=== PATIENT | female | born 1975 | race Caucasian/White ===

== ENCOUNTER → 2017-11-25 14:52 | Outpatient (CLI) | payer BC, SELFPAY ==
--- NOTE | 2017-11-25 14:55 | VDLE_ITS ---
Reason For Study: LEG PAIN RIGHT LEFT CFV is compressible, spontaneous, phasic, GSV is normal. competent and demonstrates normal CFV is compressible, spontaneous, phasic, augmentation. competent, and demonstrates normal Procedure augmentation. Exam performed in department. FV is compressible, spontaneous, phasic, A preliminary report was called and/or faxed competent and demonstrates normal to Dr. Layne. augmentation. POP V is compressible, spontaneous, phasic, competent and demonstrates normal augmentation. T/P Trunk is compressible. PTV is compressible. LT PerV is compressible. Interpretation Summary There is no evidence of left lower extremity deep vein thrombosis. Left greater saphenous vein appears patent and compressible segmentally. Normal flow patterns right common femoral vein. Ordering Physician: Gray Layne Performed By: Tonya Chiang RVT
== END ==
PROVIDERS: Family Provider Family Medicine; PCP Family Medicine; Visit Provider Family Medicine
DX: R60.0 Localized edema (principal); M79.605 Pain in left leg
CPT/HCPCS: 93971

== ENCOUNTER → 2018-06-28 16:59 | Outpatient (CLI) | payer BC, SELFPAY ==
[2017-04-27 18:25] VITALS: BMI 44.9
[2018-07-02 10:21] LABS: HPV Reflexed? NOT INDICATED
--- OUTSIDE RECORDS SUMMARY | 2018-08-24 03:09 | XMS RPT_ITS ---
:1975 Author Organization OHIP Care Team Providers Name Role Phone Bryon Trinh Attending Unavailable Gray Rendon Primary Care Unavailable Bryon Trinh Attending Unavailable Justice, Gray Primary Care Unavailable Justice, Gray Attending Unavailable Justice, Gray Primary Care Unavailable Artur Edwards Attending Unavailable Justice, Gray Referring Unavailable Bryon Trinh Attending Unavailable JENSEN, MICHELLE Attending Unavailable JUSTICE, GRAY A Referring Unavailable JENSEN, MICHELLE Attending Unavailable JENSEN, MICHELLE Referring Unavailable MOUL, FLORENCIO E Attending Unavailable MOUL, FLORENCIO E Referring Unavailable MOUL, FLORENCIO E Attending Unavailable MOUL, FLORENCIO E Referring Unavailable JUSTICE, GRAY A Referring Unavailable JUSTICE, GRAY A Attending Unavailable JUSTICE, GRAY A Referring Unavailable JUSTICE, GRAY A Attending Unavailable JUSTICE, GRAY A Referring Unavailable JUSTICE, GRAY A Referring Unavailable CARLOS LINDSAY (PA) Referring Unavailable LETI OLVERA (PA) Attending Unavailable LETI OLVERA (PA) Referring Unavailable JUSTICE, GRAY A Referring Unavailable LETI OLVERA (PA) Attending Unavailable JUSTICE, GRAY A Referring Unavailable JUSTICE, GRAY A Attending Unavailable JUSTICE, GRAY A Referring Unavailable JENSEN, MICHELLE Referring Unavailable ANIKET ECHEVARRIA (PA) Attending Unavailable LETI OLVERA (PA) Attending Unavailable MARINA REICH (RETAIL BUSINESS ANALYST) Attending Unavailable MOUL, FLORENCIO E Attending Unavailable MOUL, FLORENCIO E Referring Unavailable JUSTICE, GRAY A Attending Unavailable JUSTICE, GRAY A Referring Unavailable Justice, Gray A Primary Care Unavailable JENSEN, MICHELLE Attending Unavailable JENSEN, MICHELLE Referring Unavailable Justice, Gray A Referring Unavailable Justice, Gray A Primary Care Unavailable JENSEN, MICHELLE Attending Unavailable PROBLEMS PROBLEMS DATE TYPE CONDITION / CODE ATTENDING STATUS SOURCE 06/28/2018 Unknown Z12.4 - Encounter Bryon Trinh for screening for Community malignant neoplasm [facility] / Repository Z12.4(ICD-10) 04/27/2018 Active Chronic sinusitis, ANIKET ECHEVARRIA Active [facility] unspecified / ([place] J32.9(ICD-10) [place] Repository 04/27/2018 Active Bronchitis, not ANIKET ECHEVARRIA Active [facility] specified as acute ([place] Main or chronic / [place] J40(ICD-10) Repository 03/09/2018 Active Fibromyalgia / Masoud JENSEN M79.7(ICD-10) [facility] Clinic Other [place] Repository 03/09/2018 Admitting Unknown / JENSEN, Active [facility] diagnosis UNK(Unknown) [facility] Repository 02/17/2018 Active Unknown / NA Active [facility] UNK(Unknown) [facility] Main [place] Repository 11/28/2017 Active Other specified JENSEN, Active [facility] abnormal [facility] Other immunological [place] findings in serum / Repository R76.8(ICD-10) 02/16/2018 Active Pain in unspecified JENSEN, Active [facility] joint / [facility] Other M25.50(ICD-10) [place] Repository 02/16/2018 Active Other malaise / JENSEN, Active [facility] R53.81(ICD-10) [facility] Other [place] Repository 02/16/2018 Active Other fatigue / JENSEN, Active [facility] R53.83(ICD-10) [facility] Other [place] Repository 02/10/2018 Active Pain in left leg / NA Active [facility] M79.605(ICD-10) Clinic Main [place] Repository 11/30/2017 Active Localized edema / NA Active [facility] R60.0(ICD-10) Clinic Main [place] Repository 11/30/2017 Active Other forms of NA Active [facility] dyspnea / Clinic Main R06.09(ICD-10) [place] Repository 11/28/2017 Active Nausea with NA Active [facility] vomiting, [facility] unspecified / [place] R11.2(ICD-10) Repository 11/28/2017 Active Diarrhea, NA Active [facility] unspecified / Clinic Main R19.7(ICD-10) [place] Repository 12/19/2017 Unknown M79.662 - Pain in Artur Edwards Active [facility] left lower leg / Community M79.662(ICD-10) Hospital Repository 05/18/2017 Active Hyperlipidemia, NA Active [facility] unspecified / Clinic Main E78.5(ICD-10) [place] Repository 08/04/2016 Active Hypothyroidism, NA Active [facility] unspecified / Clinic Main E03.9(ICD-10) [place] Repository 03/01/2016 Active Vitamin D NA Active [facility] deficiency, Clinic Main unspecified / [place] E55.9(ICD-10) Repository 07/27/2017 Unknown Z12.31 - Encounter Bryon Trinh Active [facility] for screening Community mammogram for [facility] malignant neoplasm Repository of breast / Z12.31(ICD-10) PROCEDURES PROCEDURES No Procedure Records FoundRESULTS RESULTS PAP IG W/REFLEX HR Collected: 06/28/2018 Status: F Source: [facility] HPV APTIMA 2:30 PM [facility] REPOSITORY Order Comment: CYTOLOGY INFORMATION: - CLINICAL INFORMATION: - DATE LMP/MENOPAUSE: ABLATION LMP - COLLECTION VIAL: Thin Prep Vial - LATIN PROFESSOR SOURCE: CERVICAL/ENDOCERVICAL - COLLECTION TECHNIQUE: BRUSH/SPATULA Specimen Comment: [id number] Specimen Comment: Source.............Cervix;Endocervix Specimen Comment: Dates / Results....ABLATION Specimen Comment: No. of containers..01 ThinPrep Vial TYPE CODE TESTS RESULT OUT OF RANGE REFERENCE UNITS LAB L7400.0800 . Normal DIAGN Comment Result Comment: NEGATIVE FOR INTRAEPITHELIAL LESION AND MALIGNANCY. LAB L7400.0900 . Normal ADEQ Comment Result Comment: Satisfactory for evaluation. Endocervical and/or squamous metaplastic cells (endocervical component) are present. LAB L7400.1400 . Normal PERFORM Comment Result Comment: Kasey Elizabeth, Credit Support Specialist (ASCP) LAB L7400.2575 . Normal TEST METHOD Comment Result Comment: This liquid based ThinPrep(R) pap test was screened with the use of an image guided system. LAB L7400.2600 . Normal . COMM LAB L7400.2700 . Normal PAPSMR Comment Result Comment: The Pap smear is a screening test designed to aid in the detection of premalignant and malignant conditions of the uterine cervix. It is not a diagnostic procedure and should not be used as the sole means of detecting cervical cancer. Both false-positive and false-negative reports do occur. LAB L7400.2800 . Normal HPV RFLX Comment Result Comment: The HPV DNA reflex criteria were not met with this specimen result therefore, no HPV testing was performed. Performed at: - [facility] [id number] Sonography Technician: Elsie Newman MD, Phone: [phone] Performed By: #### L7400.0357 #### [facility] (refer to report for specific site) refer to report for address and phone number PROGRESS Observed: 05/24/2018 Status: COMPLETED Source: [facility] 6:31 PM [facility] REPOSITORY HNO ID: [id number] Author: Gray Rendon Service: (none) Author Type: Physician Type: Progress Notes Filed: 05/24/2018 11:21 PM Note Text: Chief Complaint Patient presents with: Imm/Inj: Flu Vaccine HPI Amelia Plata is a 42 year old female who presents here today for WAE and routine. Patient with Hx of hypothyroidism, hyperlipidemia, migraines, fibro, depression, anxiety, DYLON as well as those reviewed and addressed below. Had been doing ok up until the beginning of this week when she developed a migraine that has not resolved completely yet. Was sick a few weeks ago. Nose is still congested. Still producing colored nasal drainage. Maxillary sinuses have been tender. Ears have been popping. No fevers or chills. No dental pain. Has post nasal drainage but no sore throat. Past medical history, appointments, medications, allergies reviewed. Previous Medical History PAST MEDICAL HISTORY Diagnosis Date - Allergic rhinitis due to allergen 10/20/2012 Immunotherapy weekly, Dr. Leonard. - ANXIETY STATE NOS 12/29/2006 - CLASS MIGRAIN W/O MENTN INTRACTABLE 06/09/2007 - DEPRESSIVE DISORDER NEC 12/29/2006 - DJD (degenerative joint disease) of knee 03/30/2008 - Fibromyalgia 03/09/2018 - Hidradenitis suppurativa 03/21/2014 - HYPERLIPIDEMIA NEC/NOS 12/29/2006 - HYPOGLYCEMIA NOS 12/29/2006 - Hypothyroidism 11/16/2011 Abnormal TSH - Obesity 12/29/2006 - DYLON on CPAP 04/28/2009 DME [facility] - Other specified disease of hair and hair follicles - Plantar fascial fibromatosis - Ptosis 07/11/2009 - Vitamin D deficiency 09/09/2010 Previous Surgical History PAST SURGICAL HISTORY Procedure Laterality Date - 2D ECHO (EXEP) 11/30/2017 EF=64%, no valve issues - EGD W/O OR W/BRUSH/WASH 08/26/2016 EGD - ENDOMETRIAL ABLATION WITH US GUIDANCE November 2011 - PAST SURGICAL HISTORY OF 05/2003 right plantar fasciotomy - PAST SURGICAL HISTORY OF wisdom tooth extraction - S ESSURE DEVICE [id number] November 2011 Family History FAMILY HISTORY Problem Relation Age of Onset - Osteoporosis Paternal Grandmother - Hypertension Paternal Grandmother - Alcohol/Drug Mother - other (Fibromyalgia) Mother - Arthritis Father - Hypertension Father - Coronary Artery Disease Maternal Grandfather - Diabetes Maternal Grandmother - Cancer Maternal Grandmother skin - other (Fibromyalgia) Maternal Grandmother - No Known Problems Sister - No Known Problems Brother Patient Allergies ALLERGIES Allergen Reactions - Nabumegiuliae Hives hives - Allergies-Environme* Other: See Comments Sneezing, rhinorrhea - Imitrex [Sumatripta* Other: See Comments Neck pain - Maxalt [Rizatriptan* Other: See Comments Neck pain and nausea - Prednisone Other: See Comments Abdominal pain and diarrhea Current Medications Current Outpatient Prescriptions on File Prior to Visit: gabapentin (NEURONTIN) 300 mg capsule Take 1 capsule by mouth four times daily for 90 days. Take in preparation for evening RLS symptoms. rOPINIRole (REQUIP) 2 mg tablet Take 2 tablets by mouth daily at bedtime. Try to take less as instructed, to taper down to lower doses over long periods of time. fluticasone (FLONASE) 50 mcg/actuation nasal spray Use 2 Sprays in each nostril once daily. Rinse mouth after use. Omeprazole 40 mg capsule TAKE 1 CAPSULE BY MOUTH ONCE DAILY. ranitidine (ZANTAC) 150 mg tablet TAKE 1 TABLET BY MOUTH TWICE A DAY propranolol (INDERAL) 10 mg tablet TAKE 1 TABLET BY MOUTH ONCE DAILY. hydroCHLOROthiazide (HYDRODIURIL, ESIDRIX) 25 mg tablet Take 1 tablet by mouth once daily. citalopram (CELEXA) 40 mg tablet Take 1 tablet by mouth once daily. ondansetron orally disintegrating (ZOFRAN ODT) 4 mg disintegrating tablet Take 1 tablet by mouth every 8 hours as needed. levothyroxine (SYNTHROID) 25 mcg tablet Take 1 tablet by mouth daily before breakfast. CPAP 1 Device by MISCELLANEOUS route daily at bedtime. 6-16 cm H2O, new mask suitable per pt preference. New supplies, humidity, filters, tubing, head gear, chin strap. Lifetime supplies G47.33 obstructive sleep apnea. Please fax day download to [phone]. topiramate (TOPAMAX) 100 mg tablet Take 1 tablet by mouth twice daily. busPIRone (BUSPAR) 15 mg tablet One Tablet twice daily CPAP AutoPAP 6-16 cmH2O, suitable mask, humidity, filters. Lifetime supplies. Dx: G47.33 ergotamine-caffeine (CAFERGOT) 1-100 mg per tablet Two tablets at onset of attack; then 1 tablet every 30 minutes as needed; maximum: 6 tablets per 24 hrs do not exceed 10 tablets/week cetirizine (ZYRTEC) 10 mg tablet Take 1 tablet by mouth four times daily. As instructed by dispensing operator Dr. Ross ketorolac (TORADOL) 10 mg tablet Take 1 tablet by mouth every 6 hours as needed. To abort migraine. diphenhydrAMINE (BENADRYL) 25 mg capsule Take 2 capsules by mouth three times daily as needed. To abort migraine EPINEPHrine (EPIPEN) 0.3 mg/0.3 mL (1:1,000) atIn Cholecalciferol, Vitamin D3, 5,000 unit ORAL Cap Take 5,000 Units by mouth once daily. benzonatate (TESSALON PERLE) 100 mg capsule Take 2 capsules by mouth three times daily as needed. No current facility-administered medications on file prior to visit. 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 past cigarette use- on and off for a few years Alcohol use: No Comment: rarely Drug use: No Sexual activity: Yes Partners with: Male Review of Symptoms REVIEW OF SYSTEMS GENERAL: No weight loss, malaise or fevers HEENT: SEE HPI NECK: Negative for lumps, goiter, pain and significant neck swelling RESPIRATORY: Negative for hemoptysis, wheezing, COPD, dyspnea or shortness of breath. Has a cough at times occasionally productive of colored sputum. CARDIOVASCULAR: Negative for chest pain, leg swelling, hypertension, CHF or palpitations GI: No vomiting, or diarrhea and No heartburn or reflux symptoms. occasional nausea : No history of dysuria, frequency or blood. MUSCULOSKELETAL: Negative for new or changes in typical joint pain, back pain or muscle pain SKIN: Negative for lesions, rash, and itching PSYCH: Negative for sleep disturbance, mood disorder and recent psychosocial stressors. Feels she is doing well with current meds. Wearing CPAP and feels she is benefiting from use. HEMATOLOGY/LYMPHOLOGY: Negative for prolonged bleeding, bruising easily or swollen nodes ENDOCRINE: Negative for cold or heat intolerance, polyuria, polydipsia and goiter NEURO: No history of headaches, syncope, paralysis, seizures or tremors EXAM: BP 144/90 Pulse 78 Resp 16 Ht 170.2 cm (5' 7) Wt 130.6 kg (288 lb) BMI 45.11 kg/m? Last 5 Encounter BP Readings: Date: BP: 05/24/2018 144/90 05/03/2018 126/79 05/01/2018 122/80 04/28/2018 123/82 04/27/2018 126/84 General Appearance: Well appearing, alert, in no acute distress, well-hydrated, well nourished. and Morbidly obese. Skin: Skin color, texture, turgor normal, no suspicious rashes or lesions. Head: Normocephalic, no masses, lesions, tenderness or abnormalities. Eyes: Anicteric sclera. Pupils are equally round and reactive to light. Extraocular movements are intact. . Ears: External ears normal, canals clear. Nose/Sinuses: Nares normal, septum midline, mucosa normal, no drainage, Has maxillary sinus tenderness. Oropharynx: Lips, mucosa, and tongue normal, teeth and gums normal, oropharynx normal. Neck: Supple, no adenopathy; thyroid symmetric, normal size, no bruits. Lungs: Lungs clear to auscultation. No wheezing, rhonchi, rales. Heart: RRR without murmur, gallop, or rubs. No ectopy. Abdomen: Normal abdominal exam, Abdomen soft, non-tender. Bowel sounds normal. No masses, organomegaly. Extremities: No deformities, edema, skin discoloration . Musculoskeletal: Muscular strength intact, No joint swelling, deformity, or tenderness. Peripheral Pulses: Normal. Neurologic: Gait normal. Sensation to light touch and crainal nerves 2-12 intact.. Health Maintenance List ONE PNEUMOVAX PRIOR TO AGE 65 due on 11/20/1995 PAP EVERY 5 YEARS due on 11/29/2017 HPV EVERY 5 YEARS due on 11/29/2017 INFLUENZA(1) due on 04/01/2018 MAMMOGRAM due on 08/02/2018 ANNUAL PCP TEAM CHRONIC DISEASE VISIT due on 05/01/2019 DTAP,TDAP,TD(3 - Td) due on 04/27/2027 Data reviewed A/P ASSESSMENT/PLAN: 1. Well adult exam - ICD9: V70.0, ICD10: Z00.00 (primary diagnosis) - Encouraged monthly Breast Self Exam - Follow up for annual exam in one year. 2. Acute non-recurrent maxillary sinusitis - ICD9: 461.0, ICD10: J01.00 - Will begin treatment with Bactrim DS BID 10 days 3. Dyslipidemia - ICD9: 272.4, ICD10: E78.5 - to be determined upon return of lab results - Encouraged following a low fat, low cholesterol diet. - Discussed the benefits of regular aerobic exercise and weight loss. - Encouraged following a low carbohydrate, healthy oil intake diet. - Continue current therapy. 4. Migraine with aura and without status migrainosus, not intractable - ICD9: 346.00, ICD10: G43.109 - Suspect her current continued migraine is related to her sinus infection which will be treated as above. - Cont propranolol and TOPIRAMATE 100 MG TABLET 5. Acquired hypothyroidism - ICD9: 244.9, ICD10: E03.9 - Instructed patient on importance of taking on an empty stomach either first thing in the morning or at bedtime. - continue current dose of Synthroid 0.025 mg 6. Depressive disorder - ICD9: 311, ICD10: F32.9 - Clinically stable with current Tx. 7. Anxiety state - ICD9: 300.00, ICD10: F41.1 - As per #6 8. Obesity, Class III, BMI 40-49.9 (morbid obesity) (HCC) - ICD9: 278.01, ICD10: E66.01 - Patient to work on diet and exercise 9. Vitamin D deficiency - ICD9: 268.9, ICD10: E55.9 - Controlled with replacement 10. Fibromyalgia - ICD9: 729.1, ICD10: M79.7 - clinically stable 11. Tobacco use disorder - ICD9: 305.1, ICD10: F17.200 - Cessation encouraged. - Counseling was given focusing on the harmful effects of this addiction especially given the patient's medical condition(s) which will be worsened because of the chemicals in tobacco. 12. Elevated blood pressure reading without diagnosis of hypertension - ICD9: 796.2, ICD10: R03.0 - Feel this elevation is secondary to her Migraine, Will have return in 2-3 weeks for NV BP check 13. DYLON on CPAP - ICD9: 327.23, V46.8, ICD10: G47.33, Z99.89 - Cont CPAP and f/u with sleep med. 14. Need for vaccination - ICD9: V05.9, ICD10: Z23 - INFLUENZA VACCINE QUADRIVALENT AGE 3 YRS PLUS + IM given Signed Prescriptions Disp Refills topiramate (TOPAMAX) 100 mg tablet 180 tablet 1 Sig: Take 1 tablet by mouth twice daily. BOB: No propranolol (INDERAL) 10 mg tablet 90 tablet 1 Sig: Take 1 tablet by mouth once daily. BOB: No ondansetron orally disintegrating (ZOFRAN ODT) 4 mg disintegrating tablet 12 tablet 3 Sig: Take 1 tablet by mouth every 8 hours as needed. BOB: No levothyroxine (SYNTHROID) 25 mcg tablet 30 tablet 5 Sig: Take 1 tablet by mouth daily before breakfast. BOB: No busPIRone (BUSPAR) 15 mg tablet 180 tablet 1 Sig: One Tablet twice daily BOB: No citalopram (CELEXA) 40 mg tablet 90 tablet 1 Sig: Take 1 tablet by mouth once daily. BOB: No ketorolac (TORADOL) 10 mg tablet 20 tablet 0 Sig: Take 1 tablet by mouth every 6 hours as needed. To abort migraine. BOB: No sulfamethoxazole-trimethoprim (BACTRIM DS) 800-160 mg per tablet 20 tablet 0 Sig: Take 1 tablet by mouth twice daily for 10 days. F/u 6 months routine sooner if issues. Gray Rendon MD CNOV Observed: 05/24/2018 Status: COMPLETED Source: [facility] 6:20 PM [facility] REPOSITORY Office Visit (FAMPWS) AMELIA PLATA ([id number]) 1975 F Date Time Provider Department 05/24/18 6:20 PM GRAY RENDONWS During your visit today, we recorded the following information about you: Pulse Respiration Blood pressure Weight 78/minute 16/minute 144/90 130.6 kg Height 1.702 m Radha Villagomez Ma 05/24/2018 11:21 PM Signed 42 year old female here for INACTIVATED INFLUENZA VACCINE. [id number] Season Patient is identified by name and date of : Yes [] CONTRAINDICATIONS color enhanced section Age less than 6 months? No Allergy to eggs, chicken, chicken feathers, or chicken dander? No Allergy to thimerosal (a preservative) or formaldehyde, gelatin? No History of severe reaction to any vaccine component or a previous dose of influenza vaccination? No History of Guillain-Pace Syndrome within 6 weeks after a previous influenza vaccine? No Patient is not moderately or severely ill? No Current temperature greater or equal to 100.4F? No History of Bone Marrow Transplant prior 6 months or solid organ transplant in the past 3 months ? No History of fainting after a prior injection or medical procedure? No- ? If patient has fainted in the past, the CDC recommends sitting or lying down for 15 minutes after the vaccination. [] VERIFICATION color enhanced section Was the answer Yes for any of the above contraindications? No contraindications present. Acceptable to proceed with vaccine. Patient/guardian agrees the above answers are true to the best of their knowledge? Yes Flu vaccine information sheet given? Yes See immunization activity in [facility] for details of immunizations adminstered today. Patient age: [age] year old For The 9524-4046 Flu Season 6-35 months old: Fluzone 0.25 ml - IM (Preservative Free) 3 years of age: Fluzone 0.5 ml - IM (Preservative Free) 3 years and older: Fluzone 0.5 ml- IM-(with Preservatives) 65+ years old: 2-49 years old Fluzone High-Dose 0.5 ml - IM (Preservative Free) FLUMIST- intranasal REMEMBER: If patient is less than 9 years of age and this is the first vaccine of Influenza to be received in any flu season, they should receive a second dose in one months time. Gray Rendon MD 05/24/2018 11:21 PM Signed Chief Complaint Patient presents with: Imm/Inj: Flu Vaccine HPI Amelia Plata is a 42 year old female who presents here today for WAE and routine. Patient with Hx of hypothyroidism, hyperlipidemia, migraines, fibro, depression, anxiety, DYLON as well as those reviewed and addressed below. Had been doing ok up until the beginning of this week when she developed a migraine that has not resolved completely yet. Was sick a few weeks ago. Nose is still congested. Still producing colored nasal drainage. Maxillary sinuses have been tender. Ears have been popping. No fevers or chills. No dental pain. Has post nasal drainage but no sore throat. Past medical history, appointments, medications, allergies reviewed. Previous Medical History PAST MEDICAL HISTORY Diagnosis Date - Allergic rhinitis due to allergen 10/20/2012 Immunotherapy weekly, Dr. Leonard. - ANXIETY STATE NOS 12/29/2006 - CLASS MIGRAIN W/O MENTN INTRACTABLE 06/09/2007 - DEPRESSIVE DISORDER NEC 12/29/2006 - DJD (degenerative joint disease) of knee 03/30/2008 - Fibromyalgia 03/09/2018 - Hidradenitis suppurativa 03/21/2014 - HYPERLIPIDEMIA NEC/NOS 12/29/2006 - HYPOGLYCEMIA NOS 12/29/2006 - Hypothyroidism 11/16/2011 Abnormal TSH - Obesity 12/29/2006 - DYLON on CPAP 04/28/2009 DME [facility] [place] - Other specified disease of hair and hair follicles - Plantar fascial fibromatosis - Ptosis 07/11/2009 - Vitamin D deficiency 09/09/2010 Previous Surgical History PAST SURGICAL HISTORY Procedure Laterality Date - 2D ECHO (EXEP) 11/30/2017 EF=64%, no valve issues - EGD W/O OR W/BRUSH/WASH 08/26/2016 EGD - ENDOMETRIAL ABLATION WITH US GUIDANCE November 2011 - PAST SURGICAL HISTORY OF 05/2003 right plantar fasciotomy - PAST SURGICAL HISTORY OF wisdom tooth extraction - S ESSURE DEVICE [id number] November 2011 Family History FAMILY HISTORY Problem Relation Age of Onset - Osteoporosis Paternal Grandmother - Hypertension Paternal Grandmother - Alcohol/Drug Mother - other (Fibromyalgia) Mother - Arthritis Father - Hypertension Father - Coronary Artery Disease Maternal Grandfather - Diabetes Maternal Grandmother - Cancer Maternal Grandmother skin - other (Fibromyalgia) Maternal Grandmother - No Known Problems Sister - No Known Problems Brother Patient Allergies ALLERGIES Allergen Reactions - Nabumetone Hives hives - Allergies-Environme* Other: See Comments Sneezing, rhinorrhea - Imitrex [Sumatripta* Other: See Comments Neck pain - Maxalt [Rizatriptan* Other: See Comments Neck pain and nausea - Prednisone Other: See Comments Abdominal pain and diarrhea Current Medications Current Outpatient Prescriptions on File Prior to Visit: gabapentin (NEURONTIN) 300 mg capsule Take 1 capsule by mouth four times daily for 90 days. Take in preparation for evening RLS symptoms. rOPINIRole (REQUIP) 2 mg tablet Take 2 tablets by mouth daily at bedtime. Try to take less as instructed, to taper down to lower doses over long periods of time. fluticasone (FLONASE) 50 mcg/actuation nasal spray Use 2 Sprays in each nostril once daily. Rinse mouth after use. Omeprazole 40 mg capsule TAKE 1 CAPSULE BY MOUTH ONCE DAILY. ranitidine (ZANTAC) 150 mg tablet TAKE 1 TABLET BY MOUTH TWICE A DAY propranolol (INDERAL) 10 mg tablet TAKE 1 TABLET BY MOUTH ONCE DAILY. hydroCHLOROthiazide (HYDRODIURIL, ESIDRIX) 25 mg tablet Take 1 tablet by mouth once daily. citalopram (CELEXA) 40 mg tablet Take 1 tablet by mouth once daily. ondansetron orally disintegrating (ZOFRAN ODT) 4 mg disintegrating tablet Take 1 tablet by mouth every 8 hours as needed. levothyroxine (SYNTHROID) 25 mcg tablet Take 1 tablet by mouth daily before breakfast. CPAP 1 Device by MISCELLANEOUS route daily at bedtime. 6-16 cm H2O, new mask suitable per pt preference. New supplies, humidity, filters, tubing, head gear, chin strap. Lifetime supplies G47.33 obstructive sleep apnea. Please fax day download to [phone]. topiramate (TOPAMAX) 100 mg tablet Take 1 tablet by mouth twice daily. busPIRone (BUSPAR) 15 mg tablet One Tablet twice daily CPAP AutoPAP 6-16 cmH2O, suitable mask, humidity, filters. Lifetime supplies. Dx: G47.33 ergotamine-caffeine (CAFERGOT) 1-100 mg per tablet Two tablets at onset of attack; then 1 tablet every 30 minutes as needed; maximum: 6 tablets per 24 hrs do not exceed 10 tablets/week cetirizine (ZYRTEC) 10 mg tablet Take 1 tablet by mouth four times daily. As instructed by dispensing operator Dr. Ross ketorolac (TORADOL) 10 mg tablet Take 1 tablet by mouth every 6 hours as needed. To abort migraine. diphenhydrAMINE (BENADRYL) 25 mg capsule Take 2 capsules by mouth three times daily as needed. To abort migraine EPINEPHrine (EPIPEN) 0.3 mg/0.3 mL (1:1,000) atIn Cholecalciferol, Vitamin D3, 5,000 unit ORAL Cap Take 5,000 Units by mouth once daily. benzonatate (TESSALON PERLE) 100 mg capsule Take 2 capsules by mouth three times daily as needed. No current facility-administered medications on file prior to visit. 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 past cigarette use- on and off for a few years Alcohol use: No Comment: rarely Drug use: No Sexual activity: Yes Partners with: Male Review of Symptoms REVIEW OF SYSTEMS GENERAL: No weight loss, malaise or fevers HEENT: SEE HPI NECK: Negative for lumps, goiter, pain and significant neck swelling RESPIRATORY: Negative for hemoptysis, wheezing, COPD, dyspnea or shortness of breath. Has a cough at times occasionally productive of colored sputum. CARDIOVASCULAR: Negative for chest pain, leg swelling, hypertension, CHF or palpitations GI: No vomiting, or diarrhea and No heartburn or reflux symptoms. occasional nausea : No history of dysuria, frequency or blood. MUSCULOSKELETAL: Negative for new or changes in typical joint pain, back pain or muscle pain SKIN: Negative for lesions, rash, and itching PSYCH: Negative for sleep disturbance, mood disorder and recent psychosocial stressors. Feels she is doing well with current meds. Wearing CPAP and feels she is benefiting from use. HEMATOLOGY/LYMPHOLOGY: Negative for prolonged bleeding, bruising easily or swollen nodes ENDOCRINE: Negative for cold or heat intolerance, polyuria, polydipsia and goiter NEURO: No history of headaches, syncope, paralysis, seizures or tremors EXAM: BP 144/90 Pulse 78 Resp 16 Ht 170.2 cm (5' 7) Wt 130.6 kg (288 lb) BMI 45.11 kg/m? Last 5 Encounter BP Readings: Date: BP: 05/24/2018 144/90 05/03/2018 126/79 05/01/2018 122/80 04/28/2018 123/82 04/27/2018 126/84 General Appearance: Well appearing, alert, in no acute distress, well-hydrated, well nourished. and Morbidly obese. Skin: Skin color, texture, turgor normal, no suspicious rashes or lesions. Head: Normocephalic, no masses, lesions, tenderness or abnormalities. Eyes: Anicteric sclera. Pupils are equally round and reactive to light. Extraocular movements are intact. . Ears: External ears normal, canals clear. Nose/Sinuses: Nares normal, septum midline, mucosa normal, no drainage, Has maxillary sinus tenderness. Oropharynx: Lips, mucosa, and tongue normal, teeth and gums normal, oropharynx normal. Neck: Supple, no adenopathy; thyroid symmetric, normal size, no bruits. Lungs: Lungs clear to auscultation. No wheezing, rhonchi, rales. Heart: RRR without murmur, gallop, or rubs. No ectopy. Abdomen: Normal abdominal exam, Abdomen soft, non-tender. Bowel sounds normal. No masses, organomegaly. Extremities: No deformities, edema, skin discoloration . Musculoskeletal: Muscular strength intact, No joint swelling, deformity, or tenderness. Peripheral Pulses: Normal. Neurologic: Gait normal. Sensation to light touch and crainal nerves 2-12 intact.. Health Maintenance List ONE PNEUMOVAX PRIOR TO AGE 65 due on 11/20/1995 PAP EVERY 5 YEARS due on 11/29/2017 HPV EVERY 5 YEARS due on 11/29/2017 INFLUENZA(1) due on 04/01/2018 MAMMOGRAM due on 08/02/2018 ANNUAL PCP TEAM CHRONIC DISEASE VISIT due on 05/01/2019 DTAP,TDAP,TD(3 - Td) due on 04/27/2027 Data reviewed A/P ASSESSMENT/PLAN: 1. Well adult exam - ICD9: V70.0, ICD10: Z00.00 (primary diagnosis) - Encouraged monthly Breast Self Exam - Follow up for annual exam in one year. 2. Acute non-recurrent maxillary sinusitis - ICD9: 461.0, ICD10: J01.00 - Will begin treatment with Bactrim DS BID 10 days 3. Dyslipidemia - ICD9: 272.4, ICD10: E78.5 - to be determined upon return of lab results - Encouraged following a low fat, low cholesterol diet. - Discussed the benefits of regular aerobic exercise and weight loss. - Encouraged following a low carbohydrate, healthy oil intake diet. - Continue current therapy. 4. Migraine with aura and without status migrainosus, not intractable - ICD9: 346.00, ICD10: G43.109 - Suspect her current continued migraine is related to her sinus infection which will be treated as above. - Cont propranolol and TOPIRAMATE 100 MG TABLET 5. Acquired hypothyroidism - ICD9: 244.9, ICD10: E03.9 - Instructed patient on importance of taking on an empty stomach either first thing in the morning or at bedtime. - continue current dose of Synthroid 0.025 mg 6. Depressive disorder - ICD9: 311, ICD10: F32.9 - Clinically stable with current Tx. 7. Anxiety state - ICD9: 300.00, ICD10: F41.1 - As per #6 8. Obesity, Class III, BMI 40-49.9 (morbid obesity) (HCC) - ICD9: 278.01, ICD10: E66.01 - Patient to work on diet and exercise 9. Vitamin D deficiency - ICD9: 268.9, ICD10: E55.9 - Controlled with replacement 10. Fibromyalgia - ICD9: 729.1, ICD10: M79.7 - clinically stable 11. Tobacco use disorder - ICD9: 305.1, ICD10: F17.200 - Cessation encouraged. - Counseling was given focusing on the harmful effects of this addiction especially given the patient's medical condition(s) which will be worsened because of the chemicals in tobacco. 12. Elevated blood pressure reading without diagnosis of hypertension - ICD9: 796.2, ICD10: R03.0 - Feel this elevation is secondary to her Migraine, Will have return in 2-3 weeks for NV BP check 13. DYLON on CPAP - ICD9: 327.23, V46.8, ICD10: G47.33, Z99.89 - Cont CPAP and f/u with sleep med. 14. Need for vaccination - ICD9: V05.9, ICD10: Z23 - INFLUENZA VACCINE QUADRIVALENT AGE 3 YRS PLUS + IM given Signed Prescriptions Disp Refills topiramate (TOPAMAX) 100 mg tablet 180 tablet 1 Sig: Take 1 tablet by mouth twice daily. BOB: No propranolol (INDERAL) 10 mg tablet 90 tablet 1 Sig: Take 1 tablet by mouth once daily. BOB: No ondansetron orally disintegrating (ZOFRAN ODT) 4 mg disintegrating tablet 12 tablet 3 Sig: Take 1 tablet by mouth every 8 hours as needed. BOB: No levothyroxine (SYNTHROID) 25 mcg tablet 30 tablet 5 Sig: Take 1 tablet by mouth daily before breakfast. BOB: No busPIRone (BUSPAR) 15 mg tablet 180 tablet 1 Sig: One Tablet twice daily BOB: No citalopram (CELEXA) 40 mg tablet 90 tablet 1 Sig: Take 1 tablet by mouth once daily. BOB: No ketorolac (TORADOL) 10 mg tablet 20 tablet 0 Sig: Take 1 tablet by mouth every 6 hours as needed. To abort migraine. BOB: No sulfamethoxazole-trimethoprim (BACTRIM DS) 800-160 mg per tablet 20 tablet 0 Sig: Take 1 tablet by mouth twice daily for 10 days. F/u 6 months routine sooner if issues. MD Gray Pena MD 05/24/2018 6:53 PM Signed Please get fasting labs in the near future. Referring Provider: GRAY RENDON [[id number]] Allergies As of Date: 05/24/2018 Noted Allergy Reaction NABUMETONE 04/28/2009 4 - Hives Comments: hives allergies-environmental to grass,*11/28/2009 14 - Other: See Comments Comments: Sneezing, rhinorrhea IMITREX (SUMATRIPTAN SUCCINATE) 08/21/2009 14 - Other: See Comments Comments: Neck pain MAXALT (RIZATRIPTAN BENZOATE) 03/01/2016 14 - Other: See Comments Comments: Neck pain and nausea PREDNISONE 05/10/2016 14 - Other: See Comments Comments: Abdominal pain and diarrhea Date Reviewed: 05/24/2018 Reviewed by: Gray Rendon - Fully Assessed Reason for Visit: Imm/Inj [58] Cmt: Flu Vaccine Primary Visit Diagnosis:Well adult exam [Z00.00] Other Visit Diagnoses:Acute non-recurrent maxillary sinusitis [J01.00] Dyslipidemia [E78.5] Migraine with aura and without status migrainosus, not intractable [G43.109] Acquired hypothyroidism [E03.9] Depressive disorder [F32.9] Anxiety state [F41.1] Obesity, Class III, BMI 40-49.9 (morbid obesity) (HCC) [E66.01] Vitamin D deficiency [E55.9] Fibromyalgia [M79.7] Tobacco use disorder [F17.200] Elevated blood pressure reading without diagnosis of hypertension [R03.0] DYLON on CPAP [G47.33, Z99.89] Need for vaccination [Z23] Order(s):INFLUENZA VACCINE QUADRIVALENT AGE 3 YRS PLUS + IM [[id number]] Order #: [id number] topiramate (TOPAMAX) 100 mg tabletTake 1 tablet by mouth twice daily.Disp: 180 tabletRfl: 1 propranolol (INDERAL) 10 mg tabletTake 1 tablet by mouth once daily.Disp: 90 tabletRfl: 1 ondansetron orally disintegrating (ZOFRAN ODT) 4 mg disintegrating tabletTake 1 tablet by mouth every 8 hours as needed.Disp: 12 tabletRfl: 3 levothyroxine (SYNTHROID) 25 mcg tabletTake 1 tablet by mouth daily before breakfast.Disp: 30 tabletRfl: 5 busPIRone (BUSPAR) 15 mg tabletOne Tablet twice dailyDisp: 180 tabletRfl: 1 citalopram (CELEXA) 40 mg tabletTake 1 tablet by mouth once daily.Disp: 90 tabletRfl: 1 ketorolac (TORADOL) 10 mg tabletTake 1 tablet by mouth every 6 hours as needed. To abort migraine.Disp: 20 tabletRfl: 0 sulfamethoxazole-trimethoprim (BACTRIM DS) 800-160 mg per tabletTake 1 tablet by mouth twice daily for 10 days.Disp: 20 tabletRfl: 0 Prescriptions as of 05/24/2018 Sig: TOPIRAMATE 100 MG TABLET Take 1 tablet by mouth twice * PROPRANOLOL 10 MG TABLET Take 1 tablet by mouth once d* ONDANSETRON 4 MG DISINTEGRATI* Take 1 tablet by mouth every * LEVOTHYROXINE 25 MCG TABLET Take 1 tablet by mouth daily * BUSPIRONE 15 MG TABLET One Tablet twice daily CITALOPRAM 40 MG TABLET Take 1 tablet by mouth once d* KETOROLAC 10 MG TABLET Take 1 tablet by mouth every * GABAPENTIN 300 MG CAPSULE Take 1 capsule by mouth four * ROPINIROLE 2 MG TABLET Take 2 tablets by mouth daily* FLUTICASONE 50 MCG/ACTUATION * Use 2 Sprays in each nostril * OMEPRAZOLE 40 MG CAPSULE,SENA* TAKE 1 CAPSULE BY MOUTH ONCE * RANITIDINE 150 MG TABLET TAKE 1 TABLET BY MOUTH TWICE * HYDROCHLOROTHIAZIDE 25 MG TAB* Take 1 tablet by mouth once d* CPAP 1 Device by MISCELLANEOUS rou* CPAP AutoPAP 6-16 cmH2O, suitable * ERGOTAMINE 1 MG-CAFFEINE 100 * Two tablets at onset of attac* CETIRIZINE 10 MG TABLET Take 1 tablet by mouth four t* DIPHENHYDRAMINE 25 MG CAPSULE Take 2 capsules by mouth thre* EPINEPHRINE 0.3 MG/0.3 ML INJ* CHOLECALCIFEROL (VITAMIN D3) * Take 5,000 Units by mouth onc* SULFAMETHOXAZOLE 800 MG-TRIME* Take 1 tablet by mouth twice * BENZONATATE 100 MG CAPSULE Take 2 capsules by mouth thre* Problem List As Of Date 05/24/2018 Noted Resolved Obesity, Class III, BMI 40-49.9 (morbid obesity*INVALID FOR* Priority: B More... Hypoglycemia, unspecified [E16.2] INVALID FOR*10/03/2014 HYPERLIPIDEMIA NEC/NOS [E78.5] INVALID FOR*10/03/2014 Anxiety state [F41.1] INVALID FOR* Priority: A More... Depressive disorder [F32.9] INVALID FOR* Priority: A More... DJD (degenerative joint disease) of knee [M17.1*INVALID FOR*03/21/2014 DYLON on CPAP [G47.33, Z99.89] INVALID FOR* Priority: B More... Ptosis [H02.409] INVALID FOR*10/03/2014 More... Vitamin D deficiency [E55.9] INVALID FOR*10/03/2014 Allergic rhinitis due to allergen [J30.9] INVALID FOR* Priority: B More... Pain in joint, lower leg [M25.569] INVALID FOR*03/21/2014 Dermatographic urticaria [L50.3] INVALID FOR* Priority: D More... Hidradenitis suppurativa [L73.2] INVALID FOR* Priority: D Tobacco use disorder [F17.200] INVALID FOR* Priority: C More... Restless leg syndrome [G25.81] INVALID FOR* Priority: B More... Vitamin D deficiency [E55.9] INVALID FOR* Priority: B Migraine with aura and without status migrainos*INVALID FOR* Priority: A Acquired hypothyroidism [E03.9] INVALID FOR* Priority: A Encounter for screening for cardiovascular diso*INVALID FOR* Encounter for screening for diabetes mellitus [*INVALID FOR* Iron deficiency concern [E61.1] INVALID FOR*05/11/2017 Encounter for gynecological examination without*INVALID FOR* Priority: E More... Well adult exam [Z00.00] INVALID FOR* Priority: E More... Dyslipidemia [E78.5] INVALID FOR* Priority: A CRP elevated [R79.82] INVALID FOR* ORTEGA positive [R76.8] INVALID FOR* Arthralgia [M25.50] INVALID FOR* Gastritis without bleeding [K29.70] INVALID FOR* Fibromyalgia [M79.7] INVALID FOR* Priority: B Other instructions from your clinician: Please get fasting labs in the near future. Prescriptions ordered this encounter Disp Refills Start End TOPIRAMATE 100 MG TABLET 180 * 1 05/24/2018 Route: ORAL Sig: Take 1 tablet by mouth twice daily. PROPRANOLOL 10 MG TABLET 90 t* 1 05/24/2018 Route: ORAL Sig: Take 1 tablet by mouth once daily. ONDANSETRON 4 MG DISINTEGRATING TABL* 12 t* 3 05/24/2018 Route: ORAL Sig: Take 1 tablet by mouth every 8 hours as needed. LEVOTHYROXINE 25 MCG TABLET 30 t* 5 05/24/2018 Route: ORAL Sig: Take 1 tablet by mouth daily before breakfast. BUSPIRONE 15 MG TABLET 180 * 1 05/24/2018 Sig: One Tablet twice daily CITALOPRAM 40 MG TABLET 90 t* 1 05/24/2018 Route: ORAL Sig: Take 1 tablet by mouth once daily. KETOROLAC 10 MG TABLET 20 t* 0 05/24/2018 Route: ORAL Sig: Take 1 tablet by mouth every 6 hours as needed. To abort migraine. SULFAMETHOXAZOLE 800 MG-TRIMETHOPRIM* 20 t* 0 05/24/2018 06/03/2018 Cmt: Ok to give generic equivalent Route: ORAL Sig: Take 1 tablet by mouth twice daily for 10 days. Medications Discontinued During This Encounter topiramate (TOPAMAX) 100 mg tablet 180 * 3 05/18/2017 05/24/2018 Route: ORAL Sig: Take 1 tablet by mouth twice daily. Disc: Reason for discontinue is not on file. propranolol (INDERAL) 10 mg tablet 90 t* 1 02/17/2018 05/24/2018 Route: ORAL Sig: TAKE 1 TABLET BY MOUTH ONCE DAILY. Disc: Reason for discontinue is not on file. ondansetron orally disintegrating (Z* 12 t* 3 12/22/2017 05/24/2018 Route: ORAL Sig: Take 1 tablet by mouth every 8 hours as needed. Disc: Reason for discontinue is not on file. levothyroxine (SYNTHROID) 25 mcg tab* 30 t* 5 12/15/2017 05/24/2018 Route: ORAL Sig: Take 1 tablet by mouth daily before breakfast. Disc: Reason for discontinue is not on file. busPIRone (BUSPAR) 15 mg tablet 180 * 3 04/27/2017 05/24/2018 Sig: One Tablet twice daily Disc: Reason for discontinue is not on file. citalopram (CELEXA) 40 mg tablet 90 t* 1 01/03/2018 05/24/2018 Cmt: Prozac is being stopped Route: ORAL Sig: Take 1 tablet by mouth once daily. Disc: Reason for discontinue is not on file. ketorolac (TORADOL) 10 mg tablet 03/01/2016 05/24/2018 Class: Med Update Route: ORAL Sig: Take 1 tablet by mouth every 6 hours as needed. To abort migraine. Disc: Reason for discontinue is not on file. Disposition: Return in about 6 months (around 11/22/2018) for routine. Follow-up and Disposition History Recorded Encounter Status:Closed by GRAY RENDON on 05/24/18 PROGRESS Observed: 05/24/2018 Status: COMPLETED Source: [facility] 6:18 PM [facility] REPOSITORY HNO ID: [id number] Author: Radha Villagomez Ma Service: (none) Author Type: (none) Type: Progress Notes Filed: 05/24/2018 11:21 PM Note Text: 42 year old female here for INACTIVATED INFLUENZA VACCINE. 2513-0613 Season Patient is identified by name and date of : Yes [] CONTRAINDICATIONS color enhanced section Age less than 6 months? No Allergy to eggs, chicken, chicken feathers, or chicken dander? No Allergy to thimerosal (a preservative) or formaldehyde, gelatin? No History of severe reaction to any vaccine component or a previous dose of influenza vaccination? No History of Guillain-Pace Syndrome within 6 weeks after a previous influenza vaccine? No Patient is not moderately or severely ill? No Current temperature greater or equal to 100.4F? No History of Bone Marrow Transplant prior 6 months or solid organ transplant in the past 3 months ? No History of fainting after a prior injection or medical procedure? No- ? If patient has fainted in the past, the CDC recommends sitting or lying down for 15 minutes after the vaccination. [] VERIFICATION color enhanced section Was the answer Yes for any of the above contraindications? No contraindications present. Acceptable to proceed with vaccine. Patient/guardian agrees the above answers are true to the best of their knowledge? Yes Flu vaccine information sheet given? Yes See immunization activity in [facility] for details of immunizations adminstered today. Patient age: [age] year old For The 5837-9471 Flu Season 6-35 months old: Fluzone 0.25 ml - IM (Preservative Free) 3 years of age: Fluzone 0.5 ml - IM (Preservative Free) 3 years and older: Fluzone 0.5 ml- IM-(with Preservatives) 65+ years old: 2-49 years old Fluzone High-Dose 0.5 ml - IM (Preservative Free) FLUMIST- intranasal REMEMBER: If patient is less than 9 years of age and this is the first vaccine of Influenza to be received in any flu season, they should receive a second dose in one months time. PROGRESS Observed: 05/03/2018 Status: COMPLETED Source: [facility] 7:53 AM [facility] REPOSITORY HNO ID: [id number] Author: Florencio Sebastian Service: (none) Author Type: Physician Type: Progress Notes Filed: 05/03/2018 8:23 AM Note Text: [facility] Follow-up/Established patient visit Reason for Visit at [place] : followup on dylon and RLS Time Out: 8:25 Time In: 8:07 For this visit, a total rnzc-nm-wokn time with the patient comprised 18 minutes, with at least 50% of that time devoted to psyd-ae-wrmc counseling and coordination of care, with especial emphasis placed on answering the patient?s and/or family?s questions in a form that they can understand and appreciate. Relevant Medications, allergies, hx Reviewed: yes Date of last visit: 03/11/18 Insurance: [employer] Home Location: [place] Psychological/Psychiatric Developments: No new Medical and Neurological Developments: Back pain has flaired up; She take IBU; Sleeps in the recliner, and may or may not use the CPAP in the recliner. Saw the marketing officer a few months ago -- no major structural concerns. Insomnia: na RLS: most of the time ok; every once in a while a p[roblem but for the most part ok. ? Other: na SLEEP-WAKE SCHEDULE Bedtime: betw 9:30 and midnight, depending on how she feels, if a good or bad night with the legs. SLEEP LATENCY: not very long Wake after Sleep Onset through Wake time: from 5 to 6:30, with an alarm. On weekends, she wakes up maybe 7:30 Sleep Quality: ok. She naps when she can Average total sleep time (in a 24 hour period): at least 7 hours. Obstructive Sleep Apnea Issues: Most Recent Apnea-Hypopnea Index: 24.3 PAP Pressure Setting(s) 6-16 DME Company: [employer] Mask Type: Nasal Mask Issues: no Download Report: na Self-Reported Compliance: Not as good as before. Benefit: yes SLEEP FUNCTIONAL OUTCOME MEASURES PHQ-9 Depression Scale 4 ALLERGIES Allergen Reactions - Nabumetone Hives hives - Allergies-Environme* Other: See Comments Sneezing, rhinorrhea - Imitrex [Sumatripta* Other: See Comments Neck pain - Maxalt [Rizatriptan* Other: See Comments Neck pain and nausea - Prednisone Other: See Comments Abdominal pain and diarrhea CURRENT MEDICATIONS: fluticasone (FLONASE) 50 mcg/actuation nasal spray Use 2 Sprays in each nostril once daily. Rinse mouth after use. sulfacetamide (BLEPH-10) 10 % ophthalmic solution Use 2 Drops in eyes every 4 hours for 7 days. benzonatate (TESSALON PERLE) 100 mg capsule Take 2 capsules by mouth three times daily as needed. doxycycline monohydrate 100 mg tablet Take 1 tablet by mouth twice daily for 10 days. Omeprazole 40 mg capsule TAKE 1 CAPSULE BY MOUTH ONCE DAILY. ranitidine (ZANTAC) 150 mg tablet TAKE 1 TABLET BY MOUTH TWICE A DAY gabapentin (NEURONTIN) 300 mg capsule TAKE 1 CAPSULE AT 730 PM, TAKE 1 CAPSULE AT 930 PM, AND TAKE 1 CAPSULE AT BEDTIME propranolol (INDERAL) 10 mg tablet TAKE 1 TABLET BY MOUTH ONCE DAILY. hydroCHLOROthiazide (HYDRODIURIL, ESIDRIX) 25 mg tablet Take 1 tablet by mouth once daily. citalopram (CELEXA) 40 mg tablet Take 1 tablet by mouth once daily. ondansetron orally disintegrating (ZOFRAN ODT) 4 mg disintegrating tablet Take 1 tablet by mouth every 8 hours as needed. levothyroxine (SYNTHROID) 25 mcg tablet Take 1 tablet by mouth daily before breakfast. CPAP 1 Device by MISCELLANEOUS route daily at bedtime. 6-16 cm H2O, new mask suitable per pt preference. New supplies, humidity, filters, tubing, head gear, chin strap. Lifetime supplies G47.33 obstructive sleep apnea. Please fax day download to [phone]. topiramate (TOPAMAX) 100 mg tablet Take 1 tablet by mouth twice daily. rOPINIRole (REQUIP) 4 mg tablet Take 1 tablet by mouth daily at bedtime. busPIRone (BUSPAR) 15 mg tablet One Tablet twice daily CPAP AutoPAP 6-16 cmH2O, suitable mask, humidity, filters. Lifetime supplies. Dx: G47.33 ergotamine-caffeine (CAFERGOT) 1-100 mg per tablet Two tablets at onset of attack; then 1 tablet every 30 minutes as needed; maximum: 6 tablets per 24 hrs do not exceed 10 tablets/week cetirizine (ZYRTEC) 10 mg tablet Take 1 tablet by mouth four times daily. As instructed by dispensing operator Dr. Ross ketorolac (TORADOL) 10 mg tablet Take 1 tablet by mouth every 6 hours as needed. To abort migraine. diphenhydrAMINE (BENADRYL) 25 mg capsule Take 2 capsules by mouth three times daily as needed. To abort migraine EPINEPHrine (EPIPEN) 0.3 mg/0.3 mL (1:1,000) atIn Cholecalciferol, Vitamin D3, 5,000 unit ORAL Cap Take 5,000 Units by mouth once daily. Vital signs: BP 126/79 (BP Site: Left Arm, BP Position: Sitting, BP Cuff Size: Large Adult) Pulse 64 Resp 16 Wt 130.1 kg (286 lb 12.8 oz) BMI 44.92 kg/m? MENTAL STATUS General appearance: obese3 Grooming good Orientation: Ox3 Memory: Grossly intact Kinetics: slower Eye Contact: good Demeanor calm Speech: articulate Thought Stream logical Thought Content about issue Mood: overall euthymic Affect: euth Suicidal Ideation: no Homocidal Ideation: No Psychosis no Insight good Judgment good ENT : na Abdomen: obese Neuro: Gait and station normal, Strength grossly normal in all extremities. Coordination grossly intact. No tremors noted. Sleep Disorder Dx Impression: Obstructive sleep apnea - moderate, working on compliance if back is not bothering her Restless legs syndrome - See if we can get the requip dose moderated over tikme Other Conditioning Diagnoses: Migraine Fibromyalgia Case Formulation / [place] (may include pt's hopes, fears, expectations, concerns): Pt is doing fairly well, could have better cpap compliance, but has back issues and location issues wrt to the CPAP. RLS control satisfactory although still gets breakthrough. Over time need to work on getting the requip less to prevent augmentation. Actions taken: Motivational Interviewing aspects taken review PDMP Aspect: PDMP website checked and validated. All prescriptions have been APPROPRIATELY filled. No suspicious activity was identified. 05/03/2018 by Florencio Sebastian MD Change to requip 2 mg. 2 hs, but see if can do some nights with just 3 mg, while at same time enabling gpn to be increased by 300 mg. Encouraged CPAP compliance, even in recliner Plan: Continue to work on long-term change in RLS regimen to moderate risks of augmentation. Follow up 3 months. Indra or Anil. . Florencio Sebastian MD CNOV Observed: 05/03/2018 Status: COMPLETED Source: [facility] 7:40 AM [facility] REPOSITORY Office Visit ([place]) AMELIA PLATA ([id number]) 1975 F Date Time Provider Department 05/03/18 7:40 AM FLORENCIO SEBASTIAN During your visit today, we recorded the following information about you: Pulse Respiration Blood pressure Weight 64/minute 16/minute 126/79 130.1 kg Florencio Sebastian MD 05/03/2018 8:23 AM Signed [facility] Follow-up/Established patient visit Reason for Visit at [place] : followup on dylon and RLS Time Out: 8:25 Time In: 8:07 For this visit, a total pewa-ky-pcab time with the patient comprised 18 minutes, with at least 50% of that time devoted to [id number] counseling and coordination of care, with especial emphasis placed on answering the patient?s and/or family?s questions in a form that they can understand and appreciate. Relevant Medications, allergies, hx Reviewed: yes Date of last visit: 03/11/18 Insurance: [employer] Home Location: [place] Psychological/Psychiatric Developments: No new Medical and Neurological Developments: Back pain has flaired up; She take IBU; Sleeps in the recliner, and may or may not use the CPAP in the recliner. Saw the marketing officer a few months ago -- no major structural concerns. Insomnia: na RLS: most of the time ok; every once in a while a p[roblem but for the most part ok. ? Other: na SLEEP-WAKE SCHEDULE Bedtime: betw 9:30 and midnight, depending on how she feels, if a good or bad night with the legs. SLEEP LATENCY: not very long Wake after Sleep Onset through Wake time: from 5 to 6:30, with an alarm. On weekends, she wakes up maybe 7:30 Sleep Quality: ok. She naps when she can Average total sleep time (in a 24 hour period): at least 7 hours. Obstructive Sleep Apnea Issues: Most Recent Apnea-Hypopnea Index: 24.3 PAP Pressure Setting(s) 6-16 DME Company: [employer] Mask Type: Nasal Mask Issues: no Download Report: na Self-Reported Compliance: Not as good as before. Benefit: yes SLEEP FUNCTIONAL OUTCOME MEASURES PHQ-9 Depression Scale 4 ALLERGIES Allergen Reactions - Nabumetone Hives hives - Allergies-Environme* Other: See Comments Sneezing, rhinorrhea - Imitrex [Sumatripta* Other: See Comments Neck pain - Maxalt [Rizatriptan* Other: See Comments Neck pain and nausea - Prednisone Other: See Comments Abdominal pain and diarrhea CURRENT MEDICATIONS: fluticasone (FLONASE) 50 mcg/actuation nasal spray Use 2 Sprays in each nostril once daily. Rinse mouth after use. sulfacetamide (BLEPH-10) 10 % ophthalmic solution Use 2 Drops in eyes every 4 hours for 7 days. benzonatate (TESSALON PERLE) 100 mg capsule Take 2 capsules by mouth three times daily as needed. doxycycline monohydrate 100 mg tablet Take 1 tablet by mouth twice daily for 10 days. Omeprazole 40 mg capsule TAKE 1 CAPSULE BY MOUTH ONCE DAILY. ranitidine (ZANTAC) 150 mg tablet TAKE 1 TABLET BY MOUTH TWICE A DAY gabapentin (NEURONTIN) 300 mg capsule TAKE 1 CAPSULE AT 730 PM, TAKE 1 CAPSULE AT 930 PM, AND TAKE 1 CAPSULE AT BEDTIME propranolol (INDERAL) 10 mg tablet TAKE 1 TABLET BY MOUTH ONCE DAILY. hydroCHLOROthiazide (HYDRODIURIL, ESIDRIX) 25 mg tablet Take 1 tablet by mouth once daily. citalopram (CELEXA) 40 mg tablet Take 1 tablet by mouth once daily. ondansetron orally disintegrating (ZOFRAN ODT) 4 mg disintegrating tablet Take 1 tablet by mouth every 8 hours as needed. levothyroxine (SYNTHROID) 25 mcg tablet Take 1 tablet by mouth daily before breakfast. CPAP 1 Device by MISCELLANEOUS route daily at bedtime. 6-16 cm H2O, new mask suitable per pt preference. New supplies, humidity, filters, tubing, head gear, chin strap. Lifetime supplies G47.33 obstructive sleep apnea. Please fax 30 day download to [phone]. topiramate (TOPAMAX) 100 mg tablet Take 1 tablet by mouth twice daily. rOPINIRole (REQUIP) 4 mg tablet Take 1 tablet by mouth daily at bedtime. busPIRone (BUSPAR) 15 mg tablet One Tablet twice daily CPAP AutoPAP 6-16 cmH2O, suitable mask, humidity, filters. Lifetime supplies. Dx: G47.33 ergotamine-caffeine (CAFERGOT) 1-100 mg per tablet Two tablets at onset of attack; then 1 tablet every 30 minutes as needed; maximum: 6 tablets per 24 hrs do not exceed 10 tablets/week cetirizine (ZYRTEC) 10 mg tablet Take 1 tablet by mouth four times daily. As instructed by dispensing operator Dr. Ross ketorolac (TORADOL) 10 mg tablet Take 1 tablet by mouth every 6 hours as needed. To abort migraine. diphenhydrAMINE (BENADRYL) 25 mg capsule Take 2 capsules by mouth three times daily as needed. To abort migraine EPINEPHrine (EPIPEN) 0.3 mg/0.3 mL (1:1,000) atIn Cholecalciferol, Vitamin D3, 5,000 unit ORAL Cap Take 5,000 Units by mouth once daily. Vital signs: BP 126/79 (BP Site: Left Arm, BP Position: Sitting, BP Cuff Size: Large Adult) Pulse 64 Resp 16 Wt 130.1 kg (286 lb 12.8 oz) BMI 44.92 kg/m? MENTAL STATUS General appearance: obese3 Grooming good Orientation: Ox3 Memory: Grossly intact Kinetics: slower Eye Contact: good Demeanor calm Speech: articulate Thought Stream logical Thought Content about issue Mood: overall euthymic Affect: euth Suicidal Ideation: no Homocidal Ideation: No Psychosis no Insight good Judgment good ENT : na Abdomen: obese Neuro: Gait and station normal, Strength grossly normal in all extremities. Coordination grossly intact. No tremors noted. Sleep Disorder Dx Impression: Obstructive sleep apnea - moderate, working on compliance if back is not bothering her Restless legs syndrome - See if we can get the requip dose moderated over tikme Other Conditioning Diagnoses: Migraine Fibromyalgia Case Formulation / [place] (may include pt's hopes, fears, expectations, concerns): Pt is doing fairly well, could have better cpap compliance, but has back issues and location issues wrt to the CPAP. RLS control satisfactory although still gets breakthrough. Over time need to work on getting the requip less to prevent augmentation. Actions taken: Motivational Interviewing aspects taken review PDMP Aspect: PDMP website checked and validated. All prescriptions have been APPROPRIATELY filled. No suspicious activity was identified. 05/03/2018 by Florencio Sebastian MD Change to requip 2 mg. 2 hs, but see if can do some nights with just 3 mg, while at same time enabling gpn to be increased by 300 mg. Encouraged CPAP compliance, even in recliner Plan: Continue to work on long-term change in RLS regimen to moderate risks of augmentation. Follow up 3 months. Indra or Anil. . Florencio Sebastian MD Referring Provider: FLORENCIO SEBASTIAN [[id number]] Allergies As of Date: 05/03/2018 Noted Allergy Reaction NABUMETONE 04/28/2009 4 - Hives Comments: hives allergies-environmental to grass,*11/28/2009 14 - Other: See Comments Comments: Sneezing, rhinorrhea IMITREX (SUMATRIPTAN SUCCINATE) 08/21/2009 14 - Other: See Comments Comments: Neck pain MAXALT (RIZATRIPTAN BENZOATE) 03/01/2016 14 - Other: See Comments Comments: Neck pain and nausea PREDNISONE 05/10/2016 14 - Other: See Comments Comments: Abdominal pain and diarrhea Date Reviewed: 05/01/2018 Reviewed by: Abbie Youssef) AILIN Patel - Fully Assessed Reason for Visit: Established Patient [175] Cmt: 6 month follow up Refill Request [94] Cmt: [facility] Reason For Visit History Recorded Primary Visit Diagnosis:DYLON on CPAP [G47.33, Z99.89] Other Visit Diagnoses:Restless leg syndrome [G25.81] Migraine with aura and without status migrainosus, not intractable [G43.109] Order(s):gabapentin (NEURONTIN) 300 mg capsuleTake 1 capsule by mouth four times daily for 90 days. Take in preparation for evening RLS symptoms.Disp: 120 capsuleRfl: 3 rOPINIRole (REQUIP) 2 mg tabletTake 2 tablets by mouth daily at bedtime. Try to take less as instructed, to taper down to lower doses over long periods of time.Disp: 60 tabletRfl: 2 Prescriptions as of 05/03/2018 Sig: GABAPENTIN 300 MG CAPSULE Take 1 capsule by mouth four * ROPINIROLE 2 MG TABLET Take 2 tablets by mouth daily* FLUTICASONE 50 MCG/ACTUATION * Use 2 Sprays in each nostril * SULFACETAMIDE SODIUM 10 % EYE* Use 2 Drops in eyes every 4 h* BENZONATATE 100 MG CAPSULE Take 2 capsules by mouth thre* DOXYCYCLINE MONOHYDRATE 100 M* Take 1 tablet by mouth twice * OMEPRAZOLE 40 MG CAPSULE,SENA* TAKE 1 CAPSULE BY MOUTH ONCE * RANITIDINE 150 MG TABLET TAKE 1 TABLET BY MOUTH TWICE * PROPRANOLOL 10 MG TABLET TAKE 1 TABLET BY MOUTH ONCE D* HYDROCHLOROTHIAZIDE 25 MG TAB* Take 1 tablet by mouth once d* CITALOPRAM 40 MG TABLET Take 1 tablet by mouth once d* ONDANSETRON 4 MG DISINTEGRATI* Take 1 tablet by mouth every * LEVOTHYROXINE 25 MCG TABLET Take 1 tablet by mouth daily * CPAP 1 Device by MISCELLANEOUS rou* TOPIRAMATE 100 MG TABLET Take 1 tablet by mouth twice * BUSPIRONE 15 MG TABLET One Tablet twice daily CPAP AutoPAP 6-16 cmH2O, suitable * ERGOTAMINE 1 MG-CAFFEINE 100 * Two tablets at onset of attac* CETIRIZINE 10 MG TABLET Take 1 tablet by mouth four t* KETOROLAC 10 MG TABLET Take 1 tablet by mouth every * DIPHENHYDRAMINE 25 MG CAPSULE Take 2 capsules by mouth thre* EPINEPHRINE 0.3 MG/0.3 ML INJ* CHOLECALCIFEROL (VITAMIN D3) * Take 5,000 Units by mouth onc* Problem List As Of Date 05/03/2018 Noted Resolved Obesity, Class III, BMI 40-49.9 (morbid obesity*INVALID FOR* Priority: B More... Hypoglycemia, unspecified [E16.2] INVALID FOR*10/03/2014 HYPERLIPIDEMIA NEC/NOS [E78.5] INVALID FOR*10/03/2014 Anxiety state [F41.1] INVALID FOR* Priority: A More... Depressive disorder [F32.9] INVALID FOR* Priority: A More... DJD (degenerative joint disease) of knee [M17.1*INVALID FOR*03/21/2014 DYLON on CPAP [G47.33, Z99.89] INVALID FOR* Priority: B More... Ptosis [H02.409] INVALID FOR*10/03/2014 More... Vitamin D deficiency [E55.9] INVALID FOR*10/03/2014 Allergic rhinitis due to allergen [J30.9] INVALID FOR* Priority: B More... Pain in joint, lower leg [M25.569] INVALID FOR*03/21/2014 Dermatographic urticaria [L50.3] INVALID FOR* Priority: D More... Hidradenitis suppurativa [L73.2] INVALID FOR* Priority: D Tobacco use disorder [F17.200] INVALID FOR* Priority: C More... Restless leg syndrome [G25.81] INVALID FOR* Priority: B More... Vitamin D deficiency [E55.9] INVALID FOR* Priority: B Migraine with aura and without status migrainos*INVALID FOR* Priority: A Acquired hypothyroidism [E03.9] INVALID FOR* Priority: A Encounter for screening for cardiovascular diso*INVALID FOR* Encounter for screening for diabetes mellitus [*INVALID FOR* Iron deficiency concern [E61.1] INVALID FOR*05/11/2017 Encounter for gynecological examination without*INVALID FOR* Priority: E More... Well adult exam [Z00.00] INVALID FOR* Priority: E More... Dyslipidemia [E78.5] INVALID FOR* Priority: A CRP elevated [R79.82] INVALID FOR* ORTEGA positive [R76.8] INVALID FOR* Arthralgia [M25.50] INVALID FOR* Gastritis without bleeding [K29.70] INVALID FOR* Fibromyalgia [M79.7] INVALID FOR* Prescriptions ordered this encounter Disp Refills Start End GABAPENTIN 300 MG CAPSULE 120 * 3 05/03/2018 08/01/2018 Route: ORAL Sig: Take 1 capsule by mouth four times daily for 90 days. Take in preparation for evening RLS symptoms. ROPINIROLE 2 MG TABLET 60 t* 2 05/03/2018 Route: ORAL Sig: Take 2 tablets by mouth daily at bedtime. Try to take less as instructed, to taper down to lower doses over long periods of time. Medications Discontinued During This Encounter rOPINIRole (REQUIP) 4 mg tablet 90 t* 3 04/27/2017 05/03/2018 Route: ORAL Sig: Take 1 tablet by mouth daily at bedtime. Disc: Changing Therapy/Dosage Form gabapentin (NEURONTIN) 300 mg capsule 90 c* 2 03/08/2018 05/03/2018 Sig: TAKE 1 CAPSULE AT 730 PM, TAKE 1 CAPSULE AT 930 PM, AND TAKE 1 CAPSULE AT BEDTIME Disc: Reason for discontinue is not on file. Disposition: Return in about 3 months (around 08/03/2018). Follow-up and Disposition History Recorded Encounter Status:Closed by MD FLORENCIO SEBASTIAN on 05/03/18 CNOV Observed: 05/01/2018 Status: COMPLETED Source: [place] 9:00 AM [facility] REPOSITORY [facility] AMELIA PLATA ([id number]) 1975 F Date Time Provider Department 05/01/18 9:00 AM MARINA REICH ([facility] During your visit today, we recorded the following information about you: Temperature Pulse Respiration Blood pressure 98.4 degrees 75/minute 20/minute 122/80 Weight 132 kg Marina Reich APRN.FLORA 05/01/2018 9:39 AM Signed 05/01/2018 Patient presents with: URI SUBJECTIVE: This is a 42 year old that is here today for sinobronchitis that is not clearing up on doxycycline. She is on day 4 of 10. She states that she has had some relief with the cough with the medications. She is concerned because she slept all day yesterday and continues to have some sinus pressure. She states that dizziness has improved. She feels that she may have had a fever yesterday, but did not check. Nasal congestion is now clear rather than green. Cough is not productive. Eating normally, admits not drinking enough water. Denies CP or SOB. PAST MEDICAL HISTORY Diagnosis Date - Allergic rhinitis due to allergen 10/20/2012 Immunotherapy weekly, Dr. Leonard. - ANXIETY STATE NOS 12/29/2006 - CLASS MIGRAIN W/O MENTN INTRACTABLE 06/09/2007 - DEPRESSIVE DISORDER NEC 12/29/2006 - DJD (degenerative joint disease) of knee 03/30/2008 - Hidradenitis suppurativa 03/21/2014 - HYPERLIPIDEMIA NEC/NOS 12/29/2006 - HYPOGLYCEMIA NOS 12/29/2006 - Hypothyroidism 11/16/2011 Abnormal TSH - Obesity 12/29/2006 - DYLON on CPAP 04/28/2009 DME [facility] [place] - Other specified disease of hair and hair follicles - Plantar fascial fibromatosis - Ptosis 07/11/2009 - Vitamin D deficiency 09/09/2010 ALLERGIES Nabumetone; Allergies-Environmental To Grass, Trees, Pollen, Dust, Feath [Other]; Imitrex [Sumatriptan Succinate]; Maxalt [Rizatriptan Benzoate]; Prednisone MEDICATIONS Current Outpatient Prescriptions: sulfacetamide (BLEPH-10) 10 % ophthalmic solution Use 2 Drops in eyes every 4 hours for 7 days. benzonatate (TESSALON PERLE) 100 mg capsule Take 2 capsules by mouth three times daily as needed. doxycycline monohydrate 100 mg tablet Take 1 tablet by mouth twice daily for 10 days. Omeprazole 40 mg capsule TAKE 1 CAPSULE BY MOUTH ONCE DAILY. ranitidine (ZANTAC) 150 mg tablet TAKE 1 TABLET BY MOUTH TWICE A DAY gabapentin (NEURONTIN) 300 mg capsule TAKE 1 CAPSULE AT 730 PM, TAKE 1 CAPSULE AT 930 PM, AND TAKE 1 CAPSULE AT BEDTIME propranolol (INDERAL) 10 mg tablet TAKE 1 TABLET BY MOUTH ONCE DAILY. hydroCHLOROthiazide (HYDRODIURIL, ESIDRIX) 25 mg tablet Take 1 tablet by mouth once daily. citalopram (CELEXA) 40 mg tablet Take 1 tablet by mouth once daily. ondansetron orally disintegrating (ZOFRAN ODT) 4 mg disintegrating tablet Take 1 tablet by mouth every 8 hours as needed. levothyroxine (SYNTHROID) 25 mcg tablet Take 1 tablet by mouth daily before breakfast. CPAP 1 Device by MISCELLANEOUS route daily at bedtime. 6-16 cm H2O, new mask suitable per pt preference. New supplies, humidity, filters, tubing, head gear, chin strap. Lifetime supplies G47.33 obstructive sleep apnea. Please fax 30 day download to [phone]. topiramate (TOPAMAX) 100 mg tablet Take 1 tablet by mouth twice daily. rOPINIRole (REQUIP) 4 mg tablet Take 1 tablet by mouth daily at bedtime. busPIRone (BUSPAR) 15 mg tablet One Tablet twice daily CPAP AutoPAP 6-16 cmH2O, suitable mask, humidity, filters. Lifetime supplies. Dx: G47.33 ergotamine-caffeine (CAFERGOT) 1-100 mg per tablet Two tablets at onset of attack; then 1 tablet every 30 minutes as needed; maximum: 6 tablets per 24 hrs do not exceed 10 tablets/week cetirizine (ZYRTEC) 10 mg tablet Take 1 tablet by mouth four times daily. As instructed by dispensing operator Dr. Ross ketorolac (TORADOL) 10 mg tablet Take 1 tablet by mouth every 6 hours as needed. To abort migraine. diphenhydrAMINE (BENADRYL) 25 mg capsule Take 2 capsules by mouth three times daily as needed. To abort migraine EPINEPHrine (EPIPEN) 0.3 mg/0.3 mL (1:1,000) atIn Cholecalciferol, Vitamin D3, 5,000 unit ORAL Cap Take 5,000 Units by mouth once daily. No current facility-administered medications for this visit. Medications and allergies reviewed by this provider. 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 past cigarette use- on and off for a few years Alcohol use: No Comment: rarely Drug use: No Sexual activity: Yes Partners with: Male REVIEW OF SYSTEMS see HPI OBJECTIVE: BP 122/80 Pulse 75 Temp 36.9 ?C (98.4 ?F) Resp 20 Wt 132 kg (291 lb) SpO2 98% BMI 45.58 kg/m? . Vital signs reviewed by this provider. PHYSICAL EXAMINATION: General appearance: Well appearing, alert, in no acute distress, well-hydrated, well nourished. Skin: Skin color, texture, turgor normal, no suspicious rashes or lesions Head: Facial tenderness Eyes: Anicteric sclera. Pupils are equally round and reactive to light. Extraocular movements are intact. Ears: Positive findings: R TM: keeley fluid noted behind TM, bubbles present and bulging, L TM: keeley fluid noted behind TM, bubbles present and bulging Nose/Sinuses: Nares normal, septum midline, mucosa normal, no drainage or sinus tenderness Oropharynx: Positive findings: mild oropharyngeal erythema, clear PND Neck: Supple, no adenopathy Lungs: Lungs clear to auscultation. No wheezing, rhonchi, rales Heart: RRR without murmur, gallop, or rubs. No ectopy Extremities: No deformities, edema, skin discoloration, clubbing or cyanosis. Good capillary refill. , Pulses: 2+ ASSESSMENT/PLAN: 1. Sinobronchitis - ICD9: 473.9, 490, ICD10: J32.9, J40 (primary diagnosis) - continue treatment recommendations previously prescribed. Discussed expected outcomes and course of illness. - add flonase - Supportive care with plenty of fluids, rest, and analgesia prn. - Follow up in one week if symptoms persist or worsen. 2. Dysfunction of both eustachian tubes - ICD9: 381.81, ICD10: H69.83 - start flonase - Can consider OTC decongestant Marina Reich APRN.RETAIL BUSINESS ANALYST Referring Provider: SELF [200] Allergies As of Date: 05/01/2018 Noted Allergy Reaction NABUMETONE 04/28/2009 4 - Hives Comments: hives allergies-environmental to grass,*11/28/2009 14 - Other: See Comments Comments: Sneezing, rhinorrhea IMITREX (SUMATRIPTAN SUCCINATE) 08/21/2009 14 - Other: See Comments Comments: Neck pain MAXALT (RIZATRIPTAN BENZOATE) 03/01/2016 14 - Other: See Comments Comments: Neck pain and nausea PREDNISONE 05/10/2016 14 - Other: See Comments Comments: Abdominal pain and diarrhea Date Reviewed: 05/01/2018 Reviewed by: Abbie Patel MA - Fully Assessed Reason for Visit: URI [115] Primary Visit Diagnosis:Sinobronchitis [J32.9, J40] Other Visit Diagnosis:Dysfunction of both eustachian tubes [H69.83] Order(s):fluticasone (FLONASE) 50 mcg/actuation nasal sprayUse 2 Sprays in each nostril once daily. Rinse mouth after use.Disp: 1 BottleRfl: 1 Prescriptions as of 05/01/2018 Sig: SULFACETAMIDE SODIUM 10 % EYE* Use 2 Drops in eyes every 4 h* BENZONATATE 100 MG CAPSULE Take 2 capsules by mouth thre* DOXYCYCLINE MONOHYDRATE 100 M* Take 1 tablet by mouth twice * OMEPRAZOLE 40 MG CAPSULE,SENA* TAKE 1 CAPSULE BY MOUTH ONCE * RANITIDINE 150 MG TABLET TAKE 1 TABLET BY MOUTH TWICE * GABAPENTIN 300 MG CAPSULE TAKE 1 CAPSULE AT 730 PM, MODE* PROPRANOLOL 10 MG TABLET TAKE 1 TABLET BY MOUTH ONCE D* HYDROCHLOROTHIAZIDE 25 MG TAB* Take 1 tablet by mouth once d* CITALOPRAM 40 MG TABLET Take 1 tablet by mouth once d* ONDANSETRON 4 MG DISINTEGRATI* Take 1 tablet by mouth every * LEVOTHYROXINE 25 MCG TABLET Take 1 tablet by mouth daily * CPAP 1 Device by MISCELLANEOUS rou* TOPIRAMATE 100 MG TABLET Take 1 tablet by mouth twice * ROPINIROLE 4 MG TABLET Take 1 tablet by mouth daily * BUSPIRONE 15 MG TABLET One Tablet twice daily CPAP AutoPAP 6-16 cmH2O, suitable * ERGOTAMINE 1 MG-CAFFEINE 100 * Two tablets at onset of attac* CETIRIZINE 10 MG TABLET Take 1 tablet by mouth four t* KETOROLAC 10 MG TABLET Take 1 tablet by mouth every * DIPHENHYDRAMINE 25 MG CAPSULE Take 2 capsules by mouth thre* EPINEPHRINE 0.3 MG/0.3 ML INJ* CHOLECALCIFEROL (VITAMIN D3) * Take 5,000 Units by mouth onc* FLUTICASONE 50 MCG/ACTUATION * Use 2 Sprays in each nostril * Problem List As Of Date 05/01/2018 Noted Resolved Obesity, Class III, BMI 40-49.9 (morbid obesity*INVALID FOR* Priority: B More... Hypoglycemia, unspecified [E16.2] INVALID FOR*10/03/2014 HYPERLIPIDEMIA NEC/NOS [E78.5] INVALID FOR*10/03/2014 Anxiety state [F41.1] INVALID FOR* Priority: A More... Depressive disorder [F32.9] INVALID FOR* Priority: A More... DJD (degenerative joint disease) of knee [M17.1*INVALID FOR*03/21/2014 DYLON on CPAP [G47.33, Z99.89] INVALID FOR* Priority: B More... Ptosis [H02.409] INVALID FOR*10/03/2014 More... Vitamin D deficiency [E55.9] INVALID FOR*10/03/2014 Allergic rhinitis due to allergen [J30.9] INVALID FOR* Priority: B More... Pain in joint, lower leg [M25.569] INVALID FOR*03/21/2014 Dermatographic urticaria [L50.3] INVALID FOR* Priority: D More... Hidradenitis suppurativa [L73.2] INVALID FOR* Priority: D Tobacco use disorder [F17.200] INVALID FOR* Priority: C More... Restless leg syndrome [G25.81] INVALID FOR* Priority: B More... Vitamin D deficiency [E55.9] INVALID FOR* Priority: B Migraine with aura and without status migrainos*INVALID FOR* Priority: A Acquired hypothyroidism [E03.9] INVALID FOR* Priority: A Encounter for screening for cardiovascular diso*INVALID FOR* Encounter for screening for diabetes mellitus [*INVALID FOR* Iron deficiency concern [E61.1] INVALID FOR*05/11/2017 Encounter for gynecological examination without*INVALID FOR* Priority: E More... Well adult exam [Z00.00] INVALID FOR* Priority: E More... Dyslipidemia [E78.5] INVALID FOR* Priority: A CRP elevated [R79.82] INVALID FOR* ORTEGA positive [R76.8] INVALID FOR* Arthralgia [M25.50] INVALID FOR* Gastritis without bleeding [K29.70] INVALID FOR* Fibromyalgia [M79.7] INVALID FOR* Prescriptions ordered this encounter Disp Refills Start End FLUTICASONE 50 MCG/ACTUATION NASAL S* 1 Bryce* 1 05/01/2018 Route: EACH NOSTRIL Sig: Use 2 Sprays in each nostril once daily. Rinse mouth after use. Disposition: Return if symptoms worsen or fail to improve. Follow-up and Disposition History Recorded Letter Text [facility] [address] [place] [address] TO WHOM IT MAY CONCERN: This is to confirm that Amelia Plata had an appointment and was seen at the [facility] in the Department of Family Medicine Marina Reich CNP on 05/01/2018. Please excuse her from work today. Sincerely yours, Marina Reich CNP Encounter Status:Closed by MARINA REICH on 05/01/18 PROGRESS Observed: 05/01/2018 Status: COMPLETED Source: [facility] 8:58 AM [facility] REPOSITORY HNO ID: [id number] Author: Marina (Flora) Ivanna Service: (none) Author Type: Nurse Practitioner Type: Progress Notes Filed: 05/01/2018 9:39 AM Note Text: 05/01/2018 Patient presents with: URI SUBJECTIVE: This is a 42 year old that is here today for sinobronchitis that is not clearing up on doxycycline. She is on day 4 of . She states that she has had some relief with the cough with the medications. She is concerned because she slept all day yesterday and continues to have some sinus pressure. She states that dizziness has improved. She feels that she may have had a fever yesterday, but did not check. Nasal congestion is now clear rather than green. Cough is not productive. Eating normally, admits not drinking enough water. Denies CP or SOB. PAST MEDICAL HISTORY Diagnosis Date - Allergic rhinitis due to allergen 10/20/2012 Immunotherapy weekly, Dr. Leonard. - ANXIETY STATE NOS 12/29/2006 - CLASS MIGRAIN W/O MENTN INTRACTABLE 06/09/2007 - DEPRESSIVE DISORDER NEC 12/29/2006 - DJD (degenerative joint disease) of knee 03/30/2008 - Hidradenitis suppurativa 03/21/2014 - HYPERLIPIDEMIA NEC/NOS 12/29/2006 - HYPOGLYCEMIA NOS 12/29/2006 - Hypothyroidism 11/16/2011 Abnormal TSH - Obesity 12/29/2006 - DYLON on CPAP 04/28/2009 DME [facility] [place] - Other specified disease of hair and hair follicles - Plantar fascial fibromatosis - Ptosis 07/11/2009 - Vitamin D deficiency 09/09/2010 ALLERGIES Nabumetone; Allergies-Environmental To Grass, Trees, Pollen, Dust, Feath [Other]; Imitrex [Sumatriptan Succinate]; Maxalt [Rizatriptan Benzoate]; Prednisone MEDICATIONS Current Outpatient Prescriptions: sulfacetamide (BLEPH-10) 10 % ophthalmic solution Use 2 Drops in eyes every 4 hours for 7 days. benzonatate (TESSALON PERLE) 100 mg capsule Take 2 capsules by mouth three times daily as needed. doxycycline monohydrate 100 mg tablet Take 1 tablet by mouth twice daily for 10 days. Omeprazole 40 mg capsule TAKE 1 CAPSULE BY MOUTH ONCE DAILY. ranitidine (ZANTAC) 150 mg tablet TAKE 1 TABLET BY MOUTH TWICE A DAY gabapentin (NEURONTIN) 300 mg capsule TAKE 1 CAPSULE AT 730 PM, TAKE 1 CAPSULE AT 930 PM, AND TAKE 1 CAPSULE AT BEDTIME propranolol (INDERAL) 10 mg tablet TAKE 1 TABLET BY MOUTH ONCE DAILY. hydroCHLOROthiazide (HYDRODIURIL, ESIDRIX) 25 mg tablet Take 1 tablet by mouth once daily. citalopram (CELEXA) 40 mg tablet Take 1 tablet by mouth once daily. ondansetron orally disintegrating (ZOFRAN ODT) 4 mg disintegrating tablet Take 1 tablet by mouth every 8 hours as needed. levothyroxine (SYNTHROID) 25 mcg tablet Take 1 tablet by mouth daily before breakfast. CPAP 1 Device by MISCELLANEOUS route daily at bedtime. 6-16 cm H2O, new mask suitable per pt preference. New supplies, humidity, filters, tubing, head gear, chin strap. Lifetime supplies G47.33 obstructive sleep apnea. Please fax day download to [phone]. topiramate (TOPAMAX) 100 mg tablet Take 1 tablet by mouth twice daily. rOPINIRole (REQUIP) 4 mg tablet Take 1 tablet by mouth daily at bedtime. busPIRone (BUSPAR) 15 mg tablet One Tablet twice daily CPAP AutoPAP 6-16 cmH2O, suitable mask, humidity, filters. Lifetime supplies. Dx: G47.33 ergotamine-caffeine (CAFERGOT) 1-100 mg per tablet Two tablets at onset of attack; then 1 tablet every 30 minutes as needed; maximum: 6 tablets per 24 hrs do not exceed 10 tablets/week cetirizine (ZYRTEC) 10 mg tablet Take 1 tablet by mouth four times daily. As instructed by dispensing operator Dr. Ross ketorolac (TORADOL) 10 mg tablet Take 1 tablet by mouth every 6 hours as needed. To abort migraine. diphenhydrAMINE (BENADRYL) 25 mg capsule Take 2 capsules by mouth three times daily as needed. To abort migraine EPINEPHrine (EPIPEN) 0.3 mg/0.3 mL (1:1,000) atIn Cholecalciferol, Vitamin D3, 5,000 unit ORAL Cap Take 5,000 Units by mouth once daily. No current facility-administered medications for this visit. Medications and allergies reviewed by this provider. 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 past cigarette use- on and off for a few years Alcohol use: No Comment: rarely Drug use: No Sexual activity: Yes Partners with: Male REVIEW OF SYSTEMS see HPI OBJECTIVE: BP 122/80 Pulse 75 Temp 36.9 ?C (98.4 ?F) Resp 20 Wt 132 kg (291 lb) SpO2 98% BMI 45.58 kg/m? . Vital signs reviewed by this provider. PHYSICAL EXAMINATION: General appearance: Well appearing, alert, in no acute distress, well-hydrated, well nourished. Skin: Skin color, texture, turgor normal, no suspicious rashes or lesions Head: Facial tenderness Eyes: Anicteric sclera. Pupils are equally round and reactive to light. Extraocular movements are intact. Ears: Positive findings: R TM: keeley fluid noted behind TM, bubbles present and bulging, L TM: keeley fluid noted behind TM, bubbles present and bulging Nose/Sinuses: Nares normal, septum midline, mucosa normal, no drainage or sinus tenderness Oropharynx: Positive findings: mild oropharyngeal erythema, clear PND Neck: Supple, no adenopathy Lungs: Lungs clear to auscultation. No wheezing, rhonchi, rales Heart: RRR without murmur, gallop, or rubs. No ectopy Extremities: No deformities, edema, skin discoloration, clubbing or cyanosis. Good capillary refill. , Pulses: 2+ ASSESSMENT/PLAN: 1. Sinobronchitis - ICD9: 473.9, 490, ICD10: J32.9, J40 (primary diagnosis) - continue treatment recommendations previously prescribed. Discussed expected outcomes and course of illness. - add flonase - Supportive care with plenty of fluids, rest, and analgesia prn. - Follow up in one week if symptoms persist or worsen. 2. Dysfunction of both eustachian tubes - ICD9: 381.81, ICD10: H69.83 - start flonase - Can consider OTC decongestant Marina Reich APRN.RETAIL BUSINESS ANALYST PROGRESS Observed: 04/28/2018 Status: COMPLETED Source: [facility] 8:41 AM [facility] REPOSITORY O ID: [id number] Author: Rosie Olvera Service: (none) Author Type: Physician Radio Performer Type: Progress Notes Filed: 04/28/2018 9:18 AM Note Text: 04/28/2018 Patient presents with: Possible pink eye: started this morning SUBJECTIVE: This is a 42 year old that is here today for Acute onset of pink eye.. Has had URI and was given antibiotic yesterday This morning woke up with b/l pink eyes with yellow d/c and crusting. No fevers. PAST MEDICAL HISTORY Diagnosis Date - Allergic rhinitis due to allergen 10/20/2012 Immunotherapy weekly, Dr. Leonard. - ANXIETY STATE NOS 12/29/2006 - CLASS MIGRAIN W/O MENTN INTRACTABLE 06/09/2007 - DEPRESSIVE DISORDER NEC 12/29/2006 - DJD (degenerative joint disease) of knee 03/30/2008 - Hidradenitis suppurativa 03/21/2014 - HYPERLIPIDEMIA NEC/NOS 12/29/2006 - HYPOGLYCEMIA NOS 12/29/2006 - Hypothyroidism 11/16/2011 Abnormal TSH - Obesity 12/29/2006 - DYLON on CPAP 04/28/2009 DME [facility] [place] - Other specified disease of hair and hair follicles - Plantar fascial fibromatosis - Ptosis 07/11/2009 - Vitamin D deficiency 09/09/2010 ALLERGIES Nabumetone; Allergies-Environmental To Grass, Trees, Pollen, Dust, Feath [Other]; Imitrex [Sumatriptan Succinate]; Maxalt [Rizatriptan Benzoate]; Prednisone MEDICATIONS Current Outpatient Prescriptions: benzonatate (TESSALON PERLE) 100 mg capsule Take 2 capsules by mouth three times daily as needed. codeine-guaiFENesin (ROBITUSSIN AC) 10-100 mg/5 mL syrup Take 5-10 mL by mouth four times daily as needed for Cough for up to 3 days. May cause drowsiness. doxycycline monohydrate 100 mg tablet Take 1 tablet by mouth twice daily for 10 days. Omeprazole 40 mg capsule TAKE 1 CAPSULE BY MOUTH ONCE DAILY. ranitidine (ZANTAC) 150 mg tablet TAKE 1 TABLET BY MOUTH TWICE A DAY gabapentin (NEURONTIN) 300 mg capsule TAKE 1 CAPSULE AT 730 PM, TAKE 1 CAPSULE AT 930 PM, AND TAKE 1 CAPSULE AT BEDTIME propranolol (INDERAL) 10 mg tablet TAKE 1 TABLET BY MOUTH ONCE DAILY. hydroCHLOROthiazide (HYDRODIURIL, ESIDRIX) 25 mg tablet Take 1 tablet by mouth once daily. citalopram (CELEXA) 40 mg tablet Take 1 tablet by mouth once daily. ondansetron orally disintegrating (ZOFRAN ODT) 4 mg disintegrating tablet Take 1 tablet by mouth every 8 hours as needed. levothyroxine (SYNTHROID) 25 mcg tablet Take 1 tablet by mouth daily before breakfast. CPAP 1 Device by MISCELLANEOUS route daily at bedtime. 6-16 cm H2O, new mask suitable per pt preference. New supplies, humidity, filters, tubing, head gear, chin strap. Lifetime supplies G47.33 obstructive sleep apnea. Please fax 30 day download to [phone]. topiramate (TOPAMAX) 100 mg tablet Take 1 tablet by mouth twice daily. rOPINIRole (REQUIP) 4 mg tablet Take 1 tablet by mouth daily at bedtime. busPIRone (BUSPAR) 15 mg tablet One Tablet twice daily CPAP AutoPAP 6-16 cmH2O, suitable mask, humidity, filters. Lifetime supplies. Dx: G47.33 ergotamine-caffeine (CAFERGOT) 1-100 mg per tablet Two tablets at onset of attack; then 1 tablet every 30 minutes as needed; maximum: 6 tablets per 24 hrs do not exceed 10 tablets/week cetirizine (ZYRTEC) 10 mg tablet Take 1 tablet by mouth four times daily. As instructed by dispensing operator Dr. Ross ketorolac (TORADOL) 10 mg tablet Take 1 tablet by mouth every 6 hours as needed. To abort migraine. diphenhydrAMINE (BENADRYL) 25 mg capsule Take 2 capsules by mouth three times daily as needed. To abort migraine EPINEPHrine (EPIPEN) 0.3 mg/0.3 mL (1:1,000) atIn Cholecalciferol, Vitamin D3, 5,000 unit ORAL Cap Take 5,000 Units by mouth once daily. No current facility-administered medications for this visit. 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 past cigarette use- on and off for a few years Alcohol use: No Comment: rarely Drug use: No Sexual activity: Yes Partners with: Male REVIEW OF SYSTEMS All other reviewed and negative other than HPI. OBJECTIVE: BP 123/82 Pulse 78 Resp 18 Ht 170.2 cm (5' 7) Wt 131.1 kg (289 lb) BMI 45.26 kg/m? APPEARANCE Well appearing, alert, in no acute distress, well-hydrated, well nourished. EYES B/L conjunctival injection. Discharge noted. PERRLA and EOMI ASSESSMENT/PLAN: 1. Bacterial conjunctivitis - ICD9: 372.39, 041.9, ICD10: H10.9 - see medication orders - course and contagiousness issues discussed, including hand washing. - Instructed to call if high fever, development of periorbital redness or swelling, eye pain, visual changes, concerns or if symptoms persist. Follow up liliana OLVERA PA-C CNOV Observed: 04/28/2018 Status: COMPLETED Source: [facility] 8:40 AM [facility] REPOSITORY Office Visit (FAMPWS) AMELIA PLATA ([id number]) 1975 F Date Time Provider Department 04/28/18 8:40 AM CUAUHTEMOC OLVERA) FAMPWS During your visit today, we recorded the following information about you: Pulse Respiration Blood pressure Weight 78/minute 18/minute 123/82 131.1 kg Height 1.702 m LETI OLVERA PA-C 04/28/2018 9:18 AM Signed 04/28/2018 Patient presents with: Possible pink eye: started this morning SUBJECTIVE: This is a 42 year old that is here today for Acute onset of pink eye.. Has had URI and was given antibiotic yesterday This morning woke up with b/l pink eyes with yellow d/c and crusting. No fevers. PAST MEDICAL HISTORY Diagnosis Date - Allergic rhinitis due to allergen 10/20/2012 Immunotherapy weekly, Dr. Leonard. - ANXIETY STATE NOS 12/29/2006 - CLASS MIGRAIN W/O MENTN INTRACTABLE 06/09/2007 - DEPRESSIVE DISORDER NEC 12/29/2006 - DJD (degenerative joint disease) of knee 03/30/2008 - Hidradenitis suppurativa 03/21/2014 - HYPERLIPIDEMIA NEC/NOS 12/29/2006 - HYPOGLYCEMIA NOS 12/29/2006 - Hypothyroidism 11/16/2011 Abnormal TSH - Obesity 12/29/2006 - DYLON on CPAP 04/28/2009 DME [facility] - Other specified disease of hair and hair follicles - Plantar fascial fibromatosis - Ptosis 07/11/2009 - Vitamin D deficiency 09/09/2010 ALLERGIES Nabumetone; Allergies-Environmental To Grass, Trees, Pollen, Dust, Feath [Other]; Imitrex [Sumatriptan Succinate]; Maxalt [Rizatriptan Benzoate]; Prednisone MEDICATIONS Current Outpatient Prescriptions: benzonatate (TESSALON PERLE) 100 mg capsule Take 2 capsules by mouth three times daily as needed. codeine-guaiFENesin (ROBITUSSIN AC) 10-100 mg/5 mL syrup Take 5-10 mL by mouth four times daily as needed for Cough for up to 3 days. May cause drowsiness. doxycycline monohydrate 100 mg tablet Take 1 tablet by mouth twice daily for 10 days. Omeprazole 40 mg capsule TAKE 1 CAPSULE BY MOUTH ONCE DAILY. ranitidine (ZANTAC) 150 mg tablet TAKE 1 TABLET BY MOUTH TWICE A DAY gabapentin (NEURONTIN) 300 mg capsule TAKE 1 CAPSULE AT 730 PM, TAKE 1 CAPSULE AT 930 PM, AND TAKE 1 CAPSULE AT BEDTIME propranolol (INDERAL) 10 mg tablet TAKE 1 TABLET BY MOUTH ONCE DAILY. hydroCHLOROthiazide (HYDRODIURIL, ESIDRIX) 25 mg tablet Take 1 tablet by mouth once daily. citalopram (CELEXA) 40 mg tablet Take 1 tablet by mouth once daily. ondansetron orally disintegrating (ZOFRAN ODT) 4 mg disintegrating tablet Take 1 tablet by mouth every 8 hours as needed. levothyroxine (SYNTHROID) 25 mcg tablet Take 1 tablet by mouth daily before breakfast. CPAP 1 Device by MISCELLANEOUS route daily at bedtime. 6-16 cm H2O, new mask suitable per pt preference. New supplies, humidity, filters, tubing, head gear, chin strap. Lifetime supplies G47.33 obstructive sleep apnea. Please fax 30 day download to [phone]. topiramate (TOPAMAX) 100 mg tablet Take 1 tablet by mouth twice daily. rOPINIRole (REQUIP) 4 mg tablet Take 1 tablet by mouth daily at bedtime. busPIRone (BUSPAR) 15 mg tablet One Tablet twice daily CPAP AutoPAP 6-16 cmH2O, suitable mask, humidity, filters. Lifetime supplies. Dx: G47.33 ergotamine-caffeine (CAFERGOT) 1-100 mg per tablet Two tablets at onset of attack; then 1 tablet every 30 minutes as needed; maximum: 6 tablets per 24 hrs do not exceed 10 tablets/week cetirizine (ZYRTEC) 10 mg tablet Take 1 tablet by mouth four times daily. As instructed by dispensing operator Dr. Ross ketorolac (TORADOL) 10 mg tablet Take 1 tablet by mouth every 6 hours as needed. To abort migraine. diphenhydrAMINE (BENADRYL) 25 mg capsule Take 2 capsules by mouth three times daily as needed. To abort migraine EPINEPHrine (EPIPEN) 0.3 mg/0.3 mL (1:1,000) atIn Cholecalciferol, Vitamin D3, 5,000 unit ORAL Cap Take 5,000 Units by mouth once daily. No current facility-administered medications for this visit. 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 past cigarette use- on and off for a few years Alcohol use: No Comment: rarely Drug use: No Sexual activity: Yes Partners with: Male REVIEW OF SYSTEMS All other reviewed and negative other than HPI. OBJECTIVE: BP 123/82 Pulse 78 Resp 18 Ht 170.2 cm (5' 7) Wt 131.1 kg (289 lb) BMI 45.26 kg/m? APPEARANCE Well appearing, alert, in no acute distress, well- hydrated, well nourished. EYES B/L conjunctival injection. Discharge noted. PERRLA and EOMI ASSESSMENT/PLAN: 1. Bacterial conjunctivitis - ICD9: 372.39, 041.9, ICD10: H10.9 - see medication orders - course and contagiousness issues discussed, including hand washing. - Instructed to call if high fever, development of periorbital redness or swelling, eye pain, visual changes, concerns or if symptoms persist. Follow up daniellen LETI OLVERA PA-C Referring Provider: SELF [[id number]] Allergies As of Date: 04/28/2018 Noted Allergy Reaction NABUMETONE 04/28/2009 4 - Hives Comments: hives allergies-environmental to grass,*11/28/2009 14 - Other: See Comments Comments: Sneezing, rhinorrhea IMITREX (SUMATRIPTAN SUCCINATE) 08/21/2009 14 - Other: See Comments Comments: Neck pain MAXALT (RIZATRIPTAN BENZOATE) 03/01/2016 14 - Other: See Comments Comments: Neck pain and nausea PREDNISONE 05/10/2016 14 - Other: See Comments Comments: Abdominal pain and diarrhea Date Reviewed: 04/28/2018 Reviewed by: Ellie ([facility]) AILIN Benton - Fully Assessed Reason for Visit: Possible pink eye [Other] Cmt: started this morning Primary Visit Diagnosis:Bacterial conjunctivitis [H10.9] Order(s):sulfacetamide (BLEPH-10) 10 % ophthalmic solutionUse 2 Drops in eyes every 4 hours for 7 days.Disp: 1 BottleRfl: 0 Prescriptions as of 04/28/2018 Sig: BENZONATATE 100 MG CAPSULE Take 2 capsules by mouth thre* CODEINE 10 MG-GUAIFENESIN 100* Take 5-10 mL by mouth four ti* DOXYCYCLINE MONOHYDRATE 100 M* Take 1 tablet by mouth twice * OMEPRAZOLE 40 MG CAPSULE,SENA* TAKE 1 CAPSULE BY MOUTH ONCE * RANITIDINE 150 MG TABLET TAKE 1 TABLET BY MOUTH TWICE * GABAPENTIN 300 MG CAPSULE TAKE 1 CAPSULE AT 730 PM, MODE* PROPRANOLOL 10 MG TABLET TAKE 1 TABLET BY MOUTH ONCE D* HYDROCHLOROTHIAZIDE 25 MG TAB* Take 1 tablet by mouth once d* CITALOPRAM 40 MG TABLET Take 1 tablet by mouth once d* ONDANSETRON 4 MG DISINTEGRATI* Take 1 tablet by mouth every * LEVOTHYROXINE 25 MCG TABLET Take 1 tablet by mouth daily * CPAP 1 Device by MISCELLANEOUS rou* TOPIRAMATE 100 MG TABLET Take 1 tablet by mouth twice * ROPINIROLE 4 MG TABLET Take 1 tablet by mouth daily * BUSPIRONE 15 MG TABLET One Tablet twice daily CPAP AutoPAP 6-16 cmH2O, suitable * ERGOTAMINE 1 MG-CAFFEINE 100 * Two tablets at onset of attac* CETIRIZINE 10 MG TABLET Take 1 tablet by mouth four t* KETOROLAC 10 MG TABLET Take 1 tablet by mouth every * DIPHENHYDRAMINE 25 MG CAPSULE Take 2 capsules by mouth thre* EPINEPHRINE 0.3 MG/0.3 ML INJ* CHOLECALCIFEROL (VITAMIN D3) * Take 5,000 Units by mouth onc* SULFACETAMIDE SODIUM 10 % EYE* Use 2 Drops in eyes every 4 h* Problem List As Of Date 04/28/2018 Noted Resolved Obesity, Class III, BMI 40-49.9 (morbid obesity*INVALID FOR* Priority: B More... Hypoglycemia, unspecified [E16.2] INVALID FOR*10/03/2014 HYPERLIPIDEMIA NEC/NOS [E78.5] INVALID FOR*10/03/2014 Anxiety state [F41.1] INVALID FOR* Priority: A More... Depressive disorder [F32.9] INVALID FOR* Priority: A More... DJD (degenerative joint disease) of knee [M17.1*INVALID FOR*03/21/2014 DYLON on CPAP [G47.33, Z99.89] INVALID FOR* Priority: B More... Ptosis [H02.409] INVALID FOR*10/03/2014 More... Vitamin D deficiency [E55.9] INVALID FOR*10/03/2014 Allergic rhinitis due to allergen [J30.9] INVALID FOR* Priority: B More... Pain in joint, lower leg [M25.569] INVALID FOR*03/21/2014 Dermatographic urticaria [L50.3] INVALID FOR* Priority: D More... Hidradenitis suppurativa [L73.2] INVALID FOR* Priority: D Tobacco use disorder [F17.200] INVALID FOR* Priority: C More... Restless leg syndrome [G25.81] INVALID FOR* Priority: B More... Vitamin D deficiency [E55.9] INVALID FOR* Priority: B Migraine with aura and without status migrainos*INVALID FOR* Priority: A Acquired hypothyroidism [E03.9] INVALID FOR* Priority: A Encounter for screening for cardiovascular diso*INVALID FOR* Encounter for screening for diabetes mellitus [*INVALID FOR* Iron deficiency concern [E61.1] INVALID FOR*05/11/2017 Encounter for gynecological examination without*INVALID FOR* Priority: E More... Well adult exam [Z00.00] INVALID FOR* Priority: E More... Dyslipidemia [E78.5] INVALID FOR* Priority: A CRP elevated [R79.82] INVALID FOR* ORTEGA positive [R76.8] INVALID FOR* Arthralgia [M25.50] INVALID FOR* Gastritis without bleeding [K29.70] INVALID FOR* Fibromyalgia [M79.7] INVALID FOR* Prescriptions ordered this encounter Disp Refills Start End SULFACETAMIDE SODIUM 10 % EYE DROPS 1 Bryce* 0 04/28/2018 05/05/2018 Route: OPHTHALMIC Sig: Use 2 Drops in eyes every 4 hours for 7 days. Disposition: Return if symptoms worsen or fail to improve. Follow-up and Disposition History Recorded Letter Text Leti Olvera PA-C [address], [place] [address] 04/28/2018 mAelia Plata [facility]# [id number] [address] [facility] [address] TO WHOM IT MAY CONCERN: This is to certify that Ms. Amelia Plata has been under my care for illness and is unable to work on 04/28/18. Sincerely yours, Leti Olvera PA-C Encounter Status:Closed by LETI CHAUDHRY on 04/28/18 PROGRESS Observed: 04/27/2018 Status: COMPLETED Source: [facility] 6:01 PM [facility] O ID: [id number] Author: Aniket Echevarria Service: (none) Author Type: Nurse Practitioner Type: Progress Notes Filed: 04/27/2018 6:23 PM Note Text: Subjective HPI HPI Amelia Plata is a 42 year old female who presents today for CC of cough, sinus congestion. This started over 1 week ago, symptoms initially improved, worsening over past 2 days. Has tried otc medication. Symptoms are worsened by nothing . Risk factors sick exposures at home/work. Denies possibility of being . Everyday smoker. .Patient presents with: Chest Congestion Cough PAST MEDICAL HISTORY Diagnosis Date - Allergic rhinitis due to allergen 10/20/2012 Immunotherapy weekly, Dr. Leonard. - ANXIETY STATE NOS 12/29/2006 - CLASS MIGRAIN W/O MENTN INTRACTABLE 06/09/2007 - DEPRESSIVE DISORDER NEC 12/29/2006 - DJD (degenerative joint disease) of knee 03/30/2008 - Hidradenitis suppurativa 03/21/2014 - HYPERLIPIDEMIA NEC/NOS 12/29/2006 - HYPOGLYCEMIA NOS 12/29/2006 - Hypothyroidism 11/16/2011 Abnormal TSH - Obesity 12/29/2006 - DYLON on CPAP 04/28/2009 DME [facility] - Other specified disease of hair and hair follicles - Plantar fascial fibromatosis - Ptosis 07/11/2009 - Vitamin D deficiency 09/09/2010 PAST SURGICAL HISTORY Procedure Laterality Date - 2D ECHO (EXEP) 11/30/2017 EF=64%, no valve issues - EGD W/O OR W/BRUSH/WASH 08/26/2016 EGD - ENDOMETRIAL ABLATION WITH US GUIDANCE November 2011 - PAST SURGICAL HISTORY OF 05/2003 right plantar fasciotomy - PAST SURGICAL HISTORY OF wisdom tooth extraction - S ESSURE DEVICE [id number] November 2011 ALLERGIES Nabumetone; Allergies-Environmental To Grass, Trees, Pollen, Dust, Feath [Other]; Imitrex [Sumatriptan Succinate]; Maxalt [Rizatriptan Benzoate]; Prednisone MEDICATIONS Omeprazole 40 mg capsule TAKE 1 CAPSULE BY MOUTH ONCE DAILY. ranitidine (ZANTAC) 150 mg tablet TAKE 1 TABLET BY MOUTH TWICE A DAY gabapentin (NEURONTIN) 300 mg capsule TAKE 1 CAPSULE AT 730 PM, TAKE 1 CAPSULE AT 930 PM, AND TAKE 1 CAPSULE AT BEDTIME propranolol (INDERAL) 10 mg tablet TAKE 1 TABLET BY MOUTH ONCE DAILY. hydroCHLOROthiazide (HYDRODIURIL, ESIDRIX) 25 mg tablet Take 1 tablet by mouth once daily. citalopram (CELEXA) 40 mg tablet Take 1 tablet by mouth once daily. ondansetron orally disintegrating (ZOFRAN ODT) 4 mg disintegrating tablet Take 1 tablet by mouth every 8 hours as needed. levothyroxine (SYNTHROID) 25 mcg tablet Take 1 tablet by mouth daily before breakfast. CPAP 1 Device by MISCELLANEOUS route daily at bedtime. 6-16 cm H2O, new mask suitable per pt preference. New supplies, humidity, filters, tubing, head gear, chin strap. Lifetime supplies G47.33 obstructive sleep apnea. Please fax day download to [phone]. topiramate (TOPAMAX) 100 mg tablet Take 1 tablet by mouth twice daily. rOPINIRole (REQUIP) 4 mg tablet Take 1 tablet by mouth daily at bedtime. busPIRone (BUSPAR) 15 mg tablet One Tablet twice daily CPAP AutoPAP 6-16 cmH2O, suitable mask, humidity, filters. Lifetime supplies. Dx: G47.33 ergotamine-caffeine (CAFERGOT) 1-100 mg per tablet Two tablets at onset of attack; then 1 tablet every 30 minutes as needed; maximum: 6 tablets per 24 hrs do not exceed 10 tablets/week cetirizine (ZYRTEC) 10 mg tablet Take 1 tablet by mouth four times daily. As instructed by dispensing operator Dr. Ross ketorolac (TORADOL) 10 mg tablet Take 1 tablet by mouth every 6 hours as needed. To abort migraine. diphenhydrAMINE (BENADRYL) 25 mg capsule Take 2 capsules by mouth three times daily as needed. To abort migraine EPINEPHrine (EPIPEN) 0.3 mg/0.3 mL (1:1,000) atIn Cholecalciferol, Vitamin D3, 5,000 unit ORAL Cap Take 5,000 Units by mouth once daily. FAMILY HISTORY Problem Relation Age of Onset - Osteoporosis Paternal Grandmother - Hypertension Paternal Grandmother - Alcohol/Drug Mother - other (Fibromyalgia) Mother - Arthritis Father - Hypertension Father - Coronary Artery Disease Maternal Grandfather - Diabetes Maternal Grandmother - Cancer Maternal Grandmother skin - other (Fibromyalgia) Maternal Grandmother - No Known Problems Sister - No Known Problems Brother Social History Substance Use Topics - Smoking status: Current Every Day Smoker Types: Cigarettes - Smokeless tobacco: Never Used Comment: E-cigarettes. past cigarette use- on and off for a few years - Alcohol use No Comment: rarely Review of Systems Constitutional: Negative for chills, fever and weight loss. HENT: Positive for congestion. Negative for ear pain, nosebleeds and sore throat. Respiratory: Positive for cough. Negative for shortness of breath and wheezing. Cardiovascular: Negative for chest pain. Musculoskeletal: Negative for neck pain. Skin: Negative for itching and rash. Objective Blood pressure 126/84, pulse 83, temperature 36.9 ?C (98.4 ?F), temperature source Left Tympanic, resp. rate 16, weight 131.1 kg (289 lb). Physical Exam Constitutional: She is oriented to person, place, and time and well-developed, well-nourished, and in no distress. Non-toxic appearance. She does not have a sickly appearance. No distress. HENT: Head: Normocephalic and atraumatic. Right Ear: Hearing, tympanic membrane, external ear and ear canal normal. Left Ear: Hearing, tympanic membrane, external ear and ear canal normal. Nose: Nose normal. Mouth/Throat: Uvula is midline, oropharynx is clear and moist and mucous membranes are normal. Eyes: Pupils are equal, round, and reactive to light. Conjunctivae and lids are normal. Right eye exhibits no discharge. Left eye exhibits no discharge. No scleral icterus. Neck: Trachea normal and normal range of motion. Neck supple. Cardiovascular: Normal rate, regular rhythm and normal heart sounds. Pulmonary/Chest: Effort normal and breath sounds normal. persistent harsh cough during exam Lymphadenopathy: She has no cervical adenopathy. Neurological: She is alert and oriented to person, place, and time. Skin: No rash noted. She is not diaphoretic. ASSESSMENT/PLAN: 1. Sinobronchitis - ICD9: 473.9, 490, ICD10: J32.9, J40 - Will begin treatment with Doxycline - Supportive care with plenty of fluids, rest, and analgesia prn. - Follow up in 3-5 days if symptoms persist or worsen. -If you experience chest pain/shortness of breath go to ER - BENZONATATE 100 MG CAPSULE - CODEINE 10 MG-GUAIFENESIN 100 MG/5 ML ORAL LIQUID - DOXYCYCLINE MONOHYDRATE 100 MG TABLET Prescription instructions reviewed with patient as applicable. Patient advised if symptoms do not improve or if symptoms worsen sooner, to contact the office for further evaluation by their primary care physician. Potential red flag symptoms discussed with the patient. Reviewed appropriate action plan to take if red flag symptoms occur. Patient agreeable to treatment plan. Aniket Echevarria APRN.CNP CNOV Observed: 04/27/2018 Status: COMPLETED Source: [facility] 6:00 PM [facility] REPOSITORY Office Visit (WSTR) AMELIA PLATA ([id number]) 1975 F Date Time Provider Department 04/27/18 6:00 PM ANIKET ECHEVARRIA ([place]OR[place]) [facility] During your visit today, we recorded the following information about you: Temperature Pulse Respiration Blood pressure 98.4 degrees 83/minute 16/minute 126/84 Weight 131.1 kg Aniket Echevarria APRN.CNP 04/27/2018 6:23 PM Signed Subjective HPI HPI Amelia Sweeney Boni is a 42 year old female who presents today for CC of cough, sinus congestion. This started over 1 week ago, symptoms initially improved, worsening over past 2 days. Has tried otc medication. Symptoms are worsened by nothing . Risk factors sick exposures at home/work. Denies possibility of being . Everyday smoker. .Patient presents with: Chest Congestion Cough PAST MEDICAL HISTORY Diagnosis Date - Allergic rhinitis due to allergen 10/20/2012 Immunotherapy weekly, Dr. Leonard. - ANXIETY STATE NOS 12/29/2006 - CLASS MIGRAIN W/O MENTN INTRACTABLE 06/09/2007 - DEPRESSIVE DISORDER NEC 12/29/2006 - DJD (degenerative joint disease) of knee 03/30/2008 - Hidradenitis suppurativa 03/21/2014 - HYPERLIPIDEMIA NEC/NOS 12/29/2006 - HYPOGLYCEMIA NOS 12/29/2006 - Hypothyroidism 11/16/2011 Abnormal TSH - Obesity 12/29/2006 - DYLON on CPAP 04/28/2009 DME [facility] - Other specified disease of hair and hair follicles - Plantar fascial fibromatosis - Ptosis 07/11/2009 - Vitamin D deficiency 09/09/2010 PAST SURGICAL HISTORY Procedure Laterality Date - 2D ECHO (EXEP) 11/30/2017 EF=64%, no valve issues - EGD W/O OR W/BRUSH/WASH 08/26/2016 EGD - ENDOMETRIAL ABLATION WITH US GUIDANCE November 2011 - PAST SURGICAL HISTORY OF 05/2003 right plantar fasciotomy - PAST SURGICAL HISTORY OF wisdom tooth extraction - S ESSURE DEVICE [id number] November 2011 ALLERGIES Nabumetone; Allergies-Environmental To Grass, Trees, Pollen, Dust, Feath [Other]; Imitrex [Sumatriptan Succinate]; Maxalt [Rizatriptan Benzoate]; Prednisone MEDICATIONS Omeprazole 40 mg capsule TAKE 1 CAPSULE BY MOUTH ONCE DAILY. ranitidine (ZANTAC) 150 mg tablet TAKE 1 TABLET BY MOUTH TWICE A DAY gabapentin (NEURONTIN) 300 mg capsule TAKE 1 CAPSULE AT 730 PM, TAKE 1 CAPSULE AT 930 PM, AND TAKE 1 CAPSULE AT BEDTIME propranolol (INDERAL) 10 mg tablet TAKE 1 TABLET BY MOUTH ONCE DAILY. hydroCHLOROthiazide (HYDRODIURIL, ESIDRIX) 25 mg tablet Take 1 tablet by mouth once daily. citalopram (CELEXA) 40 mg tablet Take 1 tablet by mouth once daily. ondansetron orally disintegrating (ZOFRAN ODT) 4 mg disintegrating tablet Take 1 tablet by mouth every 8 hours as needed. levothyroxine (SYNTHROID) 25 mcg tablet Take 1 tablet by mouth daily before breakfast. CPAP 1 Device by MISCELLANEOUS route daily at bedtime. 6-16 cm H2O, new mask suitable per pt preference. New supplies, humidity, filters, tubing, head gear, chin strap. Lifetime supplies G47.33 obstructive sleep apnea. Please fax day download to [phone]. topiramate (TOPAMAX) 100 mg tablet Take 1 tablet by mouth twice daily. rOPINIRole (REQUIP) 4 mg tablet Take 1 tablet by mouth daily at bedtime. busPIRone (BUSPAR) 15 mg tablet One Tablet twice daily CPAP AutoPAP 6-16 cmH2O, suitable mask, humidity, filters. Lifetime supplies. Dx: G47.33 ergotamine-caffeine (CAFERGOT) 1-100 mg per tablet Two tablets at onset of attack; then 1 tablet every 30 minutes as needed; maximum: 6 tablets per 24 hrs do not exceed 10 tablets/week cetirizine (ZYRTEC) 10 mg tablet Take 1 tablet by mouth four times daily. As instructed by dispensing operator Dr. Ross ketorolac (TORADOL) 10 mg tablet Take 1 tablet by mouth every 6 hours as needed. To abort migraine. diphenhydrAMINE (BENADRYL) 25 mg capsule Take 2 capsules by mouth three times daily as needed. To abort migraine EPINEPHrine (EPIPEN) 0.3 mg/0.3 mL (1:1,000) atIn Cholecalciferol, Vitamin D3, 5,000 unit ORAL Cap Take 5,000 Units by mouth once daily. FAMILY HISTORY Problem Relation Age of Onset - Osteoporosis Paternal Grandmother - Hypertension Paternal Grandmother - Alcohol/Drug Mother - other (Fibromyalgia) Mother - Arthritis Father - Hypertension Father - Coronary Artery Disease Maternal Grandfather - Diabetes Maternal Grandmother - Cancer Maternal Grandmother skin - other (Fibromyalgia) Maternal Grandmother - No Known Problems Sister - No Known Problems Brother Social History Substance Use Topics - Smoking status: Current Every Day Smoker Types: Cigarettes - Smokeless tobacco: Never Used Comment: E-cigarettes. past cigarette use- on and off for a few years - Alcohol use No Comment: rarely Review of Systems Constitutional: Negative for chills, fever and weight loss. HENT: Positive for congestion. Negative for ear pain, nosebleeds and sore throat. Respiratory: Positive for cough. Negative for shortness of breath and wheezing. Cardiovascular: Negative for chest pain. Musculoskeletal: Negative for neck pain. Skin: Negative for itching and rash. Objective Blood pressure 126/84, pulse 83, temperature 36.9 ?C (98.4 ?F), temperature source Left Tympanic, resp. rate 16, weight 131.1 kg (289 lb). Physical Exam Constitutional: She is oriented to person, place, and time and well-developed, well-nourished, and in no distress. Non-toxic appearance. She does not have a sickly appearance. No distress. HENT: Head: Normocephalic and atraumatic. Right Ear: Hearing, tympanic membrane, external ear and ear canal normal. Left Ear: Hearing, tympanic membrane, external ear and ear canal normal. Nose: Nose normal. Mouth/Throat: Uvula is midline, oropharynx is clear and moist and mucous membranes are normal. Eyes: Pupils are equal, round, and reactive to light. Conjunctivae and lids are normal. Right eye exhibits no discharge. Left eye exhibits no discharge. No scleral icterus. Neck: Trachea normal and normal range of motion. Neck supple. Cardiovascular: Normal rate, regular rhythm and normal heart sounds. Pulmonary/Chest: Effort normal and breath sounds normal. persistent harsh cough during exam Lymphadenopathy: She has no cervical adenopathy. Neurological: She is alert and oriented to person, place, and time. Skin: No rash noted. She is not diaphoretic. ASSESSMENT/PLAN: 1. Sinobronchitis - ICD9: 473.9, 490, ICD10: J32.9, J40 - Will begin treatment with Doxycline - Supportive care with plenty of fluids, rest, and analgesia prn. - Follow up in 3-5 days if symptoms persist or worsen. -If you experience chest pain/shortness of breath go to ER - BENZONATATE 100 MG CAPSULE - CODEINE 10 MG-GUAIFENESIN 100 MG/5 ML ORAL LIQUID - DOXYCYCLINE MONOHYDRATE 100 MG TABLET Prescription instructions reviewed with patient as applicable. Patient advised if symptoms do not improve or if symptoms worsen sooner, to contact the office for further evaluation by their primary care physician. Potential red flag symptoms discussed with the patient. Reviewed appropriate action plan to take if red flag symptoms occur. Patient agreeable to treatment plan. Aniket Echevarria APRN.FLORA Echevarria APRN.FLORA 04/27/2018 6:17 PM Signed ASSESSMENT/PLAN: 1. Sinobronchitis - ICD9: 473.9, 490, ICD10: J32.9, J40 - Will begin treatment with Doxycline - Supportive care with plenty of fluids, rest, and analgesia prn. - Follow up in 3-5 days if symptoms persist or worsen. -If you experience chest pain/shortness of breath go to ER - BENZONATATE 100 MG CAPSULE - CODEINE 10 MG-GUAIFENESIN 100 MG/5 ML ORAL LIQUID - DOXYCYCLINE MONOHYDRATE 100 MG TABLET Referring Provider: SELF [200] Allergies As of Date: 04/27/2018 Noted Allergy Reaction NABUMETONE 04/28/2009 4 - Hives Comments: hives allergies-environmental to grass,*11/28/2009 14 - Other: See Comments Comments: Sneezing, rhinorrhea IMITREX (SUMATRIPTAN SUCCINATE) 08/21/2009 14 - Other: See Comments Comments: Neck pain MAXALT (RIZATRIPTAN BENZOATE) 03/01/2016 14 - Other: See Comments Comments: Neck pain and nausea PREDNISONE 05/10/2016 14 - Other: See Comments Comments: Abdominal pain and diarrhea Date Reviewed: 04/27/2018 [facility]: [facility] - Fully Assessed Reason for Visit: Chest Congestion [236] Cough [28] Primary Visit Diagnosis:Sinobronchitis [J32.9, J40] Order(s):benzonatate (TESSALON PERLE) 100 mg capsuleTake 2 capsules by mouth three times daily as needed.Disp: 30 capsuleRfl: 0 codeine-guaiFENesin (ROBITUSSIN AC) 10-100 mg/5 mL syrupTake 5-10 mL by mouth four times daily as needed for Cough for up to 3 days. May cause drowsiness.Disp: 120 mLRfl: 0 doxycycline monohydrate 100 mg tabletTake 1 tablet by mouth twice daily for 10 days.Disp: 20 tabletRfl: 0 Prescriptions as of 04/27/2018 Sig: BENZONATATE 100 MG CAPSULE Take 2 capsules by mouth thre* CODEINE 10 MG-GUAIFENESIN 100* Take 5-10 mL by mouth four ti* DOXYCYCLINE MONOHYDRATE 100 M* Take 1 tablet by mouth twice * OMEPRAZOLE 40 MG CAPSULE,SENA* TAKE 1 CAPSULE BY MOUTH ONCE * RANITIDINE 150 MG TABLET TAKE 1 TABLET BY MOUTH TWICE * GABAPENTIN 300 MG CAPSULE TAKE 1 CAPSULE AT 730 PM, MODE* PROPRANOLOL 10 MG TABLET TAKE 1 TABLET BY MOUTH ONCE D* HYDROCHLOROTHIAZIDE 25 MG TAB* Take 1 tablet by mouth once d* CITALOPRAM 40 MG TABLET Take 1 tablet by mouth once d* ONDANSETRON 4 MG DISINTEGRATI* Take 1 tablet by mouth every * LEVOTHYROXINE 25 MCG TABLET Take 1 tablet by mouth daily * CPAP 1 Device by MISCELLANEOUS rou* TOPIRAMATE 100 MG TABLET Take 1 tablet by mouth twice * ROPINIROLE 4 MG TABLET Take 1 tablet by mouth daily * BUSPIRONE 15 MG TABLET One Tablet twice daily CPAP AutoPAP 6-16 cmH2O, suitable * ERGOTAMINE 1 MG-CAFFEINE 100 * Two tablets at onset of attac* CETIRIZINE 10 MG TABLET Take 1 tablet by mouth four t* KETOROLAC 10 MG TABLET Take 1 tablet by mouth every * DIPHENHYDRAMINE 25 MG CAPSULE Take 2 capsules by mouth thre* EPINEPHRINE 0.3 MG/0.3 ML INJ* CHOLECALCIFEROL (VITAMIN D3) * Take 5,000 Units by mouth onc* Problem List As Of Date 04/27/2018 Noted Resolved Obesity, Class III, BMI 40-49.9 (morbid obesity*INVALID FOR* Priority: B More... Hypoglycemia, unspecified [E16.2] INVALID FOR*10/03/2014 HYPERLIPIDEMIA NEC/NOS [E78.5] INVALID FOR*10/03/2014 Anxiety state [F41.1] INVALID FOR* Priority: A More... Depressive disorder [F32.9] INVALID FOR* Priority: A More... DJD (degenerative joint disease) of knee [M17.1*INVALID FOR*03/21/2014 DYLON on CPAP [G47.33, Z99.89] INVALID FOR* Priority: B More... Ptosis [H02.409] INVALID FOR*10/03/2014 More... Vitamin D deficiency [E55.9] INVALID FOR*10/03/2014 Allergic rhinitis due to allergen [J30.9] INVALID FOR* Priority: B More... Pain in joint, lower leg [M25.569] INVALID FOR*03/21/2014 Dermatographic urticaria [L50.3] INVALID FOR* Priority: D More... Hidradenitis suppurativa [L73.2] INVALID FOR* Priority: D Tobacco use disorder [F17.200] INVALID FOR* Priority: C More... Restless leg syndrome [G25.81] INVALID FOR* Priority: B More... Vitamin D deficiency [E55.9] INVALID FOR* Priority: B Migraine with aura and without status migrainos*INVALID FOR* Priority: A Acquired hypothyroidism [E03.9] INVALID FOR* Priority: A Encounter for screening for cardiovascular diso*INVALID FOR* Encounter for screening for diabetes mellitus [*INVALID FOR* Iron deficiency concern [E61.1] INVALID FOR*05/11/2017 Encounter for gynecological examination without*INVALID FOR* Priority: E More... Well adult exam [Z00.00] INVALID FOR* Priority: E More... Dyslipidemia [E78.5] INVALID FOR* Priority: A CRP elevated [R79.82] INVALID FOR* ORTEGA positive [R76.8] INVALID FOR* Arthralgia [M25.50] INVALID FOR* Gastritis without bleeding [K29.70] INVALID FOR* Fibromyalgia [M79.7] INVALID FOR* Other instructions from your clinician: ASSESSMENT/PLAN: 1. Sinobronchitis - ICD9: 473.9, 490, ICD10: J32.9, J40 - Will begin treatment with Doxycline - Supportive care with plenty of fluids, rest, and analgesia prn. - Follow up in 3-5 days if symptoms persist or worsen. -If you experience chest pain/shortness of breath go to ER - BENZONATATE 100 MG CAPSULE - CODEINE 10 MG-GUAIFENESIN 100 MG/5 ML ORAL LIQUID - DOXYCYCLINE MONOHYDRATE 100 MG TABLET Prescriptions ordered this encounter Disp Refills Start End BENZONATATE 100 MG CAPSULE 30 c* 0 04/27/2018 Route: ORAL Sig: Take 2 capsules by mouth three times daily as needed. CODEINE 10 MG-GUAIFENESIN 100 MG/5 M* 120 * 0 04/27/2018 04/30/2018 Class: Print RX Route: ORAL Sig: Take 5-10 mL by mouth four times daily as needed for Cough for up to 3 days. May cause drowsiness. DOXYCYCLINE MONOHYDRATE 100 MG TABLET 20 t* 0 04/27/2018 05/07/2018 Route: ORAL Sig: Take 1 tablet by mouth twice daily for 10 days. Encounter Status:Closed by ANIKET ECHEVARRIA CNP on 04/27/18 CNOV Observed: 03/09/2018 Status: COMPLETED Source: [facility] 4:30 PM [facility] RE[facility] Office Visit (RHBATH) AMELIA PLATA ([id number]) 1975 F Date Time Provider Department 03/09/18 4:30 PM MICHELLE JENSEN During your visit today, we recorded the following information about you: Pulse Blood pressure Weight Height 80/minute 118/80 129.7 kg 1.702 m Michelle Jensen MD 03/09/2018 4:42 PM Signed RHEUMATOLOGY PROGRESS NOTE Patient is here for a follow up visit for Patient presents with: Results: discuss labs from 02/16/2018 due to pain in joints. HPI: Amelia Plata is a 42 year old female who presents positive ORTEGA He used to have back pain in all over body pain. Reports poor sleep. Depression is controlled with medications. Also wears CPAP Brief Rheumatological history - Patient reports pain over hands, low back, arms, neck, shoulder, fatigue for several years. Symptoms are getting worse. She noticed some swelling over her knuckles. She takes ibuprofen for pain which helps sometimes. She does not recall having any recent x rays. No PT. She also tried icy hot, biofreeze, Salonpas. She also gets headaches. gelling phenomenon. She feels worse towards the end of the day. Pain overall worsens with activity. Back pain is not radiating. 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 AM stiffness lasting for 5 min. She has RLS and takes gabapentin, left leg swelling she reports numbness over right thigh. She was seen by a marketing officer few months ago - she had lip biopsy was ok. She had blood tests and unclear of the results. No x rays were done. Slightly positive schirmers test. DYLON, CPAP h/o TMJ pain ? Family history of autoimmune disease:none Several members with fibromyalgia Smoking status: Tobacco Use: Types: Cigarettes (E-cigarettes. past cigarette use- on and off for a few years) Interval Review of Systems CONSTITUTIONAL: Recent Weight change: No Fever: No EYES: Dryness in nose: No Dryness of mouth: No Oral ulcers: No CARDIOVASCULAR: Pain in chest: No RESPIRATORY: Shortness of breath: No Cough: No GASTROINTESTINAL: Nausea: No Vomiting: No Changes in bowel movements: No Jaundice: No Heartburn: No MUSCULOSKELETAL: Per HPI INTEGUMENTARY: Rash: No HEMATOLOGIC/LYMPHATIC: Anemia: No NEUROLOGICAL SYSTEM: Headaches: No Sensitivity or pain of hands and/or feet: No PSYCHIATRIC: Anxiety: YES Poor sleep: YES PAST MEDICAL HISTORY Diagnosis Date - Allergic rhinitis due to allergen 10/20/2012 Immunotherapy weekly, Dr. Leonard. - ANXIETY STATE NOS 12/29/2006 - CLASS MIGRAIN W/O MENTN INTRACTABLE 06/09/2007 - DEPRESSIVE DISORDER NEC 12/29/2006 - DJD (degenerative joint disease) of knee 03/30/2008 - Hidradenitis suppurativa 03/21/2014 - HYPERLIPIDEMIA NEC/NOS 12/29/2006 - HYPOGLYCEMIA NOS 12/29/2006 - Hypothyroidism 11/16/2011 Abnormal TSH - Obesity 12/29/2006 - DYLON on CPAP 04/28/2009 DME [facility] [place] - Other specified disease of hair and hair follicles - Plantar fascial fibromatosis - Ptosis 07/11/2009 - Vitamin D deficiency 09/09/2010 PAST SURGICAL HISTORY Procedure Laterality Date - 2D ECHO (EXEP) 11/30/2017 EF=64%, no valve issues - EGD W/O OR W/BRUSH/WASH 08/26/2016 EGD - ENDOMETRIAL ABLATION WITH US GUIDANCE November 2011 - PAST SURGICAL HISTORY OF 05/2003 right plantar fasciotomy - PAST SURGICAL HISTORY OF wisdom tooth extraction - S ESSURE DEVICE [id number] November 2011 History Review: I have reviewed and modified as needed, the following during this visit: Allergies, Past Medical History, Past Surgical History, Past Family History, Past Social History. BP 118/80 Pulse 80 Ht 170.2 cm (5' 7) Wt 129.7 kg (286 lb) BMI 44.79 kg/m? Physical Exam GENERAL: Well appearing, alert, comfortable, in no acute distress, well-hydrated, well nourished. HEENT: Negative for external ears normal. Canals are clear. Both TMs visualized and are normal. Eye Exam normal. External nose normal, no nasal ulcer or throat ulcer. NECK: NECK Supple, no adenopathy; thyroid symmetric, normal size, no bruits CARDIAC: regular rate and rhythm, No murmur asculated. and Equal peripheral pulses RESPIRATORY: Lungs clear to auscultation. No wheezing, rhonchi, rales VASCULAR: RRR without murmur, gallop, or rubs. No ectopy. NEURO: Motor and sensory exam normal MOTOR: Normal; including tone, gait, stressed gait, power and coordination. SKIN: Negative for alopecia, skin rash, malar rash, skin lesion, skin ulcer, pits, thickening, color changes, telangiectasias, nail changes, nail ridging, nail pitting, onycholysis MUSCULOSKELETAL: Muscular exam - diffuse tenderness over proximal and distal muscle groups in the extremities without gross deformity or objective muscle weakness. Tone normal. Lab Results: Glucose 92 11/28/2017 ALT 27 11/28/2017 WBC 6.85 06/03/2017 Hemoglobin 13.0 06/03/2017 Platelet Count 235 06/03/2017 WSR 16 11/25/2017 CRP 1.9 11/25/2017 Serology: ORTEGA: Positive, C3: Negative, C4: Negative, CCP: Negative, DNA: Negative, RF: Negative, BRICK PAVER: Negative, SM: Negative, SSA: Negative and SSB: Negative Radiology: IMPRESSION: No acute osseous finding in bilateral hands. No acute osseous findings SI joints. ?No erosions or ankylosis. No acute osseous findings in the lumbar spine. ?Degenerative changes as described. No acute osseous findings bilateral feet. Assessment and Plan (M79.7) Fibromyalgia (primary encounter diagnosis) (R76.8) ORTEGA positive (R53.81, R53.83) Malaise and fatigue 42-year-old female is here for follow-up. Patient has history of positive ORTEGA on multiple locations with negative subset serologies. X-rays were performed in the last visit which did not show any evidence of inflammatory arthritis. Patient was noted to have mild degenerative changes in the back. This does not explain the intensity of her symptoms. After a comprehensive rheumatological valuation, I believe that the patient's symptoms stem from Fibromyalgia. People with fibromyalgia receive individual treatment based on several factors, including their overall health, medical history, number of tender points, severity of pain, and any other symptoms. Treatment for fibromyalgia includes: ? Education about fibromyalgia and goal setting ? Lifestyle changes, including stress reduction ? Lifelong exercise ? Relaxation techniques to relieve muscle tension ? Medications that reduce pain and improve sleep ? Treatment of underlying anxiety/depression (if present). Consider consulting with a counselor, psychiatrist. No currently existing medications completely relieve fibromyalgia pain. However, acetaminophen (such as Tylenol?) is both helpful and safer than other analgesics (pain-relieving medications). Medications help only to a certain extent. Drugs in the category of antidepressants and gabapentinoids are used to treat fibromyalgia. They help reduce pain and improve mood and the quality of sleep. Consider having a sleep study if not done previously. Nonsteroidal anti-inflammatory drugs, including aspirin and ibuprofen, may help reduce pain, but should be used sparingly. These drugs have many side effects, including stomach upset and fluid retention. They may also have unfavorable interactions with other drugs, such as high blood pressure medications. (These drugs are not currently recommended for the treatment of fibromyalgia.) Glucocorticosteroids such as prednisone and cortisone are contraindicated (should not be used). There is no benefit for immunosuppressive medications, since fibromyalgia is not an inflammatory condition. There is a strong agreement among specialists that opioid medications are not indicated and should not be prescribed for fibromyalgia pain. No orders found for this visit on 03/09/18. No orders of the defined types were placed in this encounter. Return in about 1 year (around 03/09/2019) for positive ORTEGA . MD Michelle Garcia MD 03/09/2018 4:36 PM Signed Patient education: Dry eye (The Basics) Written by the doctors and editors at [facility] What is dry eye?Dry eye happens when your eyes either do not make enough tears or the tears that they make evaporate (go away) too quickly. This causes your eyes to feel dry and irritated. The medical term for dry eye is keratoconjunctivitis sicca. What causes dry eye?Many people have dry eye, including about one-third of older adults. A few people with dry eye might have another disease, such as Sjogren's syndrome, diabetes, or Parkinson disease. Some medicines can cause dry eye symptoms or make them worse. What are the symptoms of dry eye?People have different symptoms but the most common ones are eyes that: ?Feel dry or burn ?Look red Other symptoms can include: ?Being bothered by light ?Feeling like something is in your eyes ?Blurry vision ?Watery eyes ?Discomfort wearing contact lenses In some people the symptoms are worse when it is cold or windy or if they are in a dry environment. Should I see a doctor or nurse?Yes. If your eye stays red, irritated, or painful for several days, you should see your doctor or nurse. Will I need tests?Probably not. The doctor or nurse should be able to tell if you have dry eye by learning about your symptoms and doing an exam. How is dry eye treated?Artificial tears are the main treatment for dry eye. They can keep the eye moist and help with the symptoms of dry eye. You can buy artificial tears at the drug store or grocery store without a prescription. They come in liquid, gel, or ointments. Your doctor or nurse will help you decide which form is best for you. It is usually best to avoid eye drops that are meant to reduce redness. Artificial tears help with the symptoms of dry eye, but they do not cure the condition. They work only as long as you keep using them. Other things you can do to help improve your symptoms are: ?Try to blink a lot, especially when you are reading or using the computer. This helps keep your eye moist. ?Avoid excess air conditioning or heating as much as you can. Also avoid sitting directly in the flow of the cold or hot air. ?Use a humidifier in your bedroom and any other space where you spend a lot of time. ?Avoid smoke and smoky air ?Wear protective eyewear when you are outside. Glasses that cover more of your face, or have special trejo on the sides, can protect your eyes from wind and dry air. Over the counter artificial eye drops like Genteal/Systane can be helpful. If your dry eye does not get better in 3 to 4 weeks, your doctor or nurse might send you to see an eye doctor (called an light bulb assembler). The eye doctor can do more tests and might suggest other treatments. These include prescription eye drops (like Restasis) or ointments, special glasses or goggles, oral medicines (pills), or surgery. This topic retrieved from [employer] on: Oct 20, 2017. Referring Provider: MICHELLE JENSEN [[id number]] Allergies As of Date: 03/09/2018 Noted Allergy Reaction NABUMETONE 04/28/2009 4 - Hives Comments: hives allergies-environmental to grass,*11/28/2009 14 - Other: See Comments Comments: Sneezing, rhinorrhea IMITREX (SUMATRIPTAN SUCCINATE) 08/21/2009 14 - Other: See Comments Comments: Neck pain MAXALT (RIZATRIPTAN BENZOATE) 03/01/2016 14 - Other: See Comments Comments: Neck pain and nausea PREDNISONE 05/10/2016 14 - Other: See Comments Comments: Abdominal pain and diarrhea Date Reviewed: 03/09/2018 Reviewed by: Diana Hess - Fully Assessed Reason for Visit: Results [95] Cmt: discuss labs from 02/16/2018 due to pain in joints. Primary Visit Diagnosis:Fibromyalgia [M79.7] Other Visit Diagnoses:ORTEGA positive [R76.8] Malaise and fatigue [R53.81, R53.83] Prescriptions as of 03/09/2018 Sig: RANITIDINE 150 MG TABLET TAKE 1 TABLET BY MOUTH TWICE * GABAPENTIN 300 MG CAPSULE TAKE 1 CAPSULE AT 730 PM, MODE* PROPRANOLOL 10 MG TABLET TAKE 1 TABLET BY MOUTH ONCE D* HYDROCHLOROTHIAZIDE 25 MG TAB* Take 1 tablet by mouth once d* CITALOPRAM 40 MG TABLET Take 1 tablet by mouth once d* ONDANSETRON 4 MG DISINTEGRATI* Take 1 tablet by mouth every * LEVOTHYROXINE 25 MCG TABLET Take 1 tablet by mouth daily * OMEPRAZOLE 40 MG CAPSULE,SENA* TAKE 1 CAPSULE BY MOUTH ONCE * CPAP 1 Device by MISCELLANEOUS rou* TOPIRAMATE 100 MG TABLET Take 1 tablet by mouth twice * ROPINIROLE 4 MG TABLET Take 1 tablet by mouth daily * BUSPIRONE 15 MG TABLET One Tablet twice daily CPAP AutoPAP 6-16 cmH2O, suitable * ERGOTAMINE 1 MG-CAFFEINE 100 * Two tablets at onset of attac* CETIRIZINE 10 MG TABLET Take 1 tablet by mouth four t* KETOROLAC 10 MG TABLET Take 1 tablet by mouth every * DIPHENHYDRAMINE 25 MG CAPSULE Take 2 capsules by mouth thre* EPINEPHRINE 0.3 MG/0.3 ML INJ* CHOLECALCIFEROL (VITAMIN D3) * Take 5,000 Units by mouth onc* Problem List As Of Date 03/09/2018 Noted Resolved Obesity, Class III, BMI 40-49.9 (morbid obesity*INVALID FOR* Priority: B More... Hypoglycemia, unspecified [E16.2] INVALID FOR*10/03/2014 HYPERLIPIDEMIA NEC/NOS [E78.5] INVALID FOR*10/03/2014 Anxiety state [F41.1] INVALID FOR* Priority: A More... Depressive disorder [F32.9] INVALID FOR* Priority: A More... DJD (degenerative joint disease) of knee [M17.1*INVALID FOR*03/21/2014 DYLON on CPAP [G47.33, Z99.89] INVALID FOR* Priority: B More... Ptosis [H02.409] INVALID FOR*10/03/2014 More... Vitamin D deficiency [E55.9] INVALID FOR*10/03/2014 Allergic rhinitis due to allergen [J30.9] INVALID FOR* Priority: B More... Pain in joint, lower leg [M25.569] INVALID FOR*03/21/2014 Dermatographic urticaria [L50.3] INVALID FOR* Priority: D More... Hidradenitis suppurativa [L73.2] INVALID FOR* Priority: D Tobacco use disorder [F17.200] INVALID FOR* Priority: C More... Restless leg syndrome [G25.81] INVALID FOR* Priority: B More... Vitamin D deficiency [E55.9] INVALID FOR* Priority: B Migraine with aura and without status migrainos*INVALID FOR* Priority: A Acquired hypothyroidism [E03.9] INVALID FOR* Priority: A Encounter for screening for cardiovascular diso*INVALID FOR* Encounter for screening for diabetes mellitus [*INVALID FOR* Iron deficiency concern [E61.1] INVALID FOR*05/11/2017 Encounter for gynecological examination without*INVALID FOR* Priority: E More... Well adult exam [Z00.00] INVALID FOR* Priority: E More... Dyslipidemia [E78.5] INVALID FOR* Priority: A CRP elevated [R79.82] INVALID FOR* ORTEGA positive [R76.8] INVALID FOR* Arthralgia [M25.50] INVALID FOR* Gastritis without bleeding [K29.70] INVALID FOR* Fibromyalgia [M79.7] INVALID FOR* Other instructions from your clinician: Patient education: Dry eye (The Basics) Written by the doctors and editors at [facility] What is dry eye?Dry eye happens when your eyes either do not make enough tears or the tears that they make evaporate (go away) too quickly. This causes your eyes to feel dry and irritated. The medical term for dry eye is keratoconjunctivitis sicca. What causes dry eye?Many people have dry eye, including about one-third of older adults. A few people with dry eye might have another disease, such as Sjogren's syndrome, diabetes, or Parkinson disease. Some medicines can cause dry eye symptoms or make them worse. What are the symptoms of dry eye?People have different symptoms but the most common ones are eyes that: ?Feel dry or burn ?Look red Other symptoms can include: ?Being bothered by light ?Feeling like something is in your eyes ?Blurry vision ?Watery eyes ?Discomfort wearing contact lenses In some people the symptoms are worse when it is cold or windy or if they are in a dry environment. Should I see a doctor or nurse?Yes. If your eye stays red, irritated, or painful for several days, you should see your doctor or nurse. Will I need tests?Probably not. The doctor or nurse should be able to tell if you have dry eye by learning about your symptoms and doing an exam. How is dry eye treated?Artificial tears are the main treatment for dry eye. They can keep the eye moist and help with the symptoms of dry eye. You can buy artificial tears at the drug store or grocery store without a prescription. They come in liquid, gel, or ointments. Your doctor or nurse will help you decide which form is best for you. It is usually best to avoid eye drops that are meant to reduce redness. Artificial tears help with the symptoms of dry eye, but they do not cure the condition. They work only as long as you keep using them. Other things you can do to help improve your symptoms are: ?Try to blink a lot, especially when you are reading or using the computer. This helps keep your eye moist. ?Avoid excess air conditioning or heating as much as you can. Also avoid sitting directly in the flow of the cold or hot air. ?Use a humidifier in your bedroom and any other space where you spend a lot of time. ?Avoid smoke and smoky air ?Wear protective eyewear when you are outside. Glasses that cover more of your face, or have special trejo on the sides, can protect your eyes from wind and dry air. Over the counter artificial eye drops like Genteal/Systane can be helpful. If your dry eye does not get better in 3 to 4 weeks, your doctor or nurse might send you to see an eye doctor (called an light bulb assembler). The eye doctor can do more tests and might suggest other treatments. These include prescription eye drops (like Restasis) or ointments, special glasses or goggles, oral medicines (pills), or surgery. This topic retrieved from [employer] on: Oct 20, 2017. Disposition: Return in about 1 year (around 03/09/2019) for positive ORTEGA . Follow-up and Disposition History Recorded Encounter Status:Closed by MICHELLE JENSEN MD on 03/09/18 PROGRESS Observed: 03/09/2018 Status: COMPLETED Source: [facility] 4:21 PM CLINIC OTHER CAMPUS REPOSITORY [facility] ID: [id number] Author: Michelle Jensen Service: (none) Author Type: Physician Type: Progress Notes Filed: 03/09/2018 4:42 PM Note Text: RHEUMATOLOGY PROGRESS NOTE Patient is here for a follow up visit for Patient presents with: Results: discuss labs from 02/16/2018 due to pain in joints. HPI: Amelia Plata is a 42 year old female who presents positive ORTEGA He used to have back pain in all over body pain. Reports poor sleep. Depression is controlled with medications. Also wears CPAP Brief Rheumatological history - Patient reports pain over hands, low back, arms, neck, shoulder, fatigue for several years. Symptoms are getting worse. She noticed some swelling over her knuckles. She takes ibuprofen for pain which helps sometimes. She does not recall having any recent x rays. No PT. She also tried icy hot, biofreeze, Salonpas. She also gets headaches. gelling phenomenon. She feels worse towards the end of the day. Pain overall worsens with activity. Back pain is not radiating. 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 AM stiffness lasting for 5 min. She has RLS and takes gabapentin, left leg swelling she reports numbness over right thigh. She was seen by a marketing officer few months ago - she had lip biopsy was ok. She had blood tests and unclear of the results. No x rays were done. Slightly positive schirmers test. DYLON, CPAP h/o TMJ pain ? Family history of autoimmune disease:none Several members with fibromyalgia Smoking status: Tobacco Use: Types: Cigarettes (E-cigarettes. past cigarette use- on and off for a few years) Interval Review of Systems CONSTITUTIONAL: Recent Weight change: No Fever: No EYES: Dryness in nose: No Dryness of mouth: No Oral ulcers: No CARDIOVASCULAR: Pain in chest: No RESPIRATORY: Shortness of breath: No Cough: No GASTROINTESTINAL: Nausea: No Vomiting: No Changes in bowel movements: No Jaundice: No Heartburn: No MUSCULOSKELETAL: Per HPI INTEGUMENTARY: Rash: No HEMATOLOGIC/LYMPHATIC: Anemia: No NEUROLOGICAL SYSTEM: Headaches: No Sensitivity or pain of hands and/or feet: No PSYCHIATRIC: Anxiety: YES Poor sleep: YES PAST MEDICAL HISTORY Diagnosis Date - Allergic rhinitis due to allergen 10/20/2012 Immunotherapy weekly, Dr. Leonard. - ANXIETY STATE NOS 12/29/2006 - CLASS MIGRAIN W/O MENTN INTRACTABLE 06/09/2007 - DEPRESSIVE DISORDER NEC 12/29/2006 - DJD (degenerative joint disease) of knee 03/30/2008 - Hidradenitis suppurativa 03/21/2014 - HYPERLIPIDEMIA NEC/NOS 12/29/2006 - HYPOGLYCEMIA NOS 12/29/2006 - Hypothyroidism 11/16/2011 Abnormal TSH - Obesity 12/29/2006 - DYLON on CPAP 04/28/2009 DME Geetha Lopez - Other specified disease of hair and hair follicles - Plantar fascial fibromatosis - Ptosis 07/11/2009 - Vitamin D deficiency 09/09/2010 PAST SURGICAL HISTORY Procedure Laterality Date - 2D ECHO (EXEP) 11/30/2017 EF=64%, no valve issues - EGD W/O OR W/BRUSH/WASH 08/26/2016 EGD - ENDOMETRIAL ABLATION WITH US GUIDANCE November 2011 - PAST SURGICAL HISTORY OF 05/2003 right plantar fasciotomy - PAST SURGICAL HISTORY OF wisdom tooth extraction - S ESSURE DEVICE [id number] November 2011 History Review: I have reviewed and modified as needed, the following during this visit: Allergies, Past Medical History, Past Surgical History, Past Family History, Past Social History. BP 118/80 Pulse 80 Ht 170.2 cm (5' 7) Wt 129.7 kg (286 lb) BMI 44.79 kg/m? Physical Exam GENERAL: Well appearing, alert, comfortable, in no acute distress, well-hydrated, well nourished. HEENT: Negative for external ears normal. Canals are clear. Both TMs visualized and are normal. Eye Exam normal. External nose normal, no nasal ulcer or throat ulcer. NECK: NECK Supple, no adenopathy; thyroid symmetric, normal size, no bruits CARDIAC: regular rate and rhythm, No murmur asculated. and Equal peripheral pulses RESPIRATORY: Lungs clear to auscultation. No wheezing, rhonchi, rales VASCULAR: RRR without murmur, gallop, or rubs. No ectopy. NEURO: Motor and sensory exam normal MOTOR: Normal; including tone, gait, stressed gait, power and coordination. SKIN: Negative for alopecia, skin rash, malar rash, skin lesion, skin ulcer, pits, thickening, color changes, telangiectasias, nail changes, nail ridging, nail pitting, onycholysis MUSCULOSKELETAL: Muscular exam - diffuse tenderness over proximal and distal muscle groups in the extremities without gross deformity or objective muscle weakness. Tone normal. Lab Results: Glucose 92 11/28/2017 ALT 27 11/28/2017 WBC 6.85 06/03/2017 Hemoglobin 13.0 06/03/2017 Platelet Count 235 06/03/2017 WSR 16 11/25/2017 CRP 1.9 11/25/2017 Serology: ORTEGA: Positive, C3: Negative, C4: Negative, CCP: Negative, DNA: Negative, RF: Negative, BRICK PAVER: Negative, SM: Negative, SSA: Negative and SSB: Negative Radiology: IMPRESSION: No acute osseous finding in bilateral hands. No acute osseous findings SI joints. ?No erosions or ankylosis. No acute osseous findings in the lumbar spine. ?Degenerative changes as described. No acute osseous findings bilateral feet. Assessment and Plan (M79.7) Fibromyalgia (primary encounter diagnosis) (R76.8) ORTEGA positive (R53.81, R53.83) Malaise and fatigue 42-year-old female is here for follow-up. Patient has history of positive ORTEGA on multiple locations with negative subset serologies. X-rays were performed in the last visit which did not show any evidence of inflammatory arthritis. Patient was noted to have mild degenerative changes in the back. This does not explain the intensity of her symptoms. After a comprehensive rheumatological valuation, I believe that the patient's symptoms stem from Fibromyalgia. People with fibromyalgia receive individual treatment based on several factors, including their overall health, medical history, number of tender points, severity of pain, and any other symptoms. Treatment for fibromyalgia includes: ? Education about fibromyalgia and goal setting ? Lifestyle changes, including stress reduction ? Lifelong exercise ? Relaxation techniques to relieve muscle tension ? Medications that reduce pain and improve sleep ? Treatment of underlying anxiety/depression (if present). Consider consulting with a counselor, psychiatrist. No currently existing medications completely relieve fibromyalgia pain. However, acetaminophen (such as Tylenol?) is both helpful and safer than other analgesics (pain-relieving medications). Medications help only to a certain extent. Drugs in the category of antidepressants and gabapentinoids are used to treat fibromyalgia. They help reduce pain and improve mood and the quality of sleep. Consider having a sleep study if not done previously. Nonsteroidal anti-inflammatory drugs, including aspirin and ibuprofen, may help reduce pain, but should be used sparingly. These drugs have many side effects, including stomach upset and fluid retention. They may also have unfavorable interactions with other drugs, such as high blood pressure medications. (These drugs are not currently recommended for the treatment of fibromyalgia.) Glucocorticosteroids such as prednisone and cortisone are contraindicated (should not be used). There is no benefit for immunosuppressive medications, since fibromyalgia is not an inflammatory condition. There is a strong agreement among specialists that opioid medications are not indicated and should not be prescribed for fibromyalgia pain. No orders found for this visit on 03/09/18. No orders of the defined types were placed in this encounter. Return in about 1 year (around 03/09/2019) for positive ORTEGA . Michelle Jensen MD PROGRESS Observed: 02/17/2018 Status: COMPLETED Source: [facility] 2:18 PM [facility] REPOSITORY [facility] ID: [id number] Author: Meli Albert Service: (none) Author Type: (none) Type: Progress Notes Filed: 02/17/2018 2:19 PM Note Text: Radiology Service Progress Note PATIENT NAME: Amelia Plata DATE OF SERVICE: February 17, 2018 TIME: 2:18 PM PATIENT IDENTITY VERIFICATION COMPLETED USING TWO (2) METHODS: Patient confirmed name verbally and Date of . PATIENT GENDER DATA: Female. status: : No status: NO. PATIENT RELEVANT IMPLANT DATA REVIEWED: Not Applicable RADIOLOGY DEPARTMENT: General X-ray: Exam(s) Completed: Spine X-Ray(s): Lumbar AP / LAT / L5-S1 Pelvis X-Ray: sacroiliac joints Lower Extremity X-Ray(s): Foot, Bilateral and Wt. Bearing: Upper Extremity X-Ray(s): Hand, bilateral : PERIPHERAL IV DATA: Not applicable SIGNED BY: Meli Albert February 17, 2018 2:18 PM XR HAND 4V PA/LAT/OBL/OTHER Observed: 02/17/2018 Status: F Source: [facility] 2:15 PM [facility] REPOSITORY * * *Final Report* * * DATE OF EXAM: Feb 17 2018 2:15PM [id number] - XR HAND 4V PA/LAT/OBL/OTHER LT / PROCEDURE REASON: Pain in joint and multiple sites * * * * Physician Interpretation * * * * EXAMINATION: XR LUMBAR 3V AP/LAT/L5-S1, XR FOOT 3V AP/LAT/OBL RT, XR FOOT 3V AP/LAT/OBL LT, XR SI JTS 2V AP PELV/BENTON, XR HAND 3V PA/LAT/OBL RT, XR HAND 4V PA/LAT/OBL/OTHER LT CLINICAL HISTORY: all joints hurt Technique: XR LUMBAR 3V AP/LAT/L5-S1, XR FOOT 3V AP/LAT/OBL RT, XR FOOT 3V AP/LAT/OBL LT, XR SI JTS 2V AP PELV/BENTON, XR HAND 3V PA/LAT/OBL RT, XR HAND 4V PA/LAT/OBL/OTHER LT -- LEFT (accession [id number]), RIGHT (accession [id number]), LEFT (accession [id number]), NOT APPLICABLE (accession [id number]), RIGHT (accession [id number]), LEFT (accession [id number]) with 3 (accession [id number]), 3 (accession [id number]), 3 (accession [id number]), 2 (accession [id number]), 3 (accession [id number]), 3 (accession [id number]) views on 3 (accession [id number]), 3 (accession [id number]), 3 (accession [id number]), 2 (accession [id number]), 3 (accession [id number]), 3 (accession [id number]) images Comparison: None RESULT: Hands: No fracture dislocation. Bilateral carpal rows are maintained. Joint spaces are maintained. Small cystic changes of the triquetrum on the left. Lumbar spine: Counting reference: Lumbosacral junction. For the purposes of this report, L5S1 is considered the last lumbar type disc space and L4-5 is considered the level of the iliac crest. Vertebral body heights are maintained. Moderate disc space loss at L5-S1. Small anterior endplate osteophytes. Advanced facet arthropathy in the lower lumbar spine L5-S1. No pars defect. No fracture or dislocation. Paravertebral soft tissues are unremarkable. SI joints: No fracture or dislocation. No erosions or ankylosis. Hip joints are maintained. Intact pubic symphysis. Fallopian tube occlusion devices bilaterally. Feet: No fracture or dislocation. Bipartite medial hallux sesamoid bilaterally. No focal soft tissue swelling. IMPRESSION: No acute osseous finding in bilateral hands. No acute osseous findings SI joints. No erosions or ankylosis. No acute osseous findings in the lumbar spine. Degenerative changes as described. No acute osseous findings bilateral feet. Hand [facility] Transcribe Date/Time: Feb 17 2018 2:46P Dictated by : LESLY VALDES MD This examination was interpreted and the report reviewed and electronically signed by: LESLY VALDES MD on Feb 17 2018 2:59PM EST [id number] XR HAND 3V PA/LAT/OBL Observed: 02/17/2018 Status: F Source: [facility] RT 2:15 PM [facility] REPOSITORY * * *Final Report* * * DATE OF EXAM: Feb 17 2018 2:15PM [id number] - XR HAND 3V PA/LAT/OBL RT / PROCEDURE REASON: Pain in joint and multiple sites * * * * Physician Interpretation * * * * EXAMINATION: XR LUMBAR 3V AP/LAT/L5-S1, XR FOOT 3V AP/LAT/OBL RT, XR FOOT 3V AP/LAT/OBL LT, XR SI JTS 2V AP PELV/BENTON, XR HAND 3V PA/LAT/OBL RT, XR HAND 4V PA/LAT/OBL/OTHER LT CLINICAL HISTORY: all joints hurt Technique: XR LUMBAR 3V AP/LAT/L5-S1, XR FOOT 3V AP/LAT/OBL RT, XR FOOT 3V AP/LAT/OBL LT, XR SI JTS 2V AP PELV/BENTON, XR HAND 3V PA/LAT/OBL RT, XR HAND 4V PA/LAT/OBL/OTHER LT -- LEFT (accession [id number]), RIGHT (accession [id number]), LEFT (accession [id number]), NOT APPLICABLE (accession [id number]), RIGHT (accession [id number]), LEFT (accession [id number]) with 3 (accession [id number]), 3 (accession [id number]), 3 (accession [id number]), 2 (accession [id number]), 3 (accession [id number]), 3 (accession [id number]) views on 3 (accession [id number]), 3 (accession [id number]), 3 (accession [id number]), 2 (accession [id number]), 3 (accession [id number]), 3 (accession [id number]) images Comparison: None RESULT: Hands: No fracture dislocation. Bilateral carpal rows are maintained. Joint spaces are maintained. Small cystic changes of the triquetrum on the left. Lumbar spine: Counting reference: Lumbosacral junction. For the purposes of this report, L5S1 is considered the last lumbar type disc space and L4-5 is considered the level of the iliac crest. Vertebral body heights are maintained. Moderate disc space loss at L5-S1. Small anterior endplate osteophytes. Advanced facet arthropathy in the lower lumbar spine L5-S1. No pars defect. No fracture or dislocation. Paravertebral soft tissues are unremarkable. SI joints: No fracture or dislocation. No erosions or ankylosis. Hip joints are maintained. Intact pubic symphysis. Fallopian tube occlusion devices bilaterally. Feet: No fracture or dislocation. Bipartite medial hallux sesamoid bilaterally. No focal soft tissue swelling. IMPRESSION: No acute osseous finding in bilateral hands. No acute osseous findings SI joints. No erosions or ankylosis. No acute osseous findings in the lumbar spine. Degenerative changes as described. No acute osseous findings bilateral feet. Hand Former: [facility] Transcribe Date/Time: Feb 17 2018 2:46P Dictated by : LESLY VALDES MD This examination was interpreted and the report reviewed and electronically signed by: LESLY VALDES MD on Feb 17 2018 2:59PM EST [id number] XR FOOT 3V AP/LAT/OBL Observed: 02/17/2018 Status: F Source: [facility] RT 2:15 PM [facility] REPOSITORY * * *Final Report* * * DATE OF EXAM: Feb 17 2018 2:15PM [id number] - XR FOOT 3V AP/LAT/OBL RT / PROCEDURE REASON: Pain in joint and multiple sites * * * * Physician Interpretation * * * * EXAMINATION: XR LUMBAR 3V AP/LAT/L5-S1, XR FOOT 3V AP/LAT/OBL RT, XR FOOT 3V AP/LAT/OBL LT, XR SI JTS 2V AP PELV/BENTON, XR HAND 3V PA/LAT/OBL RT, XR HAND 4V PA/LAT/OBL/OTHER LT CLINICAL HISTORY: all joints hurt Technique: XR LUMBAR 3V AP/LAT/L5-S1, XR FOOT 3V AP/LAT/OBL RT, XR FOOT 3V AP/LAT/OBL LT, XR SI JTS 2V AP PELV/BENTON, XR HAND 3V PA/LAT/OBL RT, XR HAND 4V PA/LAT/OBL/OTHER LT -- LEFT (accession [id number]), RIGHT (accession [id number]), LEFT (accession [id number]), NOT APPLICABLE (accession [id number]), RIGHT (accession [id number]), LEFT (accession [id number]) with 3 (accession [id number]), 3 (accession [id number]), 3 (accession [id number]), 2 (accession [id number]), 3 (accession [id number]), 3 (accession [id number]) views on 3 (accession [id number]), 3 (accession [id number]), 3 (accession [id number]), 2 (accession [id number]), 3 (accession [id number]), 3 (accession [id number]) images Comparison: None RESULT: Hands: No fracture dislocation. Bilateral carpal rows are maintained. Joint spaces are maintained. Small cystic changes of the triquetrum on the left. Lumbar spine: Counting reference: Lumbosacral junction. For the purposes of this report, L5S1 is considered the last lumbar type disc space and L4-5 is considered the level of the iliac crest. Vertebral body heights are maintained. Moderate disc space loss at L5-S1. Small anterior endplate osteophytes. Advanced facet arthropathy in the lower lumbar spine L5-S1. No pars defect. No fracture or dislocation. Paravertebral soft tissues are unremarkable. SI joints: No fracture or dislocation. No erosions or ankylosis. Hip joints are maintained. Intact pubic symphysis. Fallopian tube occlusion devices bilaterally. Feet: No fracture or dislocation. Bipartite medial hallux sesamoid bilaterally. No focal soft tissue swelling. IMPRESSION: No acute osseous finding in bilateral hands. No acute osseous findings SI joints. No erosions or ankylosis. No acute osseous findings in the lumbar spine. Degenerative changes as described. No acute osseous findings bilateral feet. Hand Former: [facility] Transcribe Date/Time: Feb 17 2018 2:46P Dictated by : LESLY VALDES MD This examination was interpreted and the report reviewed and electronically signed by: LESLY VALDES MD on Feb 17 2018 2:59PM EST [id number] XR FOOT 3V AP/LAT/OBL Observed: 02/17/2018 Status: F Source: [facility] 2:15 PM [facility] HOSPITAL REPOSITORY * * *Final Report* * * DATE OF EXAM: Feb 17 2018 2:15PM WRX 5336 - XR FOOT 3V AP/LAT/OBL LT / PROCEDURE REASON: Pain in joint and multiple sites * * * * Physician Interpretation * * * * EXAMINATION: XR LUMBAR 3V AP/LAT/L5-S1, XR FOOT 3V AP/LAT/OBL RT, XR FOOT 3V AP/LAT/OBL LT, XR SI JTS 2V AP PELV/BENTON, XR HAND 3V PA/LAT/OBL RT, XR HAND 4V PA/LAT/OBL/OTHER LT CLINICAL HISTORY: all joints hurt Technique: XR LUMBAR 3V AP/LAT/L5-S1, XR FOOT 3V AP/LAT/OBL RT, XR FOOT 3V AP/LAT/OBL LT, XR SI JTS 2V AP PELV/BENTON, XR HAND 3V PA/LAT/OBL RT, XR HAND 4V PA/LAT/OBL/OTHER LT -- LEFT (accession [id number]), RIGHT (accession [id number]), LEFT (accession [id number]), NOT APPLICABLE (accession [id number]), RIGHT (accession [id number]), LEFT (accession [id number]) with 3 (accession [id number]), 3 (accession [id number]), 3 (accession [id number]), 2 (accession [id number]), 3 (accession [id number]), 3 (accession [id number]) views on 3 (accession [id number]), 3 (accession [id number]), 3 (accession [id number]), 2 (accession [id number]), 3 (accession [id number]), 3 (accession [id number]) images Comparison: None RESULT: Hands: No fracture dislocation. Bilateral carpal rows are maintained. Joint spaces are maintained. Small cystic changes of the triquetrum on the left. Lumbar spine: Counting reference: Lumbosacral junction. For the purposes of this report, L5S1 is considered the last lumbar type disc space and L4-5 is considered the level of the iliac crest. Vertebral body heights are maintained. Moderate disc space loss at L5-S1. Small anterior endplate osteophytes. Advanced facet arthropathy in the lower lumbar spine L5-S1. No pars defect. No fracture or dislocation. Paravertebral soft tissues are unremarkable. SI joints: No fracture or dislocation. No erosions or ankylosis. Hip joints are maintained. Intact pubic symphysis. Fallopian tube occlusion devices bilaterally. Feet: No fracture or dislocation. Bipartite medial hallux sesamoid bilaterally. No focal soft tissue swelling. IMPRESSION: No acute osseous finding in bilateral hands. No acute osseous findings SI joints. No erosions or ankylosis. No acute osseous findings in the lumbar spine. Degenerative changes as described. No acute osseous findings bilateral feet. Hand Former: [facility] Transcribe Date/Time: Feb 17 2018 2:46P Dictated by : LESLY VALDES MD This examination was interpreted and the report reviewed and electronically signed by: LESLY VALDES MD on Feb 17 2018 2:59PM EST [id number] XR SI JTS 2V AP Observed: 02/17/2018 Status: F Source: [facility] PELV/BENTON 2:15 PM [facility] REPOSITORY * * *Final Report* * * DATE OF EXAM: Feb 17 2018 2:15PM WRX [id number] - XR SI JTS 2V AP PELV/BENTON / PROCEDURE REASON: Pain in joint and multiple sites * * * * Physician Interpretation * * * * EXAMINATION: XR LUMBAR 3V AP/LAT/L5-S1, XR FOOT 3V AP/LAT/OBL RT, XR FOOT 3V AP/LAT/OBL LT, XR SI JTS 2V AP PELV/BENTON, XR HAND 3V PA/LAT/OBL RT, XR HAND 4V PA/LAT/OBL/OTHER LT CLINICAL HISTORY: all joints hurt Technique: XR LUMBAR 3V AP/LAT/L5-S1, XR FOOT 3V AP/LAT/OBL RT, XR FOOT 3V AP/LAT/OBL LT, XR SI JTS 2V AP PELV/BENTON, XR HAND 3V PA/LAT/OBL RT, XR HAND 4V PA/LAT/OBL/OTHER LT -- LEFT (accession [id number]), RIGHT (accession [id number]), LEFT (accession [id number]), NOT APPLICABLE (accession [id number]), RIGHT (accession [id number]), LEFT (accession [id number]) with 3 (accession [id number]), 3 (accession [id number]), 3 (accession [id number]), 2 (accession [id number]), 3 (accession [id number]), 3 (accession [id number]) views on 3 (accession [id number]), 3 (accession [id number]), 3 (accession [id number]), 2 (accession [id number]), 3 (accession [id number]), 3 (accession [id number]) images Comparison: None RESULT: Hands: No fracture dislocation. Bilateral carpal rows are maintained. Joint spaces are maintained. Small cystic changes of the triquetrum on the left. Lumbar spine: Counting reference: Lumbosacral junction. For the purposes of this report, L5S1 is considered the last lumbar type disc space and L4-5 is considered the level of the iliac crest. Vertebral body heights are maintained. Moderate disc space loss at L5-S1. Small anterior endplate osteophytes. Advanced facet arthropathy in the lower lumbar spine L5-S1. No pars defect. No fracture or dislocation. Paravertebral soft tissues are unremarkable. SI joints: No fracture or dislocation. No erosions or ankylosis. Hip joints are maintained. Intact pubic symphysis. Fallopian tube occlusion devices bilaterally. Feet: No fracture or dislocation. Bipartite medial hallux sesamoid bilaterally. No focal soft tissue swelling. IMPRESSION: No acute osseous finding in bilateral hands. No acute osseous findings SI joints. No erosions or ankylosis. No acute osseous findings in the lumbar spine. Degenerative changes as described. No acute osseous findings bilateral feet. Hand Former: [facility] Transcribe Date/Time: Feb 17 2018 2:46P Dictated by : LESLY VALDES MD This examination was interpreted and the report reviewed and electronically signed by: LESLY VALDES MD on Feb 17 2018 2:59PM EST [id number] XR LUMBAR 3V Observed: 02/17/2018 Status: F Source: [facility] AP/LAT/L5-S1 2:15 PM [facility] REPOSITORY * * *Final Report* * * DATE OF EXAM: Feb 17 2018 2:15PM WRX [id number] - XR LUMBAR 3V AP/LAT/L5-S1 / PROCEDURE REASON: Pain in joint and multiple sites * * * * Physician Interpretation * * * * EXAMINATION: XR LUMBAR 3V AP/LAT/L5-S1, XR FOOT 3V AP/LAT/OBL RT, XR FOOT 3V AP/LAT/OBL LT, XR SI JTS 2V AP PELV/BENTON, XR HAND 3V PA/LAT/OBL RT, XR HAND 4V PA/LAT/OBL/OTHER LT CLINICAL HISTORY: all joints hurt Technique: XR LUMBAR 3V AP/LAT/L5-S1, XR FOOT 3V AP/LAT/OBL RT, XR FOOT 3V AP/LAT/OBL LT, XR SI JTS 2V AP PELV/BENTON, XR HAND 3V PA/LAT/OBL RT, XR HAND 4V PA/LAT/OBL/OTHER LT -- LEFT (accession [id number]), RIGHT (accession [id number]), LEFT (accession [id number]), NOT APPLICABLE (accession [id number]), RIGHT (accession [id number]), LEFT (accession [id number]) with 3 (accession [id number]), 3 (accession [id number]), 3 (accession [id number]), 2 (accession [id number]), 3 (accession [id number]), 3 (accession [id number]) views on 3 (accession [id number]), 3 (accession [id number]), 3 (accession [id number]), 2 (accession [id number]), 3 (accession [id number]), 3 (accession [id number]) images Comparison: None RESULT: Hands: No fracture dislocation. Bilateral carpal rows are maintained. Joint spaces are maintained. Small cystic changes of the triquetrum on the left. Lumbar spine: Counting reference: Lumbosacral junction. For the purposes of this report, L5S1 is considered the last lumbar type disc space and L4-5 is considered the level of the iliac crest. Vertebral body heights are maintained. Moderate disc space loss at L5-S1. Small anterior endplate osteophytes. Advanced facet arthropathy in the lower lumbar spine L5-S1. No pars defect. No fracture or dislocation. Paravertebral soft tissues are unremarkable. SI joints: No fracture or dislocation. No erosions or ankylosis. Hip joints are maintained. Intact pubic symphysis. Fallopian tube occlusion devices bilaterally. Feet: No fracture or dislocation. Bipartite medial hallux sesamoid bilaterally. No focal soft tissue swelling. IMPRESSION: No acute osseous finding in bilateral hands. No acute osseous findings SI joints. No erosions or ankylosis. No acute osseous findings in the lumbar spine. Degenerative changes as described. No acute osseous findings bilateral feet. Hand Former: [facility] Transcribe Date/Time: Feb 17 2018 2:46P Dictated by : LESLY VALDES MD This examination was interpreted and the report reviewed and electronically signed by: LESLY VALDES MD on Feb 17 2018 2:59PM EST [id number] CNOV Observed: 02/16/2018 Status: COMPLETED Source: [facility] 2:30 PM CLINIC OTHER CAMPUS REPOSITORY Office Visit ([facility]ATH) AMELIA PLATA ([id number]) 1975 F Date Time Provider Department 02/16/18 2:30 PM MICHELLE JENSEN During your visit today, we recorded the following information about you: Temperature Blood pressure Weight Height 98.2 degrees 122/82 129.7 kg 1.702 m Michelle Jensen MD 02/16/2018 3:34 PM Signed RHEUMATOLOGY NEW PATIENT NOTE REFERRING PHYSICIAN: Gray Rendon CHIEF COMPLAINT: Patient presents with: Results: Positive ORTEGA by PCP HPI: Amelia Plata is a 42 year old female who presents with positive ORTEGA x 2. Patient reports pain over hands, low back, arms, neck, shoulder, fatigue for several years. Symptoms are getting worse. She noticed some swelling over her knuckles. She takes ibuprofen for pain which helps sometimes. She does not recall having any recent x rays. No PT. She also tried icy hot, biofreeze, Salonpas. She also gets headaches. gelling phenomenon. She feels worse towards the end of the day. Pain overall worsens with activity. Back pain is not radiating. 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 AM stiffness lasting for 5 min. She has RLS and takes gabapentin, left leg swelling she reports numbness over right thigh. She was seen by a marketing officer few months ago - she had lip biopsy was ok. She had blood tests and unclear of the results. No x rays were done. Slightly positive schirmers test. DYLON, CPA Family history of autoimmune disease:none Several members with fibromyalgia Smoking status: Tobacco Use: Types: Cigarettes (E-cigarettes. past cigarette use- on and off for a few years) Rheumatology REVIEW OF SYSTEMS: Constitutional: Recent Weight Change: YES gaining Fatigue: YES Fever: No Night sweats: No Heent: Alopecia: No H/o Inflammatory eye disease (iritis/scleritis): No Hearing loss: No Frequent sinusitis: No Oral ulcers: No Sicca: YES dry mouth sometimes Parotid swelling: No Hoarseness: No Dysphagia: No Heme/lymph: Lymphadenopathy: No Hematological abnormalities (anemia, thrombocytopenia, leukopenia): No Abnormal bleeding: No Skin: Malar or discoid lesions: No Photosensitivity: No Other rashes: YES hidrenitis , erythroderma Raynaud's phenomenon: YES redness Hives: No Tightness: No Nodules/bumps: No Easy Bruising: No Nail changes: No H/o psoriasis: No Gastroenterology: Nausea: {YES Vomiting: No Change in bowel movements: No Heartburn: No Respiratory: Dry cough/SOB: No Cardiovascular: Pain in chest: No Musculoskeletal: Per HPI Joint pain or swelling: No Prolonged morning stiffness: No Back pain or neck pain: No Muscle weakness: No Genitourinary: Vaginal dryness: No Rash/ulcers: No Neurological: Headaches: YES Sensitivity or pain of hands and/or feet: YES Psychiatry: Anxiety: YES Depression: YES on meds Poor sleep: YES H/o loss: No H/o thrombosis: No Increased susceptibility to infection: No PAST MEDICAL HISTORY Diagnosis Date - Allergic rhinitis due to allergen 10/20/2012 Immunotherapy weekly, Dr. Leonard. - ANXIETY STATE NOS 12/29/2006 - CLASS MIGRAIN W/O MENTN INTRACTABLE 06/09/2007 - DEPRESSIVE DISORDER NEC 12/29/2006 - DJD (degenerative joint disease) of knee 03/30/2008 - Hidradenitis suppurativa 03/21/2014 - HYPERLIPIDEMIA NEC/NOS 12/29/2006 - HYPOGLYCEMIA NOS 12/29/2006 - Hypothyroidism 11/16/2011 Abnormal TSH - Obesity 12/29/2006 - DYLON on CPAP 04/28/2009 DME [facility] [place] - Other specified disease of hair and hair follicles - Plantar fascial fibromatosis - Ptosis 07/11/2009 - Vitamin D deficiency 09/09/2010 PAST SURGICAL HISTORY Procedure Laterality Date - 2D ECHO (EXEP) 11/30/2017 EF=64%, no valve issues - EGD W/O OR W/BRUSH/WASH 08/26/2016 EGD - ENDOMETRIAL ABLATION WITH US GUIDANCE November 2011 - PAST SURGICAL HISTORY OF 05/2003 right plantar fasciotomy - PAST SURGICAL HISTORY OF wisdom tooth extraction - S ESSURE DEVICE [id number] November 2011 Current Outpatient Prescriptions: hydroCHLOROthiazide (HYDRODIURIL, ESIDRIX) 25 mg tablet Take 1 tablet by mouth once daily. citalopram (CELEXA) 40 mg tablet Take 1 tablet by mouth once daily. ondansetron orally disintegrating (ZOFRAN ODT) 4 mg disintegrating tablet Take 1 tablet by mouth every 8 hours as needed. levothyroxine (SYNTHROID) 25 mcg tablet Take 1 tablet by mouth daily before breakfast. ranitidine (ZANTAC) 150 mg tablet Take 1 tablet by mouth twice daily. gabapentin (NEURONTIN) 300 mg capsule Take 1 cap at 730 PM, take 1 cap at 930 PM, and take 1 cap at bedtime Omeprazole 40 mg capsule TAKE 1 CAPSULE BY MOUTH ONCE DAILY. CPAP 1 Device by MISCELLANEOUS route daily at bedtime. 6-16 cm H2O, new mask suitable per pt preference. New supplies, humidity, filters, tubing, head gear, chin strap. Lifetime supplies G47.33 obstructive sleep apnea. Please fax 30 day download to [phone]. topiramate (TOPAMAX) 100 mg tablet Take 1 tablet by mouth twice daily. rOPINIRole (REQUIP) 4 mg tablet Take 1 tablet by mouth daily at bedtime. busPIRone (BUSPAR) 15 mg tablet One Tablet twice daily propranolol (INDERAL) 10 mg tablet Take 1 tablet by mouth once daily. CPAP AutoPAP 6-16 cmH2O, suitable mask, humidity, filters. Lifetime supplies. Dx: G47.33 ergotamine-caffeine (CAFERGOT) 1-100 mg per tablet Two tablets at onset of attack; then 1 tablet every 30 minutes as needed; maximum: 6 tablets per 24 hrs do not exceed 10 tablets/week cetirizine (ZYRTEC) 10 mg tablet Take 1 tablet by mouth four times daily. As instructed by dispensing operator Dr. Ross ketorolac (TORADOL) 10 mg tablet Take 1 tablet by mouth every 6 hours as needed. To abort migraine. diphenhydrAMINE (BENADRYL) 25 mg capsule Take 2 capsules by mouth three times daily as needed. To abort migraine EPINEPHrine (EPIPEN) 0.3 mg/0.3 mL (1:1,000) atIn Cholecalciferol, Vitamin D3, 5,000 unit ORAL Cap Take 5,000 Units by mouth once daily. No current facility-administered medications for this visit. ALLERGIES Allergen Reactions - Nabumetone Hives hives - Allergies-Environme* Other: See Comments Sneezing, rhinorrhea - Imitrex [Sumatripta* Other: See Comments Neck pain - Maxalt [Rizatriptan* Other: See Comments Neck pain and nausea - Prednisone Other: See Comments Abdominal pain and diarrhea FAMILY HISTORY Problem Relation Age of Onset - Osteoporosis Paternal Grandmother - Hypertension Paternal Grandmother - Alcohol/Drug Mother - Fibromyalgia [OTHER] Mother - Arthritis Father - Hypertension Father - Coronary Artery Disease Maternal Grandfather - Diabetes Maternal Grandmother - Cancer Maternal Grandmother skin - Fibromyalgia [OTHER] Maternal Grandmother - No Known Problems Sister - No Known Problems Brother Social History Marital status: Spouse name: Years of education: Number of children: 2 Occupational History 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 past cigarette use- on and off for a few years Alcohol use: No Comment: rarely Drug use: No Sexual activity: Yes Partners with: Male Occupation: Employer And Job Title: [employer] (No job title specified); [employer]) Years Of Education Completed: Not specified Marital Status: with 2 children History Review: I have reviewed and modified as needed, the following during this visit: Allergies, Past Medical History, Past Surgical History, Past Family History, Past Social History. BP 122/82 Temp 36.8 ?C (98.2 ?F) Ht 170.2 cm (5' 7) Wt 129.7 kg (286 lb) BMI 44.79 kg/m? Physical Exam GENERAL: Well appearing, alert, comfortable, in no acute distress, well-hydrated, well nourished. HEENT: Negative for external ears normal. Canals are clear. Both TMs visualized and are normal. Eye Exam normal. External nose normal, no nasal ulcer or throat ulcer. NECK: NECK Supple, no adenopathy; thyroid symmetric, normal size, no bruits CARDIAC: regular rate and rhythm, No murmur asculated. and Equal peripheral pulses RESPIRATORY: Lungs clear to auscultation. No wheezing, rhonchi, rales VASCULAR: RRR without murmur, gallop, or rubs. No ectopy. ABDOMEN: Soft, non tender. BS active. No masses or organomegaly. LYMPHATIC: Negative for adenopathy in the neck, axillae, groin, supraclavicular and auricular. NEURO: Motor and sensory exam normal MOTOR: Normal; including tone, gait, stressed gait, power and coordination. SKIN: Negative for alopecia, skin rash, malar rash, skin lesion, skin ulcer, pits, thickening, color changes, telangiectasias, nail changes, nail ridging, nail pitting, onycholysis MUSCULOSKELETAL: DIPS: Normal PIPS: Abnormal, swelling likely bony on exam right PIP 3 MCPs: Normal Wrists: Normal Elbows: Normal Shoulders: Normal C-Spine: Normal Hips: Normal Knees: Normal Ankles: Normal MTPs / Toes: Normal Arches: Normal Muscular exam - diffuse tenderness over proximal and distal muscle groups in the extremities without gross deformity or objective muscle weakness. Tone normal. Summary of old labs/radiology: Review/request of outside labs and imaging: Pertinent labs: Glucose 92 11/28/2017 ALT 27 11/28/2017 WBC 6.85 06/03/2017 Hemoglobin 13.0 06/03/2017 Platelet Count 235 06/03/2017 WSR 16 11/25/2017 CRP 1.9 11/25/2017 Serology: COMMENT Histologic sections reveal multiple fragments of minor salivary gland with occasional small foci of lymphoplasmacytic inflammation without lymphoepithelial island formation or acinar destruction. The inflammatory foci consists of less than 50 lymphocytes per focus. Focal fibrosis is seen; however, acinar atrophy is not seen. The findings are those of focal sialoadenitis. These findings correspond to a focus score of 1 of 4. Features to suggest a diagnosis of Sjogren's syndrome are not seen. Clinical correlation is recommended. CK normal RF, CCP normal CRP, ESR normal GELACIO normal FINAL DIAGNOSIS 1. Antrum, biopsy (A) - Antral mucosa with reactive gastropathy and chronic inactive gastritis. - Negative for Helicobacter pylori. 2. Distal esophagus, biopsy (B) - Inflamed junctional mucosa. - Negative for intestinal metaplasia. Pertinent imaging: RESULT: No acute fracture or dislocation. ?The joint spaces are preserved bilaterally. ?No joint effusion is identified. IMPRESSION: ? Unremarkable exam. IMPRESSION: 1. No cystic duct or common duct obstruction. 2. No evidence of cholecystitis. 3. Normal gallbladder ejection fraction. Assessment and Plan (M25.50) Pain in joint, multiple sites (primary encounter diagnosis) (R76.8) ORTEGA positive (R53.81, R53.83) Malaise and fatigue 42-year-old female is here for evaluation of multiple joint pain, myalgia in the setting of positive ORTEGA. Patient had an extensive workup from a marketing officer last year including normal rheumatoid factor, CCP, he and a and a lip biopsy. On exam she has questionable synovitis and a PIP joint, diffuse muscular tenderness. No objective muscle weakness. I would like to evaluate for inflammatory arthritis like seronegative rheumatoid arthritis or seronegative spondyloarthropathy. Of note she also has history of hidradenitis supported 2 of which is seen commonly in association with inflammatory bowel disease and seronegative spondyloarthropathy. Given the diffuse muscular tenderness without objective muscle weakness or typical rash of myositis it is possible that she may be having fibromyalgia. Since it's a diagnosis of exclusion I will evaluate first with the following x-rays. An ORTEGA itself is a non-specific finding, especially if without clinical correlation. A positive ORTEGA result may occur in healthy individuals, those with FH of auto-immune diseases or associated with a variety of diseases, auto-immune diseases-rheumatologic and non-rheumatologic (such as dermatologic diseases, endocrine, GI, neuro, inflammatory, medication induced, infections, neoplasms and other). A positive ORTEGA can be seen in up to 15% of healthy population. Office Visit on 02/16/18 -XR HAND GENERAL 3V PA/LAT/OBL LT -XR HAND GENERAL 3V PA/LAT/OBL RT -XR FOOT GENERAL 3V AP/LAT/OBL LT -XR FOOT GENERAL 3V AP/LAT/OBL RT -XR LUMBAR GENERAL 3V AP/LAT/L5-S1 -XR SACROILIAC JOINTS 2V AP PELVIS/FERGUESON No orders of the defined types were placed in this encounter. Return in about 3 weeks (around 03/09/2018) for discuss lab results. Michelle Jensen MD Referring Provider: GRAY RENDON [[id number]] Allergies As of Date: 02/16/2018 Noted Allergy Reaction NABUMETONE 04/28/2009 4 - Hives Comments: hives allergies-environmental to grass,*11/28/2009 14 - Other: See Comments Comments: Sneezing, rhinorrhea IMITREX (SUMATRIPTAN SUCCINATE) 08/21/2009 14 - Other: See Comments Comments: Neck pain MAXALT (RIZATRIPTAN BENZOATE) 03/01/2016 14 - Other: See Comments Comments: Neck pain and nausea PREDNISONE 05/10/2016 14 - Other: See Comments Comments: Abdominal pain and diarrhea Date Reviewed: 02/16/2018 Reviewed by: Michelle Jensen - Fully Assessed Reason for Visit: Results [95] Cmt: Positive ORTEGA by PCP Primary Visit Diagnosis:Pain in joint, multiple sites [M25.50] Other Visit Diagnoses:ORTEGA positive [R76.8] Malaise and fatigue [R53.81, R53.83] Order(s):XR HAND GENERAL 3V PA/LAT/OBL LT [[id number]] Order #: [id number] FUTURE XR HAND GENERAL 3V PA/LAT/OBL RT [[id number]] Order #: [id number] FUTURE XR FOOT GENERAL 3V AP/LAT/OBL LT [[id number]] Order #: [id number] FUTURE XR FOOT GENERAL 3V AP/LAT/OBL RT [[id number]] Order #: [id number] FUTURE XR LUMBAR GENERAL 3V AP/LAT/L5-S1 [[id number]] Order #: [id number] FUTURE XR SACROILIAC JOINTS 2V AP PELVIS/FERGUESON [[id number]] Order #: [id number] FUTURE Prescriptions as of 02/16/2018 Sig: HYDROCHLOROTHIAZIDE 25 MG TAB* Take 1 tablet by mouth once d* CITALOPRAM 40 MG TABLET Take 1 tablet by mouth once d* ONDANSETRON 4 MG DISINTEGRATI* Take 1 tablet by mouth every * LEVOTHYROXINE 25 MCG TABLET Take 1 tablet by mouth daily * RANITIDINE 150 MG TABLET Take 1 tablet by mouth twice * GABAPENTIN 300 MG CAPSULE Take 1 cap at 730 PM, take 1 * OMEPRAZOLE 40 MG CAPSULE,SENA* TAKE 1 CAPSULE BY MOUTH ONCE * CPAP 1 Device by MISCELLANEOUS rou* TOPIRAMATE 100 MG TABLET Take 1 tablet by mouth twice * ROPINIROLE 4 MG TABLET Take 1 tablet by mouth daily * BUSPIRONE 15 MG TABLET One Tablet twice daily PROPRANOLOL 10 MG TABLET Take 1 tablet by mouth once d* CPAP AutoPAP 6-16 cmH2O, suitable * ERGOTAMINE 1 MG-CAFFEINE 100 * Two tablets at onset of attac* CETIRIZINE 10 MG TABLET Take 1 tablet by mouth four t* KETOROLAC 10 MG TABLET Take 1 tablet by mouth every * DIPHENHYDRAMINE 25 MG CAPSULE Take 2 capsules by mouth thre* EPINEPHRINE 0.3 MG/0.3 ML INJ* CHOLECALCIFEROL (VITAMIN D3) * Take 5,000 Units by mouth onc* Problem List As Of Date 02/16/2018 Noted Resolved Obesity, Class III, BMI 40-49.9 (morbid obesity*INVALID FOR* Priority: B More... Hypoglycemia, unspecified [E16.2] INVALID FOR*10/03/2014 HYPERLIPIDEMIA NEC/NOS [E78.5] INVALID FOR*10/03/2014 Anxiety state [F41.1] INVALID FOR* Priority: A More... Depressive disorder [F32.9] INVALID FOR* Priority: A More... DJD (degenerative joint disease) of knee [M17.1*INVALID FOR*03/21/2014 DYLON on CPAP [G47.33, Z99.89] INVALID FOR* Priority: B More... Ptosis [H02.409] INVALID FOR*10/03/2014 More... Vitamin D deficiency [E55.9] INVALID FOR*10/03/2014 Allergic rhinitis due to allergen [J30.9] INVALID FOR* Priority: B More... Pain in joint, lower leg [M25.569] INVALID FOR*03/21/2014 Dermatographic urticaria [L50.3] INVALID FOR* Priority: D More... Hidradenitis suppurativa [L73.2] INVALID FOR* Priority: D Tobacco use disorder [F17.200] INVALID FOR* Priority: C More... Restless leg syndrome [G25.81] INVALID FOR* Priority: B More... Vitamin D deficiency [E55.9] INVALID FOR* Priority: B Migraine with aura and without status migrainos*INVALID FOR* Priority: A Acquired hypothyroidism [E03.9] INVALID FOR* Priority: A Encounter for screening for cardiovascular diso*INVALID FOR* Encounter for screening for diabetes mellitus [*INVALID FOR* Iron deficiency concern [E61.1] INVALID FOR*05/11/2017 Encounter for gynecological examination without*INVALID FOR* Priority: E More... Well adult exam [Z00.00] INVALID FOR* Priority: E More... Dyslipidemia [E78.5] INVALID FOR* Priority: A CRP elevated [R79.82] INVALID FOR* ORTEGA positive [R76.8] INVALID FOR* Arthralgia [M25.50] INVALID FOR* Gastritis without bleeding [K29.70] INVALID FOR* Disposition: Return in about 3 weeks (around 03/09/2018) for discuss lab results. Follow-up and Disposition History Recorded Questionnaire: WHITNEY TRIPATHI YEARLY ADL ASSESSMENT Toileting -> Independent Bathing -> Independent Upper Body Dressing -> Independent Lower Body Dressing -> Independent Grooming/Hygiene -> Independent Self Feeding -> Independent Home Management (laundry/cleaning/chores/simple meal prep) -> Independent Letter Text Encounter Status:Closed by MICHELLE JENSEN MD on 02/16/18 PROGRESS Observed: 02/16/2018 Status: COMPLETED Source: [facility] 2:22 PM CLINIC OTHER CAMPUS REPOSITORY HNO ID: [id number] Author: Michelle Jensen Service: (none) Author Type: Physician Type: Progress Notes Filed: 02/16/2018 3:34 PM Note Text: RHEUMATOLOGY NEW PATIENT NOTE REFERRING PHYSICIAN: Gray Rendon CHIEF COMPLAINT: Patient presents with: Results: Positive ORTEGA by PCP HPI: Amelia Plata is a 42 year old female who presents with positive ORTEGA x 2. Patient reports pain over hands, low back, arms, neck, shoulder, fatigue for several years. Symptoms are getting worse. She noticed some swelling over her knuckles. She takes ibuprofen for pain which helps sometimes. She does not recall having any recent x rays. No PT. She also tried icy hot, biofreeze, Salonpas. She also gets headaches. gelling phenomenon. She feels worse towards the end of the day. Pain overall worsens with activity. Back pain is not radiating. 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 AM stiffness lasting for 5 min. She has RLS and takes gabapentin, left leg swelling she reports numbness over right thigh. She was seen by a marketing officer few months ago - she had lip biopsy was ok. She had blood tests and unclear of the results. No x rays were done. Slightly positive schirmers test. DYLON, CPA Family history of autoimmune disease:none Several members with fibromyalgia Smoking status: Tobacco Use: Types: Cigarettes (E-cigarettes. past cigarette use- on and off for a few years) Rheumatology REVIEW OF SYSTEMS: Constitutional: Recent Weight Change: YES gaining Fatigue: YES Fever: No Night sweats: No Heent: Alopecia: No H/o Inflammatory eye disease (iritis/scleritis): No Hearing loss: No Frequent sinusitis: No Oral ulcers: No Sicca: YES dry mouth sometimes Parotid swelling: No Hoarseness: No Dysphagia: No Heme/lymph: Lymphadenopathy: No Hematological abnormalities (anemia, thrombocytopenia, leukopenia): No Abnormal bleeding: No Skin: Malar or discoid lesions: No Photosensitivity: No Other rashes: YES hidrenitis , erythroderma Raynaud's phenomenon: YES redness Hives: No Tightness: No Nodules/bumps: No Easy Bruising: No Nail changes: No H/o psoriasis: No Gastroenterology: Nausea: {YES Vomiting: No Change in bowel movements: No Heartburn: No Respiratory: Dry cough/SOB: No Cardiovascular: Pain in chest: No Musculoskeletal: Per HPI Joint pain or swelling: No Prolonged morning stiffness: No Back pain or neck pain: No Muscle weakness: No Genitourinary: Vaginal dryness: No Rash/ulcers: No Neurological: Headaches: YES Sensitivity or pain of hands and/or feet: YES Psychiatry: Anxiety: YES Depression: YES on meds Poor sleep: YES H/o loss: No H/o thrombosis: No Increased susceptibility to infection: No PAST MEDICAL HISTORY Diagnosis Date - Allergic rhinitis due to allergen 10/20/2012 Immunotherapy weekly, Dr. Leonard. - ANXIETY STATE NOS 12/29/2006 - CLASS MIGRAIN W/O MENTN INTRACTABLE 06/09/2007 - DEPRESSIVE DISORDER NEC 12/29/2006 - DJD (degenerative joint disease) of knee 03/30/2008 - Hidradenitis suppurativa 03/21/2014 - HYPERLIPIDEMIA NEC/NOS 12/29/2006 - HYPOGLYCEMIA NOS 12/29/2006 - Hypothyroidism 11/16/2011 Abnormal TSH - Obesity 12/29/2006 - DYLON on CPAP 04/28/2009 [facility] - Other specified disease of hair and hair follicles - Plantar fascial fibromatosis - Ptosis 07/11/2009 - Vitamin D deficiency 09/09/2010 PAST SURGICAL HISTORY Procedure Laterality Date - 2D ECHO (EXEP) 11/30/2017 EF=64%, no valve issues - EGD W/O OR W/BRUSH/WASH 08/26/2016 EGD - ENDOMETRIAL ABLATION WITH US GUIDANCE November 2011 - PAST SURGICAL HISTORY OF 05/2003 right plantar fasciotomy - PAST SURGICAL HISTORY OF wisdom tooth extraction - S ESSURE DEVICE [id number] November 2011 Current Outpatient Prescriptions: hydroCHLOROthiazide (HYDRODIURIL, ESIDRIX) 25 mg tablet Take 1 tablet by mouth once daily. citalopram (CELEXA) 40 mg tablet Take 1 tablet by mouth once daily. ondansetron orally disintegrating (ZOFRAN ODT) 4 mg disintegrating tablet Take 1 tablet by mouth every 8 hours as needed. levothyroxine (SYNTHROID) 25 mcg tablet Take 1 tablet by mouth daily before breakfast. ranitidine (ZANTAC) 150 mg tablet Take 1 tablet by mouth twice daily. gabapentin (NEURONTIN) 300 mg capsule Take 1 cap at 730 PM, take 1 cap at 930 PM, and take 1 cap at bedtime Omeprazole 40 mg capsule TAKE 1 CAPSULE BY MOUTH ONCE DAILY. CPAP 1 Device by MISCELLANEOUS route daily at bedtime. 6-16 cm H2O, new mask suitable per pt preference. New supplies, humidity, filters, tubing, head gear, chin strap. Lifetime supplies G47.33 obstructive sleep apnea. Please fax day download to [phone]. topiramate (TOPAMAX) 100 mg tablet Take 1 tablet by mouth twice daily. rOPINIRole (REQUIP) 4 mg tablet Take 1 tablet by mouth daily at bedtime. busPIRone (BUSPAR) 15 mg tablet One Tablet twice daily propranolol (INDERAL) 10 mg tablet Take 1 tablet by mouth once daily. CPAP AutoPAP 6-16 cmH2O, suitable mask, humidity, filters. Lifetime supplies. Dx: G47.33 ergotamine-caffeine (CAFERGOT) 1-100 mg per tablet Two tablets at onset of attack; then 1 tablet every 30 minutes as needed; maximum: 6 tablets per 24 hrs do not exceed 10 tablets/week cetirizine (ZYRTEC) 10 mg tablet Take 1 tablet by mouth four times daily. As instructed by dispensing operator Dr. Ross ketorolac (TORADOL) 10 mg tablet Take 1 tablet by mouth every 6 hours as needed. To abort migraine. diphenhydrAMINE (BENADRYL) 25 mg capsule Take 2 capsules by mouth three times daily as needed. To abort migraine EPINEPHrine (EPIPEN) 0.3 mg/0.3 mL (1:1,000) atIn Cholecalciferol, Vitamin D3, 5,000 unit ORAL Cap Take 5,000 Units by mouth once daily. No current facility-administered medications for this visit. ALLERGIES Allergen Reactions - Nabumetone Hives hives - Allergies-Environme* Other: See Comments Sneezing, rhinorrhea - Imitrex [Sumatripta* Other: See Comments Neck pain - Maxalt [Rizatriptan* Other: See Comments Neck pain and nausea - Prednisone Other: See Comments Abdominal pain and diarrhea FAMILY HISTORY Problem Relation Age of Onset - Osteoporosis Paternal Grandmother - Hypertension Paternal Grandmother - Alcohol/Drug Mother - Fibromyalgia [OTHER] Mother - Arthritis Father - Hypertension Father - Coronary Artery Disease Maternal Grandfather - Diabetes Maternal Grandmother - Cancer Maternal Grandmother skin - Fibromyalgia [OTHER] Maternal Grandmother - No Known Problems Sister - No Known Problems Brother Social History Marital status: Spouse name: Years of education: Number of children: 2 Occupational History 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 past cigarette use- on and off for a few years Alcohol use: No Comment: rarely Drug use: No Sexual activity: Yes Partners with: Male Occupation: Employer And Job Title: [employer] (No job title specified); [employer]) Years Of Education Completed: Not specified Marital Status: with 2 children History Review: I have reviewed and modified as needed, the following during this visit: Allergies, Past Medical History, Past Surgical History, Past Family History, Past Social History. BP 122/82 Temp 36.8 ?C (98.2 ?F) Ht 170.2 cm (5' 7) Wt 129.7 kg (286 lb) BMI 44.79 kg/m? Physical Exam GENERAL: Well appearing, alert, comfortable, in no acute distress, well-hydrated, well nourished. HEENT: Negative for external ears normal. Canals are clear. Both TMs visualized and are normal. Eye Exam normal. External nose normal, no nasal ulcer or throat ulcer. NECK: NECK Supple, no adenopathy; thyroid symmetric, normal size, no bruits CARDIAC: regular rate and rhythm, No murmur asculated. and Equal peripheral pulses RESPIRATORY: Lungs clear to auscultation. No wheezing, rhonchi, rales VASCULAR: RRR without murmur, gallop, or rubs. No ectopy. ABDOMEN: Soft, non tender. BS active. No masses or organomegaly. LYMPHATIC: Negative for adenopathy in the neck, axillae, groin, supraclavicular and auricular. NEURO: Motor and sensory exam normal MOTOR: Normal; including tone, gait, stressed gait, power and coordination. SKIN: Negative for alopecia, skin rash, malar rash, skin lesion, skin ulcer, pits, thickening, color changes, telangiectasias, nail changes, nail ridging, nail pitting, onycholysis MUSCULOSKELETAL: DIPS: Normal PIPS: Abnormal, swelling likely bony on exam right PIP 3 MCPs: Normal Wrists: Normal Elbows: Normal Shoulders: Normal C-Spine: Normal Hips: Normal Knees: Normal Ankles: Normal MTPs / Toes: Normal Arches: Normal Muscular exam - diffuse tenderness over proximal and distal muscle groups in the extremities without gross deformity or objective muscle weakness. Tone normal. Summary of old labs/radiology: Review/request of outside labs and imaging: Pertinent labs: Glucose 92 11/28/2017 ALT 27 11/28/2017 WBC 6.85 06/03/2017 Hemoglobin 13.0 06/03/2017 Platelet Count 235 06/03/2017 WSR 16 11/25/2017 CRP 1.9 11/25/2017 Serology: COMMENT Histologic sections reveal multiple fragments of minor salivary gland with occasional small foci of lymphoplasmacytic inflammation without lymphoepithelial island formation or acinar destruction. The inflammatory foci consists of less than 50 lymphocytes per focus. Focal fibrosis is seen; however, acinar atrophy is not seen. The findings are those of focal sialoadenitis. These findings correspond to a focus score of 1 of 4. Features to suggest a diagnosis of Sjogren's syndrome are not seen. Clinical correlation is recommended. CK normal RF, CCP normal CRP, ESR normal GELACIO normal FINAL DIAGNOSIS 1. Antrum, biopsy (A) - Antral mucosa with reactive gastropathy and chronic inactive gastritis. - Negative for Helicobacter pylori. 2. Distal esophagus, biopsy (B) - Inflamed junctional mucosa. - Negative for intestinal metaplasia. Pertinent imaging: RESULT: No acute fracture or dislocation. ?The joint spaces are preserved bilaterally. ?No joint effusion is identified. IMPRESSION: ? Unremarkable exam. IMPRESSION: 1. No cystic duct or common duct obstruction. 2. No evidence of cholecystitis. 3. Normal gallbladder ejection fraction. Assessment and Plan (M25.50) Pain in joint, multiple sites (primary encounter diagnosis) (R76.8) ORTEGA positive (R53.81, R53.83) Malaise and fatigue 42-year-old female is here for evaluation of multiple joint pain, myalgia in the setting of positive ORTEGA. Patient had an extensive workup from a marketing officer last year including normal rheumatoid factor, CCP, he and a and a lip biopsy. On exam she has questionable synovitis and a PIP joint, diffuse muscular tenderness. No objective muscle weakness. I would like to evaluate for inflammatory arthritis like seronegative rheumatoid arthritis or seronegative spondyloarthropathy. Of note she also has history of hidradenitis supported 2 of which is seen commonly in association with inflammatory bowel disease and seronegative spondyloarthropathy. Given the diffuse muscular tenderness without objective muscle weakness or typical rash of myositis it is possible that she may be having fibromyalgia. Since it's a diagnosis of exclusion I will evaluate first with the following x-rays. An ORTEGA itself is a non-specific finding, especially if without clinical correlation. A positive ORTEGA result may occur in healthy individuals, those with FH of auto-immune diseases or associated with a variety of diseases, auto-immune diseases-rheumatologic and non-rheumatologic (such as dermatologic diseases, endocrine, GI, neuro, inflammatory, medication induced, infections, neoplasms and other). A positive ORTEGA can be seen in up to 15% of healthy population. Office Visit on 02/16/18 -XR HAND GENERAL 3V PA/LAT/OBL LT -XR HAND GENERAL 3V PA/LAT/OBL RT -XR FOOT GENERAL 3V AP/LAT/OBL LT -XR FOOT GENERAL 3V AP/LAT/OBL RT -XR LUMBAR GENERAL 3V AP/LAT/L5-S1 -XR SACROILIAC JOINTS 2V AP PELVIS/FERGUESON No orders of the defined types were placed in this encounter. Return in about 3 weeks (around 03/09/2018) for discuss lab results. Michelle Jensen MD PROGRESS Observed: 02/06/2018 Status: COMPLETED Source: [facility] 12:22 PM [facility] REPOSITORY HNO ID: [id number] Author: rGay Rendon Service: (none) Author Type: Physician Type: Progress Notes Filed: 02/06/2018 4:08 PM Note Text: Chief Complaint Patient presents with: Edema: left foot HPI Amelia Plata is a 42 year old female who presents here today for Above Complaints.. Patient has had issues with left leg swelling for several months now. Back in late October was placed on HCTZ 12.5 mg a day and this did help some. However, in the past few weeks the swelling has increased on the left even with being on the diuretic. Has at times had pain of the top of the left foot due to swelling. The left upper calf has been sore at times and sore to touch. Changing her prozac to citalopram helped with the GI symptoms she was having with the prozac. Depression and anxiety is controlled with this change. She is still getting the nausea maybe once every 2 weeks vs 3-4 times a week and no more vomiting. The Zantac twice a day has helped this. Past medical history, appointments, medications, allergies reviewed. Smokes an electronic cigarette with nicotine. Previous Medical History PAST MEDICAL HISTORY Diagnosis Date - Allergic rhinitis due to allergen 10/20/2012 Immunotherapy weekly, Dr. Leonard. - ANXIETY STATE NOS 12/29/2006 - CLASS MIGRAIN W/O MENTN INTRACTABLE 06/09/2007 - DEPRESSIVE DISORDER NEC 12/29/2006 - DJD (degenerative joint disease) of knee 03/30/2008 - Hidradenitis suppurativa 03/21/2014 - HYPERLIPIDEMIA NEC/NOS 12/29/2006 - HYPOGLYCEMIA NOS 12/29/2006 - Hypothyroidism 11/16/2011 Abnormal TSH - Obesity 12/29/2006 - DYLON on CPAP 04/28/2009 D[facility] - Other specified disease of hair and hair follicles - Plantar fascial fibromatosis - Ptosis 07/11/2009 - Vitamin D deficiency 09/09/2010 Previous Surgical History PAST SURGICAL HISTORY Procedure Laterality Date - 2D ECHO (EXEP) 11/30/2017 EF=64%, no valve issues - EGD W/O OR W/BRUSH/WASH 08/26/2016 EGD - ENDOMETRIAL ABLATION WITH US GUIDANCE November 2011 - PAST SURGICAL HISTORY OF 05/2003 right plantar fasciotomy - PAST SURGICAL HISTORY OF wisdom tooth extraction - S ESSURE DEVICE [id number] November 2011 Family History FAMILY HISTORY Problem Relation Age of Onset - Osteoporosis Paternal Grandmother - Hypertension Paternal Grandmother - Alcohol/Drug Mother - Arthritis Father - Hypertension Father - Coronary Artery Disease Maternal Grandfather - Diabetes Maternal Grandmother - Cancer Maternal Grandmother skin Patient Allergies ALLERGIES Allergen Reactions - Nabumetone Hives hives - Allergies-Environme* Other: See Comments Sneezing, rhinorrhea - Imitrex [Sumatripta* Other: See Comments Neck pain - Maxalt [Rizatriptan* Other: See Comments Neck pain and nausea - Prednisone Other: See Comments Abdominal pain and diarrhea Current Medications Current Outpatient Prescriptions on File Prior to Visit: citalopram (CELEXA) 40 mg tablet Take 1 tablet by mouth once daily. ondansetron orally disintegrating (ZOFRAN ODT) 4 mg disintegrating tablet Take 1 tablet by mouth every 8 hours as needed. levothyroxine (SYNTHROID) 25 mcg tablet Take 1 tablet by mouth daily before breakfast. ranitidine (ZANTAC) 150 mg tablet Take 1 tablet by mouth twice daily. Hydrochlorothiazide 12.5 mg capsule Take 1 capsule by mouth once daily. gabapentin (NEURONTIN) 300 mg capsule Take 1 cap at 730 PM, take 1 cap at 930 PM, and take 1 cap at bedtime Omeprazole 40 mg capsule TAKE 1 CAPSULE BY MOUTH ONCE DAILY. CPAP 1 Device by MISCELLANEOUS route daily at bedtime. 6-16 cm H2O, new mask suitable per pt preference. New supplies, humidity, filters, tubing, head gear, chin strap. Lifetime supplies G47.33 obstructive sleep apnea. Please fax 30 day download to [phone]. topiramate (TOPAMAX) 100 mg tablet Take 1 tablet by mouth twice daily. rOPINIRole (REQUIP) 4 mg tablet Take 1 tablet by mouth daily at bedtime. busPIRone (BUSPAR) 15 mg tablet One Tablet twice daily propranolol (INDERAL) 10 mg tablet Take 1 tablet by mouth once daily. CPAP AutoPAP 6-16 cmH2O, suitable mask, humidity, filters. Lifetime supplies. Dx: G47.33 ergotamine-caffeine (CAFERGOT) 1-100 mg per tablet Two tablets at onset of attack; then 1 tablet every 30 minutes as needed; maximum: 6 tablets per 24 hrs do not exceed 10 tablets/week cetirizine (ZYRTEC) 10 mg tablet Take 1 tablet by mouth four times daily. As instructed by dispensing operator Dr. Ross ketorolac (TORADOL) 10 mg tablet Take 1 tablet by mouth every 6 hours as needed. To abort migraine. diphenhydrAMINE (BENADRYL) 25 mg capsule Take 2 capsules by mouth three times daily as needed. To abort migraine EPINEPHrine (EPIPEN) 0.3 mg/0.3 mL (1:1,000) atIn Cholecalciferol, Vitamin D3, 5,000 unit ORAL Cap Take 5,000 Units by mouth once daily. No current facility-administered medications on file prior to visit. 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 past cigarette use- on and off for a few years Alcohol use: No Comment: rarely Drug use: No Sexual activity: Yes Partners with: Male Review of Symptoms REVIEW OF SYSTEMS NO chest pain or palpitations. Some shortness of breath at times. EXAM: BP 122/80 Pulse 64 Resp 16 Wt 132 kg (291 lb) BMI 45.58 kg/m? General Appearance: Well appearing, alert, in no acute distress, well-hydrated, well nourished.. Lungs: Lungs clear to auscultation. No wheezing, rhonchi, rales. Heart: RRR without murmur, gallop, or rubs. No ectopy. Extremities: No deformities. Has mild pitting edema on the right. Has more pitting edema on the left especially the top of the foot. Has tenderness with palpation of the let calf and positive Homans' sign. Peripheral Pulses: Normal. Health Maintenance List ONE PNEUMOVAX PRIOR TO AGE 65 due on 11/20/1995 PAP EVERY 5 YEARS due on 11/29/2017 HPV EVERY 5 YEARS due on 11/29/2017 INFLUENZA(1) due on 04/01/2018 MAMMOGRAM due on 08/02/2018 DTAP,TDAP,TD(3 - Td) due on 04/27/2027 Data reviewed A/P ASSESSMENT/PLAN: 1. Bilateral leg edema - ICD9: 782.3, ICD10: R60.0 (primary diagnosis) Check - US LEG VEIN DVT UNL VAS LAB - Increase HCTZ to 25 mg a day - discussed possible venous insufficiency. If US neg will refer to vascular. - Discussed calf exercises. 2. Left leg pain - ICD9: 729.5, ICD10: M79.605 - as above - Check US LEG VEIN DVT UNL VAS LAB Gray Rendon MD CNOV Observed: 02/06/2018 Status: COMPLETED Source: [facility] 11:20 AM [facility] REPOSITORY Office Visit (FAMPWS) AMELIA PLATA ([id number]) 1975 F Date Time Provider Department 02/06/18 11:20 AM GRAY RENDON FAMPWS During your visit today, we recorded the following information about you: Pulse Respiration Blood pressure Weight 64/minute 16/minute 122/80 132 kg Gray Rendon MD 02/06/2018 4:08 PM Signed Chief Complaint Patient presents with: Edema: left foot HPI Amelia Plata is a 42 year old female who presents here today for Above Complaints.. Patient has had issues with left leg swelling for several months now. Back in late October was placed on HCTZ 12.5 mg a day and this did help some. However, in the past few weeks the swelling has increased on the left even with being on the diuretic. Has at times had pain of the top of the left foot due to swelling. The left upper calf has been sore at times and sore to touch. Changing her prozac to citalopram helped with the GI symptoms she was having with the prozac. Depression and anxiety is controlled with this change. She is still getting the nausea maybe once every 2 weeks vs 3-4 times a week and no more vomiting. The Zantac twice a day has helped this. Past medical history, appointments, medications, allergies reviewed. Smokes an electronic cigarette with nicotine. Previous Medical History PAST MEDICAL HISTORY Diagnosis Date - Allergic rhinitis due to allergen 10/20/2012 Immunotherapy weekly, Dr. Leonard. - ANXIETY STATE NOS 12/29/2006 - CLASS MIGRAIN W/O MENTN INTRACTABLE 06/09/2007 - DEPRESSIVE DISORDER NEC 12/29/2006 - DJD (degenerative joint disease) of knee 03/30/2008 - Hidradenitis suppurativa 03/21/2014 - HYPERLIPIDEMIA NEC/NOS 12/29/2006 - HYPOGLYCEMIA NOS 12/29/2006 - Hypothyroidism 11/16/2011 Abnormal TSH - Obesity 12/29/2006 - DYLON on CPAP 04/28/2009 [facility] - Other specified disease of hair and hair follicles - Plantar fascial fibromatosis - Ptosis 07/11/2009 - Vitamin D deficiency 09/09/2010 Previous Surgical History PAST SURGICAL HISTORY Procedure Laterality Date - 2D ECHO (EXEP) 11/30/2017 EF=64%, no valve issues - EGD W/O OR W/BRUSH/WASH 08/26/2016 EGD - ENDOMETRIAL ABLATION WITH US GUIDANCE November 2011 - PAST SURGICAL HISTORY OF 05/2003 right plantar fasciotomy - PAST SURGICAL HISTORY OF wisdom tooth extraction - S ESSURE DEVICE [id number] November 2011 Family History FAMILY HISTORY Problem Relation Age of Onset - Osteoporosis Paternal Grandmother - Hypertension Paternal Grandmother - Alcohol/Drug Mother - Arthritis Father - Hypertension Father - Coronary Artery Disease Maternal Grandfather - Diabetes Maternal Grandmother - Cancer Maternal Grandmother skin Patient Allergies ALLERGIES Allergen Reactions - Nabumetone Hives hives - Allergies-Environme* Other: See Comments Sneezing, rhinorrhea - Imitrex [Sumatripta* Other: See Comments Neck pain - Maxalt [Rizatriptan* Other: See Comments Neck pain and nausea - Prednisone Other: See Comments Abdominal pain and diarrhea Current Medications Current Outpatient Prescriptions on File Prior to Visit: citalopram (CELEXA) 40 mg tablet Take 1 tablet by mouth once daily. ondansetron orally disintegrating (ZOFRAN ODT) 4 mg disintegrating tablet Take 1 tablet by mouth every 8 hours as needed. levothyroxine (SYNTHROID) 25 mcg tablet Take 1 tablet by mouth daily before breakfast. ranitidine (ZANTAC) 150 mg tablet Take 1 tablet by mouth twice daily. Hydrochlorothiazide 12.5 mg capsule Take 1 capsule by mouth once daily. gabapentin (NEURONTIN) 300 mg capsule Take 1 cap at 730 PM, take 1 cap at 930 PM, and take 1 cap at bedtime Omeprazole 40 mg capsule TAKE 1 CAPSULE BY MOUTH ONCE DAILY. CPAP 1 Device by MISCELLANEOUS route daily at bedtime. 6-16 cm H2O, new mask suitable per pt preference. New supplies, humidity, filters, tubing, head gear, chin strap. Lifetime supplies G47.33 obstructive sleep apnea. Please fax 30 day download to [phone]. topiramate (TOPAMAX) 100 mg tablet Take 1 tablet by mouth twice daily. rOPINIRole (REQUIP) 4 mg tablet Take 1 tablet by mouth daily at bedtime. busPIRone (BUSPAR) 15 mg tablet One Tablet twice daily propranolol (INDERAL) 10 mg tablet Take 1 tablet by mouth once daily. CPAP AutoPAP 6-16 cmH2O, suitable mask, humidity, filters. Lifetime supplies. Dx: G47.33 ergotamine-caffeine (CAFERGOT) 1-100 mg per tablet Two tablets at onset of attack; then 1 tablet every 30 minutes as needed; maximum: 6 tablets per 24 hrs do not exceed 10 tablets/week cetirizine (ZYRTEC) 10 mg tablet Take 1 tablet by mouth four times daily. As instructed by dispensing operator Dr. Ross ketorolac (TORADOL) 10 mg tablet Take 1 tablet by mouth every 6 hours as needed. To abort migraine. diphenhydrAMINE (BENADRYL) 25 mg capsule Take 2 capsules by mouth three times daily as needed. To abort migraine EPINEPHrine (EPIPEN) 0.3 mg/0.3 mL (1:1,000) atIn Cholecalciferol, Vitamin D3, 5,000 unit ORAL Cap Take 5,000 Units by mouth once daily. No current facility-administered medications on file prior to visit. 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 past cigarette use- on and off for a few years Alcohol use: No Comment: rarely Drug use: No Sexual activity: Yes Partners with: Male Review of Symptoms REVIEW OF SYSTEMS NO chest pain or palpitations. Some shortness of breath at times. EXAM: BP 122/80 Pulse 64 Resp 16 Wt 132 kg (291 lb) BMI 45.58 kg/m? General Appearance: Well appearing, alert, in no acute distress, well-hydrated, well nourished.. Lungs: Lungs clear to auscultation. No wheezing, rhonchi, rales. Heart: RRR without murmur, gallop, or rubs. No ectopy. Extremities: No deformities. Has mild pitting edema on the right. Has more pitting edema on the left especially the top of the foot. Has tenderness with palpation of the let calf and positive Homans' sign. Peripheral Pulses: Normal. Health Maintenance List ONE PNEUMOVAX PRIOR TO AGE 65 due on 11/20/1995 PAP EVERY 5 YEARS due on 11/29/2017 HPV EVERY 5 YEARS due on 11/29/2017 INFLUENZA(1) due on 04/01/2018 MAMMOGRAM due on 08/02/2018 DTAP,TDAP,TD(3 - Td) due on 04/27/2027 Data reviewed A/P ASSESSMENT/PLAN: 1. Bilateral leg edema - ICD9: 782.3, ICD10: R60.0 (primary diagnosis) Check - US LEG VEIN DVT UNL VAS LAB - Increase HCTZ to 25 mg a day - discussed possible venous insufficiency. If US neg will refer to vascular. - Discussed calf exercises. 2. Left leg pain - ICD9: 729.5, ICD10: M79.605 - as above - Check US LEG VEIN DVT UNL VAS LAB Gray Rendon MD Referring Provider: SELF [[id number]] Allergies As of Date: 02/06/2018 Noted Allergy Reaction NABUMETONE 04/28/2009 4 - Hives Comments: hives allergies-environmental to grass,*11/28/2009 14 - Other: See Comments Comments: Sneezing, rhinorrhea IMITREX (SUMATRIPTAN SUCCINATE) 08/21/2009 14 - Other: See Comments Comments: Neck pain MAXALT (RIZATRIPTAN BENZOATE) 03/01/2016 14 - Other: See Comments Comments: Neck pain and nausea PREDNISONE 05/10/2016 14 - Other: See Comments Comments: Abdominal pain and diarrhea Date Reviewed: 02/06/2018 Reviewed by: Gray Rendon - Fully Assessed Reason for Visit: Edema [39] Cmt: left foot Primary Visit Diagnosis:Bilateral leg edema [R60.0] Other Visit Diagnosis:Left leg pain [M79.605] Order(s):hydroCHLOROthiazide (HYDRODIURIL, ESIDRIX) 25 mg tabletTake 1 tablet by mouth once daily.Disp: 30 tabletRfl: 5 US LEG VEIN DVT UNL VAS LAB [[id number]] Order #: [id number] FUTURE Prescriptions as of 02/06/2018 Sig: CITALOPRAM 40 MG TABLET Take 1 tablet by mouth once d* ONDANSETRON 4 MG DISINTEGRATI* Take 1 tablet by mouth every * LEVOTHYROXINE 25 MCG TABLET Take 1 tablet by mouth daily * RANITIDINE 150 MG TABLET Take 1 tablet by mouth twice * GABAPENTIN 300 MG CAPSULE Take 1 cap at 730 PM, take 1 * OMEPRAZOLE 40 MG CAPSULE,SENA* TAKE 1 CAPSULE BY MOUTH ONCE * CPAP 1 Device by MISCELLANEOUS rou* TOPIRAMATE 100 MG TABLET Take 1 tablet by mouth twice * ROPINIROLE 4 MG TABLET Take 1 tablet by mouth daily * BUSPIRONE 15 MG TABLET One Tablet twice daily PROPRANOLOL 10 MG TABLET Take 1 tablet by mouth once d* CPAP AutoPAP 6-16 cmH2O, suitable * ERGOTAMINE 1 MG-CAFFEINE 100 * Two tablets at onset of attac* CETIRIZINE 10 MG TABLET Take 1 tablet by mouth four t* KETOROLAC 10 MG TABLET Take 1 tablet by mouth every * DIPHENHYDRAMINE 25 MG CAPSULE Take 2 capsules by mouth thre* EPINEPHRINE 0.3 MG/0.3 ML INJ* CHOLECALCIFEROL (VITAMIN D3) * Take 5,000 Units by mouth onc* HYDROCHLOROTHIAZIDE 25 MG TAB* Take 1 tablet by mouth once d* Problem List As Of Date 02/06/2018 Noted Resolved Obesity, Class III, BMI 40-49.9 (morbid obesity*INVALID FOR* Priority: B More... Hypoglycemia, unspecified [E16.2] INVALID FOR*10/03/2014 HYPERLIPIDEMIA NEC/NOS [E78.5] INVALID FOR*10/03/2014 Anxiety state [F41.1] INVALID FOR* Priority: A More... Depressive disorder [F32.9] INVALID FOR* Priority: A More... DJD (degenerative joint disease) of knee [M17.1*INVALID FOR*03/21/2014 DYLON on CPAP [G47.33, Z99.89] INVALID FOR* Priority: B More... Ptosis [H02.409] INVALID FOR*10/03/2014 More... Vitamin D deficiency [E55.9] INVALID FOR*10/03/2014 Allergic rhinitis due to allergen [J30.9] INVALID FOR* Priority: B More... Pain in joint, lower leg [M25.569] INVALID FOR*03/21/2014 Dermatographic urticaria [L50.3] INVALID FOR* Priority: D More... Hidradenitis suppurativa [L73.2] INVALID FOR* Priority: D Tobacco use disorder [F17.200] INVALID FOR* Priority: C More... Restless leg syndrome [G25.81] INVALID FOR* Priority: B More... Vitamin D deficiency [E55.9] INVALID FOR* Priority: B Migraine with aura and without status migrainos*INVALID FOR* Priority: A Acquired hypothyroidism [E03.9] INVALID FOR* Priority: A Encounter for screening for cardiovascular diso*INVALID FOR* Encounter for screening for diabetes mellitus [*INVALID FOR* Iron deficiency concern [E61.1] INVALID FOR*05/11/2017 Encounter for gynecological examination without*INVALID FOR* Priority: E More... Well adult exam [Z00.00] INVALID FOR* Priority: E More... Dyslipidemia [E78.5] INVALID FOR* Priority: A CRP elevated [R79.82] INVALID FOR* ORTEGA positive [R76.8] INVALID FOR* Arthralgia [M25.50] INVALID FOR* Gastritis without bleeding [K29.70] INVALID FOR* Prescriptions ordered this encounter Disp Refills Start End HYDROCHLOROTHIAZIDE 25 MG TABLET 30 t* 5 02/06/2018 Route: ORAL Sig: Take 1 tablet by mouth once daily. Medications Discontinued During This Encounter Hydrochlorothiazide 12.5 mg capsule 30 c* 5 11/23/2017 02/06/2018 Route: ORAL Sig: Take 1 capsule by mouth once daily. Disc: Changing Therapy/Dosage Form Disposition: Return if symptoms worsen or fail to improve. Follow-up and Disposition History Recorded Encounter Status:Closed by GRAY RENDON on 02/06/18 CNOV Observed: 12/22/2017 Status: COMPLETED Source: [place] 7:40 AM [facility] REPOSITORY [facility] AMELIA PLATA ([id number]) 1975 F Date Time Provider Department 12/22/17 7:40 AM CUAUHTEMOC OLVERA) YOSEPH During your visit today, we recorded the following information about you: Pulse Respiration Blood pressure Weight 68/minute 14/minute 116/74 128.8 kg LETI OLVERA PA-C 12/22/2017 8:18 AM Signed Chief Complaint Patient presents with: Followup HPI Amelia Plata is a 42 year old female who presents here today for Recheck. Stomach pain and nausea has improved some since addition of zantac. However still having the nausea 3-4 times a week. zofran helps with the nausea Does not seem to be associated with eating or drinking. Past medical history, appointments, medications, allergies reviewed. Previous Medical History PAST MEDICAL HISTORY Diagnosis Date - Allergic rhinitis due to allergen 10/20/2012 Immunotherapy weekly, Dr. Leonard. - ANXIETY STATE NOS 12/29/2006 - CLASS MIGRAIN W/O MENTN INTRACTABLE 06/09/2007 - DEPRESSIVE DISORDER NEC 12/29/2006 - DJD (degenerative joint disease) of knee 03/30/2008 - Hidradenitis suppurativa 03/21/2014 - HYPERLIPIDEMIA NEC/NOS 12/29/2006 - HYPOGLYCEMIA NOS 12/29/2006 - Hypothyroidism 11/16/2011 Abnormal TSH - Obesity 12/29/2006 - DYLON on CPAP 04/28/2009 DME Geetha Lopez - Other specified disease of hair and hair follicles - Plantar fascial fibromatosis - Ptosis 07/11/2009 - Vitamin D deficiency 09/09/2010 Previous Surgical History PAST SURGICAL HISTORY Procedure Laterality Date - 2D ECHO (EXEP) 11/30/2017 EF=64%, no valve issues - EGD W/O OR W/BRUSH/WASH 08/26/2016 EGD - ENDOMETRIAL ABLATION WITH US GUIDANCE November 2011 - PAST SURGICAL HISTORY OF 05/2003 right plantar fasciotomy - PAST SURGICAL HISTORY OF wisdom tooth extraction - S ESSURE DEVICE [id number] November 2011 Family History FAMILY HISTORY Problem Relation Age of Onset - Osteoporosis Paternal Grandmother - Hypertension Paternal Grandmother - Alcohol/Drug Mother - Arthritis Father - Hypertension Father - Coronary Artery Disease Maternal Grandfather - Diabetes Maternal Grandmother - Cancer Maternal Grandmother skin Patient Allergies ALLERGIES Allergen Reactions - Allergies-Environme* - Imitrex [Sumatripta* Neck pain - Maxalt [Rizatriptan* Other: See Comments Neck pain and nausea - Nabumetone hives - Prednisone Other: See Comments Abdominal pain and diarrhea Current Medications Current Outpatient Prescriptions on File Prior to Visit: levothyroxine (SYNTHROID) 25 mcg tablet Take 1 tablet by mouth daily before breakfast. ranitidine (ZANTAC) 150 mg tablet Take 1 tablet by mouth twice daily. ondansetron orally disintegrating (ZOFRAN ODT) 4 mg disintegrating tablet Take 1 tablet by mouth every 8 hours as needed. Hydrochlorothiazide 12.5 mg capsule Take 1 capsule by mouth once daily. gabapentin (NEURONTIN) 300 mg capsule Take 1 cap at 730 PM, take 1 cap at 930 PM, and take 1 cap at bedtime Omeprazole 40 mg capsule TAKE 1 CAPSULE BY MOUTH ONCE DAILY. CPAP 1 Device by MISCELLANEOUS route daily at bedtime. 6-16 cm H2O, new mask suitable per pt preference. New supplies, humidity, filters, tubing, head gear, chin strap. Lifetime supplies G47.33 obstructive sleep apnea. Please fax 30 day download to [phone]. topiramate (TOPAMAX) 100 mg tablet Take 1 tablet by mouth twice daily. rOPINIRole (REQUIP) 4 mg tablet Take 1 tablet by mouth daily at bedtime. busPIRone (BUSPAR) 15 mg tablet One Tablet twice daily FLUoxetine HCl (PROZAC) 40 mg capsule Take 1 capsule by mouth once daily. propranolol (INDERAL) 10 mg tablet Take 1 tablet by mouth once daily. CPAP AutoPAP 6-16 cmH2O, suitable mask, humidity, filters. Lifetime supplies. Dx: G47.33 ergotamine-caffeine (CAFERGOT) 1-100 mg per tablet Two tablets at onset of attack; then 1 tablet every 30 minutes as needed; maximum: 6 tablets per 24 hrs do not exceed 10 tablets/week cetirizine (ZYRTEC) 10 mg tablet Take 1 tablet by mouth four times daily. As instructed by dispensing operator Dr. Ross ketorolac (TORADOL) 10 mg tablet Take 1 tablet by mouth every 6 hours as needed. To abort migraine. diphenhydrAMINE (BENADRYL) 25 mg capsule Take 2 capsules by mouth three times daily as needed. To abort migraine EPINEPHrine (EPIPEN) 0.3 mg/0.3 mL (1:1,000) atIn Cholecalciferol, Vitamin D3, 5,000 unit ORAL Cap Take 5,000 Units by mouth once daily. No current facility-administered medications on file prior to visit. 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 past cigarette use- on and off for a few years Alcohol use: No Comment: rarely Drug use: No Sexual activity: Yes Partners with: Male Review of Symptoms REVIEW OF SYSTEMS GENERAL: No weight loss, malaise or fevers GI: See HPI EXAM: BP 116/74 Pulse 68 Resp 14 Wt 128.8 kg (284 lb) BMI 44.48 kg/m? General Appearance: Well appearing, alert, in no acute distress, well-hydrated, well nourished.. Lungs: Lungs clear to auscultation. No wheezing, rhonchi, rales. Heart: RRR without murmur, gallop, or rubs. No ectopy. Abdomen: Normal inspection. BS+. Generalized abdominal tenderness throughout. Worse in RUQ. Health Maintenance List ONE PNEUMOVAX PRIOR TO AGE 66 due on 11/20/1995 PAP EVERY 5 YEARS due on 11/29/2017 HPV EVERY 5 YEARS due on 11/29/2017 MAMMOGRAM due on 08/02/2018 DTAP,TDAP,TD(3 - Td) due on 04/27/2027 INFLUENZA Completed Data reviewed n/a ASSESSMENT/PLAN: 1. Gastritis without bleeding, unspecified chronicity, unspecified gastritis type - ICD9: 535.50, ICD10: K29.70 (primary diagnosis) Stable Will continue current medications Discussed that may need consult for Gen Surg or GI if worsening or continue 2. Nausea - ICD9: 787.02, ICD10: R11.0 See above 3. RUQ abdominal pain - ICD9: 789.01, ICD10: R10.11 See above 4. Obesity, Class III, BMI 40-49.9 (morbid obesity) ([facility]) - ICD9: 278.01, ICD10: E66.01 Discussed that weight loss and dietary changes may help with her nausea symptoms as well. Decrease fast food meals Follow up as scheduled. LETI OLVERA PA-C Referring Provider: GRAY RENDON [[id number]] Allergies As of Date: 12/22/2017 Noted Allergy Reaction allergies-environmental to grass,*11/28/2009 IMITREX (SUMATRIPTAN SUCCINATE) 08/21/2009 Comments: Neck pain MAXALT (RIZATRIPTAN BENZOATE) 03/01/2016 14 - Other: See Comments Comments: Neck pain and nausea NABUMETONE 04/28/2009 Comments: hives PREDNISONE 05/10/2016 14 - Other: See Comments Comments: Abdominal pain and diarrhea Date Reviewed: 12/22/2017 Reviewed by: Cuauhtemoc) Wade - Fully Assessed Reason for Visit: Recheck [92] Reason For Visit History Recorded Primary Visit Diagnosis:Gastritis without bleeding, unspecified chronicity, unspecified gastritis type [K29.70] Other Visit Diagnoses:Nausea [R11.0] RUQ abdominal pain [R10.11] Obesity, Class III, BMI 40-49.9 (morbid obesity) ([facility]) [E66.01] Order(s):ondansetron orally disintegrating (ZOFRAN ODT) 4 mg disintegrating tabletTake 1 tablet by mouth every 8 hours as needed.Disp: 12 tabletRfl: 3 Prescriptions as of 12/22/2017 Sig: ONDANSETRON 4 MG DISINTEGRATI* Take 1 tablet by mouth every * LEVOTHYROXINE 25 MCG TABLET Take 1 tablet by mouth daily * RANITIDINE 150 MG TABLET Take 1 tablet by mouth twice * HYDROCHLOROTHIAZIDE 12.5 MG C* Take 1 capsule by mouth once * GABAPENTIN 300 MG CAPSULE Take 1 cap at 730 PM, take 1 * OMEPRAZOLE 40 MG CAPSULE,SENA* TAKE 1 CAPSULE BY MOUTH ONCE * CPAP 1 Device by MISCELLANEOUS rou* TOPIRAMATE 100 MG TABLET Take 1 tablet by mouth twice * ROPINIROLE 4 MG TABLET Take 1 tablet by mouth daily * BUSPIRONE 15 MG TABLET One Tablet twice daily FLUOXETINE 40 MG CAPSULE Take 1 capsule by mouth once * PROPRANOLOL 10 MG TABLET Take 1 tablet by mouth once d* CPAP AutoPAP 6-16 cmH2O, suitable * ERGOTAMINE 1 MG-CAFFEINE 100 * Two tablets at onset of attac* CETIRIZINE 10 MG TABLET Take 1 tablet by mouth four t* KETOROLAC 10 MG TABLET Take 1 tablet by mouth every * DIPHENHYDRAMINE 25 MG CAPSULE Take 2 capsules by mouth thre* EPINEPHRINE 0.3 MG/0.3 ML INJ* CHOLECALCIFEROL (VITAMIN D3) * Take 5,000 Units by mouth onc* Problem List As Of Date 12/22/2017 Noted Resolved Obesity, Class III, BMI 40-49.9 (morbid obesity*INVALID FOR* Priority: B More... Hypoglycemia, unspecified [E16.2] INVALID FOR*10/03/2014 HYPERLIPIDEMIA NEC/NOS [E78.5] INVALID FOR*10/03/2014 Anxiety state [F41.1] INVALID FOR* Priority: A More... Depressive disorder [F32.9] INVALID FOR* Priority: A More... DJD (degenerative joint disease) of knee [M17.1*INVALID FOR*03/21/2014 DYLON on CPAP [G47.33, Z99.89] INVALID FOR* Priority: B More... Ptosis [H02.409] INVALID FOR*10/03/2014 More... Vitamin D deficiency [E55.9] INVALID FOR*10/03/2014 Allergic rhinitis due to allergen [J30.9] INVALID FOR* Priority: B More... Pain in joint, lower leg [M25.569] INVALID FOR*03/21/2014 Dermatographic urticaria [L50.3] INVALID FOR* Priority: D More... Hidradenitis suppurativa [L73.2] INVALID FOR* Priority: D Tobacco use disorder [F17.200] INVALID FOR* Priority: C More... Restless leg syndrome [G25.81] INVALID FOR* Priority: B More... Vitamin D deficiency [E55.9] INVALID FOR* Priority: B Migraine with aura and without status migrainos*INVALID FOR* Priority: A Acquired hypothyroidism [E03.9] INVALID FOR* Priority: A Encounter for screening for cardiovascular diso*INVALID FOR* Encounter for screening for diabetes mellitus [*INVALID FOR* Iron deficiency concern [E61.1] INVALID FOR*05/11/2017 Encounter for gynecological examination without*INVALID FOR* Priority: E More... Well adult exam [Z00.00] INVALID FOR* Priority: E More... Dyslipidemia [E78.5] INVALID FOR* Priority: A CRP elevated [R79.82] INVALID FOR* ORTEGA positive [R76.8] INVALID FOR* Arthralgia [M25.50] INVALID FOR* Gastritis without bleeding [K29.70] INVALID FOR* Prescriptions ordered this encounter Disp Refills Start End ONDANSETRON 4 MG DISINTEGRATING TABL* 12 t* 3 12/22/2017 Route: ORAL Sig: Take 1 tablet by mouth every 8 hours as needed. Medications Discontinued During This Encounter ondansetron orally disintegrating (Z* 12 t* 0 11/28/2017 12/22/2017 Route: ORAL Sig: Take 1 tablet by mouth every 8 hours as needed. Disc: Reason for discontinue is not on file. Encounter Status:Closed by LETI CHAUDHRY on 12/22/17 PROGRESS Observed: 12/22/2017 Status: COMPLETED Source: [place] 7:28 AM [facility] REPOSIT[facility] HNO ID: [id number] Author: Rosie Olvera Service: (none) Author Type: Physician Radio Performer Type: Progress Notes Filed: 12/22/2017 8:18 AM Note Text: Chief Complaint Patient presents with: Followup HPI Amelia Plata is a 42 year old female who presents here today for Recheck. Stomach pain and nausea has improved some since addition of zantac. However still having the nausea 3-4 times a week. zofran helps with the nausea Does not seem to be associated with eating or drinking. Past medical history, appointments, medications, allergies reviewed. Previous Medical History PAST MEDICAL HISTORY Diagnosis Date - Allergic rhinitis due to allergen 10/20/2012 Immunotherapy weekly, Dr. Leonard. - ANXIETY STATE NOS 12/29/2006 - CLASS MIGRAIN W/O MENTN INTRACTABLE 06/09/2007 - DEPRESSIVE DISORDER NEC 12/29/2006 - DJD (degenerative joint disease) of knee 03/30/2008 - Hidradenitis suppurativa 03/21/2014 - HYPERLIPIDEMIA NEC/NOS 12/29/2006 - HYPOGLYCEMIA NOS 12/29/2006 - Hypothyroidism 11/16/2011 Abnormal TSH - Obesity 12/29/2006 - DYLON on CPAP 04/28/2009 DME Geetha Lopez - Other specified disease of hair and hair follicles - Plantar fascial fibromatosis - Ptosis 07/11/2009 - Vitamin D deficiency 09/09/2010 Previous Surgical History PAST SURGICAL HISTORY Procedure Laterality Date - 2D ECHO (EXEP) 11/30/2017 EF=64%, no valve issues - EGD W/O OR W/BRUSH/WASH 08/26/2016 EGD - ENDOMETRIAL ABLATION WITH US GUIDANCE November 2011 - PAST SURGICAL HISTORY OF 05/2003 right plantar fasciotomy - PAST SURGICAL HISTORY OF wisdom tooth extraction - S ESSURE DEVICE [id number] November 2011 Family History FAMILY HISTORY Problem Relation Age of Onset - Osteoporosis Paternal Grandmother - Hypertension Paternal Grandmother - Alcohol/Drug Mother - Arthritis Father - Hypertension Father - Coronary Artery Disease Maternal Grandfather - Diabetes Maternal Grandmother - Cancer Maternal Grandmother skin Patient Allergies ALLERGIES Allergen Reactions - Allergies-Environme* - Imitrex [Sumatripta* Neck pain - Maxalt [Rizatriptan* Other: See Comments Neck pain and nausea - Nabumetone hives - Prednisone Other: See Comments Abdominal pain and diarrhea Current Medications Current Outpatient Prescriptions on File Prior to Visit: levothyroxine (SYNTHROID) 25 mcg tablet Take 1 tablet by mouth daily before breakfast. ranitidine (ZANTAC) 150 mg tablet Take 1 tablet by mouth twice daily. ondansetron orally disintegrating (ZOFRAN ODT) 4 mg disintegrating tablet Take 1 tablet by mouth every 8 hours as needed. Hydrochlorothiazide 12.5 mg capsule Take 1 capsule by mouth once daily. gabapentin (NEURONTIN) 300 mg capsule Take 1 cap at 730 PM, take 1 cap at 930 PM, and take 1 cap at bedtime Omeprazole 40 mg capsule TAKE 1 CAPSULE BY MOUTH ONCE DAILY. CPAP 1 Device by MISCELLANEOUS route daily at bedtime. 6-16 cm H2O, new mask suitable per pt preference. New supplies, humidity, filters, tubing, head gear, chin strap. Lifetime supplies G47.33 obstructive sleep apnea. Please fax day download to [phone]. topiramate (TOPAMAX) 100 mg tablet Take 1 tablet by mouth twice daily. rOPINIRole (REQUIP) 4 mg tablet Take 1 tablet by mouth daily at bedtime. busPIRone (BUSPAR) 15 mg tablet One Tablet twice daily FLUoxetine HCl (PROZAC) 40 mg capsule Take 1 capsule by mouth once daily. propranolol (INDERAL) 10 mg tablet Take 1 tablet by mouth once daily. CPAP AutoPAP 6-16 cmH2O, suitable mask, humidity, filters. Lifetime supplies. Dx: G47.33 ergotamine-caffeine (CAFERGOT) 1-100 mg per tablet Two tablets at onset of attack; then 1 tablet every 30 minutes as needed; maximum: 6 tablets per 24 hrs do not exceed 10 tablets/week cetirizine (ZYRTEC) 10 mg tablet Take 1 tablet by mouth four times daily. As instructed by dispensing operator Dr. Ross ketorolac (TORADOL) 10 mg tablet Take 1 tablet by mouth every 6 hours as needed. To abort migraine. diphenhydrAMINE (BENADRYL) 25 mg capsule Take 2 capsules by mouth three times daily as needed. To abort migraine EPINEPHrine (EPIPEN) 0.3 mg/0.3 mL (1:1,000) atIn Cholecalciferol, Vitamin D3, 5,000 unit ORAL Cap Take 5,000 Units by mouth once daily. No current facility-administered medications on file prior to visit. 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 past cigarette use- on and off for a few years Alcohol use: No Comment: rarely Drug use: No Sexual activity: Yes Partners with: Male Review of Symptoms REVIEW OF SYSTEMS GENERAL: No weight loss, malaise or fevers GI: See HPI EXAM: BP 116/74 Pulse 68 Resp 14 Wt 128.8 kg (284 lb) BMI 44.48 kg/m? General Appearance: Well appearing, alert, in no acute distress, well-hydrated, well nourished.. Lungs: Lungs clear to auscultation. No wheezing, rhonchi, rales. Heart: RRR without murmur, gallop, or rubs. No ectopy. Abdomen: Normal inspection. BS+. Generalized abdominal tenderness throughout. Worse in RUQ. Health Maintenance List ONE PNEUMOVAX PRIOR TO AGE 66 due on 11/20/1995 PAP EVERY 5 YEARS due on 11/29/2017 HPV EVERY 5 YEARS due on 11/29/2017 MAMMOGRAM due on 08/02/2018 DTAP,TDAP,TD(3 - Td) due on 04/27/2027 INFLUENZA Completed Data reviewed n/a ASSESSMENT/PLAN: 1. Gastritis without bleeding, unspecified chronicity, unspecified gastritis type - ICD9: 535.50, ICD10: K29.70 (primary diagnosis) Stable Will continue current medications Discussed that may need consult for Gen Surg or GI if worsening or continue 2. Nausea - ICD9: 787.02, ICD10: R11.0 See above 3. RUQ abdominal pain - ICD9: 789.01, ICD10: R10.11 See above 4. Obesity, Class III, BMI 40-49.9 (morbid obesity) (HCC) - ICD9: 278.01, ICD10: E66.01 Discussed that weight loss and dietary changes may help with her nausea symptoms as well. Decrease fast food meals Follow up as scheduled. LETI OLVERA PA-C PROGRESS Observed: 11/30/2017 Status: COMPLETED Source: [place] 1:12 PM [facility] [place] REPOSITORY O ID: [id number] Author: Rosie Olvera Service: (none) Author Type: Physician Radio Performer Type: Progress Notes Filed: 11/30/2017 2:52 PM Note Text: 11/30/2017 Patient presents with: Recheck: patient is here for follow up from urgent care due to 11 pound weight loss; and fatigue and nausea SUBJECTIVE: This is a 42 year old that is here today for Above Complaints.. Last 4 Encounter Wt Readings: Date: Wt: 11/30/2017 129.3 kg (285 lb) 11/28/2017 126.6 kg (279 lb) 11/23/2017 131.7 kg (290 lb 6.4 oz) 11/09/2017 129.5 kg (285 lb 9.6 oz) Patient was placed on hctz on 11/23 for swelling. She was then seen in on the for n/v and she had an 11pound weight loss which concerned them and patient. Since then she has gone back up to 285 which is where she was early this month. She has restarted the hctz. Last 5 Encounter BP Readings: Date: BP: 11/30/2017 112/74 11/28/2017 112/70 11/23/2017 132/82 11/09/2017 109/72 08/22/2017 130/74 Hx of nausea and abdominal pain Inconsistent in presentation. Sometimes food makes it worse sometimes it makes it better. Has had US, HIDA scan and CT that all have been wnl. PAST MEDICAL HISTORY Diagnosis Date - Allergic rhinitis due to allergen 10/20/2012 Immunotherapy weekly, Dr. Leonard. - ANXIETY STATE NOS 12/29/2006 - CLASS MIGRAIN W/O MENTN INTRACTABLE 06/09/2007 - DEPRESSIVE DISORDER NEC 12/29/2006 - DJD (degenerative joint disease) of knee 03/30/2008 - Hidradenitis suppurativa 03/21/2014 - HYPERLIPIDEMIA NEC/NOS 12/29/2006 - HYPOGLYCEMIA NOS 12/29/2006 - Hypothyroidism 11/16/2011 Abnormal TSH - Obesity 12/29/2006 - DYLON on CPAP 04/28/2009 DME Geetha Lopez - Other specified disease of hair and hair follicles - Plantar fascial fibromatosis - Ptosis 07/11/2009 - Vitamin D deficiency 09/09/2010 ALLERGIES Allergies-Environmental To Grass, Trees, Pollen, Dust, Feath [Other]; Imitrex [Sumatriptan Succinate]; Maxalt [Rizatriptan Benzoate]; Nabumetone; Prednisone MEDICATIONS Current Outpatient Prescriptions: ondansetron orally disintegrating (ZOFRAN ODT) 4 mg disintegrating tablet Take 1 tablet by mouth every 8 hours as needed. Hydrochlorothiazide 12.5 mg capsule Take 1 capsule by mouth once daily. gabapentin (NEURONTIN) 300 mg capsule Take 1 cap at 730 PM, take 1 cap at 930 PM, and take 1 cap at bedtime Omeprazole 40 mg capsule TAKE 1 CAPSULE BY MOUTH ONCE DAILY. CPAP 1 Device by MISCELLANEOUS route daily at bedtime. 6-16 cm H2O, new mask suitable per pt preference. New supplies, humidity, filters, tubing, head gear, chin strap. Lifetime supplies G47.33 obstructive sleep apnea. Please fax 30 day download to [phone]. topiramate (TOPAMAX) 100 mg tablet Take 1 tablet by mouth twice daily. levothyroxine (SYNTHROID) 25 mcg tablet Take 1 tablet by mouth daily before breakfast. rOPINIRole (REQUIP) 4 mg tablet Take 1 tablet by mouth daily at bedtime. busPIRone (BUSPAR) 15 mg tablet One Tablet twice daily FLUoxetine HCl (PROZAC) 40 mg capsule Take 1 capsule by mouth once daily. propranolol (INDERAL) 10 mg tablet Take 1 tablet by mouth once daily. ergotamine-caffeine (CAFERGOT) 1-100 mg per tablet Two tablets at onset of attack; then 1 tablet every 30 minutes as needed; maximum: 6 tablets per 24 hrs do not exceed 10 tablets/week cetirizine (ZYRTEC) 10 mg tablet Take 1 tablet by mouth four times daily. As instructed by dispensing operator Dr. Ross ketorolac (TORADOL) 10 mg tablet Take 1 tablet by mouth every 6 hours as needed. To abort migraine. diphenhydrAMINE (BENADRYL) 25 mg capsule Take 2 capsules by mouth three times daily as needed. To abort migraine EPINEPHrine (EPIPEN) 0.3 mg/0.3 mL (1:1,000) atIn Cholecalciferol, Vitamin D3, 5,000 unit ORAL Cap Take 5,000 Units by mouth once daily. CPAP AutoPAP 6-16 cmH2O, suitable mask, humidity, filters. Lifetime supplies. Dx: G47.33 No current facility-administered medications for this visit. 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 past cigarette use- on and off for a few years Alcohol use: No Comment: rarely Drug use: No Sexual activity: Yes Partners with: Male REVIEW OF SYSTEMS GENERAL: Weight loss NECK: Negative for lumps, goiter, pain and significant neck swelling RESPIRATORY: Negative for cough, hemoptysis, wheezing, COPD, dyspnea or shortness of breath CARDIOVASCULAR: Negative for chest pain, leg swelling, hypertension, CHF or palpitations GI: abdominal pain All other reviewed and negative other than HPI. OBJECTIVE: BP 112/74 Pulse 72 Temp 37.3 ?C (99.2 ?F) (Tympanic) Resp 14 Wt 129.3 kg (285 lb) BMI 44.64 kg/m? APPEARANCE Well appearing, alert, in no acute distress, well-hydrated, well nourished., Morbidly obese Neck: Supple. No thyroid enlargement. No bruit HEART RRR with normal S1 and S2, no murmurs, no gallops, no JVD appreciated LUNG clear to auscultation ABDOMEN Normal inspection. BS+. Abdomen soft. Pain in RUQ with palp. EXTREMITIES Extremities normal, No deformities, No skin discoloration, No edema and Normal pulses bilaterally. ASSESSMENT/PLAN: 1. Right upper quadrant abdominal pain - ICD9: 789.01, ICD10: R10.11 (primary diagnosis) - Add zantac We discussed consult to gastroenterology if symptoms continue 2. Weight loss - ICD9: 783.21, ICD10: R63.4 Likely incidental from diuretic. Continue to monitor 3. Peripheral edema - ICD9: 782.3, ICD10: R60.9 Improving. Has echo scheduled for today. Patient has follow up scheduled for end of this month. Can return sooner as needed. DORIS EVANGELISTAOV Observed: 11/30/2017 Status: COMPLETED Source: [facility] 1:00 PM [facility] REPOSITORY Office Visit (FAMPWS) AMELIA PLATA ([id number]) 1975 F Date Time Provider Department 11/30/17 1:00 PM CUAUHTEMOC OLVERA) FAMPWS During your visit today, we recorded the following information about you: Temperature Pulse Respiration Blood pressure 99.2 degrees 72/minute 14/minute 112/74 Weight 129.3 kg LETI OLVERA PA-C 11/30/2017 2:52 PM Signed 11/30/2017 Patient presents with: Recheck: patient is here for follow up from urgent care due to 11 pound weight loss; and fatigue and nausea SUBJECTIVE: This is a 42 year old that is here today for Above Complaints.. Last 4 Encounter Wt Readings: Date: Wt: 11/30/2017 129.3 kg (285 lb) 11/28/2017 126.6 kg (279 lb) 11/23/2017 131.7 kg (290 lb 6.4 oz) 11/09/2017 129.5 kg (285 lb 9.6 oz) Patient was placed on hctz on 11/23 for swelling. She was then seen in on the for n/v and she had an 11pound weight loss which concerned them and patient. Since then she has gone back up to 285 which is where she was early this month. She has restarted the hctz. Last 5 Encounter BP Readings: Date: BP: 11/30/2017 112/74 11/28/2017 112/70 11/23/2017 132/82 11/09/2017 109/72 08/22/2017 130/74 Hx of nausea and abdominal pain Inconsistent in presentation. Sometimes food makes it worse sometimes it makes it better. Has had US, HIDA scan and CT that all have been wnl. PAST MEDICAL HISTORY Diagnosis Date - Allergic rhinitis due to allergen 10/20/2012 Immunotherapy weekly, Dr. Leonard. - ANXIETY STATE NOS 12/29/2006 - CLASS MIGRAIN W/O MENTN INTRACTABLE 06/09/2007 - DEPRESSIVE DISORDER NEC 12/29/2006 - DJD (degenerative joint disease) of knee 03/30/2008 - Hidradenitis suppurativa 03/21/2014 - HYPERLIPIDEMIA NEC/NOS 12/29/2006 - HYPOGLYCEMIA NOS 12/29/2006 - Hypothyroidism 11/16/2011 Abnormal TSH - Obesity 12/29/2006 - DYLON on CPAP 04/28/2009 [facility] - Other specified disease of hair and hair follicles - Plantar fascial fibromatosis - Ptosis 07/11/2009 - Vitamin D deficiency 09/09/2010 ALLERGIES Allergies-Environmental To Grass, Trees, Pollen, Dust, Feath [Other]; Imitrex [Sumatriptan Succinate]; Maxalt [Rizatriptan Benzoate]; Nabumetone; Prednisone MEDICATIONS Current Outpatient Prescriptions: ondansetron orally disintegrating (ZOFRAN ODT) 4 mg disintegrating tablet Take 1 tablet by mouth every 8 hours as needed. Hydrochlorothiazide 12.5 mg capsule Take 1 capsule by mouth once daily. gabapentin (NEURONTIN) 300 mg capsule Take 1 cap at 730 PM, take 1 cap at 930 PM, and take 1 cap at bedtime Omeprazole 40 mg capsule TAKE 1 CAPSULE BY MOUTH ONCE DAILY. CPAP 1 Device by MISCELLANEOUS route daily at bedtime. 6-16 cm H2O, new mask suitable per pt preference. New supplies, humidity, filters, tubing, head gear, chin strap. Lifetime supplies G47.33 obstructive sleep apnea. Please fax 30 day download to [phone]. topiramate (TOPAMAX) 100 mg tablet Take 1 tablet by mouth twice daily. levothyroxine (SYNTHROID) 25 mcg tablet Take 1 tablet by mouth daily before breakfast. rOPINIRole (REQUIP) 4 mg tablet Take 1 tablet by mouth daily at bedtime. busPIRone (BUSPAR) 15 mg tablet One Tablet twice daily FLUoxetine HCl (PROZAC) 40 mg capsule Take 1 capsule by mouth once daily. propranolol (INDERAL) 10 mg tablet Take 1 tablet by mouth once daily. ergotamine-caffeine (CAFERGOT) 1-100 mg per tablet Two tablets at onset of attack; then 1 tablet every 30 minutes as needed; maximum: 6 tablets per 24 hrs do not exceed 10 tablets/week cetirizine (ZYRTEC) 10 mg tablet Take 1 tablet by mouth four times daily. As instructed by dispensing operator Dr. Ross ketorolac (TORADOL) 10 mg tablet Take 1 tablet by mouth every 6 hours as needed. To abort migraine. diphenhydrAMINE (BENADRYL) 25 mg capsule Take 2 capsules by mouth three times daily as needed. To abort migraine EPINEPHrine (EPIPEN) 0.3 mg/0.3 mL (1:1,000) atIn Cholecalciferol, Vitamin D3, 5,000 unit ORAL Cap Take 5,000 Units by mouth once daily. CPAP AutoPAP 6-16 cmH2O, suitable mask, humidity, filters. Lifetime supplies. Dx: G47.33 No current facility-administered medications for this visit. 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 past cigarette use- on and off for a few years Alcohol use: No Comment: rarely Drug use: No Sexual activity: Yes Partners with: Male REVIEW OF SYSTEMS GENERAL: Weight loss NECK: Negative for lumps, goiter, pain and significant neck swelling RESPIRATORY: Negative for cough, hemoptysis, wheezing, COPD, dyspnea or shortness of breath CARDIOVASCULAR: Negative for chest pain, leg swelling, hypertension, CHF or palpitations GI: abdominal pain All other reviewed and negative other than HPI. OBJECTIVE: BP 112/74 Pulse 72 Temp 37.3 ?C (99.2 ?F) (Tympanic) Resp 14 Wt 129.3 kg (285 lb) BMI 44.64 kg/m? APPEARANCE Well appearing, alert, in no acute distress, well- hydrated, well nourished., Morbidly obese Neck: Supple. No thyroid enlargement. No bruit HEART RRR with normal S1 and S2, no murmurs, no gallops, no JVD appreciated LUNG clear to auscultation ABDOMEN Normal inspection. BS+. Abdomen soft. Pain in RUQ with palp. EXTREMITIES Extremities normal, No deformities, No skin discoloration, No edema and Normal pulses bilaterally. ASSESSMENT/PLAN: 1. Right upper quadrant abdominal pain - ICD9: 789.01, ICD10: R10.11 (primary diagnosis) - Add zantac We discussed consult to gastroenterology if symptoms continue 2. Weight loss - ICD9: 783.21, ICD10: R63.4 Likely incidental from diuretic. Continue to monitor 3. Peripheral edema - ICD9: 782.3, ICD10: R60.9 Improving. Has echo scheduled for today. Patient has follow up scheduled for end of this month. Can return sooner as needed. LETI OLVERA PA-C Referring Provider: LETI OLVERA(DORIS) [[id number]] Allergies As of Date: 11/30/2017 Noted Allergy Reaction allergies-environmental to grass,*11/28/2009 IMITREX (SUMATRIPTAN SUCCINATE) 08/21/2009 Comments: Neck pain MAXALT (RIZATRIPTAN BENZOATE) 03/01/2016 14 - Other: See Comments Comments: Neck pain and nausea NABUMETONE 04/28/2009 Comments: hives PREDNISONE 05/10/2016 14 - Other: See Comments Comments: Abdominal pain and diarrhea Date Reviewed: 11/28/2017 Reviewed by: Marina Mendez Ma - Fully Assessed Reason for Visit: Recheck [92] Cmt: patient is here for follow up from urgent care due to 11 pound weight loss; and fatigue and nausea Primary Visit Diagnosis:Right upper quadrant abdominal pain [R10.11] Other Visit Diagnoses:Weight loss [R63.4] Peripheral edema [R60.9] Order(s):ranitidine (ZANTAC) 150 mg tabletTake 1 tablet by mouth twice daily.Disp: 60 tabletRfl: 1 Prescriptions as of 11/30/2017 Sig: ONDANSETRON 4 MG DISINTEGRATI* Take 1 tablet by mouth every * HYDROCHLOROTHIAZIDE 12.5 MG C* Take 1 capsule by mouth once * GABAPENTIN 300 MG CAPSULE Take 1 cap at 730 PM, take 1 * OMEPRAZOLE 40 MG CAPSULE,SENA* TAKE 1 CAPSULE BY MOUTH ONCE * CPAP 1 Device by MISCELLANEOUS rou* TOPIRAMATE 100 MG TABLET Take 1 tablet by mouth twice * LEVOTHYROXINE 25 MCG TABLET Take 1 tablet by mouth daily * ROPINIROLE 4 MG TABLET Take 1 tablet by mouth daily * BUSPIRONE 15 MG TABLET One Tablet twice daily FLUOXETINE 40 MG CAPSULE Take 1 capsule by mouth once * PROPRANOLOL 10 MG TABLET Take 1 tablet by mouth once d* ERGOTAMINE 1 MG-CAFFEINE 100 * Two tablets at onset of attac* CETIRIZINE 10 MG TABLET Take 1 tablet by mouth four t* KETOROLAC 10 MG TABLET Take 1 tablet by mouth every * DIPHENHYDRAMINE 25 MG CAPSULE Take 2 capsules by mouth thre* EPINEPHRINE 0.3 MG/0.3 ML INJ* CHOLECALCIFEROL (VITAMIN D3) * Take 5,000 Units by mouth onc* RANITIDINE 150 MG TABLET Take 1 tablet by mouth twice * CPAP AutoPAP 6-16 cmH2O, suitable * Problem List As Of Date 11/30/2017 Noted Resolved Obesity, Class III, BMI 40-49.9 (morbid obesity*INVALID FOR* Priority: B More... Hypoglycemia, unspecified [E16.2] INVALID FOR*10/03/2014 HYPERLIPIDEMIA NEC/NOS [E78.5] INVALID FOR*10/03/2014 Anxiety state [F41.1] INVALID FOR* Priority: A More... Depressive disorder [F32.9] INVALID FOR* Priority: A More... DJD (degenerative joint disease) of knee [M17.1*INVALID FOR*03/21/2014 DYLON on CPAP [G47.33, Z99.89] INVALID FOR* Priority: B More... Ptosis [H02.409] INVALID FOR*10/03/2014 More... Vitamin D deficiency [E55.9] INVALID FOR*10/03/2014 Allergic rhinitis due to allergen [J30.9] INVALID FOR* Priority: B More... Pain in joint, lower leg [M25.569] INVALID FOR*03/21/2014 Dermatographic urticaria [L50.3] INVALID FOR* Priority: D More... Hidradenitis suppurativa [L73.2] INVALID FOR* Priority: D Tobacco use disorder [F17.200] INVALID FOR* Priority: C More... Restless leg syndrome [G25.81] INVALID FOR* Priority: B More... Vitamin D deficiency [E55.9] INVALID FOR* Priority: B Migraine with aura and without status migrainos*INVALID FOR* Priority: A Acquired hypothyroidism [E03.9] INVALID FOR* Priority: A Encounter for screening for cardiovascular diso*INVALID FOR* Encounter for screening for diabetes mellitus [*INVALID FOR* Iron deficiency concern [E61.1] INVALID FOR*05/11/2017 Encounter for gynecological examination without*INVALID FOR* Priority: E More... Well adult exam [Z00.00] INVALID FOR* Priority: E More... Dyslipidemia [E78.5] INVALID FOR* Priority: A CRP elevated [R79.82] INVALID FOR* ORTEGA positive [R76.8] INVALID FOR* Arthralgia [M25.50] INVALID FOR* Prescriptions ordered this encounter Disp Refills Start End RANITIDINE 150 MG TABLET 60 t* 1 11/30/2017 Route: ORAL Sig: Take 1 tablet by mouth twice daily. Encounter Status:Closed by LETI CHAUDHRY on 11/30/17 COMP METABOLIC PANEL Collected: 11/28/2017 Status: F Source: [facility] 8:15 AM [facility] TYPE CODE TESTS RESULT OUT OF REFERENCE UNITS RANGE LAB TP 6.3-8.0 g/dL Protein, Total 7.6 LAB ALB 3.9-4.9 g/dL Albumin 4.3 LAB CA 8.5-10.2 mg/dL Calcium, Total 9.8 LAB TBIL 0.2-1.3 mg/dL Bilirubin, Total 0.2 LAB ALKP 32-117 U/L Alkaline Phosphatase 65 LAB AST 13-35 U/L AST 22 LAB GLU 74-99 mg/dL Glucose 92 Result Comment: The [place] Diabetes Association (ADA) provides guidance for cutoff values for fasting glucose and random glucose. The ADA defines fasting as no caloric intake for at least 8 hours. Fas ting plasma glucose results between 100 to 125 mg/dL indicate increased risk for diabetes (prediabetes). Fasting plasma glucose results greater than or equal to 126 mg/dL meet the criteria for diagnosis of diabetes. In the absence of unequivocal hyperglycemia, results should be confirmed by repeat testing. In a patient with classic symptoms of hyperglycemia or hyperglycemic crisis, random plasma glucose results greater than or equal to 200 mg/dL meet the criteria for diagnosis of diabetes. Reference: Standards of Medical Care in Diabetes 2016, English Diabetes Association. Diabetes Care. 2016.39(Suppl 1). LAB BUN 7-21 mg/dL BUN 13 LAB CRET 0.58-0.96 mg/dL Creatinine 0.88 LAB NA 136-144 mmol/L Sodium 140 LAB K 3.7-5.1 mmol/L Potassium 4.0 LAB CL 97-105 mmol/L Chloride 103 LAB CO2 22-30 mmol/L CO2 25 LAB AGAP 9-18 mmol/L Anion Gap 12 LAB ALT 7-38 U/L ALT 27 LAB GFRAA eGFR- Amer. >60 LAB GFRNAA . eGFR-All Other Races >60 Result Comment: eGFR (Estimated GFR) Units of measure: mL/min/1.73 meters squared eGFR is derived from the reexpressed MDRD Study equation using the following parameters: serum creatinine, age, gender and race. The creatinine assay has been calibrated to be traceable to IDMS. An eGFR <60 mL/min/1.73m2 for >3 months is consistent with chronic kidney disease. Refer to KDOQI guidelines for clinical interpretation. In patients with unstable renal function, e.g. those with acute kidney injury, the eGFR may not accurately reflect actual GFR. Performed By: #### CMP #### [facility] [facility] [address] [place], [place] [address] PROGRESS Observed: 11/28/2017 Status: COMPLETED Source: [facility] 7:53 AM [facility] [place] REPOSITORY HNO ID: [id number] Author: Carlos Larsen) [place] Service: (none) Author Type: Physician Radio Performer Type: Progress Notes Filed: 11/28/2017 8:20 AM Note Text: Subjective HPI Pt presents with nausea since last night. She has had some diarrhea, she had 3 bouts of diarrhea. No blood in her stool. She has been drinking fluids. She had been put on HCTZ for leg edema 3 days, which has improved. She has however lost 11 pounds in 3 days. She checked her temp at home and was 98. She has also had a mild cough. Review of Systems Constitutional: Positive for malaise/fatigue and weight loss. HENT: Negative. Eyes: Negative. Respiratory: Positive for cough. Cardiovascular: Negative. Gastrointestinal: Positive for diarrhea, nausea and vomiting. Negative for abdominal pain. Genitourinary: Negative. Musculoskeletal: Negative. Skin: Negative. Neurological: Negative. Psychiatric/Behavioral: Negative. All other systems reviewed and are negative. PAST MEDICAL HISTORY Diagnosis Date - Allergic rhinitis due to allergen 10/20/2012 Immunotherapy weekly, Dr. Leonard. - ANXIETY STATE NOS 12/29/2006 - CLASS MIGRAIN W/O MENTN INTRACTABLE 06/09/2007 - DEPRESSIVE DISORDER NEC 12/29/2006 - DJD (degenerative joint disease) of knee 03/30/2008 - Hidradenitis suppurativa 03/21/2014 - HYPERLIPIDEMIA NEC/NOS 12/29/2006 - HYPOGLYCEMIA NOS 12/29/2006 - Hypothyroidism 11/16/2011 Abnormal TSH - Obesity 12/29/2006 - DYLON on CPAP 04/28/2009 DME Geetha John - Other specified disease of hair and hair follicles - Plantar fascial fibromatosis - Ptosis 07/11/2009 - Vitamin D deficiency 09/09/2010 Current Outpatient Prescriptions: Hydrochlorothiazide 12.5 mg capsule Take 1 capsule by mouth once daily. Disp: 30 capsule Rfl: 5 gabapentin (NEURONTIN) 300 mg capsule Take 1 cap at 730 PM, take 1 cap at 930 PM, and take 1 cap at bedtime Disp: 90 capsule Rfl: 2 Omeprazole 40 mg capsule TAKE 1 CAPSULE BY MOUTH ONCE DAILY. Disp: 90 capsule Rfl: 1 CPAP 1 Device by MISCELLANEOUS route daily at bedtime. 6-16 cm H2O, new mask suitable per pt preference. New supplies, humidity, filters, tubing, head gear, chin strap. Lifetime supplies G47.33 obstructive sleep apnea. Please fax 30 day download to [phone]. Disp: 1 Device Rfl: 0 topiramate (TOPAMAX) 100 mg tablet Take 1 tablet by mouth twice daily. Disp: 180 tablet Rfl: 3 levothyroxine (SYNTHROID) 25 mcg tablet Take 1 tablet by mouth daily before breakfast. Disp: 30 tablet Rfl: 5 rOPINIRole (REQUIP) 4 mg tablet Take 1 tablet by mouth daily at bedtime. Disp: 90 tablet Rfl: 3 busPIRone (BUSPAR) 15 mg tablet One Tablet twice daily Disp: 180 tablet Rfl: 3 FLUoxetine HCl (PROZAC) 40 mg capsule Take 1 capsule by mouth once daily. Disp: 90 capsule Rfl: 3 propranolol (INDERAL) 10 mg tablet Take 1 tablet by mouth once daily. Disp: 90 tablet Rfl: 3 CPAP AutoPAP 6-16 cmH2O, suitable mask, humidity, filters. Lifetime supplies. Dx: G47.33 Disp: 1 Device Rfl: 0 ergotamine-caffeine (CAFERGOT) 1-100 mg per tablet Two tablets at onset of attack; then 1 tablet every 30 minutes as needed; maximum: 6 tablets per 24 hrs do not exceed 10 tablets/week Disp: 30 tablet Rfl: 1 cetirizine (ZYRTEC) 10 mg tablet Take 1 tablet by mouth four times daily. As instructed by dispensing operator Dr. Ross Disp: Rfl: ketorolac (TORADOL) 10 mg tablet Take 1 tablet by mouth every 6 hours as needed. To abort migraine. Disp: Rfl: diphenhydrAMINE (BENADRYL) 25 mg capsule Take 2 capsules by mouth three times daily as needed. To abort migraine Disp: Rfl: EPINEPHrine (EPIPEN) 0.3 mg/0.3 mL (1:1,000) atIn Disp: Rfl: Cholecalciferol, Vitamin D3, 5,000 unit ORAL Cap Take 5,000 Units by mouth once daily. Disp: Rfl: ondansetron orally disintegrating (ZOFRAN ODT) 4 mg disintegrating tablet Take 1 tablet by mouth every 8 hours as needed. Disp: 12 tablet Rfl: 0 No current facility-administered medications for this visit. PAST SURGICAL HISTORY Procedure Laterality Date - EGD W/O OR W/BRUSH/WASH 08/26/2016 EGD - ENDOMETRIAL ABLATION WITH US GUIDANCE November 2011 - PAST SURGICAL HISTORY OF 05/2003 right plantar fasciotomy - PAST SURGICAL HISTORY OF wisdom tooth extraction - S ESSURE DEVICE [id number] November 2011 FAMILY HISTORY Problem Relation Age of Onset - Osteoporosis Paternal Grandmother - Hypertension Paternal Grandmother - Alcohol/Drug Mother - Arthritis Father - Hypertension Father - Coronary Artery Disease Maternal Grandfather - Diabetes Maternal Grandmother - Cancer Maternal Grandmother skin Social History Substance Use Topics - Smoking status: Current Every Day Smoker Types: Cigarettes - Smokeless tobacco: Never Used Comment: E-cigarettes. past cigarette use- on and off for a few years - Alcohol use No Comment: rarely BP 112/70 Pulse 78 Temp 36.1 ?C (96.9 ?F) (Tympanic) Resp 16 Wt 126.6 kg (279 lb) BMI 43.70 kg/m? Objective Physical Exam Constitutional: She is oriented to person, place, and time and well-developed, well-nourished, and in no distress. HENT: Head: Normocephalic and atraumatic. Right Ear: Tympanic membrane, external ear and ear canal normal. Left Ear: Tympanic membrane, external ear and ear canal normal. Nose: Nose normal. Mouth/Throat: Uvula is midline, oropharynx is clear and moist and mucous membranes are normal. Eyes: Conjunctivae are normal. Neck: Normal range of motion. Neck supple. Cardiovascular: Regular rhythm and normal heart sounds. Pulmonary/Chest: Effort normal and breath sounds normal. No respiratory distress. She has no wheezes. Neurological: She is alert and oriented to person, place, and time. Skin: Skin is warm and dry. No rash noted. Psychiatric: Affect and judgment normal. Nursing note and vitals reviewed. ASSESSMENT/PLAN: 1. Nausea and vomiting, intractability of vomiting not specified, unspecified vomiting type - ICD9: 787.01, ICD10: R11.2 (primary diagnosis) I will check CMP due to patient starting diuretic and having vomiting/diarrhea with 11 lb weight loss. Instructed to hold the HCTZ today until she can get ahold of Dr. Rendon regarding instruction on continuing the medication. Given zofran for the nausea. Discussed with patient concerning symptoms to go to the emergency department or follow up here. Pt agreeable with this plan. - COMP METABOLIC PANEL 2. Diarrhea, unspecified type - ICD9: 787.91, ICD10: R19.7 - COMP METABOLIC PANEL Carlos Lindsay PA-C CNOV Observed: 11/28/2017 Status: COMPLETED Source: [facility] 7:30 AM [facility] REPOSITORY Office Visit (UCWSTR) AMELIA PLATA ([id number]) 1975 F Date Time Provider Department 11/28/17 7:30 AM CARLOS LINDSAY (HOWIE) [facility]STR During your visit today, we recorded the following information about you: Temperature Pulse Respiration Blood pressure 96.9 degrees 78/minute 16/minute 112/70 Weight 126.6 kg Carlos iLndsay PA-C 11/28/2017 8:20 AM Signed Subjective HPI Pt presents with nausea since last night. She has had some diarrhea, she had 3 bouts of diarrhea. No blood in her stool. She has been drinking fluids. She had been put on HCTZ for leg edema 3 days, which has improved. She has however lost 11 pounds in 3 days. She checked her temp at home and was 98. She has also had a mild cough. Review of Systems Constitutional: Positive for malaise/fatigue and weight loss. HENT: Negative. Eyes: Negative. Respiratory: Positive for cough. Cardiovascular: Negative. Gastrointestinal: Positive for diarrhea, nausea and vomiting. Negative for abdominal pain. Genitourinary: Negative. Musculoskeletal: Negative. Skin: Negative. Neurological: Negative. Psychiatric/Behavioral: Negative. All other systems reviewed and are negative. PAST MEDICAL HISTORY Diagnosis Date - Allergic rhinitis due to allergen 10/20/2012 Immunotherapy weekly, Dr. Leonard. - ANXIETY STATE NOS 12/29/2006 - CLASS MIGRAIN W/O MENTN INTRACTABLE 06/09/2007 - DEPRESSIVE DISORDER NEC 12/29/2006 - DJD (degenerative joint disease) of knee 03/30/2008 - Hidradenitis suppurativa 03/21/2014 - HYPERLIPIDEMIA NEC/NOS 12/29/2006 - HYPOGLYCEMIA NOS 12/29/2006 - Hypothyroidism 11/16/2011 Abnormal TSH - Obesity 12/29/2006 - DYLON on CPAP 04/28/2009 DME Geetha Lopez - Other specified disease of hair and hair follicles - Plantar fascial fibromatosis - Ptosis 07/11/2009 - Vitamin D deficiency 09/09/2010 Current Outpatient Prescriptions: Hydrochlorothiazide 12.5 mg capsule Take 1 capsule by mouth once daily. Disp: 30 capsule Rfl: 5 gabapentin (NEURONTIN) 300 mg capsule Take 1 cap at 730 PM, take 1 cap at 930 PM, and take 1 cap at bedtime Disp: 90 capsule Rfl: 2 Omeprazole 40 mg capsule TAKE 1 CAPSULE BY MOUTH ONCE DAILY. Disp: 90 capsule Rfl: 1 CPAP 1 Device by MISCELLANEOUS route daily at bedtime. 6-16 cm H2O, new mask suitable per pt preference. New supplies, humidity, filters, tubing, head gear, chin strap. Lifetime supplies G47.33 obstructive sleep apnea. Please fax 30 day download to [phone]. Disp: 1 Device Rfl: 0 topiramate (TOPAMAX) 100 mg tablet Take 1 tablet by mouth twice daily. Disp: 180 tablet Rfl: 3 levothyroxine (SYNTHROID) 25 mcg tablet Take 1 tablet by mouth daily before breakfast. Disp: 30 tablet Rfl: 5 rOPINIRole (REQUIP) 4 mg tablet Take 1 tablet by mouth daily at bedtime. Disp: 90 tablet Rfl: 3 busPIRone (BUSPAR) 15 mg tablet One Tablet twice daily Disp: 180 tablet Rfl: 3 FLUoxetine HCl (PROZAC) 40 mg capsule Take 1 capsule by mouth once daily. Disp: 90 capsule Rfl: 3 propranolol (INDERAL) 10 mg tablet Take 1 tablet by mouth once daily. Disp: 90 tablet Rfl: 3 CPAP AutoPAP 6-16 cmH2O, suitable mask, humidity, filters. Lifetime supplies. Dx: G47.33 Disp: 1 Device Rfl: 0 ergotamine-caffeine (CAFERGOT) 1-100 mg per tablet Two tablets at onset of attack; then 1 tablet every 30 minutes as needed; maximum: 6 tablets per 24 hrs do not exceed 10 tablets/week Disp: 30 tablet Rfl: 1 cetirizine (ZYRTEC) 10 mg tablet Take 1 tablet by mouth four times daily. As instructed by dispensing operator Dr. Ross Disp: Rfl: ketorolac (TORADOL) 10 mg tablet Take 1 tablet by mouth every 6 hours as needed. To abort migraine. Disp: Rfl: diphenhydrAMINE (BENADRYL) 25 mg capsule Take 2 capsules by mouth three times daily as needed. To abort migraine Disp: Rfl: EPINEPHrine (EPIPEN) 0.3 mg/0.3 mL (1:1,000) atIn Disp: Rfl: Cholecalciferol, Vitamin D3, 5,000 unit ORAL Cap Take 5,000 Units by mouth once daily. Disp: Rfl: ondansetron orally disintegrating (ZOFRAN ODT) 4 mg disintegrating tablet Take 1 tablet by mouth every 8 hours as needed. Disp: 12 tablet Rfl: 0 No current facility-administered medications for this visit. PAST SURGICAL HISTORY Procedure Laterality Date - EGD W/O OR W/BRUSH/WASH 08/26/2016 EGD - ENDOMETRIAL ABLATION WITH US GUIDANCE November 2011 - PAST SURGICAL HISTORY OF 05/2003 right plantar fasciotomy - PAST SURGICAL HISTORY OF wisdom tooth extraction - S ESSURE DEVICE [id number] November 2011 FAMILY HISTORY Problem Relation Age of Onset - Osteoporosis Paternal Grandmother - Hypertension Paternal Grandmother - Alcohol/Drug Mother - Arthritis Father - Hypertension Father - Coronary Artery Disease Maternal Grandfather - Diabetes Maternal Grandmother - Cancer Maternal Grandmother skin Social History Substance Use Topics - Smoking status: Current Every Day Smoker Types: Cigarettes - Smokeless tobacco: Never Used Comment: E-cigarettes. past cigarette use- on and off for a few years - Alcohol use No Comment: rarely BP 112/70 Pulse 78 Temp 36.1 ?C (96.9 ?F) (Tympanic) Resp 16 Wt 126.6 kg (279 lb) BMI 43.70 kg/m? Objective Physical Exam Constitutional: She is oriented to person, place, and time and well-developed, well-nourished, and in no distress. HENT: Head: Normocephalic and atraumatic. Right Ear: Tympanic membrane, external ear and ear canal normal. Left Ear: Tympanic membrane, external ear and ear canal normal. Nose: Nose normal. Mouth/Throat: Uvula is midline, oropharynx is clear and moist and mucous membranes are normal. Eyes: Conjunctivae are normal. Neck: Normal range of motion. Neck supple. Cardiovascular: Regular rhythm and normal heart sounds. Pulmonary/Chest: Effort normal and breath sounds normal. No respiratory distress. She has no wheezes. Neurological: She is alert and oriented to person, place, and time. Skin: Skin is warm and dry. No rash noted. Psychiatric: Affect and judgment normal. Nursing note and vitals reviewed. ASSESSMENT/PLAN: 1. Nausea and vomiting, intractability of vomiting not specified, unspecified vomiting type - ICD9: 787.01, ICD10: R11.2 (primary diagnosis) I will check CMP due to patient starting diuretic and having vomiting/diarrhea with 11 lb weight loss. Instructed to hold the HCTZ today until she can get ahold of Dr. Rendon regarding instruction on continuing the medication. Given zofran for the nausea. Discussed with patient concerning symptoms to go to the emergency department or follow up here. Pt agreeable with this plan. - COMP METABOLIC PANEL 2. Diarrhea, unspecified type - ICD9: 787.91, ICD10: R19.7 - COMP METABOLIC PANEL aCrlos Lindsay PA-C Referring Provider: SELF [200] Allergies As of Date: 11/28/2017 Noted Allergy Reaction allergies-environmental to grass,*11/28/2009 IMITREX (SUMATRIPTAN SUCCINATE) 08/21/2009 Comments: Neck pain MAXALT (RIZATRIPTAN BENZOATE) 03/01/2016 14 - Other: See Comments Comments: Neck pain and nausea NABUMETONE 04/28/2009 Comments: hives PREDNISONE 05/10/2016 14 - Other: See Comments Comments: Abdominal pain and diarrhea Date Reviewed: 11/28/2017 Reviewed by: Marina Mendez Ma - Fully Assessed Reason for Visit: Nausea [70] Cmt: bodyaches, diarrhea, fatigue x last night. On Hctz x 3 days, lost 11lbs Primary Visit Diagnosis:Nausea and vomiting, intractability of vomiting not specified, unspecified vomiting type [R11.2] Other Visit Diagnosis:Diarrhea, unspecified type [R19.7] Order(s):COMP METABOLIC PANEL [SQCMP] Order #: [id number] FUTURE ondansetron orally disintegrating (ZOFRAN ODT) 4 mg disintegrating tabletTake 1 tablet by mouth every 8 hours as needed.Disp: 12 tabletRfl: 0 Prescriptions as of 11/28/2017 Sig: HYDROCHLOROTHIAZIDE 12.5 MG C* Take 1 capsule by mouth once * GABAPENTIN 300 MG CAPSULE Take 1 cap at 730 PM, take 1 * OMEPRAZOLE 40 MG CAPSULE,SENA* TAKE 1 CAPSULE BY MOUTH ONCE * CPAP 1 Device by MISCELLANEOUS rou* TOPIRAMATE 100 MG TABLET Take 1 tablet by mouth twice * LEVOTHYROXINE 25 MCG TABLET Take 1 tablet by mouth daily * ROPINIROLE 4 MG TABLET Take 1 tablet by mouth daily * BUSPIRONE 15 MG TABLET One Tablet twice daily FLUOXETINE 40 MG CAPSULE Take 1 capsule by mouth once * PROPRANOLOL 10 MG TABLET Take 1 tablet by mouth once d* CPAP AutoPAP 6-16 cmH2O, suitable * ERGOTAMINE 1 MG-CAFFEINE 100 * Two tablets at onset of attac* CETIRIZINE 10 MG TABLET Take 1 tablet by mouth four t* KETOROLAC 10 MG TABLET Take 1 tablet by mouth every * DIPHENHYDRAMINE 25 MG CAPSULE Take 2 capsules by mouth thre* EPINEPHRINE 0.3 MG/0.3 ML INJ* CHOLECALCIFEROL (VITAMIN D3) * Take 5,000 Units by mouth onc* ONDANSETRON 4 MG DISINTEGRATI* Take 1 tablet by mouth every * Problem List As Of Date 11/28/2017 Noted Resolved Obesity, Class III, BMI 40-49.9 (morbid obesity*INVALID FOR* Priority: B More... Hypoglycemia, unspecified [E16.2] INVALID FOR*10/03/2014 HYPERLIPIDEMIA NEC/NOS [E78.5] INVALID FOR*10/03/2014 Anxiety state [F41.1] INVALID FOR* Priority: A More... Depressive disorder [F32.9] INVALID FOR* Priority: A More... DJD (degenerative joint disease) of knee [M17.1*INVALID FOR*03/21/2014 DYLON on CPAP [G47.33, Z99.89] INVALID FOR* Priority: B More... Ptosis [H02.409] INVALID FOR*10/03/2014 More... Vitamin D deficiency [E55.9] INVALID FOR*10/03/2014 Allergic rhinitis due to allergen [J30.9] INVALID FOR* Priority: B More... Pain in joint, lower leg [M25.569] INVALID FOR*03/21/2014 Dermatographic urticaria [L50.3] INVALID FOR* Priority: D More... Hidradenitis suppurativa [L73.2] INVALID FOR* Priority: D Tobacco use disorder [F17.200] INVALID FOR* Priority: C More... Restless leg syndrome [G25.81] INVALID FOR* Priority: B More... Vitamin D deficiency [E55.9] INVALID FOR* Priority: B Migraine with aura and without status migrainos*INVALID FOR* Priority: A Acquired hypothyroidism [E03.9] INVALID FOR* Priority: A Encounter for screening for cardiovascular diso*INVALID FOR* Encounter for screening for diabetes mellitus [*INVALID FOR* Iron deficiency concern [E61.1] INVALID FOR*05/11/2017 Encounter for gynecological examination without*INVALID FOR* Priority: E More... Well adult exam [Z00.00] INVALID FOR* Priority: E More... Dyslipidemia [E78.5] INVALID FOR* Priority: A Prescriptions ordered this encounter Disp Refills Start End ONDANSETRON 4 MG DISINTEGRATING TABL* 12 t* 0 11/28/2017 Route: ORAL Sig: Take 1 tablet by mouth every 8 hours as needed. Letter Text [facility] HOWIE Lilly [address], [place] [address] 11/28/2017 TO WHOM IT MAY CONCERN: This is to confirm that Amelia Plata had an appointment and was seen at the [facility] in the Department of Urgent Care by HOWIE Lilly on 11/28/2017 and may return to work on 11/29/2017. Sincerely yours, HOWIE Lilly Encounter Status:Closed by CARLOS LINDSAY PA-C on 11/28/17 VENOUS DUPLEX LOWER Observed: 11/25/2017 Status: F Source: [place] EXTREMITY 6:09 PM [facility] REPOSITORY [facility] Cardiovascular Services [address] [place] [id number] Venous Duplex US, Unilateral 11/25/17 1453 MR#: [id number] Acct: [id number] Name: AMELIA PLATA Rep #: [id number] : 1975 42 From: Artur Edwards MD Attending Dr: Gray Rendon MD Status: REG CLI Ordering Dr: Gray Rendon MD Date: 11/25/17 Location: [facility] Sex: F C Admitted: Reason For Study: LEG PAIN RIGHT LEFT CFV is compressible, spontaneous, phasic, GSV is normal. competent and demonstrates normal CFV is compressible, spontaneous, phasic, augmentation. competent, and demonstrates normal Procedure augmentation. Exam performed in department. FV is compressible, spontaneous, phasic, A preliminary report was called and/or faxed competent and demonstrates normal to Dr. Rendon. augmentation. POP V is compressible, spontaneous, phasic, competent and demonstrates normal augmentation. T/P Trunk is compressible. PTV is compressible. LT PerV is compressible. Interpretation Summary There is no evidence of left lower extremity deep vein thrombosis. Left greater saphenous vein appears patent and compressible segmentally. Normal flow patterns right common femoral vein. Ordering Physician: Gray Rendon Performed By: Tonya Chiang RVT 11/25/171808 Date Artur Edwards MD CC: Gray Rendon MD Date Dictated: 11/25/17 1453 Date Transcribed: 11/25/171808 Hand Former: Signed SED RATE WESTERGREN Collected: 11/25/2017 Status: F Source: PERRY 3:28 PM [facility] REPOSITORY TYPE CODE TESTS RESULT OUT OF REFERENCE UNITS RANGE LAB WSR 0-20 mm/hr Sed Rate Westergren 16 Performed By: #### WSR, CRP, RF, ANAIFS, ANABLL #### [facility] [address] [address] C-REACTIVE PROTEIN Collected: 11/25/2017 Status: F Source: PERRY 3:28 PM [facility] REPOSITORY TYPE CODE TESTS RESULT OUT OF REFERENCE UNITS RANGE LAB CRP <0.9 mg/dL High C-Reactive 1.9 Protein Performed By: #### WSR, CRP, RF, ANAIFS, ANABLL #### [place] [address] RHEUMATOID FACTOR Collected: 11/25/2017 Status: F Source: PERRY 3:28 PM [facility] REPOSITORY TYPE CODE TESTS RESULT OUT OF REFERENCE UNITS RANGE LAB RF <16 IU/mL Rheumatoid <10 Factor Performed By: #### WSR, CRP, RF, ANAIFS, ANABLL #### [place] [address] ORTEGA BY IFA Collected: 11/25/2017 Status: F Source: PERRY 3:28 PM [facility] REPOSITORY TYPE CODE TESTS RESULT OUT OF RANGE REFERENCE UNITS LAB ANASC Negative Abnormal Alert ORTEGA Positive Result Comment: Normal range : negative at <1:80 serum dilution. LAB DANIEL Negative Abnormal 1:80 Alert ORTEGA Titer LAB ANAP ORTEGA Pattern Speckled Performed By: #### WSR, CRP, RF, ANAIFS, ANABLL #### [place] [id number] [place] [id number] ORTEGA IFA TITER BILL Collected: 11/25/2017 Status: F Source: PERRY 3:28 PM [facility] REPOSITORY TYPE CODE TESTS RESULT OUT OF REFERENCE UNITS RANGE LAB ANABLL ORTEGA Billed for IFA Titer services Bill performed Performed By: #### WSR, CRP, RF, ANAIFS, ANABLL #### [place] [id number] [place] [address] PROGRESS Observed: 11/23/2017 Status: COMPLETED Source: PERRY 4:44 PM [facility] REPOSITORY HNO ID: [id number] Author: Gray Rendon Service: (none) Author Type: Physician Type: Progress Notes Filed: 11/23/2017 7:04 PM Note Text: Chief Complaint Patient presents with: Recheck: swelling in ankles and hands since yesterday. HPI Amelia Plata is a 42 year old female who presents here today for Chronic Medical Conditions.. Patient withhx as reviewed and documented below. Has been doing ok. Did work on reduced portion sizes. Wearing CPAP nightly. Past medical history, appointments, medications, allergies reviewed. Previous Medical History PAST MEDICAL HISTORY Diagnosis Date - Allergic rhinitis due to allergen 10/20/2012 Immunotherapy weekly, Dr. Leonard. - ANXIETY STATE NOS 12/29/2006 - CLASS MIGRAIN W/O MENTN INTRACTABLE 06/09/2007 - DEPRESSIVE DISORDER NEC 12/29/2006 - DJD (degenerative joint disease) of knee 03/30/2008 - Hidradenitis suppurativa 03/21/2014 - HYPERLIPIDEMIA NEC/NOS 12/29/2006 - HYPOGLYCEMIA NOS 12/29/2006 - Hypothyroidism 11/16/2011 Abnormal TSH - Obesity 12/29/2006 - DYLON on CPAP 04/28/2009 DME Geetha Lopez - Other specified disease of hair and hair follicles - Plantar fascial fibromatosis - Ptosis 07/11/2009 - Vitamin D deficiency 09/09/2010 Previous Surgical History PAST SURGICAL HISTORY Procedure Laterality Date - EGD W/O OR W/BRUSH/WASH 08/26/2016 EGD - ENDOMETRIAL ABLATION WITH US GUIDANCE November 2011 - PAST SURGICAL HISTORY OF 05/2003 right plantar fasciotomy - PAST SURGICAL HISTORY OF wisdom tooth extraction - S ESSURE DEVICE [id number] November 2011 Family History FAMILY HISTORY Problem Relation Age of Onset - Osteoporosis Paternal Grandmother - Hypertension Paternal Grandmother - Alcohol/Drug Mother - Arthritis Father - Hypertension Father - Coronary Artery Disease Maternal Grandfather - Diabetes Maternal Grandmother - Cancer Maternal Grandmother skin Patient Allergies ALLERGIES Allergen Reactions - Imitrex [Sumatripta* Neck pain - Maxalt [Rizatriptan* Other: See Comments Neck pain and nausea - Nabumetone hives - Prednisone Other: See Comments Abdominal pain and diarrhea - Allergies-Environme* Current Medications Current Outpatient Prescriptions on File Prior to Visit: gabapentin (NEURONTIN) 300 mg capsule Take 1 cap at 730 PM, take 1 cap at 930 PM, and take 1 cap at bedtime Omeprazole 40 mg capsule TAKE 1 CAPSULE BY MOUTH ONCE DAILY. CPAP 1 Device by MISCELLANEOUS route daily at bedtime. 6-16 cm H2O, new mask suitable per pt preference. New supplies, humidity, filters, tubing, head gear, chin strap. Lifetime supplies G47.33 obstructive sleep apnea. Please fax 30 day download to [phone]. topiramate (TOPAMAX) 100 mg tablet Take 1 tablet by mouth twice daily. levothyroxine (SYNTHROID) 25 mcg tablet Take 1 tablet by mouth daily before breakfast. rOPINIRole (REQUIP) 4 mg tablet Take 1 tablet by mouth daily at bedtime. busPIRone (BUSPAR) 15 mg tablet One Tablet twice daily FLUoxetine HCl (PROZAC) 40 mg capsule Take 1 capsule by mouth once daily. propranolol (INDERAL) 10 mg tablet Take 1 tablet by mouth once daily. CPAP AutoPAP 6-16 cmH2O, suitable mask, humidity, filters. Lifetime supplies. Dx: G47.33 ergotamine-caffeine (CAFERGOT) 1-100 mg per tablet Two tablets at onset of attack; then 1 tablet every 30 minutes as needed; maximum: 6 tablets per 24 hrs do not exceed 10 tablets/week cetirizine (ZYRTEC) 10 mg tablet Take 1 tablet by mouth four times daily. As instructed by dispensing operator Dr. Ross ketorolac (TORADOL) 10 mg tablet Take 1 tablet by mouth every 6 hours as needed. To abort migraine. diphenhydrAMINE (BENADRYL) 25 mg capsule Take 2 capsules by mouth three times daily as needed. To abort migraine EPINEPHrine (EPIPEN) 0.3 mg/0.3 mL (1:1,000) atIn Cholecalciferol, Vitamin D3, 5,000 unit ORAL Cap Take 5,000 Units by mouth once daily. No current facility-administered medications on file prior to visit. 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 past cigarette use- on and off for a few years Alcohol use: No Comment: rarely Drug use: No Sexual activity: Yes Partners with: Male Review of Symptoms REVIEW OF SYSTEMS NECK: Negative for lumps, goiter, pain and significant neck swelling RESPIRATORY: Negative for cough, hemoptysis, wheezing, COPD. Noticed some RIVERS yesterday with going up stairs. CARDIOVASCULAR: Negative for chest pain, hypertension, CHF or palpitations. Has noted some generalized swelling in hands, legs and feet. Left lower leg always swells more than the right. GI: No nausea, vomiting, or diarrhea and No heartburn or reflux symptoms ENDOCRINE: Negative for cold or heat intolerance, NEURO: No history of syncope, paralysis, seizures or tremors. Headaches are her typical Psych: Anxiety and depression have not been an issue. Doing well with med's. Musc; Notes pain in multiple dose, knees wrists etc EXAM: BP 132/82 (BP Site: Left Arm, BP Position: Sitting, BP Cuff Size: Large Adult) Pulse 64 Resp 18 Wt 131.7 kg (290 lb 6.4 oz) BMI 45.48 kg/m2 Last 6 Encounter Wt Readings: Date: Wt: 11/23/2017 131.7 kg (290 lb 6.4 oz) 11/09/2017 129.5 kg (285 lb 9.6 oz) 08/22/2017 129.3 kg (285 lb) 08/17/2017 128.4 kg (283 lb) 06/08/2017 126.1 kg (278 lb) 06/03/2017 124.7 kg (275 lb) General Appearance: Well appearing, alert, in no acute distress, well-hydrated, well nourished.. Neck: Supple, no adenopathy; thyroid symmetric, normal size, no bruits. Lungs: Lungs clear to auscultation. No wheezing, rhonchi, rales. Heart: RRR without murmur, gallop, or rubs. No ectopy. Abdomen: Normal abdominal exam, Abdomen soft, non-tender. Bowel sounds normal. No masses, organomegaly. Extremities: there is more edema on the left compared to the right. No calf pain on exam. Homans' sign was negative. Has soft tissue swelling of the hands. Musculoskeletal: Muscular strength intact. No joint swelling Peripheral Pulses: Normal. Health Maintenance List ONE PNEUMOVAX PRIOR TO AGE 65 due on 11/20/1995 PAP EVERY 5 YEARS due on 11/29/2017 HPV EVERY 5 YEARS due on 11/29/2017 MAMMOGRAM due on 08/02/2018 TETANUS due on 04/27/2027 INFLUENZA Completed Data reviewed Component Latest Ref Rng AND Units 04/16/2017 06/03/2017 11/16/2017 Triglyceride <150 mg/dL 224 (H) 179 (H) Cholesterol, Total <200 mg/dL 191 204 (H) HDL Cholesterol >39 mg/dL 34 (L) 41 VLDL Cholesterol <30 mg/dL 45 (H) 36 (H) LDL Cholesterol <100 mg/dL 112 127 (H) Fasting Time hrs 13 13 TC:HDL Ratio <5.10 5.62 (H) 4.98 LDL:HDL Ratio <2.54 3.29 3.10 (H) Non HDL Cholesterol <130 mg/dL 157 163 (H) Hemoglobin A1C 4.3 - 5.6 % 5.3 Estimated Average Glucose mg/dL 105 TSH 0.400 - 5.500 uU/mL 1.880 2.830 Vitamin D 25 Hydroxy 31.0 - 80.0 ng/mL 35.4 A/P ASSESSMENT/PLAN: 1. Acquired hypothyroidism - ICD9: 244.9, ICD10: E03.9 (primary diagnosis) - Instructed patient on importance of taking on an empty stomach either first thing in the morning or at bedtime. - continue current dose of Synthroid 0.025 mg 2. Dyslipidemia - ICD9: 272.4, ICD10: E78.5 - improved control - Encouraged following a low fat, low cholesterol diet. - Discussed the benefits of regular aerobic exercise and weight loss. - Encouraged following a low carbohydrate, healthy oil intake diet. 3. Migraine with aura and without status migrainosus, not intractable - ICD9: 346.00, ICD10: G43.109 - Clinically stable with Tx, no changes 4. Depressive disorder - ICD9: 311, ICD10: F32.9 - stable with current Tx, no changes 5. Anxiety state - ICD9: 300.00, ICD10: F41.1 See above 6. Obesity, Class III, BMI 40-49.9 (morbid obesity) (HCC) - ICD9: 278.01, ICD10: E66.01 - Patient to continue to work on diet and exercise. 7. DYLON on CPAP - ICD9: 327.23, V46.8, ICD10: G47.33, Z99.89 - Cont nightly CPAP. Patient does benefit from use. 8. Bilateral leg edema - ICD9: 782.3, ICD10: R60.0 Check - ECHO - US LEG VEIN DVT UNL VAS LAB - Start HYDROCHLOROTHIAZIDE 12.5 MG CAPSULE once ad ay. 9. Arthralgia, unspecified joint - ICD9: 719.40, ICD10: M25.50 Check - ORTEGA BY IFA SCREEN - C-REACTIVE PROTEIN (CRP) - RHEUMATOID FACTOR BL - SED RATE WESTERGREN 10. RIVERS (dyspnea on exertion) - ICD9: 786.09, ICD10: R06.09 Check - ECHO 11. Left leg pain - ICD9: 729.5, ICD10: M79.605 check - US LEG VEIN DVT UNL VAS LAB F/u in 4-5 weeks edema, shortness of breath f/u F/u 6 months WAE check CMP, FLP, UA and TSH prior. Time with patient face to face was 25 min Gray Rendon MD CNOV Observed: 11/23/2017 Status: COMPLETED Source: PERRY 4:40 PM [facility] REPOSITORY Office Visit (FAMPWS) AMELIA PLATA ([id number]) 1975 F Date Time Provider Department 11/23/17 4:40 PM [facility] During your visit today, we recorded the following information about you: Pulse Respiration Blood pressure Weight 64/minute 18/minute 132/82 131.7 kg Gray Rendon MD 11/23/2017 7:04 PM Signed Chief Complaint Patient presents with: Recheck: swelling in ankles and hands since yesterday. HPI Ameliapino Plata is a 42 year old female who presents here today for Chronic Medical Conditions.. Patient withhx as reviewed and documented below. Has been doing ok. Did work on reduced portion sizes. Wearing CPAP nightly. Past medical history, appointments, medications, allergies reviewed. Previous Medical History PAST MEDICAL HISTORY Diagnosis Date - Allergic rhinitis due to allergen 10/20/2012 Immunotherapy weekly, Dr. Leonard. - ANXIETY STATE NOS 12/29/2006 - CLASS MIGRAIN W/O MENTN INTRACTABLE 06/09/2007 - DEPRESSIVE DISORDER NEC 12/29/2006 - DJD (degenerative joint disease) of knee 03/30/2008 - Hidradenitis suppurativa 03/21/2014 - HYPERLIPIDEMIA NEC/NOS 12/29/2006 - HYPOGLYCEMIA NOS 12/29/2006 - Hypothyroidism 11/16/2011 Abnormal TSH - Obesity 12/29/2006 - DYLON on CPAP 04/28/2009 DME Lincmelvin John - Other specified disease of hair and hair follicles - Plantar fascial fibromatosis - Ptosis 07/11/2009 - Vitamin D deficiency 09/09/2010 Previous Surgical History PAST SURGICAL HISTORY Procedure Laterality Date - EGD W/O OR W/BRUSH/WASH 08/26/2016 EGD - ENDOMETRIAL ABLATION WITH US GUIDANCE November 2011 - PAST SURGICAL HISTORY OF 05/2003 right plantar fasciotomy - PAST SURGICAL HISTORY OF wisdom tooth extraction - S ESSURE DEVICE [id number] November 2011 Family History FAMILY HISTORY Problem Relation Age of Onset - Osteoporosis Paternal Grandmother - Hypertension Paternal Grandmother - Alcohol/Drug Mother - Arthritis Father - Hypertension Father - Coronary Artery Disease Maternal Grandfather - Diabetes Maternal Grandmother - Cancer Maternal Grandmother skin Patient Allergies ALLERGIES Allergen Reactions - Imitrex [Sumatripta* Neck pain - Maxalt [Rizatriptan* Other: See Comments Neck pain and nausea - Nabumetone hives - Prednisone Other: See Comments Abdominal pain and diarrhea - Allergies-Environme* Current Medications Current Outpatient Prescriptions on File Prior to Visit: gabapentin (NEURONTIN) 300 mg capsule Take 1 cap at 730 PM, take 1 cap at 930 PM, and take 1 cap at bedtime Omeprazole 40 mg capsule TAKE 1 CAPSULE BY MOUTH ONCE DAILY. CPAP 1 Device by MISCELLANEOUS route daily at bedtime. 6-16 cm H2O, new mask suitable per pt preference. New supplies, humidity, filters, tubing, head gear, chin strap. Lifetime supplies G47.33 obstructive sleep apnea. Please fax download to [phone]. topiramate (TOPAMAX) 100 mg tablet Take 1 tablet by mouth twice daily. levothyroxine (SYNTHROID) 25 mcg tablet Take 1 tablet by mouth daily before breakfast. rOPINIRole (REQUIP) 4 mg tablet Take 1 tablet by mouth daily at bedtime. busPIRone (BUSPAR) 15 mg tablet One Tablet twice daily FLUoxetine HCl (PROZAC) 40 mg capsule Take 1 capsule by mouth once daily. propranolol (INDERAL) 10 mg tablet Take 1 tablet by mouth once daily. CPAP AutoPAP 6-16 cmH2O, suitable mask, humidity, filters. Lifetime supplies. Dx: G47.33 ergotamine-caffeine (CAFERGOT) 1-100 mg per tablet Two tablets at onset of attack; then 1 tablet every 30 minutes as needed; maximum: 6 tablets per 24 hrs do not exceed 10 tablets/week cetirizine (ZYRTEC) 10 mg tablet Take 1 tablet by mouth four times daily. As instructed by dispensing operator Dr. Ross ketorolac (TORADOL) 10 mg tablet Take 1 tablet by mouth every 6 hours as needed. To abort migraine. diphenhydrAMINE (BENADRYL) 25 mg capsule Take 2 capsules by mouth three times daily as needed. To abort migraine EPINEPHrine (EPIPEN) 0.3 mg/0.3 mL (1:1,000) atIn Cholecalciferol, Vitamin D3, 5,000 unit ORAL Cap Take 5,000 Units by mouth once daily. No current facility-administered medications on file prior to visit. 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 past cigarette use- on and off for a few years Alcohol use: No Comment: rarely Drug use: No Sexual activity: Yes Partners with: Male Review of Symptoms REVIEW OF SYSTEMS NECK: Negative for lumps, goiter, pain and significant neck swelling RESPIRATORY: Negative for cough, hemoptysis, wheezing, COPD. Noticed some RIVERS yesterday with going up stairs. CARDIOVASCULAR: Negative for chest pain, hypertension, CHF or palpitations. Has noted some generalized swelling in hands, legs and feet. Left lower leg always swells more than the right. GI: No nausea, vomiting, or diarrhea and No heartburn or reflux symptoms ENDOCRINE: Negative for cold or heat intolerance, NEURO: No history of syncope, paralysis, seizures or tremors. Headaches are her typical Psych: Anxiety and depression have not been an issue. Doing well with med's. Musc; Notes pain in multiple dose, knees wrists etc EXAM: BP 132/82 (BP Site: Left Arm, BP Position: Sitting, BP Cuff Size: Large Adult) Pulse 64 Resp 18 Wt 131.7 kg (290 lb 6.4 oz) BMI 45.48 kg/m2 Last 6 Encounter Wt Readings: Date: Wt: 11/23/2017 131.7 kg (290 lb 6.4 oz) 11/09/2017 129.5 kg (285 lb 9.6 oz) 08/22/2017 129.3 kg (285 lb) 08/17/2017 128.4 kg (283 lb) 06/08/2017 126.1 kg (278 lb) 06/03/2017 124.7 kg (275 lb) General Appearance: Well appearing, alert, in no acute distress, well-hydrated, well nourished.. Neck: Supple, no adenopathy; thyroid symmetric, normal size, no bruits. Lungs: Lungs clear to auscultation. No wheezing, rhonchi, rales. Heart: RRR without murmur, gallop, or rubs. No ectopy. Abdomen: Normal abdominal exam, Abdomen soft, non-tender. Bowel sounds normal. No masses, organomegaly. Extremities: there is more edema on the left compared to the right. No calf pain on exam. Homans' sign was negative. Has soft tissue swelling of the hands. Musculoskeletal: Muscular strength intact. No joint swelling Peripheral Pulses: Normal. Health Maintenance List ONE PNEUMOVAX PRIOR TO AGE 65 due on 11/20/1995 PAP EVERY 5 YEARS due on 11/29/2017 HPV EVERY 5 YEARS due on 11/29/2017 MAMMOGRAM due on 08/02/2018 TETANUS due on 04/27/2027 INFLUENZA Completed Data reviewed Component Latest Ref Rng ANDamp; Units 04/16/2017 06/03/2017 11/16/2017 Triglyceride ANDlt;150 mg/dL 224 (H) 179 (H) Cholesterol, Total ANDlt;200 mg/dL 191 204 (H) HDL Cholesterol ANDgt;39 mg/dL 34 (L) 41 VLDL Cholesterol ANDlt;30 mg/dL 45 (H) 36 (H) LDL Cholesterol ANDlt;100 mg/dL 112 127 (H) Fasting Time hrs 13 13 TC:HDL Ratio ANDlt;5.10 5.62 (H) 4.98 LDL:HDL Ratio ANDlt;2.54 3.29 3.10 (H) Non HDL Cholesterol ANDlt;130 mg/dL 157 163 (H) Hemoglobin A1C 4.3 - 5.6 % 5.3 Estimated Average Glucose mg/dL 105 TSH 0.400 - 5.500 uU/mL 1.880 2.830 Vitamin D 25 Hydroxy 31.0 - 80.0 ng/mL 35.4 A/P ASSESSMENT/PLAN: 1. Acquired hypothyroidism - ICD9: 244.9, ICD10: E03.9 (primary diagnosis) - Instructed patient on importance of taking on an empty stomach either first thing in the morning or at bedtime. - continue current dose of Synthroid 0.025 mg 2. Dyslipidemia - ICD9: 272.4, ICD10: E78.5 - improved control - Encouraged following a low fat, low cholesterol diet. - Discussed the benefits of regular aerobic exercise and weight loss. - Encouraged following a low carbohydrate, healthy oil intake diet. 3. Migraine with aura and without status migrainosus, not intractable - ICD9: 346.00, ICD10: G43.109 - Clinically stable with Tx, no changes 4. Depressive disorder - ICD9: 311, ICD10: F32.9 - stable with current Tx, no changes 5. Anxiety state - ICD9: 300.00, ICD10: F41.1 See above 6. Obesity, Class III, BMI 40-49.9 (morbid obesity) (HCC) - ICD9: 278.01, ICD10: E66.01 - Patient to continue to work on diet and exercise. 7. DYLON on CPAP - ICD9: 327.23, V46.8, ICD10: G47.33, Z99.89 - Cont nightly CPAP. Patient does benefit from use. 8. Bilateral leg edema - ICD9: 782.3, ICD10: R60.0 Check - ECHO - US LEG VEIN DVT UNL VAS LAB - Start HYDROCHLOROTHIAZIDE 12.5 MG CAPSULE once ad ay. 9. Arthralgia, unspecified joint - ICD9: 719.40, ICD10: M25.50 Check - ORTEGA BY IFA SCREEN - C-REACTIVE PROTEIN (CRP) - RHEUMATOID FACTOR BL - SED RATE WESTERGREN 10. RIVERS (dyspnea on exertion) - ICD9: 786.09, ICD10: R06.09 Check - ECHO 11. Left leg pain - ICD9: 729.5, ICD10: M79.605 check - US LEG VEIN DVT UNL VAS LAB F/u in 4-5 weeks edema, shortness of breath f/u F/u 6 months WAE check CMP, FLP, UA and TSH prior. Time with patient face to face was 25 min MD Gray Pena MD 11/23/2017 5:11 PM Signed Please get none fasting labs in the near future. please take the Hydrochlorothiazide once daily for swelling. Pleas get fasting labs and urine test on or after 05/12/2018 prior to next visit. Referring Provider: GRAY RENDON [[id number]] Allergies As of Date: 11/23/2017 Noted Allergy Reaction IMITREX (SUMATRIPTAN SUCCINATE) 08/21/2009 Comments: Neck pain MAXALT (RIZATRIPTAN BENZOATE) 03/01/2016 14 - Other: See Comments Comments: Neck pain and nausea NABUMETONE 04/28/2009 Comments: hives PREDNISONE 05/10/2016 14 - Other: See Comments Comments: Abdominal pain and diarrhea allergies-environmental to grass,*11/28/2009 Date Reviewed: 11/23/2017 Reviewed by: Gray Rendon - Fully Assessed Reason for Visit: Recheck [92] Cmt: swelling in ankles and hands since yesterday. Reason For Visit History Recorded Primary Visit Diagnosis:Acquired hypothyroidism [E03.9] Other Visit Diagnoses:Dyslipidemia [E78.5] Migraine with aura and without status migrainosus, not intractable [G43.109] Depressive disorder [F32.9] Anxiety state [F41.1] Obesity, Class III, BMI 40-49.9 (morbid obesity) (HCC) [E66.01] DYLON on CPAP [G47.33, Z99.89] Bilateral leg edema [R60.0] Arthralgia, unspecified joint [M25.50] RIVERS (dyspnea on exertion) [R06.09] Left leg pain [M79.605] Encounter for screening for diabetes mellitus [Z13.1] Order(s):ECHO [[id number]] Order #: [id number]: 1 FUTURE ORTEGA BY IFA SCREEN [SQANAIFS] Order #: [id number] FUTURE C-REACTIVE PROTEIN (CRP) [SQCRP] Order #: [id number] FUTURE RHEUMATOID FACTOR BL [SQRF] Order #: [id number] FUTURE SED RATE WESTERGREN [SQWSR] Order #: [id number] FUTURE US LEG VEIN DVT UNL VAS LAB [[id number]] Order #: [id number] FUTURE Hydrochlorothiazide 12.5 mg capsuleTake 1 capsule by mouth once daily.Disp: 30 capsuleRfl: 5 COMP METABOLIC PANEL [SQCMP] Order #: [id number] FUTURE LIPID PANEL BASIC [SQLIPB] Order #: [id number] FUTURE URINALYSIS WITH MICROSCOPIC [SQUAWMIC] Order #: [id number] FUTURE TSH BLD [SQTSH] Order #: [id number] FUTURE HGB A1C [IHBWW2C] Order #: [id number] FUTURE Prescriptions as of 11/23/2017 Sig: GABAPENTIN 300 MG CAPSULE Take 1 cap at 730 PM, take 1 * OMEPRAZOLE 40 MG CAPSULE,SENA* TAKE 1 CAPSULE BY MOUTH ONCE * CPAP 1 Device by MISCELLANEOUS rou* TOPIRAMATE 100 MG TABLET Take 1 tablet by mouth twice * LEVOTHYROXINE 25 MCG TABLET Take 1 tablet by mouth daily * ROPINIROLE 4 MG TABLET Take 1 tablet by mouth daily * BUSPIRONE 15 MG TABLET One Tablet twice daily FLUOXETINE 40 MG CAPSULE Take 1 capsule by mouth once * PROPRANOLOL 10 MG TABLET Take 1 tablet by mouth once d* CPAP AutoPAP 6-16 cmH2O, suitable * ERGOTAMINE 1 MG-CAFFEINE 100 * Two tablets at onset of attac* CETIRIZINE 10 MG TABLET Take 1 tablet by mouth four t* KETOROLAC 10 MG TABLET Take 1 tablet by mouth every * DIPHENHYDRAMINE 25 MG CAPSULE Take 2 capsules by mouth thre* EPINEPHRINE 0.3 MG/0.3 ML INJ* CHOLECALCIFEROL (VITAMIN D3) * Take 5,000 Units by mouth onc* HYDROCHLOROTHIAZIDE 12.5 MG C* Take 1 capsule by mouth once * Problem List As Of Date 11/23/2017 Noted Resolved Obesity, Class III, BMI 40-49.9 (morbid obesity*INVALID FOR* Priority: B More... Hypoglycemia, unspecified [E16.2] INVALID FOR*10/03/2014 HYPERLIPIDEMIA NEC/NOS [E78.5] INVALID FOR*10/03/2014 Anxiety state [F41.1] INVALID FOR* Priority: A More... Depressive disorder [F32.9] INVALID FOR* Priority: A More... DJD (degenerative joint disease) of knee [M17.1*INVALID FOR*03/21/2014 DYLON on CPAP [G47.33, Z99.89] INVALID FOR* Priority: B More... Ptosis [H02.409] INVALID FOR*10/03/2014 More... Vitamin D deficiency [E55.9] INVALID FOR*10/03/2014 Allergic rhinitis due to allergen [J30.9] INVALID FOR* Priority: B More... Pain in joint, lower leg [M25.569] INVALID FOR*03/21/2014 Dermatographic urticaria [L50.3] INVALID FOR* Priority: D More... Hidradenitis suppurativa [L73.2] INVALID FOR* Priority: D Tobacco use disorder [F17.200] INVALID FOR* Priority: C More... Restless leg syndrome [G25.81] INVALID FOR* Priority: B More... Vitamin D deficiency [E55.9] INVALID FOR* Priority: B Migraine with aura and without status migrainos*INVALID FOR* Priority: A Acquired hypothyroidism [E03.9] INVALID FOR* Priority: A Encounter for screening for cardiovascular diso*INVALID FOR* Encounter for screening for diabetes mellitus [*INVALID FOR* Iron deficiency concern [E61.1] INVALID FOR*05/11/2017 Encounter for gynecological examination without*INVALID FOR* Priority: E More... Well adult exam [Z00.00] INVALID FOR* Priority: E More... Dyslipidemia [E78.5] INVALID FOR* Priority: A Other instructions from your clinician: Please get none fasting labs in the near future. please take the Hydrochlorothiazide once daily for swelling. Pleas get fasting labs and urine test on or after 05/12/2018 prior to next visit. Prescriptions ordered this encounter Disp Refills Start End HYDROCHLOROTHIAZIDE 12.5 MG CAPSULE 30 c* 5 11/23/2017 Route: ORAL Sig: Take 1 capsule by mouth once daily. Medications Discontinued During This Encounter lidocaine viscous (LIDOCAINE VISCOUS* 300 * 0 06/03/2017 11/23/2017 Route: ORAL Sig: Take 5 mL by mouth every 3 hours as needed for Pain. Disc: Course of therapy completed benzonatate (TESSALON PERLE) 100 mg * 30 c* 3 05/18/2017 11/23/2017 Route: ORAL Sig: Take 1 capsule by mouth three times daily as needed. Disc: Course of therapy completed Disposition: Return in about 6 months (around 05/25/2018) for complete PE. Follow-up and Disposition History Recorded Encounter Status:Closed by GRYA RENDON on 11/23/17 CNOV Observed: 11/16/2017 Status: COMPLETED Source: [facility] 6:40 PM [facility] REPOSITORY [facility] AMELIA PLATA ([id number]) 1975 F Date Time Provider Department 11/16/17 6:40 PM GRAY RENDON [facility] During your visit today, we recorded the following information about you: Referring Provider: GRAY RENDON [[id number]] Allergies As of Date: 11/16/2017 Noted Allergy Reaction IMITREX (SUMATRIPTAN SUCCINATE) 08/21/2009 Comments: Neck pain MAXALT (RIZATRIPTAN BENZOATE) 03/01/2016 14 - Other: See Comments Comments: Neck pain and nausea NABUMETONE 04/28/2009 Comments: hives PREDNISONE 05/10/2016 14 - Other: See Comments Comments: Abdominal pain and diarrhea allergies-environmental to grass,*11/28/2009 Date Reviewed: 11/09/2017 Reviewed by: Haydee ([facility]) Anil - Fully Assessed Primary Visit Diagnosis:APPOINTMENT CANCELLED Prescriptions as of 11/16/2017 Sig: GABAPENTIN 300 MG CAPSULE Take 1 cap at 730 PM, take 1 * OMEPRAZOLE 40 MG CAPSULE,SENA* TAKE 1 CAPSULE BY MOUTH ONCE * CPAP 1 Device by MISCELLANEOUS rou* LIDOCAINE 2 % MUCOSAL SOLUTION Take 5 mL by mouth every 3 ho* TOPIRAMATE 100 MG TABLET Take 1 tablet by mouth twice * LEVOTHYROXINE 25 MCG TABLET Take 1 tablet by mouth daily * BENZONATATE 100 MG CAPSULE Take 1 capsule by mouth three* ROPINIROLE 4 MG TABLET Take 1 tablet by mouth daily * BUSPIRONE 15 MG TABLET One Tablet twice daily FLUOXETINE 40 MG CAPSULE Take 1 capsule by mouth once * PROPRANOLOL 10 MG TABLET Take 1 tablet by mouth once d* CPAP AutoPAP 6-16 cmH2O, suitable * ERGOTAMINE 1 MG-CAFFEINE 100 * Two tablets at onset of attac* CETIRIZINE 10 MG TABLET Take 1 tablet by mouth four t* KETOROLAC 10 MG TABLET Take 1 tablet by mouth every * DIPHENHYDRAMINE 25 MG CAPSULE Take 2 capsules by mouth thre* EPINEPHRINE 0.3 MG/0.3 ML INJ* CHOLECALCIFEROL (VITAMIN D3) * Take 5,000 Units by mouth onc* Problem List As Of Date 11/16/2017 Noted Resolved Obesity, Class III, BMI 40-49.9 (morbid obesity*INVALID FOR* Priority: B More... Hypoglycemia, unspecified [E16.2] INVALID FOR*10/03/2014 HYPERLIPIDEMIA NEC/NOS [E78.5] INVALID FOR*10/03/2014 Anxiety state [F41.1] INVALID FOR* Priority: A More... Depressive disorder [F32.9] INVALID FOR* Priority: A More... DJD (degenerative joint disease) of knee [M17.1*INVALID FOR*03/21/2014 DYLON on CPAP [G47.33, Z99.89] INVALID FOR* Priority: B More... Ptosis [H02.409] INVALID FOR*10/03/2014 More... Vitamin D deficiency [E55.9] INVALID FOR*10/03/2014 Allergic rhinitis due to allergen [J30.9] INVALID FOR* Priority: B More... Pain in joint, lower leg [M25.569] INVALID FOR*03/21/2014 Dermatographic urticaria [L50.3] INVALID FOR* Priority: D More... Hidradenitis suppurativa [L73.2] INVALID FOR* Priority: D Tobacco use disorder [F17.200] INVALID FOR* Priority: C More... Restless leg syndrome [G25.81] INVALID FOR* Priority: B More... Vitamin D deficiency [E55.9] INVALID FOR* Priority: B Migraine with aura and without status migrainos*INVALID FOR* Priority: A Acquired hypothyroidism [E03.9] INVALID FOR* Priority: A Encounter for screening for cardiovascular diso*INVALID FOR* Encounter for screening for diabetes mellitus [*INVALID FOR* Iron deficiency concern [E61.1] INVALID FOR*05/11/2017 Encounter for gynecological examination without*INVALID FOR* Priority: E More... Well adult exam [Z00.00] INVALID FOR* More... Dyslipidemia [E78.5] INVALID FOR* Encounter Status:Closed by GRAY RENDON on 11/16/17 LIPID PANEL, BASIC Collected: 11/16/2017 Status: F Source: PERRY 7:55 AM [facility] REPOSITORY TYPE CODE TESTS RESULT OUT OF REFERENCE UNITS RANGE LAB CHOL <200 mg/dL Cholesterol High 204 Result Comment: <200 mg/dL, Desirable 200-239 mg/dL, Borderline high >239 mg/dL, High LAB TRIGLY <150 mg/dL Triglyceride High 179 Result Comment: <150 mg/dL, Normal 150-199 mg/dL, Borderline high 200-499 mg/dL, High >499 mg/dL, Very high LAB HDL >39 mg/dL HDL-Cholesterol 41 Result Comment: 40-59 mg/dL, Acceptable >59 mg/dL, High: Negative risk factor for coronary heart disease <40 mg/dL, Low: Positive risk factor for coronary heart disease LAB LDL <100 mg/dL LDL-Cholesterol High 127 Result Comment: <100 mg/dL, Optimal 100-129 mg/dL, Near optimal/above optimal 130-159 mg/dL, Borderline high 160-189 mg/dL, High >189 mg/dL, Very high Secondary prevention optimal LDL Cholesterol levels are recommended to be < 70 mg/dL LAB NONHDL <130 mg/dL Non HDL High Cholesterol 163 Result Comment: <130 mg/dL, Optimal 130-159 mg/dL, Near optimal/above optimal 160-189 mg/dL, Borderline high 190-219 mg/dL, High >219 mg/dL, Very high Secondary prevention optimal non HDL Cholesterol levels are recommended to be < 100 mg/dL LAB FT hrs Fasting Time 13 LAB VLDL <30 mg/dL High VLDL Cholesterol 36 LAB TCHDL <5.10 TC:HDL Ratio 4.98 LAB LDLHDL <2.54 High LDL:HDL Ratio 3.10 Result Comment: Reference: 1. National Cholesterol Education Program ATP III Guideline At-A-Glance Quick Desk Reference: National Heart, Lung, and Blood [place]. National Institutes of Health. 2001: NIH Publication No. 01-3305. 2. An International Atherosclerosis Society position paper: global recommendations for the management of dyslipidemia: executive summary, Atherosclerosis. 2014: 232(2):410-413. Performed By: #### LIPB, TSH, VITD #### [facility] [address] [address] TSH Collected: 11/16/2017 Status: F Source: PERRY 7:55 AM [facility] REPOSITORY TYPE CODE TESTS RESULT OUT OF RANGE REFERENCE UNITS LAB TSH 0.400-5.500 uU/mL TSH 2.830 Result Comment: If the patient is , TSH reference range varies by gestational period: First Trimester 0.100-2.500 uU/mL Second Trimester 0.200-3.000 uU/mL Third Trimester 0.300-3.000 uU/mL References: 1. Torres L, Eric M, Sae EK, et al. Management of Thyroid Dysfunction during and : An Endocrine Society Clinical Practice Guideline. J Clin Endocrinol Metab, 2012:97:8774-5741. 2. Flavio GIRON. Overview of thyroid disease in . UpToDate. 2016. Accessed on January 16, 2016. Performed By: #### LIPB, TSH, VITD #### [facility] [address] [address] VITAMIN D 25 HYDROXY Collected: 11/16/2017 Status: F Source: P[facility]Y 7:55 AM [facility] REPOSITORY TYPE CODE TESTS RESULT OUT OF REFERENCE UNITS RANGE LAB VITD 31.0-80.0 ng/mL Vitamin D 25 35.4 Hydroxy Result Comment: Classification of 25 OH Vitamin D status: Insufficiency/Moderate Deficiency: < or = 30 ng/mL Sufficiency/Optimal Levels: 31 to 80 ng/mL Toxicity: > 100 ng/mL Test performed by chemiluminescent immunoassay. Performed By: #### LIPB, TSH, VITD #### [facility] [address] [place], [place] [address] PROGRESS Observed: 11/09/2017 Status: COMPLETED Source: PERRY 7:49 AM [facility] REPOSITORY HNO ID: [id number] Author: Florencio Sebastian Service: (none) Author Type: Physician Type: Progress Notes Filed: 11/09/2017 9:57 AM Note Text: [facility] Follow-up/Established patient visit Date of last visit: 08/17/17 Impression: G47.33, Z99.89 DYLON on CPAP (primary encounter diagnosis) G25.81 Restless leg syndrome E66.01 Obesity, Class III, BMI 40-49.9 (morbid obesity) (HCC) F41.1 Anxiety state F32.9 Depressive disorder ? Clinical Global Impression of Change (CGI-C) Compared to the patient's condition at baseline, how much has the patient changed? Much improved ? OARRS website checked and validated. All prescriptions have been APPROPRIATELY filled. No suspicious activity was identified.- 08/17/2017 by Haydee Ma, RETAIL BUSINESS ANALYST ? Ms Plata is a 41 yo female with PMH of Hypothyroid, DYLON on PAP, migraines, RLS, Anxiety and depression. Status of RLS remains the same since last visit. Reports stress level is high lately, thinks it is affecting sleep. Self reported compliance with PAP therapy, requests new supplies. ? Plan: Obstructive sleep apnea: - Continue Auto CPAP?at 6-16 cmH2O. - New DME possibly [facility] - Order placed for new mask, supplies due to possible air leak from mask - Request 30 day download - Sleep hygiene education provided - Remember to clean your mask and equipment regularly, as directed. - You should be eligible for new supplies approximately every 3-6 months, depending on your insurance coverage. Contact your Durable Medical Equipment (DME) company for new supplies as needed. ? RLS: - Increase GBP from 300 mg two cap spaced out HS, to 300 mg three cap spaced out HS, refills given - Nonmedical therapy for restless legs syndrome includes : cold/warm compresses, warm/hot baths or showers, gentle massage, mild leg stretching at nighttime, or magnesium supplements ( 500- 1000 mg at nighttime daily). -entally alerting activities help too. - Note the caffeine, alcohol, nicotine, antidepressants, anti- nausea meds and antihistamines can cause or worsen symptoms. ? Anxiety/ Depression: - Pt states that medications are managed by Dr. Rendon - With new active stressors offered psychology and psychiatry consult, but pt declined - Advised to follow up with Dr. Rendon ? Follow up in 3 month(s). ? Haydee Ma, RETAIL BUSINESS ANALYST ? I have interviewed the patient and personally reviewed all pertinent aspects of the history and physical examination. I confirmed all findings as recorded by the Nurse Practitioner. The Nurse Practitioner reviewed the case fully. On my exam, pt euthymic in mood and affect, was awake, alert, and coherent, with good gait and station, and had no additional issues to discuss beyond what the Nurse Practitioner covered. Pt had tried the Neupro patch, but developed severe skin reactions to that, so we are left with working with other meds. The pt said to me that the coverage for RLS now is about 70% of her original symptom. Mask leak may be an additional factor in suboptimal response to treatment. I participated in the management of the patient and agree with assessment and plan as documented by the Nurse Practitioner. ? Florencio Sebastian M.D. HPI: Ms Plata is a 41 yo female with PMH of Hypothyroid, DYLON on PAP, migraines, RLS, Anxiety and depression. Reports that her stress is decreased and recent positive transition to a new job position. Follows up for Sleep apnea and restless legs which has improved with increase Gabapentin dosing. SLEEP APNEA Sleep apnea type : DYLON, Most Recent Apnea-Hypopnea Index (AHI): 24.3 Treatment : PAP therapy DME: [facility] PAP History: Uses AutoPAP for 6 hours per night, 5 nights per week. Current PAP settin-16 cm H2O. Difficulties with AutoPAP: None Mask type: nasal mask Mask issues: none Uses chin strap: No Uses ramp function: Yes Uses humidity: Yes, Protocol: distilled There is a perceived benefit by the patient: decreased fatigue Observers report abolition of snoring with AutoPAP use. RLS Current treatment : Medication(s) and timing : Gabapentin 300 mg at 7 PM, 9 PM, and around 11 PM Status : improved Time of day symptoms begin : 7-730 PM Time of day symptoms are worst : When symptoms start, once taking GBP symptoms resolve Time of day when symptom-free : During the day (november) SLEEP-WAKE SCHEDULE Bedtime: 11 PM to 12 AM Latency: fast Nocturnal wakings: rare Wake time: 530 AM, with an alarm. On weekends, she tends to sleeps until 7 AM. Average total sleep time (in a 24 hour period): 6 hours. She does take naps. Frequency: 2-3 times per week, Duration: 90 minutes. Naps are refreshing. SLEEP FUNCTIONAL OUTCOME MEASURES: reviewed and uploaded. See end of note for questionnaire answers. PAST MEDICAL HISTORY Diagnosis Date - Allergic rhinitis due to allergen 10/20/2012 Immunotherapy weekly, Dr. Leonard. - ANXIETY STATE NOS 12/29/2006 - CLASS MIGRAIN W/O MENTN INTRACTABLE 06/09/2007 - DEPRESSIVE DISORDER NEC 12/29/2006 - DJD (degenerative joint disease) of knee 03/30/2008 - Hidradenitis suppurativa 03/21/2014 - HYPERLIPIDEMIA NEC/NOS 12/29/2006 - HYPOGLYCEMIA NOS 12/29/2006 - Hypothyroidism 11/16/2011 Abnormal TSH - Obesity 12/29/2006 - DYLON on CPAP 04/28/2009 DME [facility] Lopez - Other specified disease of hair and hair follicles - Plantar fascial fibromatosis - Ptosis 07/11/2009 - Vitamin D deficiency 09/09/2010 PSH, SH: Reviewed SLEEP RELATED ROS GENERAL: See HPI HEENT: Negative for nasal congestion RESPIRATORY: Negative for wheezing and dyspnea on exertion CARDIOVASCULAR: Negative for chest pain GI: Negative for nocturnal GERD and GERD : Negative for nocturia MUSCULOSKELETAL: Negative for generalized body pain and joint discomfort SKIN: Negative for mask irritation PSYCH: Negative for active stressors, depression and anxiety ENDOCRINE: Positive for thyroid problems NEURO: Negative for memory problems Positive headaches (continue magnesium use) All other systems reviewed and are negative. ALLERGIES Allergen Reactions - Imitrex [Sumatripta* Neck pain - Maxalt [Rizatriptan* Other: See Comments Neck pain and nausea - Nabumetone hives - Prednisone Other: See Comments Abdominal pain and diarrhea - Allergies-Environme* CURRENT MEDICATIONS: [START ON 11/21/2017] gabapentin (NEURONTIN) 300 mg capsule Take 1 cap at 730 PM, take 1 cap at 930 PM, and take 1 cap at bedtime Omeprazole 40 mg capsule TAKE 1 CAPSULE BY MOUTH ONCE DAILY. CPAP 1 Device by MISCELLANEOUS route daily at bedtime. 6-16 cm H2O, new mask suitable per pt preference. New supplies, humidity, filters, tubing, head gear, chin strap. Lifetime supplies G47.33 obstructive sleep apnea. Please fax day download to [phone]. lidocaine viscous (LIDOCAINE VISCOUS) 2 % solution Take 5 mL by mouth every 3 hours as needed for Pain. topiramate (TOPAMAX) 100 mg tablet Take 1 tablet by mouth twice daily. levothyroxine (SYNTHROID) 25 mcg tablet Take 1 tablet by mouth daily before breakfast. benzonatate (TESSALON PERLE) 100 mg capsule Take 1 capsule by mouth three times daily as needed. rOPINIRole (REQUIP) 4 mg tablet Take 1 tablet by mouth daily at bedtime. busPIRone (BUSPAR) 15 mg tablet One Tablet twice daily FLUoxetine HCl (PROZAC) 40 mg capsule Take 1 capsule by mouth once daily. propranolol (INDERAL) 10 mg tablet Take 1 tablet by mouth once daily. CPAP AutoPAP 6-16 cmH2O, suitable mask, humidity, filters. Lifetime supplies. Dx: G47.33 ergotamine-caffeine (CAFERGOT) 1-100 mg per tablet Two tablets at onset of attack; then 1 tablet every 30 minutes as needed; maximum: 6 tablets per 24 hrs do not exceed 10 tablets/week cetirizine (ZYRTEC) 10 mg tablet Take 1 tablet by mouth four times daily. As instructed by dispensing operator Dr. Ross ketorolac (TORADOL) 10 mg tablet Take 1 tablet by mouth every 6 hours as needed. To abort migraine. diphenhydrAMINE (BENADRYL) 25 mg capsule Take 2 capsules by mouth three times daily as needed. To abort migraine EPINEPHrine (EPIPEN) 0.3 mg/0.3 mL (1:1,000) atIn Cholecalciferol, Vitamin D3, 5,000 unit ORAL Cap Take 5,000 Units by mouth once daily. Vital signs: BP 109/72 (BP Site: Left Arm, BP Position: Sitting, BP Cuff Size: Large Adult) Pulse 86 Resp 16 Wt 129.5 kg (285 lb 9.6 oz) BMI 44.73 kg/m2 PHYSICAL EXAM: General appearance: NAD, appropriate attire for season Mental status: Alert and oriented, good eye contact Speech: Logical and goal directed Constitutional: WNL Skin: Warm, dry, and intact Cardiac: Regular S1 and S2, no rubs, gallops, or murmurs Respiratory: Lungs clear to auscultation Musculoskeletal/ Extremities: No edema, cyanosis or clubbing, normal ROM Neuro: Gait stable, no tremors, hearing intact to conversation Impression: G47.33, Z99.89 DYLON on CPAP (primary encounter diagnosis) G25.81 Restless leg syndrome F41.9 Anxiety Clinical Global Impression of Change (CGI-C) Compared to the patient's condition at baseline, how much has the patient changed? Much improved OARRS website checked and validated. All prescriptions have been APPROPRIATELY filled. No suspicious activity was identified.- 11/09/2017 by Haydee Ma APRN.RETAIL BUSINESS ANALYST Ms Plata is a 41 yo female with PMH of Hypothyroid, DYLON on PAP, migraines, RLS, Anxiety and depression. Reports that her stress is decreased and recent positive transition to a new job position. Follows up for Sleep apnea and restless legs which has improved with increase Gabapentin dosing. Plan: Sleep Apnea: - Continue Auto CPAP at 6-16 cmH2O. - Remember to clean your mask and equipment regularly, as directed. - You should be eligible for new supplies approximately every 3-6 months, depending on your insurance coverage. Contact your Durable Medical Equipment (DME) company for new supplies as needed. Restless Legs: - Doing well with GBP increase - Continue taking GBP as directed, refills provided - Nonmedical therapy for restless legs syndrome includes : cold/warm compresses, warm/hot baths or showers, gentle massage, mild leg stretching at nighttime, or magnesium supplements ( 250- 1000 mg at nighttime daily). Mentally alerting activities help too. Note the caffeine, alcohol, nicotine, antidepressants, anti-nausea meds and antihistamines can cause or worsen symptoms. - See pt instructions Anxiety: - Medications are managed by Dr. Rendon - Decreased anxiety since last visit, doing well overall Follow up in 6 month(s). Haydee Ma APRN.FLORA I have interviewed the patient and personally confirmed all pertinent aspects of the history and physical examination. The Nurse Practitioner reviewed the case fully. On my exam, pt was Euthymic in mood and affect, was awake, alert, and coherent, with good gait and station. Pt was rather pleased with the current regimen. I participated in the management of the patient and agree with assessment and plan as documented by the Nurse Practitioner. Florencio Sebastian M.D. CNOV Observed: 11/09/2017 Status: COMPLETED Source: [facility] 7:40 AM [facility] REPOSITORY Office Visit ([place]) AMELAI PLATA ([id number]) 1975 F Date Time Provider Department 11/09/17 7:40 AM FLORENCIO SEBASTIAN During your visit today, we recorded the following information about you: Pulse Respiration Blood pressure Weight 86/minute 16/minute 109/72 129.5 kg Florencio Sebastian MD 11/09/2017 9:57 AM Signed [facility] Follow-up/Established patient visit Date of last visit: 08/17/17 Impression: G47.33, Z99.89 DYLON on CPAP (primary encounter diagnosis) G25.81 Restless leg syndrome E66.01 Obesity, Class III, BMI 40-49.9 (morbid obesity) ([facility]) F41.1 Anxiety state F32.9 Depressive disorder ? Clinical Global Impression of Change (CGI-C) Compared to the patient's condition at baseline, how much has the patient changed? Much improved ? OARRS website checked and validated. All prescriptions have been APPROPRIATELY filled. No suspicious activity was identified.- 08/17/2017 by Haydee Ma CNP ? Ms Plata is a 41 yo female with PMH of Hypothyroid, DYLON on PAP, migraines, RLS, Anxiety and depression. Status of RLS remains the same since last visit. Reports stress level is high lately, thinks it is affecting sleep. Self reported compliance with PAP therapy, requests new supplies. ? Plan: Obstructive sleep apnea: - Continue Auto CPAP?at 6-16 cmH2O. - New DME possibly [employer] - Order placed for new mask, supplies due to possible air leak from mask - Request 30 day download - Sleep hygiene education provided - Remember to clean your mask and equipment regularly, as directed. - You should be eligible for new supplies approximately every 3-6 months, depending on your insurance coverage. Contact your Durable Medical Equipment (DME) company for new supplies as needed. ? RLS: - Increase GBP from 300 mg two cap spaced out HS, to 300 mg three cap spaced out HS, refills given - Nonmedical therapy for restless legs syndrome includes : cold/warm compresses, warm/hot baths or showers, gentle massage, mild leg stretching at nighttime, or magnesium supplements ( 500- 1000 mg at nighttime daily). -entally alerting activities help too. - Note the caffeine, alcohol, nicotine, antidepressants, anti- nausea meds and antihistamines can cause or worsen symptoms. ? Anxiety/ Depression: - Pt states that medications are managed by Dr. Rendon - With new active stressors offered psychology and psychiatry consult, but pt declined - Advised to follow up with Dr. Rendon ? Follow up in 3 month(s). ? Haydee Ma, RETAIL BUSINESS ANALYST ? I have interviewed the patient and personally reviewed all pertinent aspects of the history and physical examination. I confirmed all findings as recorded by the Nurse Practitioner. The Nurse Practitioner reviewed the case fully. On my exam, pt euthymic in mood and affect, was awake, alert, and coherent, with good gait and station, and had no additional issues to discuss beyond what the Nurse Practitioner covered. Pt had tried the Neupro patch, but developed severe skin reactions to that, so we are left with working with other meds. The pt said to me that the coverage for RLS now is about 70% of her original symptom. Mask leak may be an additional factor in suboptimal response to treatment. I participated in the management of the patient and agree with assessment and plan as documented by the Nurse Practitioner. ? Florencio Sebastian M.D. HPI: Ms Plata is a 41 yo female with PMH of Hypothyroid, DYLON on PAP, migraines, RLS, Anxiety and depression. Reports that her stress is decreased and recent positive transition to a new job position. Follows up for Sleep apnea and restless legs which has improved with increase Gabapentin dosing. SLEEP APNEA Sleep apnea type : DYLON, Most Recent Apnea-Hypopnea Index (AHI): 24.3 Treatment : PAP therapy DME: [facility] PAP History: Uses AutoPAP for 6 hours per night, 5 nights per week. Current PAP settin-16 cm H2O. Difficulties with AutoPAP: None Mask type: nasal mask Mask issues: none Uses chin strap: No Uses ramp function: Yes Uses humidity: Yes, Protocol: distilled There is a perceived benefit by the patient: decreased fatigue Observers report abolition of snoring with AutoPAP use. RLS Current treatment : Medication(s) and timing : Gabapentin 300 mg at 7 PM, 9 PM, and around 11 PM Status : improved Time of day symptoms begin : 7-730 PM Time of day symptoms are worst : When symptoms start, once taking GBP symptoms resolve Time of day when symptom-free : During the day (november) SLEEP-WAKE SCHEDULE Bedtime: 11 PM to 12 AM Latency: fast Nocturnal wakings: rare Wake time: 530 AM, with an alarm. On weekends, she tends to sleeps until 7 AM. Average total sleep time (in a 24 hour period): 6 hours. She does take naps. Frequency: 2-3 times per week, Duration: 90 minutes. Naps are refreshing. SLEEP FUNCTIONAL OUTCOME MEASURES: reviewed and uploaded. See end of note for questionnaire answers. PAST MEDICAL HISTORY Diagnosis Date - Allergic rhinitis due to allergen 10/20/2012 Immunotherapy weekly, Dr. Leonard. - ANXIETY STATE NOS 12/29/2006 - CLASS MIGRAIN W/O MENTN INTRACTABLE 06/09/2007 - DEPRESSIVE DISORDER NEC 12/29/2006 - DJD (degenerative joint disease) of knee 03/30/2008 - Hidradenitis suppurativa 03/21/2014 - HYPERLIPIDEMIA NEC/NOS 12/29/2006 - HYPOGLYCEMIA NOS 12/29/2006 - Hypothyroidism 11/16/2011 Abnormal TSH - Obesity 12/29/2006 - DYLON on CPAP 04/28/2009 DME [facility] - Other specified disease of hair and hair follicles - Plantar fascial fibromatosis - Ptosis 07/11/2009 - Vitamin D deficiency 09/09/2010 PSH, SH: Reviewed SLEEP RELATED ROS GENERAL: See HPI HEENT: Negative for nasal congestion RESPIRATORY: Negative for wheezing and dyspnea on exertion CARDIOVASCULAR: Negative for chest pain GI: Negative for nocturnal GERD and GERD : Negative for nocturia MUSCULOSKELETAL: Negative for generalized body pain and joint discomfort SKIN: Negative for mask irritation PSYCH: Negative for active stressors, depression and anxiety ENDOCRINE: Positive for thyroid problems NEURO: Negative for memory problems Positive headaches (continue magnesium use) All other systems reviewed and are negative. ALLERGIES Allergen Reactions - Imitrex [Sumatripta* Neck pain - Maxalt [Rizatriptan* Other: See Comments Neck pain and nausea - Nabumetone hives - Prednisone Other: See Comments Abdominal pain and diarrhea - Allergies-Environme* CURRENT MEDICATIONS: [START ON 11/21/2017] gabapentin (NEURONTIN) 300 mg capsule Take 1 cap at 730 PM, take 1 cap at 930 PM, and take 1 cap at bedtime Omeprazole 40 mg capsule TAKE 1 CAPSULE BY MOUTH ONCE DAILY. CPAP 1 Device by MISCELLANEOUS route daily at bedtime. 6-16 cm H2O, new mask suitable per pt preference. New supplies, humidity, filters, tubing, head gear, chin strap. Lifetime supplies G47.33 obstructive sleep apnea. Please fax day download to [phone]. lidocaine viscous (LIDOCAINE VISCOUS) 2 % solution Take 5 mL by mouth every 3 hours as needed for Pain. topiramate (TOPAMAX) 100 mg tablet Take 1 tablet by mouth twice daily. levothyroxine (SYNTHROID) 25 mcg tablet Take 1 tablet by mouth daily before breakfast. benzonatate (TESSALON PERLE) 100 mg capsule Take 1 capsule by mouth three times daily as needed. rOPINIRole (REQUIP) 4 mg tablet Take 1 tablet by mouth daily at bedtime. busPIRone (BUSPAR) 15 mg tablet One Tablet twice daily FLUoxetine HCl (PROZAC) 40 mg capsule Take 1 capsule by mouth once daily. propranolol (INDERAL) 10 mg tablet Take 1 tablet by mouth once daily. CPAP AutoPAP 6-16 cmH2O, suitable mask, humidity, filters. Lifetime supplies. Dx: G47.33 ergotamine-caffeine (CAFERGOT) 1-100 mg per tablet Two tablets at onset of attack; then 1 tablet every 30 minutes as needed; maximum: 6 tablets per 24 hrs do not exceed 10 tablets/week cetirizine (ZYRTEC) 10 mg tablet Take 1 tablet by mouth four times daily. As instructed by dispensing operator Dr. Ross ketorolac (TORADOL) 10 mg tablet Take 1 tablet by mouth every 6 hours as needed. To abort migraine. diphenhydrAMINE (BENADRYL) 25 mg capsule Take 2 capsules by mouth three times daily as needed. To abort migraine EPINEPHrine (EPIPEN) 0.3 mg/0.3 mL (1:1,000) atIn Cholecalciferol, Vitamin D3, 5,000 unit ORAL Cap Take 5,000 Units by mouth once daily. Vital signs: BP 109/72 (BP Site: Left Arm, BP Position: Sitting, BP Cuff Size: Large Adult) Pulse 86 Resp 16 Wt 129.5 kg (285 lb 9.6 oz) BMI 44.73 kg/m2 PHYSICAL EXAM: General appearance: NAD, appropriate attire for season Mental status: Alert and oriented, good eye contact Speech: Logical and goal directed Constitutional: WNL Skin: Warm, dry, and intact Cardiac: Regular S1 and S2, no rubs, gallops, or murmurs Respiratory: Lungs clear to auscultation Musculoskeletal/ Extremities: No edema, cyanosis or clubbing, normal ROM Neuro: Gait stable, no tremors, hearing intact to conversation Impression: G47.33, Z99.89 DYLON on CPAP (primary encounter diagnosis) G25.81 Restless leg syndrome F41.9 Anxiety Clinical Global Impression of Change (CGI-C) Compared to the patient's condition at baseline, how much has the patient changed? Much improved OARRS website checked and validated. All prescriptions have been APPROPRIATELY filled. No suspicious activity was identified.- 11/09/2017 by Haydee Ma APRN.RETAIL BUSINESS ANALYST Ms Plata is a 41 yo female with PMH of Hypothyroid, DYLON on PAP, migraines, RLS, Anxiety and depression. Reports that her stress is decreased and recent positive transition to a new job position. Follows up for Sleep apnea and restless legs which has improved with increase Gabapentin dosing. Plan: Sleep Apnea: - Continue Auto CPAP at 6-16 cmH2O. - Remember to clean your mask and equipment regularly, as directed. - You should be eligible for new supplies approximately every 3-6 months, depending on your insurance coverage. Contact your [employer] company for new supplies as needed. Restless Legs: - Doing well with GBP increase - Continue taking GBP as directed, refills provided - Nonmedical therapy for restless legs syndrome includes : cold/warm compresses, warm/hot baths or showers, gentle massage, mild leg stretching at nighttime, or magnesium supplements ( 250- 1000 mg at nighttime daily). Mentally alerting activities help too. Note the caffeine, alcohol, nicotine, antidepressants, anti-nausea meds and antihistamines can cause or worsen symptoms. - See pt instructions Anxiety: - Medications are managed by Dr. Rendon - Decreased anxiety since last visit, doing well overall Follow up in 6 month(s). Haydee Ma APRN.RETAIL BUSINESS ANALYST I have interviewed the patient and personally confirmed all pertinent aspects of the history and physical examination. The Nurse Practitioner reviewed the case fully. On my exam, pt was Euthymic in mood and affect, was awake, alert, and coherent, with good gait and station. Pt was rather pleased with the current regimen. I participated in the management of the patient and agree with assessment and plan as documented by the Nurse Practitioner. Florencio Sebastian M.D. Haydee Ma APRN.RETAIL BUSINESS ANALYST 11/09/2017 8:13 AM Signed Restless legs: - Nonmedical therapy for restless legs syndrome includes: cold/warm compresses, warm/hot baths or showers, gentle massage, mild leg stretching at nighttime, a bar of soap under the sheets or magnesium supplements (250- 500mg twice daily). Mentally alerting activities help too. Note that caffeine, alcohol, antidepressants and antihistamines can cause or worsen symptoms. - Restiffic and Relaxis pad Haydee Ma APRN.CNP 11/09/2017 8:27 AM Written PLAN: Gabapentin 300 mg at 7 PM, 9 PM, and bedtime each night Referring Provider: FLORENCIO SEBASTIAN [[id number]] Allergies As of Date: 11/09/2017 Noted Allergy Reaction IMITREX (SUMATRIPTAN SUCCINATE) 08/21/2009 Comments: Neck pain MAXALT (RIZATRIPTAN BENZOATE) 03/01/2016 14 - Other: See Comments Comments: Neck pain and nausea NABUMETONE 04/28/2009 Comments: hives PREDNISONE 05/10/2016 14 - Other: See Comments Comments: Abdominal pain and diarrhea allergies-environmental to grass,*11/28/2009 Date Reviewed: 11/09/2017 Reviewed by: Haydee ([facility]) Anil - Fully Assessed Reason for Visit: Established Patient [175] Cmt: 3 month Primary Visit Diagnosis:DYLON on CPAP [G47.33, Z99.89] Other Visit Diagnoses:Restless leg syndrome [G25.81] Anxiety [F41.9] Order(s):[START ON 11/21/2017] gabapentin (NEURONTIN) 300 mg capsuleTake 1 cap at 730 PM, take 1 cap at 930 PM, and take 1 cap at bedtimeDisp: 90 capsuleRfl: 2 Prescriptions as of 11/09/2017 Sig: GABAPENTIN 300 MG CAPSULE Take 1 cap at 730 PM, take 1 * OMEPRAZOLE 40 MG CAPSULE,SENA* TAKE 1 CAPSULE BY MOUTH ONCE * CPAP 1 Device by MISCELLANEOUS rou* LIDOCAINE 2 % MUCOSAL SOLUTION Take 5 mL by mouth every 3 ho* TOPIRAMATE 100 MG TABLET Take 1 tablet by mouth twice * LEVOTHYROXINE 25 MCG TABLET Take 1 tablet by mouth daily * BENZONATATE 100 MG CAPSULE Take 1 capsule by mouth three* ROPINIROLE 4 MG TABLET Take 1 tablet by mouth daily * BUSPIRONE 15 MG TABLET One Tablet twice daily FLUOXETINE 40 MG CAPSULE Take 1 capsule by mouth once * PROPRANOLOL 10 MG TABLET Take 1 tablet by mouth once d* CPAP AutoPAP 6-16 cmH2O, suitable * ERGOTAMINE 1 MG-CAFFEINE 100 * Two tablets at onset of attac* CETIRIZINE 10 MG TABLET Take 1 tablet by mouth four t* KETOROLAC 10 MG TABLET Take 1 tablet by mouth every * DIPHENHYDRAMINE 25 MG CAPSULE Take 2 capsules by mouth thre* EPINEPHRINE 0.3 MG/0.3 ML INJ* CHOLECALCIFEROL (VITAMIN D3) * Take 5,000 Units by mouth onc* Problem List As Of Date 11/09/2017 Noted Resolved Obesity, Class III, BMI 40-49.9 (morbid obesity*INVALID FOR* Priority: B More... Hypoglycemia, unspecified [E16.2] INVALID FOR*10/03/2014 HYPERLIPIDEMIA NEC/NOS [E78.5] INVALID FOR*10/03/2014 Anxiety state [F41.1] INVALID FOR* Priority: A More... Depressive disorder [F32.9] INVALID FOR* Priority: A More... DJD (degenerative joint disease) of knee [M17.1*INVALID FOR*03/21/2014 DYLON on CPAP [G47.33, Z99.89] INVALID FOR* Priority: B More... Ptosis [H02.409] INVALID FOR*10/03/2014 More... Vitamin D deficiency [E55.9] INVALID FOR*10/03/2014 Allergic rhinitis due to allergen [J30.9] INVALID FOR* Priority: B More... Pain in joint, lower leg [M25.569] INVALID FOR*03/21/2014 Dermatographic urticaria [L50.3] INVALID FOR* Priority: D More... Hidradenitis suppurativa [L73.2] INVALID FOR* Priority: D Tobacco use disorder [F17.200] INVALID FOR* Priority: C More... Restless leg syndrome [G25.81] INVALID FOR* Priority: B More... Vitamin D deficiency [E55.9] INVALID FOR* Priority: B Migraine with aura and without status migrainos*INVALID FOR* Priority: A Acquired hypothyroidism [E03.9] INVALID FOR* Priority: A Encounter for screening for cardiovascular diso*INVALID FOR* Encounter for screening for diabetes mellitus [*INVALID FOR* Iron deficiency concern [E61.1] INVALID FOR*05/11/2017 Encounter for gynecological examination without*INVALID FOR* Priority: E More... Well adult exam [Z00.00] INVALID FOR* More... Dyslipidemia [E78.5] INVALID FOR* Other instructions from your clinician: Restless legs: - Nonmedical therapy for restless legs syndrome includes: cold/warm compresses, warm/hot baths or showers, gentle massage, mild leg stretching at nighttime, a bar of soap under the sheets or magnesium supplements (250-500mg twice daily). Mentally alerting activities help too. Note that caffeine, alcohol, antidepressants and antihistamines can cause or worsen symptoms. - Restiffic and Relaxis pad Prescriptions ordered this encounter Disp Refills Start End GABAPENTIN 300 MG CAPSULE 90 c* 2 11/21/2017 02/20/2018 Sig: Take 1 cap at 730 PM, take 1 cap at 930 PM, and take 1 cap at bedtime Medications Discontinued During This Encounter gabapentin (NEURONTIN) 300 mg capsule 90 c* 2 08/26/2017 11/09/2017 Sig: Take 1 cap at 730 PM, take 1 cap at 930 PM, and take 1 cap at bedtime Disc: Reason for discontinue is not on file. Disposition: Return in about 6 months (around 05/11/2018). Follow-up and Disposition History Recorded Encounter Status:Closed by MD FLORENCIO SEBASTIAN on 11/09/17 Observed: 08/22/2017 Status: F Source: [facility] URINE CULTURE 9:36 PM [facility] REPOSITORY Sp. Request/Comment: - Specimen received in preservative Culture Result - 10,000 - <50,000 CFU/ml Escherichia coli --> ABNORMAL ALERT ORGANISM: Escherichia coli METHOD: Minimum inhibitory concentration([employer]) Antibiotic Interp NEIL Status Ampicillin RESISTANT >=32 F Gentamicin INTERMEDIATE 8 F Trimeth sulfameth RESISTANT >=320 F Cefazolin SUSCEPTIBLE <=4 F CLSI breakpoints for therapy of uncomplicated UTI's due to E.coli, K.pneumoniae, and P.mirabilis were applied and may be used to predict the activity of oral agents(cefaclor, cefdinir, cefpodoxime, cefp rozil, cefuroxime, cephalexin, loracarbef). Ciprofloxacin SUSCEPTIBLE 0.5 F Nitrofurantoin SUSCEPTIBLE <=16 F Amikacin SUSCEPTIBLE <=2 F Tobramycin INTERMEDIATE 8 F Cefepime SUSCEPTIBLE <=1 F Piperacillin/Tazobac SUSCEPTIBLE <=4 F Ampicillin Sulbact RESISTANT >=32 F Ceftriaxone SUSCEPTIBLE <=1 F Meropenem SUSCEPTIBLE <=0.25 F Ertapenem SUSCEPTIBLE <=0.5 F Performed By: #### URCUL #### [facility] [address] [place], [place] [address] PROGRESS Observed: 08/22/2017 Status: COMPLETED Source: [facility] 6:15 AM [facility] REPOSIT[facility] HNO ID: [id number] Author: Anamaria Clement Service: (none) Author Type: Nurse Practitioner Type: Progress Notes Filed: 08/22/2017 6:43 AM Note Text: The history is provided by the patient. No manager language was used. HPI Amelia Plata is a 41 year old female who presents today for CC of burning urgency and frequency This started yesterday. She is also having lower abdominal pressure and blood in urine. She is also having sinus congestion and pressure, just havent gone away.Symptoms are worsened by voiding. She has tried excedrin, otc sinus medication, increase hydration and percocet with relief. Risk factors sexually active PMH UTI in the past. There were no vitals taken for this visit. ALLERGIES Allergen Reactions - Imitrex [Sumatripta* Neck pain - Maxalt [Rizatriptan* Other: See Comments Neck pain and nausea - Nabumetone hives - Prednisone Other: See Comments Abdominal pain and diarrhea - Allergies-Environme* ACTIVE PROBLEM LIST Obesity, Class Iii, Bmi 40-49.9 (Morbid Obesity) ([facility]) Anxiety State Depressive Disorder Dylon On Cpap Allergic Rhinitis Due to Allergen Dermatographic Urticaria Hidradenitis Suppurativa Tobacco Use Disorder Restless Leg Syndrome Vitamin D Deficiency Migraine With Aura and Without Status Migrainosus, Not Intractable Acquired Hypothyroidism Encounter for Screening for Cardiovascular Disorders Encounter for Screening for Diabetes Mellitus Encounter for Gynecological Examination Without Abnormal Finding Well Adult Exam Dyslipidemia Family History Problem Relation Age of Onset - Osteoporosis Paternal Grandmother - Hypertension Paternal Grandmother - Alcohol/Drug Mother - Arthritis Father - Hypertension Father - Coronary Artery Disease Maternal Grandfather - Diabetes Maternal Grandmother - Cancer Maternal Grandmother skin Social History Marital status: Spouse name: Years of education: Number of children: 2 Occupational History 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 past cigarette use- on and off for a few years Alcohol use: No Comment: rarely Drug use: No Sexual activity: Yes Partners with: Male Review of Systems Constitutional: Negative. Negative for chills, fever and malaise/fatigue. HENT: Positive for congestion and sinus pain. Negative for ear pain and sore throat. Respiratory: Positive for cough. Negative for sputum production, shortness of breath and wheezing. Cardiovascular: Negative for chest pain. Gastrointestinal: Positive for abdominal pain (suprapubic pressure). Genitourinary: Positive for dysuria, frequency, hematuria and urgency. Negative for flank pain. Musculoskeletal: Negative for myalgias. Skin: Negative for rash. Neurological: Negative for headaches. Physical Exam Constitutional: She is oriented to person, place, and time and well-developed, well-nourished, and in no distress. HENT: Head: Normocephalic and atraumatic. Right Ear: Tympanic membrane, external ear and ear canal normal. Tympanic membrane is not injected, not erythematous, not retracted and not bulging. No middle ear effusion. Left Ear: Tympanic membrane, external ear and ear canal normal. Tympanic membrane is not injected, not erythematous, not retracted and not bulging. No middle ear effusion. Nose: Nose normal. Right sinus exhibits no maxillary sinus tenderness and no frontal sinus tenderness. Left sinus exhibits no maxillary sinus tenderness and no frontal sinus tenderness. Mouth/Throat: Uvula is midline, oropharynx is clear and moist and mucous membranes are normal. No oropharyngeal exudate, posterior oropharyngeal edema, posterior oropharyngeal erythema or tonsillar abscesses. Eyes: Conjunctivae and EOM are normal. Pupils are equal, round, and reactive to light. Neck: Normal range of motion. Neck supple. Cardiovascular: Normal rate, regular rhythm and normal heart sounds. Pulmonary/Chest: Effort normal and breath sounds normal. No respiratory distress. She has no decreased breath sounds. She has no wheezes. She has no rhonchi. She has no rales. Abdominal: Soft. Normal appearance and bowel sounds are normal. There is no hepatosplenomegaly. There is generalized tenderness and tenderness in the suprapubic area. There is no rigidity, no rebound, no guarding, no CVA tenderness, no tenderness at McBurney's point and negative Harkins's sign. Lymphadenopathy: Head (right side): No submental, no submandibular, no tonsillar, no preauricular and no posterior auricular adenopathy present. Head (left side): No submental, no submandibular, no tonsillar, no preauricular and no posterior auricular adenopathy present. She has no cervical adenopathy. Right cervical: No posterior cervical adenopathy present. Left cervical: No posterior cervical adenopathy present. Right: No supraclavicular adenopathy present. Left: No supraclavicular adenopathy present. Neurological: She is alert and oriented to person, place, and time. Skin: Skin is warm and dry. Psychiatric: Affect normal. Nursing note and vitals reviewed. Urine Dip Result: Leukocytes: moderate Nitrates: Negative Urobilinogen: normal Protein: 30 + pH: 5.0 Blood: large +++ Specific [place]: 1,005 Ketones: negative Bilirubin: negative Glucose: negative ASSESSMENT/PLAN: 1. Urinary frequency - ICD9: 788.41, ICD10: R35.0 (primary diagnosis) acute - UA positive for chidi esterase, hematuria - Send urine for culture - Begin treatment with keflex for 7 days - Patient education for prevention given - UA DIP B/O - URINE CULTURE - CEPHALEXIN 500 MG CAPSULE 2. URI, acute - ICD9: 465.9, ICD10: J06.9 - Discussed viral etiology and rationale for treatment. - Symptomatic treatment with tylenol or ibuprofen - Supportive care with fluids and rest 3. Acute cystitis with hematuria - ICD9: 595.0, ICD10: N30.01 Urinary tract infection (UTI) We will send the urine for culture, which shows us what organism, if any, we are treating. If we need to change the antibiotic coverage, you will receive a call in 48-72 hours. * Seek medical care immediately, call 911, or go to ER if you have high fevers, severe flank or low back pain, blood in your urine. * Follow up with primary care provider if symptoms persist or worsen. Diagnosis and treatment plan were discussed and questions were answered to the patient's satisfaction. Pt acknowledged understanding of concepts and follow up plan. Specific signs and symptoms that would indicate the need for higher level of care were discussed in detail warranting prompt ER evaluation. Anamaria Clement CNP CNOV Observed: 08/22/2017 Status: COMPLETED Source: [place] 6:15 AM [facility] REPOSITORY Office Visit ([facility]) AMELIA PLATA ([id number]) 1975 F Date Time Provider Department 08/22/17 6:15 AM ANAMARIA CLEMENT ([place]) [facility] During your visit today, we recorded the following information about you: Temperature Pulse Respiration Blood pressure 97.4 degrees 76/minute 16/minute 130/74 Weight 129.3 kg Anamaria Clement CNP 08/22/2017 6:43 AM Addendum The history is provided by the patient. No manager language was used. ANNIE Amelia Plata is a 41 year old female who presents today for CC of burning urgency and frequency This started yesterday. She is also having lower abdominal pressure and blood in urine. She is also having sinus congestion and pressure, just havent gone away.Symptoms are worsened by voiding. She has tried excedrin, otc sinus medication, increase hydration and percocet with relief. Risk factors sexually active PMH UTI in the past. There were no vitals taken for this visit. ALLERGIES Allergen Reactions - Imitrex [Sumatripta* Neck pain - Maxalt [Rizatriptan* Other: See Comments Neck pain and nausea - Nabumetone hives - Prednisone Other: See Comments Abdominal pain and diarrhea - Allergies-Environme* ACTIVE PROBLEM LIST Obesity, Class Iii, Bmi 40-49.9 (Morbid Obesity) ([facility]) Anxiety State Depressive Disorder Dylon On Cpap Allergic Rhinitis Due to Allergen Dermatographic Urticaria Hidradenitis Suppurativa Tobacco Use Disorder Restless Leg Syndrome Vitamin D Deficiency Migraine With Aura and Without Status Migrainosus, Not Intractable Acquired Hypothyroidism Encounter for Screening for Cardiovascular Disorders Encounter for Screening for Diabetes Mellitus Encounter for Gynecological Examination Without Abnormal Finding Well Adult Exam Dyslipidemia Family History Problem Relation Age of Onset - Osteoporosis Paternal Grandmother - Hypertension Paternal Grandmother - Alcohol/Drug Mother - Arthritis Father - Hypertension Father - Coronary Artery Disease Maternal Grandfather - Diabetes Maternal Grandmother - Cancer Maternal Grandmother skin Social History Marital status: Spouse name: Years of education: Number of children: 2 Occupational History 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 past cigarette use- on and off for a few years Alcohol use: No Comment: rarely Drug use: No Sexual activity: Yes Partners with: Male Review of Systems Constitutional: Negative. Negative for chills, fever and malaise/fatigue. HENT: Positive for congestion and sinus pain. Negative for ear pain and sore throat. Respiratory: Positive for cough. Negative for sputum production, shortness of breath and wheezing. Cardiovascular: Negative for chest pain. Gastrointestinal: Positive for abdominal pain (suprapubic pressure). Genitourinary: Positive for dysuria, frequency, hematuria and urgency. Negative for flank pain. Musculoskeletal: Negative for myalgias. Skin: Negative for rash. Neurological: Negative for headaches. Physical Exam Constitutional: She is oriented to person, place, and time and well-developed, well-nourished, and in no distress. HENT: Head: Normocephalic and atraumatic. Right Ear: Tympanic membrane, external ear and ear canal normal. Tympanic membrane is not injected, not erythematous, not retracted and not bulging. No middle ear effusion. Left Ear: Tympanic membrane, external ear and ear canal normal. Tympanic membrane is not injected, not erythematous, not retracted and not bulging. No middle ear effusion. Nose: Nose normal. Right sinus exhibits no maxillary sinus tenderness and no frontal sinus tenderness. Left sinus exhibits no maxillary sinus tenderness and no frontal sinus tenderness. Mouth/Throat: Uvula is midline, oropharynx is clear and moist and mucous membranes are normal. No oropharyngeal exudate, posterior oropharyngeal edema, posterior oropharyngeal erythema or tonsillar abscesses. Eyes: Conjunctivae and EOM are normal. Pupils are equal, round, and reactive to light. Neck: Normal range of motion. Neck supple. Cardiovascular: Normal rate, regular rhythm and normal heart sounds. Pulmonary/Chest: Effort normal and breath sounds normal. No respiratory distress. She has no decreased breath sounds. She has no wheezes. She has no rhonchi. She has no rales. Abdominal: Soft. Normal appearance and bowel sounds are normal. There is no hepatosplenomegaly. There is generalized tenderness and tenderness in the suprapubic area. There is no rigidity, no rebound, no guarding, no CVA tenderness, no tenderness at McBurney's point and negative Harkins's sign. Lymphadenopathy: Head (right side): No submental, no submandibular, no tonsillar, no preauricular and no posterior auricular adenopathy present. Head (left side): No submental, no submandibular, no tonsillar, no preauricular and no posterior auricular adenopathy present. She has no cervical adenopathy. Right cervical: No posterior cervical adenopathy present. Left cervical: No posterior cervical adenopathy present. Right: No supraclavicular adenopathy present. Left: No supraclavicular adenopathy present. Neurological: She is alert and oriented to person, place, and time. Skin: Skin is warm and dry. Psychiatric: Affect normal. Nursing note and vitals reviewed. Urine Dip Result: Leukocytes: moderate Nitrates: Negative Urobilinogen: normal Protein: 30 + pH: 5.0 Blood: large +++ Specific [place]: 1,005 Ketones: negative Bilirubin: negative Glucose: negative ASSESSMENT/PLAN: 1. Urinary frequency - ICD9: 788.41, ICD10: R35.0 (primary diagnosis) acute - UA positive for chidi esterase, hematuria - Send urine for culture - Begin treatment with keflex for 7 days - Patient education for prevention given - UA DIP B/O - URINE CULTURE - CEPHALEXIN 500 MG CAPSULE 2. URI, acute - ICD9: 465.9, ICD10: J06.9 - Discussed viral etiology and rationale for treatment. - Symptomatic treatment with tylenol or ibuprofen - Supportive care with fluids and rest 3. Acute cystitis with hematuria - ICD9: 595.0, ICD10: N30.01 Urinary tract infection (UTI) We will send the urine for culture, which shows us what organism, if any, we are treating. If we need to change the antibiotic coverage, you will receive a call in 48-72 hours. * Seek medical care immediately, call 911, or go to ER if you have high fevers, severe flank or low back pain, blood in your urine. * Follow up with primary care provider if symptoms persist or worsen. Diagnosis and treatment plan were discussed and questions were answered to the patient's satisfaction. Pt acknowledged understanding of concepts and follow up plan. Specific signs and symptoms that would indicate the need for higher level of care were discussed in detail warranting prompt ER evaluation. Anamaria Clement CNP Anamaria ClementFLORA 08/22/2017 6:30 AM Signed ASSESSMENT/PLAN: 1. Urinary frequency - ICD9: 788.41, ICD10: R35.0 (primary diagnosis) acute - UA positive for chidi esterase, hematuria - Send urine for culture - Begin treatment with keflex for 7 days - Patient education for prevention given - UA DIP B/O - URINE CULTURE - CEPHALEXIN 500 MG CAPSULE 2. URI, acute - ICD9: 465.9, ICD10: J06.9 - Discussed viral etiology and rationale for treatment. - Symptomatic treatment with tylenol or ibuprofen - Supportive care with fluids and rest 3. Acute cystitis with hematuria - ICD9: 595.0, ICD10: N30.01 Urinary tract infection (UTI) We will send the urine for culture, which shows us what organism, if any, we are treating. If we need to change the antibiotic coverage, you will receive a call in 48-72 hours. * Seek medical care immediately, call 911, or go to ER if you have high fevers, severe flank or low back pain, blood in your urine. * Follow up with primary care provider if symptoms persist or worsen. Referring Provider: SELF [[id number]] Allergies As of Date: 08/22/2017 Noted Allergy Reaction IMITREX (SUMATRIPTAN SUCCINATE) 08/21/2009 Comments: Neck pain MAXALT (RIZATRIPTAN BENZOATE) 03/01/2016 14 - Other: See Comments Comments: Neck pain and nausea NABUMETONE 04/28/2009 Comments: hives PREDNISONE 05/10/2016 14 - Other: See Comments Comments: Abdominal pain and diarrhea allergies-environmental to grass,*11/28/2009 Date Reviewed: 08/22/2017 Reviewed by: Marina Mendez Ma - Fully Assessed Reason for Visit: Urinary Frequency [1086] Cmt: x yesterday Sinus Problem [99] Cmt: sinus pressure, headache and nasal drainage x 1 week Reason For Visit History Recorded Primary Visit Diagnosis:Urinary frequency [R35.0] Other Visit Diagnoses:URI, acute [J06.9] Acute cystitis with hematuria [N30.01] Order(s):UA DIP B/O [1700587] Order #: [id number] URINE CULTURE [SQURCUL] Order #: [id number] cephALEXin (KEFLEX) 500 mg capsuleTake 1 capsule by mouth twice daily for 7 days.Disp: 14 capsuleRfl: 0 phenazopyridine (PYRIDIUM, GERIDIUM) 200 mg tabletTake 1 tablet by mouth three times daily as needed for up to 2 days.Disp: 6 tabletRfl: 0 Prescriptions as of 08/22/2017 Sig: GABAPENTIN 300 MG CAPSULE Take 1 cap at 730 PM, take 1 * CPAP 1 Device by MISCELLANEOUS rou* TOPIRAMATE 100 MG TABLET Take 1 tablet by mouth twice * LEVOTHYROXINE 25 MCG TABLET Take 1 tablet by mouth daily * ROPINIROLE 4 MG TABLET Take 1 tablet by mouth daily * BUSPIRONE 15 MG TABLET One Tablet twice daily OMEPRAZOLE 40 MG CAPSULE,SENA* Take 1 capsule by mouth once * FLUOXETINE 40 MG CAPSULE Take 1 capsule by mouth once * PROPRANOLOL 10 MG TABLET Take 1 tablet by mouth once d* CPAP AutoPAP 6-16 cmH2O, suitable * ERGOTAMINE 1 MG-CAFFEINE 100 * Two tablets at onset of attac* CETIRIZINE 10 MG TABLET Take 1 tablet by mouth four t* KETOROLAC 10 MG TABLET Take 1 tablet by mouth every * DIPHENHYDRAMINE 25 MG CAPSULE Take 2 capsules by mouth thre* EPINEPHRINE 0.3 MG/0.3 ML INJ* CHOLECALCIFEROL (VITAMIN D3) * Take 5,000 Units by mouth onc* CEPHALEXIN 500 MG CAPSULE Take 1 capsule by mouth twice* PHENAZOPYRIDINE 200 MG TABLET Take 1 tablet by mouth three * LIDOCAINE 2 % MUCOSAL SOLUTION Take 5 mL by mouth every 3 ho* BENZONATATE 100 MG CAPSULE Take 1 capsule by mouth three* Medication notes this encounter LIDOCAINE 2 % MUCOSAL SOLUTION >> Marina Mendez Ma 08/22/2017 6:15 AM >> MARINA MENDEZ MA TueAug 22, 2017 6:15 AM done BENZONATATE 100 MG CAPSULE >> Marina Mendez Ma 08/22/2017 6:15 AM >> MARINA MENDEZ MA TueAug 22, 2017 6:15 AM done Problem List As Of Date 08/22/2017 Noted Resolved Obesity, Class III, BMI 40-49.9 (morbid obesity*INVALID FOR* Priority: B More... Hypoglycemia, unspecified [E16.2] INVALID FOR*10/03/2014 HYPERLIPIDEMIA NEC/NOS [E78.5] INVALID FOR*10/03/2014 Anxiety state [F41.1] INVALID FOR* Priority: A More... Depressive disorder [F32.9] INVALID FOR* Priority: A More... DJD (degenerative joint disease) of knee [M17.1*INVALID FOR*03/21/2014 DYLON on CPAP [G47.33, Z99.89] INVALID FOR* Priority: B More... Ptosis [H02.409] INVALID FOR*10/03/2014 More... Vitamin D deficiency [E55.9] INVALID FOR*10/03/2014 Allergic rhinitis due to allergen [J30.9] INVALID FOR* Priority: B More... Pain in joint, lower leg [M25.569] INVALID FOR*03/21/2014 Dermatographic urticaria [L50.3] INVALID FOR* Priority: D More... Hidradenitis suppurativa [L73.2] INVALID FOR* Priority: D Tobacco use disorder [F17.200] INVALID FOR* Priority: C More... Restless leg syndrome [G25.81] INVALID FOR* Priority: B Vitamin D deficiency [E55.9] INVALID FOR* Priority: B Migraine with aura and without status migrainos*INVALID FOR* Priority: A Acquired hypothyroidism [E03.9] INVALID FOR* Priority: A Encounter for screening for cardiovascular diso*INVALID FOR* Encounter for screening for diabetes mellitus [*INVALID FOR* Iron deficiency concern [E61.1] INVALID FOR*05/11/2017 Encounter for gynecological examination without*INVALID FOR* Priority: E More... Well adult exam [Z00.00] INVALID FOR* More... Dyslipidemia [E78.5] INVALID FOR* Other instructions from your clinician: ASSESSMENT/PLAN: 1. Urinary frequency - ICD9: 788.41, ICD10: R35.0 (primary diagnosis) acute - UA positive for chidi esterase, hematuria - Send urine for culture - Begin treatment with keflex for 7 days - Patient education for prevention given - UA DIP B/O - URINE CULTURE - CEPHALEXIN 500 MG CAPSULE 2. URI, acute - ICD9: 465.9, ICD10: J06.9 - Discussed viral etiology and rationale for treatment. - Symptomatic treatment with tylenol or ibuprofen - Supportive care with fluids and rest 3. Acute cystitis with hematuria - ICD9: 595.0, ICD10: N30.01 Urinary tract infection (UTI) We will send the urine for culture, which shows us what organism, if any, we are treating. If we need to change the antibiotic coverage, you will receive a call in 48-72 hours. * Seek medical care immediately, call 911, or go to ER if you have high fevers, severe flank or low back pain, blood in your urine. * Follow up with primary care provider if symptoms persist or worsen. Prescriptions ordered this encounter Disp Refills Start End CEPHALEXIN 500 MG CAPSULE 14 c* 0 08/22/2017 08/29/2017 Route: ORAL Sig: Take 1 capsule by mouth twice daily for 7 days. PHENAZOPYRIDINE 200 MG TABLET 6 ta* 0 08/22/2017 08/24/2017 Route: ORAL Sig: Take 1 tablet by mouth three times daily as needed for up to 2 days. Encounter Status:Closed by ANAMARIA CLEMENT CNP on 08/22/17 PROGRESS Observed: 08/17/2017 Status: COMPLETED Source: [place] 7:55 AM [facility] REPOSITORY HNO ID: [id number] Author: Florencio Sebastian Service: (none) Author Type: Physician Type: Progress Notes Filed: 08/17/2017 9:27 AM Note Text: [facility] Follow-up/Established patient visit Date of last visit: 05/11/17 Impression: Obstructive sleep apnea - Stable Restless legs syndrome ? ? Actions taken: Motivational Interviewing aspects taken assessment Medications, allergies, hx Reviewed: yes OARRS Aspect: na ? Renewed the gabapentin at current dosing Encouraged her to talk to Dr Davenport about the right leg issue. ? Plan: Continue present regimen for now, but check again in August ? Florencio Sebastian MD ? Time in: 805 Time out: 830 For this visit, a total [id number] time with the patient comprised 25 minutes, with at least 50% of that time devoted to [id number] counseling and coordination of care, with especial emphasis placed on answering the patient?s and/or family?s ?questions in a form that they can understand and appreciate. HPI: Ms Plata is a 41 yo female with PMH of Hypothyroid, DYLON on PAP, migraines, RLS, Anxiety and depression. Status of RLS remains the same since last visit. Reports stress level is high lately, thinks it is affecting sleep. Self reported compliance with PAP therapy, requests new supplies. SLEEP APNEA Sleep apnea type : DYLON, Treatment : PAP therapy DME: [employer] (changed at today's visit due to insurance coverage change) PAP History: Uses AutoPAP for 4-5 hours per night, 7 nights per week. Current PAP settin-16 cm H2O. Difficulties with AutoPAP: Yes: pressures seem low Objective PAP compliance data: sent order to DME to fax download Mask type: nasal mask Mask issues: air leak Uses chin strap: No Uses ramp function: Yes Uses humidity: Yes, Protocol: distilled water There is a perceived benefit by the patient: decreased snoring, but still has chronic fatigue Observers report abolition of snoring with AutoPAP use. RLS Current treatment : Medication(s) and timing : GBP 300 m cap at 730 and second by 930 PM Status : same as last visit, 70 % better from baseline Time of day symptoms begin : Depends on the day, 4- 5 PM, 6-7 PM, or some days no reported problems. Wearing tennis shoes helps symptoms throughout the day. Time of day symptoms are worst : At evening to night time SLEEP-WAKE SCHEDULE Bedtime: 1030 PM -130 AM, if she falls asleep in recliner this affects bed time. She does not use PAP machine when sleeping in recliner. Nocturnal wakings: wake up in the middle of the night, seems like too little pressures with PAP machine, and reports some leaks at that time. Wake time: 5 AM, with an alarm. On weekends, she tends to stay up until: it varies for bedtime and sleeps until 6-630 AM. Average total sleep time (in a 24 hour period): 6 hours. She does take naps. Frequency: weekends, Duration: 90 minutes. Naps are sometimes refreshing. SLEEP FUNCTIONAL OUTCOME MEASURES: reviewed and uploaded. See end of note for questionnaire answers. PAST MEDICAL HISTORY Diagnosis Date - Allergic rhinitis due to allergen 10/20/2012 Immunotherapy weekly, Dr. Leonard. - ANXIETY STATE NOS 12/29/2006 - CLASS MIGRAIN W/O MENTN INTRACTABLE 06/09/2007 - DEPRESSIVE DISORDER NEC 12/29/2006 - DJD (degenerative joint disease) of knee 03/30/2008 - Hidradenitis suppurativa 03/21/2014 - HYPERLIPIDEMIA NEC/NOS 12/29/2006 - HYPOGLYCEMIA NOS 12/29/2006 - Hypothyroidism 11/16/2011 Abnormal TSH - Obesity 12/29/2006 - DYLON on CPAP 04/28/2009 - Other specified disease of hair and hair follicles - Plantar fascial fibromatosis - Ptosis 07/11/2009 - Vitamin D deficiency 09/09/2010 PSH, SH: Reviewed SLEEP RELATED ROS GENERAL: See HPI HEENT: Negative for nasal congestion and post-nasal drip RESPIRATORY: Negative for nocturnal dyspnea, nocturnal cough, wheezing and dyspnea on exertion CARDIOVASCULAR: Negative for palpitations and chest pain GI: Negative for nocturnal GERD and GERD : Negative for nocturia MUSCULOSKELETAL: Negative for pain related to surgery/procedure and joint discomfort SKIN: Negative for mask irritation PSYCH: Positive for active stressors and anxiety ENDOCRINE: Negative for polyuria, polydipsia and thyroid problems NEURO: Negative for morning headaches and memory problems All other systems reviewed and are negative. ALLERGIES Allergen Reactions - Imitrex [Sumatripta* Neck pain - Maxalt [Rizatriptan* Other: See Comments Neck pain and nausea - Nabumetone hives - Prednisone Other: See Comments Abdominal pain and diarrhea - Allergies-Environme* CURRENT MEDICATIONS: [START ON 08/26/2017] gabapentin (NEURONTIN) 300 mg capsule Take 1 cap at 730 PM, take 1 cap at 930 PM, and take 1 cap at bedtime CPAP 1 Device by MISCELLANEOUS route daily at bedtime. 6-16 cm H2O, new mask suitable per pt preference. New supplies, humidity, filters, tubing, head gear, chin strap. Lifetime supplies G47.33 obstructive sleep apnea. Please fax day download to [phone]. lidocaine viscous (LIDOCAINE VISCOUS) 2 % solution Take 5 mL by mouth every 3 hours as needed for Pain. topiramate (TOPAMAX) 100 mg tablet Take 1 tablet by mouth twice daily. levothyroxine (SYNTHROID) 25 mcg tablet Take 1 tablet by mouth daily before breakfast. benzonatate (TESSALON PERLE) 100 mg capsule Take 1 capsule by mouth three times daily as needed. rOPINIRole (REQUIP) 4 mg tablet Take 1 tablet by mouth daily at bedtime. busPIRone (BUSPAR) 15 mg tablet One Tablet twice daily Omeprazole 40 mg capsule Take 1 capsule by mouth once daily. FLUoxetine HCl (PROZAC) 40 mg capsule Take 1 capsule by mouth once daily. propranolol (INDERAL) 10 mg tablet Take 1 tablet by mouth once daily. CPAP AutoPAP 6-16 cmH2O, suitable mask, humidity, filters. Lifetime supplies. Dx: G47.33 ergotamine-caffeine (CAFERGOT) 1-100 mg per tablet Two tablets at onset of attack; then 1 tablet every 30 minutes as needed; maximum: 6 tablets per 24 hrs do not exceed 10 tablets/week cetirizine (ZYRTEC) 10 mg tablet Take 1 tablet by mouth four times daily. As instructed by dispensing operator Dr. Ross ketorolac (TORADOL) 10 mg tablet Take 1 tablet by mouth every 6 hours as needed. To abort migraine. diphenhydrAMINE (BENADRYL) 25 mg capsule Take 2 capsules by mouth three times daily as needed. To abort migraine EPINEPHrine (EPIPEN) 0.3 mg/0.3 mL (1:1,000) atIn Cholecalciferol, Vitamin D3, 5,000 unit ORAL Cap Take 5,000 Units by mouth once daily. Vital signs: BP 115/65 (BP Site: Left Arm, BP Position: Sitting, BP Cuff Size: Large Adult) Pulse 89 Resp 16 Wt 128.4 kg (283 lb) BMI 44.32 kg/m2 PHYSICAL EXAM: General appearance: NAD, appropriate attire for season Mental status: Alert and oriented, good eye contact Speech: Logical and goal directed Lymph: No noticeable or palpable swelling, no lymphadenopathy Constitutional: WNL Skin: Warm, dry, and intact Eyes: PERRLA, EOM intact ENT : Nasal congestion absent, Posterior airspace: Mosqueda tongue position 2, retrognathia absent. Overbite present. High arched palate present. Tongue scalloping/ridging absent. Uvula: wnl Cardiac: Regular S1 and S2, no rubs, gallops, or murmurs Respiratory: Lungs clear to auscultation Musculoskeletal/ Extremities: No edema, cyanosis or clubbing, normal ROM Neuro: Gait stable, no tremors, hearing intact to conversation Impression: G47.33, Z99.89 DYLON on CPAP (primary encounter diagnosis) G25.81 Restless leg syndrome E66.01 Obesity, Class III, BMI 40-49.9 (morbid obesity) ([facility]) F41.1 Anxiety state F32.9 Depressive disorder Clinical Global Impression of Change (CGI-C) Compared to the patient's condition at baseline, how much has the patient changed? Much improved OARRS website checked and validated. All prescriptions have been APPROPRIATELY filled. No suspicious activity was identified.- 08/17/2017 by Haydee Ma, RETAIL BUSINESS ANALYST Ms Plata is a 41 yo female with PMH of Hypothyroid, DYLON on PAP, migraines, RLS, Anxiety and depression. Status of RLS remains the same since last visit. Reports stress level is high lately, thinks it is affecting sleep. Self reported compliance with PAP therapy, requests new supplies. Plan: Obstructive sleep apnea: - Continue Auto CPAP at 6-16 cmH2O. - New DME possibly [facility] - Order placed for new mask, supplies due to possible air leak from mask - Request 30 day download - Sleep hygiene education provided - Remember to clean your mask and equipment regularly, as directed. - You should be eligible for new supplies approximately every 3-6 months, depending on your insurance coverage. Contact your Durable Medical Equipment (DME) company for new supplies as needed. RLS: - Increase GBP from 300 mg two cap spaced out HS, to 300 mg three cap spaced out HS, refills given - Nonmedical therapy for restless legs syndrome includes : cold/warm compresses, warm/hot baths or showers, gentle massage, mild leg stretching at nighttime, or magnesium supplements ( 500- 1000 mg at nighttime daily). -entally alerting activities help too. - Note the caffeine, alcohol, nicotine, antidepressants, anti- nausea meds and antihistamines can cause or worsen symptoms. Anxiety/ Depression: - Pt states that medications are managed by Dr. Rendon - With new active stressors offered psychology and psychiatry consult, but pt declined - Advised to follow up with Dr. Rendon Follow up in 3 month(s). Haydee Ma, RETAIL BUSINESS ANALYST I have interviewed the patient and personally reviewed all pertinent aspects of the history and physical examination. I confirmed all findings as recorded by the Nurse Practitioner. The Nurse Practitioner reviewed the case fully. On my exam, pt euthymic in mood and affect, was awake, alert, and coherent, with good gait and station, and had no additional issues to discuss beyond what the Nurse Practitioner covered. Pt had tried the Neupro patch, but developed severe skin reactions to that, so we are left with working with other meds. The pt said to me that the coverage for RLS now is about 70% of her original symptom. Mask leak may be an additional factor in suboptimal response to treatment. I participated in the management of the patient and agree with assessment and plan as documented by the Nurse Practitioner. Florencio Sebastian M.D. CNOV Observed: 08/17/2017 Status: COMPLETED Source: [place] 7:40 AM [facility] REPOSITORY Office Visit ([place]) AMELIA PLATA ([id number]) 1975 F Date Time Provider Department 08/17/17 7:40 AM FLORENCIO SEBASTIAN During your visit today, we recorded the following information about you: Pulse Respiration Blood pressure Weight 89/minute 16/minute 115/65 128.4 kg Florencio Sebastian MD 08/17/2017 9:27 AM Signed [facility] Follow-up/Established patient visit Date of last visit: 05/11/17 Impression: Obstructive sleep apnea - Stable Restless legs syndrome ? ? Actions taken: Motivational Interviewing aspects taken assessment Medications, allergies, hx Reviewed: yes OARRS Aspect: na ? Renewed the gabapentin at current dosing Encouraged her to talk to Dr Davenport about the right leg issue. ? Plan: Continue present regimen for now, but check again in August ? Florencio Sebastian MD ? Time in: 805 Time out: 830 For this visit, a total [id number] time with the patient comprised 25 minutes, with at least 50% of that time devoted to [id number]-[id number] counseling and coordination of care, with especial emphasis placed on answering the patient?s and/or family?s ?questions in a form that they can understand and appreciate. HPI: Ms Plata is a 41 yo female with PMH of Hypothyroid, DYLON on PAP, migraines, RLS, Anxiety and depression. Status of RLS remains the same since last visit. Reports stress level is high lately, thinks it is affecting sleep. Self reported compliance with PAP therapy, requests new supplies. SLEEP APNEA Sleep apnea type : DYLON, Treatment : PAP therapy DME: [facility] (changed at today's visit due to insurance coverage change) PAP History: Uses AutoPAP for 4-5 hours per night, 7 nights per week. Current PAP settin-16 cm H2O. Difficulties with AutoPAP: Yes: pressures seem low Objective PAP compliance data: sent order to [facility] to fax download Mask type: nasal mask Mask issues: air leak Uses chin strap: No Uses ramp function: Yes Uses humidity: Yes, Protocol: distilled water There is a perceived benefit by the patient: decreased snoring, but still has chronic fatigue Observers report abolition of snoring with AutoPAP use. RLS Current treatment : Medication(s) and timing : GBP 300 m cap at 730 and second by 930 PM Status : same as last visit, 70 % better from baseline Time of day symptoms begin : Depends on the day, 4- 5 PM, 6-7 PM, or some days no reported problems. Wearing tennis shoes helps symptoms throughout the day. Time of day symptoms are worst : At evening to night time SLEEP-WAKE SCHEDULE Bedtime: 1030 PM -130 AM, if she falls asleep in recliner this affects bed time. She does not use PAP machine when sleeping in recliner. Nocturnal wakings: wake up in the middle of the night, seems like too little pressures with PAP machine, and reports some leaks at that time. Wake time: 5 AM, with an alarm. On weekends, she tends to stay up until: it varies for bedtime and sleeps until 6-630 AM. Average total sleep time (in a 24 hour period): 6 hours. She does take naps. Frequency: weekends, Duration: 90 minutes. Naps are sometimes refreshing. SLEEP FUNCTIONAL OUTCOME MEASURES: reviewed and uploaded. See end of note for questionnaire answers. PAST MEDICAL HISTORY Diagnosis Date - Allergic rhinitis due to allergen 10/20/2012 Immunotherapy weekly, Dr. Leonard. - ANXIETY STATE NOS 12/29/2006 - CLASS MIGRAIN W/O MENTN INTRACTABLE 06/09/2007 - DEPRESSIVE DISORDER NEC 12/29/2006 - DJD (degenerative joint disease) of knee 03/30/2008 - Hidradenitis suppurativa 03/21/2014 - HYPERLIPIDEMIA NEC/NOS 12/29/2006 - HYPOGLYCEMIA NOS 12/29/2006 - Hypothyroidism 11/16/2011 Abnormal TSH - Obesity 12/29/2006 - DYLON on CPAP 04/28/2009 - Other specified disease of hair and hair follicles - Plantar fascial fibromatosis - Ptosis 07/11/2009 - Vitamin D deficiency 09/09/2010 PSH, SH: Reviewed SLEEP RELATED ROS GENERAL: See HPI HEENT: Negative for nasal congestion and post-nasal drip RESPIRATORY: Negative for nocturnal dyspnea, nocturnal cough, wheezing and dyspnea on exertion CARDIOVASCULAR: Negative for palpitations and chest pain GI: Negative for nocturnal GERD and GERD : Negative for nocturia MUSCULOSKELETAL: Negative for pain related to surgery/procedure and joint discomfort SKIN: Negative for mask irritation PSYCH: Positive for active stressors and anxiety ENDOCRINE: Negative for polyuria, polydipsia and thyroid problems NEURO: Negative for morning headaches and memory problems All other systems reviewed and are negative. ALLERGIES Allergen Reactions - Imitrex [Sumatripta* Neck pain - Maxalt [Rizatriptan* Other: See Comments Neck pain and nausea - Nabumetone hives - Prednisone Other: See Comments Abdominal pain and diarrhea - Allergies-Environme* CURRENT MEDICATIONS: [START ON 08/26/2017] gabapentin (NEURONTIN) 300 mg capsule Take 1 cap at 730 PM, take 1 cap at 930 PM, and take 1 cap at bedtime CPAP 1 Device by MISCELLANEOUS route daily at bedtime. 6-16 cm H2O, new mask suitable per pt preference. New supplies, humidity, filters, tubing, head gear, chin strap. Lifetime supplies G47.33 obstructive sleep apnea. Please fax day download to [phone]. lidocaine viscous (LIDOCAINE VISCOUS) 2 % solution Take 5 mL by mouth every 3 hours as needed for Pain. topiramate (TOPAMAX) 100 mg tablet Take 1 tablet by mouth twice daily. levothyroxine (SYNTHROID) 25 mcg tablet Take 1 tablet by mouth daily before breakfast. benzonatate (TESSALON PERLE) 100 mg capsule Take 1 capsule by mouth three times daily as needed. rOPINIRole (REQUIP) 4 mg tablet Take 1 tablet by mouth daily at bedtime. busPIRone (BUSPAR) 15 mg tablet One Tablet twice daily Omeprazole 40 mg capsule Take 1 capsule by mouth once daily. FLUoxetine HCl (PROZAC) 40 mg capsule Take 1 capsule by mouth once daily. propranolol (INDERAL) 10 mg tablet Take 1 tablet by mouth once daily. CPAP AutoPAP 6-16 cmH2O, suitable mask, humidity, filters. Lifetime supplies. Dx: G47.33 ergotamine-caffeine (CAFERGOT) 1-100 mg per tablet Two tablets at onset of attack; then 1 tablet every 30 minutes as needed; maximum: 6 tablets per 24 hrs do not exceed 10 tablets/week cetirizine (ZYRTEC) 10 mg tablet Take 1 tablet by mouth four times daily. As instructed by dispensing operator Dr. Ross ketorolac (TORADOL) 10 mg tablet Take 1 tablet by mouth every 6 hours as needed. To abort migraine. diphenhydrAMINE (BENADRYL) 25 mg capsule Take 2 capsules by mouth three times daily as needed. To abort migraine EPINEPHrine (EPIPEN) 0.3 mg/0.3 mL (1:1,000) atIn Cholecalciferol, Vitamin D3, 5,000 unit ORAL Cap Take 5,000 Units by mouth once daily. Vital signs: BP 115/65 (BP Site: Left Arm, BP Position: Sitting, BP Cuff Size: Large Adult) Pulse 89 Resp 16 Wt 128.4 kg (283 lb) BMI 44.32 kg/m2 PHYSICAL EXAM: General appearance: NAD, appropriate attire for season Mental status: Alert and oriented, good eye contact Speech: Logical and goal directed Lymph: No noticeable or palpable swelling, no lymphadenopathy Constitutional: WNL Skin: Warm, dry, and intact Eyes: PERRLA, EOM intact ENT : Nasal congestion absent, Posterior airspace: Mosqueda tongue position 2, retrognathia absent. Overbite present. High arched palate present. Tongue scalloping/ridging absent. Uvula: wnl Cardiac: Regular S1 and S2, no rubs, gallops, or murmurs Respiratory: Lungs clear to auscultation Musculoskeletal/ Extremities: No edema, cyanosis or clubbing, normal ROM Neuro: Gait stable, no tremors, hearing intact to conversation Impression: G47.33, Z99.89 DYLON on CPAP (primary encounter diagnosis) G25.81 Restless leg syndrome E66.01 Obesity, Class III, BMI 40-49.9 (morbid obesity) (HCC) F41.1 Anxiety state F32.9 Depressive disorder Clinical Global Impression of Change (CGI-C) Compared to the patient's condition at baseline, how much has the patient changed? Much improved OARRS website checked and validated. All prescriptions have been APPROPRIATELY filled. No suspicious activity was identified.- 08/17/2017 by Haydee Ma, FLORA Ms Plata is a 41 yo female with PMH of Hypothyroid, DYLON on PAP, migraines, RLS, Anxiety and depression. Status of RLS remains the same since last visit. Reports stress level is high lately, thinks it is affecting sleep. Self reported compliance with PAP therapy, requests new supplies. Plan: Obstructive sleep apnea: - Continue Auto CPAP at 6-16 cmH2O. - New DME possibly [facility] - Order placed for new mask, supplies due to possible air leak from mask - Request 30 day download - Sleep hygiene education provided - Remember to clean your mask and equipment regularly, as directed. - You should be eligible for new supplies approximately every 3-6 months, depending on your insurance coverage. Contact your Durable Medical Equipment (DME) company for new supplies as needed. RLS: - Increase GBP from 300 mg two cap spaced out HS, to 300 mg three cap spaced out HS, refills given - Nonmedical therapy for restless legs syndrome includes : cold/warm compresses, warm/hot baths or showers, gentle massage, mild leg stretching at nighttime, or magnesium supplements ( 500- 1000 mg at nighttime daily). -entally alerting activities help too. - Note the caffeine, alcohol, nicotine, antidepressants, anti- nausea meds and antihistamines can cause or worsen symptoms. Anxiety/ Depression: - Pt states that medications are managed by Dr. Rendon - With new active stressors offered psychology and psychiatry consult, but pt declined - Advised to follow up with Dr. Rendon Follow up in 3 month(s). Haydee Ma, RETAIL BUSINESS ANALYST I have interviewed the patient and personally reviewed all pertinent aspects of the history and physical examination. I confirmed all findings as recorded by the Nurse Practitioner. The Nurse Practitioner reviewed the case fully. On my exam, pt euthymic in mood and affect, was awake, alert, and coherent, with good gait and station, and had no additional issues to discuss beyond what the Nurse Practitioner covered. Pt had tried the Neupro patch, but developed severe skin reactions to that, so we are left with working with other meds. The pt said to me that the coverage for RLS now is about 70% of her original symptom. Mask leak may be an additional factor in suboptimal response to treatment. I participated in the management of the patient and agree with assessment and plan as documented by the Nurse Practitioner. Florencio Sebastian M.D. Referring Provider: FLORENCIO SEBASTIAN [[id number]] Allergies As of Date: 08/17/2017 Noted Allergy Reaction IMITREX (SUMATRIPTAN SUCCINATE) 08/21/2009 Comments: Neck pain MAXALT (RIZATRIPTAN BENZOATE) 03/01/2016 14 - Other: See Comments Comments: Neck pain and nausea NABUMETONE 04/28/2009 Comments: hives PREDNISONE 05/10/2016 14 - Other: See Comments Comments: Abdominal pain and diarrhea allergies-environmental to grass,*11/28/2009 Date Reviewed: 08/17/2017 Reviewed by: Haydee (Flora) FLORA Ma - Fully Assessed Reason for Visit: Established Patient [175] Cmt: 3 month follow up Refill Request [94] Primary Visit Diagnosis:DYLON on CPAP [G47.33, Z99.89] Other Visit Diagnoses:Restless leg syndrome [G25.81] Obesity, Class III, BMI 40-49.9 (morbid obesity) (HCC) [E66.01] Anxiety state [F41.1] Depressive disorder [F32.9] Order(s):[START ON 08/26/2017] gabapentin (NEURONTIN) 300 mg capsuleTake 1 cap at 730 PM, take 1 cap at 930 PM, and take 1 cap at bedtimeDisp: 90 capsuleRfl: 2 CPAP1 Device by MISCELLANEOUS route daily at bedtime. 6-16 cm H2O, new mask suitable per pt preference. New supplies, humidity, filters, tubing, head gear, chin strap. Lifetime supplies G47.33 obstructive sleep apnea. Please fax 30 day download to [phone].Disp: 1 DeviceRfl: 0 Prescriptions as of 08/17/2017 Sig: GABAPENTIN 300 MG CAPSULE Take 1 cap at 730 PM, take 1 * CPAP 1 Device by MISCELLANEOUS rou* LIDOCAINE 2 % MUCOSAL SOLUTION Take 5 mL by mouth every 3 ho* TOPIRAMATE 100 MG TABLET Take 1 tablet by mouth twice * LEVOTHYROXINE 25 MCG TABLET Take 1 tablet by mouth daily * BENZONATATE 100 MG CAPSULE Take 1 capsule by mouth three* ROPINIROLE 4 MG TABLET Take 1 tablet by mouth daily * BUSPIRONE 15 MG TABLET One Tablet twice daily OMEPRAZOLE 40 MG CAPSULE,SENA* Take 1 capsule by mouth once * FLUOXETINE 40 MG CAPSULE Take 1 capsule by mouth once * PROPRANOLOL 10 MG TABLET Take 1 tablet by mouth once d* CPAP AutoPAP 6-16 cmH2O, suitable * ERGOTAMINE 1 MG-CAFFEINE 100 * Two tablets at onset of attac* CETIRIZINE 10 MG TABLET Take 1 tablet by mouth four t* KETOROLAC 10 MG TABLET Take 1 tablet by mouth every * DIPHENHYDRAMINE 25 MG CAPSULE Take 2 capsules by mouth thre* EPINEPHRINE 0.3 MG/0.3 ML INJ* CHOLECALCIFEROL (VITAMIN D3) * Take 5,000 Units by mouth onc* Problem List As Of Date 08/17/2017 Noted Resolved Obesity, Class III, BMI 40-49.9 (morbid obesity*INVALID FOR* Priority: B More... Hypoglycemia, unspecified [E16.2] INVALID FOR*10/03/2014 HYPERLIPIDEMIA NEC/NOS [E78.5] INVALID FOR*10/03/2014 Anxiety state [F41.1] INVALID FOR* Priority: A More... Depressive disorder [F32.9] INVALID FOR* Priority: A More... DJD (degenerative joint disease) of knee [M17.1*INVALID FOR*03/21/2014 DYLON on CPAP [G47.33, Z99.89] INVALID FOR* Priority: B More... Ptosis [H02.409] INVALID FOR*10/03/2014 More... Vitamin D deficiency [E55.9] INVALID FOR*10/03/2014 Allergic rhinitis due to allergen [J30.9] INVALID FOR* Priority: B More... Pain in joint, lower leg [M25.569] INVALID FOR*03/21/2014 Dermatographic urticaria [L50.3] INVALID FOR* Priority: D More... Hidradenitis suppurativa [L73.2] INVALID FOR* Priority: D Tobacco use disorder [F17.200] INVALID FOR* Priority: C More... Restless leg syndrome [G25.81] INVALID FOR* Priority: B Vitamin D deficiency [E55.9] INVALID FOR* Priority: B Migraine with aura and without status migrainos*INVALID FOR* Priority: A Acquired hypothyroidism [E03.9] INVALID FOR* Priority: A Encounter for screening for cardiovascular diso*INVALID FOR* Encounter for screening for diabetes mellitus [*INVALID FOR* Iron deficiency concern [E61.1] INVALID FOR*05/11/2017 Encounter for gynecological examination without*INVALID FOR* Priority: E More... Well adult exam [Z00.00] INVALID FOR* More... Dyslipidemia [E78.5] INVALID FOR* Prescriptions ordered this encounter Disp Refills Start End GABAPENTIN 300 MG CAPSULE 90 c* 2 08/26/2017 11/28/2017 Sig: Take 1 cap at 730 PM, take 1 cap at 930 PM, and take 1 cap at bedtime CPAP 1 De* 0 08/17/2017 Class: Print RX Route: MISCELL. Si Device by MISCELLANEOUS route daily at bedtime. 6- 16 cm H2O, new mask suitable per pt preference. New supplies, humidity, filters, tubing, head gear, chin strap. Lifetime supplies G47.33 obstructive sleep apnea. Please fax 30 day download to [phone]. Medications Discontinued During This Encounter gabapentin (NEURONTIN) 300 mg capsule 60 c* 3 05/20/2017 08/17/2017 Route: ORAL Sig: Take 2 capsules by mouth at bedtime as needed. Disc: Reason for discontinue is not on file. Disposition: Return in about 3 months (around 11/15/2017). Follow-up and Disposition History Recorded Encounter Status:Closed by MD FLORENCIO SEBASTIAN on 08/17/17 DIAG MAMM W/CAD, Observed: 08/02/2017 Status: F Source: [place] 1:38 PM [facility] REPOSITORY [facility] Imaging Services [address] [place] [id number] DIAG MAMM W/CAD, UNILAT MR#: [id number] Acct: [id number] Name: AMELIA PLATA Rep #: [id number] : 1975 F 41 From: Javier Rivera MD PCP: Gray Rendon MD Status: REG CLI Study: DIAG MAMM W/CAD, UNILAT Date of Exam: 08/02/17 Exam# [id number] Ordering Dr: Bryon Trinh MD MAMMOGRAPHY - UNILATERAL DIAGNOSTIC: RIGHT BREAST REASON FOR EXAM: Female, 41 years old. Abnormal screening mammogram. PERTINENT HISTORY: Non-contributory. TECHNIQUE: Compression spot views of the right breast were obtained. CAD: Full Field Digital Mammography with Computer Added Detection was performed. COMPARISON: Comparison is made with prior mammogram dated July 26, 2017. FINDINGS: Breast Composition: There are scattered areas of fibroglandular density. The previously seen faint density on the craniocaudad view of the left breast most likely represents a skin lesion. Correlation with ultrasound is recommended. No other significant abnormalities are identified. HPBI/DIAG MAMM W/CAD, UNILAT IMPRESSION: The previously seen density in the right breast most likely represent a skin lesion. Correlation with ultrasound is recommended. ASSESSMENT CATEGORY: BIRADS Category 0: Incomplete. Need additional imaging evaluation. A letter regarding these results will be sent to the patient by the facility within 30 days. Approximately 10% of breast cancers are not detected by mammography. A normal mammogram should not delay biopsy of a clinically suspicious abnormality. Electronically Signed: Javier Rivera MD at 15:48 EST Tel [phone], Service support , CC: Gray Rendon MD; Bryon Trinh MD Hand Former: Signed BREAST LIMITED Observed: 08/02/2017 Status: F Source: [place] UNILATERAL 1:38 PM [facility] REPOSITORY [facility] Imaging Services [address] [place] [id number] Breast Limited Unilateral MR#: [id number] Acct: [id number] Name: AMELIA PLATA Rep #: [id number] : 1975 F 41 From: Javier Rivera MD PCP: Gray Rendon MD Status: REG CLI Study: Breast Limited Unilateral Date of Exam: 08/02/17 Exam# [id number] Ordering Dr: Bryon Trinh MD STUDY: ULTRASOUND BREAST - RIGHT REASON FOR EXAM: Female, 41 years old. Abnormal screening mammogram. TECHNIQUE: Axial and longitudinal images of the RIGHT breast were performed with a high resolution ultrasound transducer. COMPARISON: Comparison is made with prior mammogram done earlier today as well as 2016. FINDINGS: RIGHT Breast: The abnormality corresponds to a 4 mm x 4 mm x 2 mm hypodensity in the subcutaneous tissues suggestive of a skin lesion. Clinical correlation is recommended. US/Breast Limited Unilateral IMPRESSION: Findings suggestive of a small skin lesion deep to the skin changes. ASSESSMENT CATEGORY: BIRADS Category 2: Benign. A letter regarding these results will be sent to the patient by the facility within 30 days. Electronically Signed: Javier Rivera MD at 15:49 EST Tel [phone], Service support , CC: Gray Rendon MD; Bryon Trinh MD Hand Former: Signed SCREENING MAMM (CAD), Observed: 07/26/2017 Status: F Source: [facility] 7:31 AM [facility] REPOSITORY [facility] Imaging Services [address] [place] [id number] SCREENING MAMM (CAD), BIL MR#: [id number] Acct: [id number] Name: AMELIA PLATA Rep #: [id number] : 1975 F 41 From: Vahid Dewey MD PCP: Gray Rendon MD Status: REG CLI Study: SCREENING MAMM (CAD), BILAT Date of Exam: 07/26/17 Exam# [id number] Ordering Dr: Bryon Trinh MD MAMMOGRAPHY - BILATERAL SCREENING REASON FOR EXAM: Female, 41 years old. Baseline screening examination. PERTINENT HISTORY: The patient indicates great paternal alignment with breast cancer in her sixth decade. TECHNIQUE: Digital bilateral breast tomosynthesis (3-D mammographic acquisition) in the CC and MLO projections. Synthesized 2- D images (C-View reconstruction from tomosynthesis acquisition) providing bilateral breast CC and MLO views. Mediolateral oblique (MLO) and craniocaudad (CC) views of both breasts were obtained. CAD: CAD was performed on this study. COMPARISON: None. FINDINGS: Breast Density: C - Heterogeneously dense, which may obscure small masses. There is one-view asymmetry within the outer aspect of the right breast seen only convincingly on the CC views and C views. This finding is positioned approximately 7.6 cm from nipple base. No other significant abnormalities are identified. HPBI/SCREENING MAMM (CAD), BILAT IMPRESSION: Further imaging evaluation recommended, as described above. (E) ASSESSMENT CATEGORY: BIRADS Category 0: Incomplete. Need additional imaging evaluation. A letter regarding these results will be sent to the patient by the facility within 30 days. Recommendation: Focal compression outer aspect right breast, mid zone and right breast sonography. Approximately 10% of breast cancers are not detected by mammography. A normal mammogram should not delay biopsy of a clinically suspicious abnormality. [id number] Electronically Signed: Vahid Dewey MD at 7:35 EST , Service support , CC: Gray Rendon MD; Bryon Trinh MD Hand Former: Signed ALLERGIES ALLERGIES DATE TYPE / CODE NAME / CODE REACTION SEVERITY SOURCE 04/27/2017 Drug sumatriptan Other Unknown [facility]/440194134( succinate/W31787 [facility]) 4045(RXNORM) Hospital Repository 04/27/2017 Drug nabumetone/F0060 Rash Unknown [facility]/033142359( 21203(RXNORM) [facility] Repository 04/27/2017 Drug sumatriptan/F006 Other Unknown [place] Allergy/002194651( 632388(RXNORM) [facility] Rep[facility] 05/10/2016 DRUG [facility]EDNISONE [facility]: [id number] [place] Repository 05/10/2016 DRUG PREDNISONE OTHER: SEE [facility]/[id number]( Clinic Main SNOMED CT) [place] Repository 03/01/2016 DRUG RIZATRIPTAN OTHER: SEE [facility] INGREDI/[id number]( BENZOATE Clinic Other SNOMED CT) [place] Repository 03/01/2016 DRUG RIZATRIPTAN OTHER: SEE [facility] [place] INGREDI/[id number]( BENZOATE Clinic Main SNOMED CT) [place] Repository 11/28/2009 Miscellaneous OTHER OTHER: SEE [facility] Allergy/328143778( Clinic Other SNOMED CT) [place] Repository 11/28/2009 Miscellaneous OTHER [place] All[facility]/995588060( Clinic Main SNOMED CT) [place] Repository 08/21/2009 DRUG SUMATRIPTAN OTHER: SEE C [facility] INGREDI/[id number]( SUCCINATE Clinic Other SNOMED CT) [place] Repository 08/21/2009 DRUG SUMATRIPTAN [place] INGREDI/[id number]( SUCCINATE Clinic Main SNOMED CT) [place] Repository 04/28/2009 DRUG NABUMETONE HIVES [facility] INGREDI/119459895( Clinic Other SNOMED CT) [place] Repository 04/28/2009 DRUG NABUMETONE [place] INGREDI/579925818( Clinic Main SNOMED CT) [place] Repository NG/768272475(SNOME NABUMETONE [facility] Rep[facility] NG/342562626(SNOME [facility] Repository NG/544829163(SNOME SUMATRIPTAN [facility] SUCCINATE [facility] Repository NG/945895167(SNOME RIZATRIPTAN [facility] BENZOATE [facility] Repository NG/655475145(SNOME PREDNISONE [facility] Health System Repository ENCOUNTERS ENCOUNTERS ADMIT/DISCHARGE ACCOUNT NUMBER ADMITTING ENCOUNTER LOCATION SOURCE CLASS 06/28/2018 [id number] Ambulatory [facility] ding:[facility] Repository 05/24/2018/05/26/20 [id number] Ambulatory [address] Main [place] Repository 05/03/2018/05/04/20 [id number] Ambulatory [address] Main [place] Repository 05/01/2018/05/03/20 [id number] Ambulatory [address] Main [place] Repository 04/28/2018/05/01/20 [id number] Ambulatory [address] Main [place] Repository 04/27/2018/04/28/20 [id number] Ambulatory [address] Main [place] Repository 03/09/2018/03/09/20 [id number] Ambulatory [address] Other [place] Repository 03/09/2018/03/09/20 [id number] Ambulatory [address] MEDICAL Repository CENTERBuildi ng:[facility] 02/17/2018/02/18/20 [id number] Ambulatory [address] Main [place] Repository 02/16/2018/02/17/20 [id number] Ambulatory [address] Other [place] Repository 02/16/2018/02/17/20 [id number] Ambulatory [address] MEDICAL Repository CENTERBuildi ng:[facility] 02/10/2018/02/11/20 [id number] Ambulatory [address] Main [place] Repository 02/06/2018/02/08/20 [id number] Ambulatory [address] Main [place] Repository 12/22/2017/12/24/19 [id number] Ambulatory [address] Main [place] Repository 11/30/2017/12/01/19 [id number] Ambulatory [address] Main [place] Repository 11/30/2017/12/02/19 [id number] Ambulatory [address] Main [place] Repository 11/28/2017/11/29/19 [id number] Ambulatory [address] Main [place] Repository 11/28/2017/11/30/19 [id number] Ambulatory [address] Main [place] Repository 11/25/2017/11/26/19 [id number] Ambulatory [address] Main [place] Repository 11/25/2017 [id number] Ambulatory [facility] Hospital ding:[facility] Repository 11/25/2017 [id number] Ambulatory BMSBuilding: [facility] Repository 11/23/2017/11/25/19 [id number] Ambulatory [address] Main [place] Repository 11/16/2017/11/17/19 [id number] Ambulatory [address] Main [place] Repository 11/16/2017 [id number] Ambulatory [facility] Main [place] Repository 11/09/2017/11/11/19 [id number] Ambulatory [address] Main [place] Repository 08/22/2017/08/22/19 [id number] Ambulatory [address] Main [place] Repository 08/17/2017/08/17/19 [id number] Ambulatory [address] Repository 08/02/2017 [id number] [facility] ding:US Repository 07/26/2017 [id number] Amb[facility] ding: Repository PAYERS PAYERS ENCOUNTER GUARANTOR PAYER SUBSCRIBER SOURCE 06/28/2018 [facility] Primary [facility] [id number] Insurance:ANTHEMPolic JordanDOB: [facility] [place]: [id number] [id number] Repository [address]Xep: (330) Date:8416-69-39[phone] () [id number], [place] [address]GX: 06/28/2018 Secondary NOT GIVENUNK John Insurance:SELF PAY [facility] Number: Effective Repository Date:2018-06-28 03/09/2018 AMELIA A [facility]UE CARD JORDANDOB: Health System POSPolicy Number: [id number] Repository ROBINHOOD [id number] [place], [place] Date: [address]Ior: () 02/16/2018 AMELIA A Primary [facility]ACHO [facility] Insurance:BLUE CARD SIBLEYDOB: Health System POSPolicy Number: [id number] Repository ROBINHOOD [id number] [place], [place] Date: [address]Nxv: () 11/25/2017 Ch[facility] Primary Chacho John Insurance:ANTHEMPolic JordanDOB: [facility] [place] y Number: [id number] [id number] Repository [address]Oqf: 330) Date:9240-83-74[phone] () [id number], [place] [address]ED: 11/25/2017 Secondary NOT GIVENUNK [place] Insurance:SELF PAY [facility] Number: Effective Repository Date:2017-11-24 [facility]/2017 [facility]:ANTHEMPolic JordanDOB: [facility] [place] y Number: [id number] [id number] Repository [address]Lew: (330) Date:3049-17-41[phone] () [id number], [place] [address]JS: 11/25/2017 Secondary NOT GIVENUNK John Insurance:SELF PAY [facility] Number: Effective Repository Date:2017-11-25 08/02/2017 [facility] John Insurance:ANTHEMPolic JordanDOB: [facility] [place] y Number: [id number], [place] [id number] Repository [address]Own: (330) Date:7000-41-29PW [phone] () 042500CUTZXQHCORTNEY ROWE [address]AJ: 08/02/2017 Secondary NOT GIVENUNK [place] Insurance:SELF PAY [facility] Number: Effective Repository Date:2017-07-28 07/26/2017 [facility] [id number] Insurance:ANTHEMPolic JordanDOB: [facility] [place] y Number: [id number] [id number] Repository [address]Pyn: (330) Date:2057-60-07PM [phone] () [id number] ROWE [address]NO: 07/26/2017 Secondary NOT GIVENUNK [place] Insurance:SELF PAY [facility] Number: Effective Repository Date:2017-06-22
== END ==
PROVIDERS: Visit Provider Obstetrics & Gynecology
DX: Z12.4 Encounter for screening for malignant neoplasm of cervix (principal)
CPT/HCPCS: 87624; 88175; G0145

== ENCOUNTER → 2018-09-14 07:00 | Outpatient (CLI) | payer BC, SELFPAY ==
--- NOTE | 2018-09-14 06:56 | BI_ITS ---
MAMMOGRAPHY - BILATERAL SCREENING REASON FOR EXAM: Female, 42 years old. Routine annual screening examination. PERTINENT HISTORY: Non-contributory. TECHNIQUE: Digital bilateral breast pelon (3D mammographic acquisition) in the CC and MLO projections. 2-D mediolateral oblique (MLO) and craniocaudad (CC) views of both breasts were obtained. CAD: Full Field Digital Mammography with Computer Added Detection was performed. COMPARISON: Comparison is made with prior study dated July 26, 2017 congenitally 2017. FINDINGS: Breast Composition: There are scattered areas of fibroglandular density. There are no dominant masses or suspicious calcifications. Stable benign-appearing bilateral axillary lymph nodes. No other significant abnormalities are identified. There has been no significant change since the prior study. BI/SCREENING MAMM (CAD), BILAT IMPRESSION: Stable bilateral screening mammogram. Yearly follow-up mammogram recommended. (A) ASSESSMENT CATEGORY: BIRADS Category 2: Benign. A letter regarding these results will be sent to the patient by the facility within 30 days. Approximately 10% of breast cancers are not detected by mammography. A normal mammogram should not delay biopsy of a clinically suspicious abnormality. [id number] Electronically Signed: Javier Rivera MD at 10:07 EST , Service support ,
== END ==
PROVIDERS: Family Provider Family Medicine; PCP Family Medicine; Referring Provider Obstetrics & Gynecology; Visit Provider Obstetrics & Gynecology
DX: Z12.31 Encounter for screening mammogram for malignant neoplasm of breast (principal)
CPT/HCPCS: 77063; 77067

== ENCOUNTER → 2022-04-23 | Outpatient (CLI) | payer BC, SELFPAY ==
[2022-05-02 09:25] LABS: HPV APTIMA, High Risk Negative (Negative)
== END | disposition home or self-care (01) ==
LOC: LABSPEC 16:00
PROVIDERS: PCP Family Medicine; Visit Provider Obstetrics & Gynecology
DX: Z11.3 Encounter for screening for infections with a predominantly sexual mode of transmission (principal)
CPT/HCPCS: 87624; 88175; G0145

== ENCOUNTER 2024-06-18 06:44 | Emergency (ER) | payer BC, SELFPAY ==
[2024-06-18] VITALS (7 sets, daily range): BP systolic 89–142; BP diastolic 61–84; PULSE 85–93; RESP 16–17; TEMP 36.4–36.6; O2SAT 96–100; BMI 40.8
--- NOTE | 2024-06-18 06:50 | EX.ED.DYSGE1 ---
HPI History of Present Illness Chief Complaint: Allergic Reaction Detail of Chief Complaint: Allergic reaction to doxycycline Informant: patient Onset/Context/Timing Onset: Today Context: Sudden Onset Timing: Continuous Quality: Patient was prescribed doxycycline for presumed sinus infection Location: Angioedema, dysphonia, hives Current Severity: Moderate Maximum Severity: Moderate Worsened by: Presumed doxycycline Relieved by: Nothing Associated Symptoms Associated Symptoms: HPI narrative Narrative Narrative: Patient is a 48-year-old woman. She states she has had sinus symptoms for approximate 3 days. She was seen at the [facility] urgent care yesterday. She was prescribed doxycycline. She has taken doxycycline in the past. She states last evening she awoke. She felt better with upper lip was swollen. She thought it was may be due to her BiPAP mask not being properly. Upon awakening this morning she notes she has hives. She also complains of her tongue being thick, throat tightness and does endorse slight hoarseness to her voice. She denies nausea, vomiting diarrhea. She denies orthostatic symptoms. She denies cardiac respiratory symptoms. Prior similar symptoms: No Recent Illness/Hospitalization: Yes (Presumed sinus infection) [facility] Medical History (Updated 06/18/24 @ 09:[address] Bernard Flores MD) Obstructive sleep apnea GERD (gastroesophageal reflux disease) Migraines Hypothyroid Home Medications ?Medication ?Instructions ?Recorded ?Last Taken ?Type Cetirizine Hcl [Zyrtec] 20 mg PO BID 07/16/16 04/27/17 History Topiramate [Trokendi Xr] 100 mg PO BID 07/16/16 1 Day Ago History ~04/26/17 ergocalciferol (vitamin D2) 1,250 1 cap PO DAILY 07/16/16 1 Day Ago History mcg (50,000 unit) capsule (Vitamin ~04/26/17 D2) gabapentin 300 mg capsule 600 mg PO QHS 04/27/17 1 Day Ago History ~04/26/17 propranolol 10 mg tablet 10 mg PO DAILY 04/27/17 04/27/17 History buspirone 15 mg tablet 15 mg PO TID 06/18/24 Unknown History citalopram 40 mg tablet 40 mg PO DAILY 06/18/24 Unknown History levothyroxine 50 mcg tablet 50 mcg PO DAILY 06/18/24 Unknown History Allergy/AdvReac Type Severity Reaction Status Date / Time doxycycline Allergy Angioedema Verified 11/18/24 09:05 nabumetone Allergy Rash Verified 06/18/24 06:45 sumatriptan (From Imitrex) Allergy Other Verified 06/18/24 06:45 sumatriptan succinate (From Allergy Other Verified 06/18/24 06:45 Imitrex) Social History Smoking Status: Unknown if ever smoked ROS ROS ED Constitutional Constitutional ED: Denies chills or fever(s) Eyes Eyes: Denies blurry vision or change in vision ENT ENT ED: Reports other Details: Per HPI narrative ; Denies ear pain, rhinorrhea or sore throat Cardiovascular Cardiovascular: Denies chest pain or palpitations Respiratory/Chest Respiratory/Chest: Reports cough and other Details: Patient states cough started this morning. ; Denies dyspnea or dyspnea on exertion Gastrointestinal Gastrointestinal: Denies abdominal pain, nausea or vomiting Integumentary Reports rash Psychiatric Psychiatric: Denies anxiety Hematologic/Lymphatic Hematologic/Lymphatic: Reports systems reviewed and no addt'l complaints, except as documented EXAM Physical Exam Const Vital Signs: 06/18/24 06:44 06/18/24 07:44 06/18/24 08:00 Temperature 97.5 F L Temperature Source Temporal Pulse Rate 93 86 87 Pulse Rate [Lying] Pulse Rate [Sitting (for 1 minute prior to obtaining)] Pulse Rate [Standing (for 1 minute prior to obtaining)] Respiratory Rate 16 16 16 Blood Pressure 128/84 H 97/65 89/61 L Blood Pressure [Lying] Blood Pressure [Sitting (for 1 minute prior to obtaining)] Blood Pressure [Standing (for 1 minute prior to obtaining)] Blood Pressure Mean 98 75 70 Blood Pressure Mean [Lying] Blood Pressure Mean [Sitting (for 1 minute prior to obtaining)] Blood Pressure Mean [Standing (for 1 minute prior to obtaining)] Pulse Ox 96 96 100 Oxygen Delivery Method Room Air Room Air 06/18/24 09:00 06/18/24 09:34 Temperature Temperature Source Pulse Rate 91 Pulse Rate [Lying] 85 Pulse Rate [Sitting (for 1 minute prior to obtaining)] 90 Pulse Rate [Standing (for 1 minute prior to obtaining)] 93 Respiratory Rate 17 Blood Pressure 116/73 Blood Pressure [Lying] 123/65 H Blood Pressure [Sitting (for 1 minute prior to obtaining)] 128/76 H Blood Pressure [Standing (for 1 minute prior to obtaining)] 142/64 H Blood Pressure Mean 87 Blood Pressure Mean [Lying] 84 Blood Pressure Mean [Sitting (for 1 minute prior to obtaining)] 93 Blood Pressure Mean [Standing (for 1 minute prior to obtaining)] 90 Pulse Ox 100 Oxygen Delivery Method Room Air Blood pressure reading at 0744 is 97/65. Blood pressure reading at 0 800 is 89/61. Blood pressure reading at 0815 was 93/61. Positive well nourished and well developed Constitutional Narrative: BMI is 40.9. General Appearance ED: well developed and NAD; Negative for cyanotic, diaphoretic or pallor HEENT Reports moist mucous membranes HEENT Narrative: Uvula is midline. Mallampati score is a 3. Patient's tongue is enlarged. There is slight discrepancy in size of upper and lower lip. There is no drooling. Eyes PERRL and EOMs intact bilaterally Neck no lymphadenopathy, supple and no JVD Neck Narrative: Trachea is midline. Mild inspiratory stridor with forced inspiration. Chest Wall palpation of chest normal Resp normal respiratory effort and clear to auscultation bilaterally Cardio regular rate, regular rhythm, S1 normal heart sound, S2 normal heart sound and no murmurs Extremity Negative for normal to inspection Extremity Narrative: Patient has urticaria noted there is no neurovasc optimized. There is no clubbing or cyanosis. There is no mottling. Neuro oriented x3 and CN's II-XII intact bilaterally Sensorium / Orientation: alert Psych mental status grossly normal Skin No no rashes or lesions noted, no wounds and skin turgor normal General Skin Exam: Negative for jaundice or pallor Rashes: rashes noted Patient has rash consistent with urticaria. MDM MDM MDM Narrative Medical decision making narrative: Patient presents with generalized allergic reaction with allergic angioedema and hives. Because of her lip swelling, tongue and hoarse voice with stridor on forced inspiration patient was treated with epinephrine, Solu-Medrol, Benadryl and Pepcid. Patient will be observed for minimum of 2 hours. Will have patient discontinue doxycycline. Since patient is only had symptoms for 3 days she by definition does not have a sinus infection. This most likely represents an upper respiratory infection and antibiotics are not warranted. History & Record Review Additional record(s) reviewed:: Prior ED visit (Last ER visit was 2016. Patient was seen for swelling of leg and abrasion.) Treatment and Re-Evaluation :: Patient was reassessed at 0710. The rash on her forehead is resolved. The rash on her extremities has improved markedly. Patient's voice is back to normal. Patient states her lip and tongue feels better. She also reports that her throat does not feel swollen at this time. Patient was informed that should be observed for a minimum of 2 to 4 hours. She also was informed that I would not prescribe an antibiotic when she goes home because of my opinion she does not have a sinus infection. This represents an upper respiratory infection. Patient most recent blood pressure is low. Patient's had 3 low blood pressures first noted at 0745. A 1 L bolus of normal saline was ordered. Patient states she needs to use the restroom. Nurse was informed have patient use bedpan. Patient was reassessed at 0903. Patient's blood pressure is 116 systolic. Her rash has resolved. The swelling of her lip and tongue have resolved. Her voice is back to normal. Patient was reassessed at 0950. Systolic pressure is now 120. Since patient's symptoms are resolved she was discharged to home. Critical Care Time Critical Care Time: Yes Critical care time (excluding procedures): 30-74 minutes (33), Including time spent: (History, physical, documentation, repeat evaluation. Treatment for allergic angioedema/hives and treatment with IV fluids for hypotension) and Discussing w/Patient &/or Family/Digital Account Supervisor Discharge Plan Triage Chief Complaint: Allergic Reaction ED Provider: Bernard Flores Dx/Rx/DC Orders Clinical Impression: Allergic angioedema, Acute urticaria, Acute upper respiratory infection, Acute hypotension Instructions: ED General Allergic Reactions, ED Angioedema Prescriptions: No Action ergocalciferol (vitamin D2) [Vitamin D2] 50,000 UNIT capsule 1 cap PO DAILY Cetirizine Hcl [Zyrtec] 10 MG tablet 20 mg PO BID Topiramate [Trokendi Xr] 100 MG Cap.Er.24h 100 mg PO BID propranolol 10 MG tablet 10 mg PO DAILY gabapentin 300 MG capsule 600 mg PO QHS Patient Comments: citalopram 40 mg tablet 40 mg PO DAILY levothyroxine 50 mcg tablet 50 mcg PO DAILY buspirone 15 mg tablet 15 mg PO TID Primary Care Provider: Gray Layne Referrals: Gray Layne MD [Primary Care Provider] - As Needed Afsaneh Chadwick DO [Med Staff - Active Staff] - Print Language: Albanian Disposition Disposition: Home, Self Care
[2024-06-18] MEDS: DiphenhydrAMINE 50 MG/ML Syringe 25 MG IV (06:55)
[2024-06-18] MEDS: MethylPREDNISolone 125 MG/2 ML Vial IV (06:56)
[2024-06-18] MEDS: Epi Pen (EQUIV) 0.3 MG Syringe IM (06:56)
[2024-06-18] MEDS: Famotidine 200 MG/20 ML MDV 20 MG in 0.9% Normal Saline (Pres. free 8 ML 300 MG IV (06:59)
[2024-06-18] MEDS: 0.9% Normal Saline (1000mL) 1,000 ML 1000 ML IV (08:42)
== END 2024-06-18 10:04 | disposition home or self-care (01) ==
PROVIDERS: Emergency Provider Emergency Medicine; PCP Family Medicine; Visit Provider Emergency Medicine
DX: L50.9 Urticaria, unspecified (principal); J06.9 Acute upper respiratory infection, unspecified; I95.9 Hypotension, unspecified; G47.33 Obstructive sleep apnea (adult) (pediatric); E03.9 Hypothyroidism, unspecified; Z79.899 Other long term (current) drug therapy
CPT/HCPCS: 96365; 96366; 96372; 96375; 96376; 99284; J7030; A4216; J3490